=== PATIENT | male | born 1995 | race Two or more races ===

== ENCOUNTER 2024-03-05 21:04 | Emergency (ER) | payer MEDICAID, SELFPAY ==
[2024-03-05 21:05] VITALS: BMI 35.9
[2024-03-05 21:28] VITALS: BP 153/99; PULSE 128; RESP 20; TEMP 36.8; O2SAT 95
--- NOTE | 2024-03-05 21:38 | PD.EDRME ---
Rapid Medical Screening Exam RME Arrival date/time: 03/05/24 21:04 28 year old male present to ED for c/o alcohol withdrawal, last drink 2 days ago I have greeted and performed a focused initial assessment of this patient. A comprehensive ED assessment and evaluation of the patient, analysis of all test results, and completion of the medical decision making process will be conducted by additional ED providers. Chief Complaint: Flu Like Symptoms Time Seen by Provider: 03/05/24 21:33 Vital signs: Vital Signs Temperature 98.2 F 03/05/24 21:28 Pulse Rate 128 H 03/05/24 21:28 Respiratory Rate 20 03/05/24 21:28 Blood Pressure 153/99 H 03/05/24 21:28 Pulse Oximetry (%) 95 03/05/24 21:28 Oxygen Delivery Method Room Air 03/05/24 21:28
--- NOTE | 2024-03-05 21:39 | EKG_ITS ---
[facility] Test Date: 2024-03-05 Pat Name: MONY WAN Department: Room: - Gender: Male B[employer]er: : 1995 Requested By: Ariel Gordon Order Number: [id number] Reading MD: Ariel Gordon Measurements Intervals [place] Rate: 128 P: 39 ND: 165 QRS: -18 QRSD: 97 T: 30 QT: 301 QTc: 440 Interpretive Statements SINUS TACHYCARDIA MINIMAL VOLTAGE CRITERIA FOR LVH, CONSIDER NORMAL VARIANT [MEETS CRITERIA IN ONE OF: R(aVL), S(V1), R(V5), R(V5/V6)+S(V1)] POSSIBLE ANTERIOR MYOCARDIAL INFARCTION , OF INDETERMINATE AGE [30 ms Q WAVE IN V3/V4, OR R < 0.2 mV IN V4] Compared to ECG 08/29/2023 14:55:12 Myocardial infarct finding now present /store/S0/[id number]/[id number].pdf
[2024-03-05] MEDS: ONDANSETRON ODT 4 MG TABRAP PO (21:54)
[2024-03-05] MEDS: LORazepam 0.5 MG TABLET PO (21:54)
[2024-03-05 22:01] LABS: Basophils # (Auto) 0.1 Thou/mm3 (0.0-0.2); Basophils % (Auto) 1 % (0-2.5); Eosinophils % (Auto) 0 % (0-10); Hematocrit 25.7 % (41.0-53.0); Immature Granulocytes % (Auto) 0 % (0-0); Immature Granulocytes Auto 0.02 Thou/mm3 (0.00-0.00); Lymphocytes # (Auto) 1.3 Thou/mm3 (1.0-4.8); Lymphocytes % (Auto) 25 % (10-50); Mean Corpuscular HGB Conc 30.7 g/dl (31.0-37.0); Mean Corpuscular Hemoglobin 23.5 pg (25.0-35.0); Mean Corpuscular Volume 77 fL (80-100); Monocytes # (Auto) 0.7 Thou/mm3 (0.0-0.8); Monocytes % (Auto) 14 % (0-12); Neutrophils # (Auto) 3.1 Thou/mm3 (1.8-7.7); Neutrophils % (Auto) 60 % (37-80); Nucleated Red Blood Cell # 0.02 Thou/mm3 (0.00-0.00); Nucleated Red Blood Cell % 0 /100 WBC (0); Platelet Count 165 Thou/mm3 (140-440); RDW Standard Deviation 49.7 fL (35.1-43.9); Red Blood Count 3.36 Miln/mm3 (4.50-5.90); White Blood Count 5.1 Thou/mm3 (3.8-10.6)
[2024-03-05 22:15] LABS: Amphetamine/Methamp Scrn,U Negative (Negative); Barbiturate Screen,Urine Negative (Negative); Benzodiazepines Screen,Urine Negative (Negative); Benzoylecgonine Screen, Ur Negative (Negative); Fentanyl Screen,Urine Negative (Negative); Opiate Screen,Urine Negative (Negative); THC Screen,Urine Negative (Negative)
[2024-03-05 22:17] LABS: Hemoglobin 7.9 g/dL (13.5-16.0)
[2024-03-05 23:03] LABS: Alanine Aminotransferase 218 U/L (10-49); Albumin, Serum 4.9 gm/dL (3.5-5.0); Albumin/Globulin Ratio 1.3 (1.2-2.2); Alkaline Phosphatase 188 U/L (46-116); Anion Gap 12 (7-16); Aspartate Amino Transferase 668 U/L (0-34); BUN/Creatinine Ratio 7 Ratio (12-20); Bilirubin,Total 1.7 mg/dL (0.3-1.2); Blood Urea Nitrogen 7 mg/dL (9-23); Calcium 9.5 mg/dL (8.3-10.6); Calcium (Corrected) 9.5 mg/dL (8.5-10.1); Carbon Dioxide 24.4 mMol/L (20.0-31.0); Chloride 97 mMol/L (98-107); Estimated Creatinine Clearance 137.5 mL/min (>60); Globulin 3.8 gm/dL (2.3-3.5); Glucose 116 mg/dL (74-106); Lipase 80 U/L (12-53); Osmolality,Calculated 265 (275-295); Sodium 133 mMol/L (136-145); Total Protein 8.7 gm/dL (5.7-8.2); eGFR > 60 See Note
--- NOTE | 2024-03-05 23:25 | PC.NURSE ---
CALLED PT IN ER LOBBY AND OUTSIDE AND NO ANSWER AT THIS TIME.
== END 2024-03-06 00:05 | disposition left against medical advice (07) ==
LOC: SERX 22:18
PROVIDERS: Physician Assistant; Emergency Provider Emergency Medicine; PCP Family Medicine
DX: F10.239 Alcohol dependence with withdrawal, unspecified (principal); Y90.8 Blood alcohol level of 240 mg/100 ml or more; R00.0 Tachycardia, unspecified; Z53.29 Procedure and treatment not carried out because of patient's decision for other reasons
CPT/HCPCS: 36415; 80053; 80307; 80320; 83690; 83735; 84484; 85025; 93005; 99281; Q0162; A9270; G0480

== ENCOUNTER 2024-03-14 13:47 | Emergency (ER) | payer MEDICAID, SELFPAY ==
[2024-03-14 14:10] VITALS: BP 145/97; PULSE 108; RESP 18; TEMP 37.2; O2SAT 99
[2024-03-14 14:22] VITALS: BMI 39.9
--- NOTE | 2024-03-14 14:59 | PD.EDRME ---
Rapid Medical Screening Exam RME Arrival date/time: 03/14/24 13:47 28-year-old male presents to the emergency department complaints of abdominal pain requesting blood transfusion patient AMA from hospital today Chief Complaint: General Adult/Misc Complain Time Seen by Provider: 03/14/24 13:52 Vital signs: Vital Signs Temperature 98.9 F 03/14/24 14:10 Pulse Rate 108 H 03/14/24 14:10 Respiratory Rate 18 03/14/24 14:10 Blood Pressure 145/97 H 03/14/24 14:10 Pulse Oximetry (%) 99 03/14/24 14:10 Oxygen Delivery Method Room Air 03/14/24 14:10
== END 2024-03-14 15:28 | disposition left against medical advice (07) ==
LOC: SERX 15:33
PROVIDERS: Emergency Provider Emergency Medicine
DX: R10.9 Unspecified abdominal pain (principal); Z53.29 Procedure and treatment not carried out because of patient's decision for other reasons
CPT/HCPCS: 80053; 85025; 85610; 85730; 86850; 86900; 86901; 99281

== ENCOUNTER 2024-03-27 18:57 | Emergency (ER) | payer MEDICAID, SELFPAY ==
[2024-03-27 19:57] VITALS: BP 143/88; PULSE 107; RESP 18; TEMP 37.6; O2SAT 98; BMI 37.8
--- NOTE | 2024-03-27 20:16 | XR_ITS ---
Examination: Testicular sonography complete Technique: Multiple high resolution grayscale sonographic images testes, assessment arterial inflow venous outflow Doppler spectral analysis carful analysis Exam date and time: March 27, 20242 hrs. Indications: Onset testicular swelling beginning this morning Findings: Right testis 4.0 x 2.6 x 3.0 cm Epididymis 15 mm Arterial flow testicle. No testicular mass Impression: Left testis 4.1 x 2.8 x 3.4 cm Epididymis 16mm Arterial flow testicle. No testicular mass Mild to moderate left hydrocele with internal septations Impression: No testicular torsion or testicular mass Mild to moderate left hydrocele with internal septations
--- NOTE | 2024-03-27 21:15 | EDNOTE_ITS ---
<Statement entered by Michell Singh MD - 04/03/24 17:50> As co-signing physician, I was present and available for consult prn. I concur with the plan and care as documented by the midlevel provider. ED Male Genitalurinary RME/HPI General Chief complaint: Extremity Problem,Nontraumatic Stated complaint: BILAT LEGS & TESTICLES SWOLLEN X AM Time Seen by Provider: 03/27/24 19:48 Arrival date/time: 03/27/24 18:57 28-year-old male with a history of alcohol abuse, jaundice, chronic lower extremity swelling, and liver disease reports with complaints of scrotal swelling since this morning. Patient is currently under the care of his primary care provider for jaundice and other conditions related to the liver disease. Patient noticed today swelling of the scrotum without pain or injury. Patient also states that he has lower extremity swelling but that has been present the scrotal swelling is new. He denies dysuria urinary urgency frequency hematuria penile discharge redness or lesions of the genital area. Patient states that he is awaiting some blood labs for his liver condition Limitations: no limitations Related Data Home Medications ?Medication ?Instructions ?Recorded ?Confirmed No Known Home Medications 03/12/24 03/12/24 Allergies Allergy/AdvReac Type Severity Reaction Status Date / Time No Known Allergies Allergy Verified 03/27/24 18:59 Review of Systems Constitutional Constitutional: Denies chills and Denies fever(s) Genitourinary Genitourinary: Denies difficulty urinating, Denies dysuria, Denies genital pain, Denies hematospermia, Denies hematuria, Denies penile discharge, Reports scrotal swelling, Denies testicular mass, Denies testicular pain and Denies urinary incontinence Musculoskeletal Musculoskeletal: Denies back pain and Denies myalgias Integumentary/Breasts Skin/Breast: Denies lesions, Denies rash and Denies sores Past Medical History Past Medical History CARDIAC: Negative Congestive Heart Failure RESPIRATORY: Negative Chronic Obstructive Pulmonary Disease (COPD) GENITOURINARY: Negative Renal Disease ENDOCRINE: Negative Diabetes Mellitus Type 1 or Diabetes Mellitus Type 2 OTHER HISTORY: Negative Blood Transfusion Reaction, Anesthesia Reactions or Cancer Social History SMOKING STATUS: Never smoker ED Exam General Limitations: Present no limitations General appearance: Present alert and in no apparent distress Neurological Exam Neurological exam: Present alert, oriented X3 and CN II-XII intact Psychiatric Psychiatric exam: Present normal affect and normal mood Course Course Course Narrative: 28-year-old male with a history of liver disease, jaundice, chronic lower extremity swelling, and alcoholism reports with complaints of swelling of the scrotum. Patient's ultrasound of the scrotum shows no torsion but a small hydrocele otherwise unremarkable. Differential diagnosis includes alcoholic hepatitis versus hydrocele vs epididymitis. Pt's issues appear to chronic, secondary to liver disease. He is otherwise stable and will be discharged home with follow up to PCP. Quality Measures none Orders Category Date Time Status US scrotum Stat Exams 03/27/24 20:16 Completed Vital Signs Vital signs: Vital Signs Temperature 99.6 F 03/27/24 19:57 Pulse Rate 107 H 03/27/24 19:57 Respiratory Rate 18 03/27/24 19:57 Blood Pressure 143/88 H 03/27/24 19:57 Pulse Oximetry (%) 98 03/27/24 19:57 Oxygen Delivery Method Room Air 03/27/24 19:57 Urogenital - Male Patient data External records reviewed:: None Clinical information provided by:: patient Social determinants that could affect healthcare access:: none Patient has the following chronic illnesses:: liver disease, jaundice, alcoholism How is presenting disease/condition affected by chronic disease/condition?: caused by Evaluation data The following diagnostics were reviewed and interpreted by me:: radiology exam(s) Lab and/or radiology exams considered but not ordered:: none Interpretation Summary: Negative for torsion, hydrocele noted Medications / Prescriptions Medications or Prescriptions considered but not ordered:: none Medication administrations:: none Consultations Consultation(s) initiated? (list below): No Diagnosis Urogenital Male Differential Diagnosis: urethritis, epididymitis and other (hydrocele, liver disease) Most likely diagnosis given after review of the tests above:: Hydrocele, liver disease Admission Indicated Admission indicated?: not indicated Admission Request Was there a request for admission?: No Disposition Plan Disposition Plan: Discharge Discharge Attestation Discharge Attestation: The patient and all family members were given an opportunity to ask questions and understood the discharge instructions. Discharge instructions specifically effects, indications for sooner follow up or return to the emergency department, and the expected course of current diagnosis. Patient condition: Stable Discharge Plan Plan Patient Disposition: HOME (Self Care) Prescriptions/Referrals Prescriptions/Med Rec: No Action No Known Home Medications Referrals: No Primary/Family,Physician [Primary Care Provider] - In 1 week Problem List Clinical Impression: Scrotal swelling Patient/Caregiver Discharge Instructions Discharge Activity: activity as tolerated Additional Instructions: follow up with your PCP in 24-48 hour. Return to the ER if symptoms worsen. Print Language: Chinese Stand Alone Forms: Daphnie Award Info., Patient Portal Info Letter
[2024-03-27 22:46] VITALS: RESP 18
== END 2024-03-27 22:47 | disposition home or self-care (01) ==
PROVIDERS: Emergency Provider Emergency Medicine
DX: N43.3 Hydrocele, unspecified (principal)
CPT/HCPCS: 76870; 99284

== ENCOUNTER 2024-03-30 12:58 | Inpatient (IN) | payer MEDICAID, SELFPAY ==
--- NOTE | 2024-03-30 | XR_ITS ---
MRI abdomen, without contrast. MRCP Date and time of exam: March 30, 2024 1619 hours INDICATIONS: Elevated total bilirubin today, dizziness episodes Technique: Multiple axial and coronal images of the abdomen have been obtained with the Siemens 1.5T MRI scanner. Images obtained included T1 weighted transverse images, T2-weighted transverse images, T2-weighted transverse images fat-suppressed, T2 weighted haste fat suppressed transverse images, T1 weighted images, in and out of phase images, T2-weighted coronal images, breath hold, T2 weighted haze coronal images as well as T2 weighted coronal thick slab images, MRCP. Findings: Hepatomegaly 29 cm, no focal liver lesions Gallbladder wall appears thickened and edematous Normal common bile duct 3 mm no common bile duct stones No enlargement of the pancreas no pancreatic edema No hydronephrosis Spleen not enlarged Aorta normal size IMPRESSION: Findings most consistent with acute acalculus cholecystitis, recommend repeat gallbladder sonography follow-up
[2024-03-30 13:07] VITALS: BP 128/81; PULSE 103; RESP 18; TEMP 36.9; O2SAT 98; BMI 38.0
[2024-03-30 14:20] LABS: Basophils # (Auto) 0.1 Thou/mm3 (0.0-0.2); Basophils % (Auto) 0 % (0-2.5); Eosinophils # (Auto) 0.1 Thou/mm3 (0.0-0.5); Eosinophils % (Auto) 1 % (0-10); Hematocrit 26.3 % (41.0-53.0); Immature Granulocytes % (Auto) 1 % (0-0); Immature Granulocytes Auto 0.37 Thou/mm3 (0.00-0.00); Lymphocytes # (Auto) 0.9 Thou/mm3 (1.0-4.8); Lymphocytes % (Auto) 3 % (10-50); Mean Corpuscular HGB Conc 31.2 g/dl (31.0-37.0); Mean Corpuscular Hemoglobin 24.6 pg (25.0-35.0); Mean Corpuscular Volume 79 fL (80-100); Monocytes % (Auto) 3 % (0-12); Neutrophils # (Auto) 27.8 Thou/mm3 (1.8-7.7); Neutrophils % (Auto) 92 % (37-80); Nucleated Red Blood Cell % 0 /100 WBC (0); Platelet Count 702 Thou/mm3 (140-440); RDW Standard Deviation 72.1 fL (35.1-43.9); Red Blood Count 3.33 Miln/mm3 (4.50-5.90); White Blood Count 30.3 Thou/mm3 (3.8-10.6)
[2024-03-30 14:24] LABS: Hemoglobin 8.2 g/dL (13.5-16.0)
[2024-03-30 14:36] LABS: INR 1.6 (0.9-1.3); Partial Thromboplastin Time 27.9 Seconds (22.0-36.0); Prothrombin Time 17.2 Seconds (9.0-12.2)
[2024-03-30 14:41] LABS: Amphetamine/Methamp Scrn,U Negative (Negative); Barbiturate Screen,Urine Negative (Negative); Benzodiazepines Screen,Urine Positive (Negative); Benzoylecgonine Screen, Ur Negative (Negative); Fentanyl Screen,Urine Negative (Negative); Opiate Screen,Urine Negative (Negative); THC Screen,Urine Negative (Negative)
[2024-03-30 15:00] LABS: Alanine Aminotransferase 59 U/L (10-49); Albumin, Serum 3.1 gm/dL (3.5-5.0); Albumin/Globulin Ratio 0.9 (1.2-2.2); Alcohol, Blood Medical < 10.0 mg/dL (0-10.0); Alkaline Phosphatase 503 U/L (46-116); Anion Gap 9 (7-16); Aspartate Amino Transferase 280 U/L (0-34); BUN/Creatinine Ratio 15 Ratio (12-20); Blood Urea Nitrogen 25 mg/dL (9-23); Calcium 8.1 mg/dL (8.3-10.6); Calcium (Corrected) 8.8 mg/dL (8.5-10.1); Carbon Dioxide 20.7 mMol/L (20.0-31.0); Chloride 96 mMol/L (98-107); Creatinine (Component) 1.7 mg/dL (0.6-1.3); Estimated Creatinine Clearance 83.4 mL/min (>60); Globulin 3.4 gm/dL (2.3-3.5); Glucose 136 mg/dL (74-106); Osmolality,Calculated 259 (275-295); Potassium 3.5 mMol/L (3.4-5.1); Sodium 126 mMol/L (136-145); Total Protein 6.5 gm/dL (5.7-8.2); eGFR 55 See Note
[2024-03-30 15:02] LABS: Bilirubin,Total 22.9 mg/dL (0.3-1.2)
[2024-03-30 15:24] LABS: Hepatitis A Antibody IgM Non Reactive (Non React); Hepatitis B Core Antibody IgM Non Reactive (Non React); Hepatitis B Surface Antigen Non Reactive (Non React); Hepatitis C Antibody Non Reactive (Non React)
[2024-03-30 15:28] VITALS: BP 120/74; PULSE 101; RESP 18; TEMP 37.4; O2SAT 98
--- NOTE | 2024-03-30 16:20 | PD.EDADULT ---
ED General RME/HPI General Chief complaint: Recheck/Abnormal Lab/Rx Stated complaint: Sodium is 121 Time Seen by Provider: 03/30/24 13:04 Arrival date/time: 03/30/24 12:58 RME / HPI RME / HPI narrative: 28-year-old male with significant history of alcohol use ~4 years presented in the ED after he was sent from his PCP Mani SKINNER, for low sodium levels. Patient recently went to [facility]. Will do to recommend him to follow-up with his PCP for poor liver function. PCP prescribed folic acid, omeprazole, and ibuprofen for pain. Patient had a sodium of 121 earlier today in her PCP office and subsequently recommended patient to come to the ED. He appeared to deny any symptoms. Patient denies headache, fever, chills, chest pain, palpitation, shortness of breath, dizziness, nausea, vomiting, diarrhea, or constipation. Allergies: none, Medications: FHx: none, surgical hx: none, Social hx: Alcohol use for 4 years (6 to 8- 12 oz malt beers daily), denies any tobacco use or illicit alcohol use. MD complaint: Low sodium levels Onset (ago): hour(s) Related Data Home Medications ?Medication ?Instructions ?Recorded ?Confirmed No Known Home Medications 03/12/24 03/12/24 Allergies Allergy/AdvReac Type Severity Reaction Status Date / Time No Known Allergies Allergy Verified 03/27/24 18:59 Review of Systems Review of Systems Systems Reviewed: All systems reviewed, normal except as documented Past Medical History Past Medical History CARDIAC: Negative Congestive Heart Failure RESPIRATORY: Negative Chronic Obstructive Pulmonary Disease (COPD) GENITOURINARY: Negative Renal Disease ENDOCRINE: Negative Diabetes Mellitus Type 1 or Diabetes Mellitus Type 2 OTHER HISTORY: Negative Blood Transfusion Reaction, Anesthesia Reactions or Cancer Social History SMOKING STATUS: Never smoker ED Exam Narrative Physical exam: Constitutional: well-nourished, male with jaundice in no acute distress, lying in bed. HEENT: NCAT, EOMI, reactive round pupils b/l, patent nares b/l, moist mucous membranes, on room air Lung: CTAB, no wheezing, no rhonchi, no crackles bilaterally Heart: Regular S1S2, no murmurs, gallops, or rubs Abdomen: Soft, distended, non-tender, abdominal straie , ascites, +++bowel sounds, central obesity present. Extremities: No cyanosis, clubbing, 1+ edema of b/l legs up to thighs, 2+ dorsalis pedis pulses present b/l Genitourinary: Swollen testicles and scrotal sac, negative penile discharge Neurologic: No focal sensory or motor deficits noted, AOx3, appropriate affect Skin: Warm, dry, no lesions or rashes noted Course Quality Measures none Orders Category Date Time Status CT Screening NOW Care 03/30/24 17:44 Active MRI Screening NOW Care 03/30/24 15:29 Active Consult to Gastroenterology Stat Cons 03/30/24 17:[address] abdomen pelvis w con Stat Exams 03/30/24 17:44 Ordered MR MRCP Stat Exams 03/30/24 Completed US gall bladder Stat Exams 03/30/24 17:20 Ordered Alcohol, Blood Medical Stat Lab 03/30/24 14:00 Completed CBC Stat Lab 03/30/24 14:00 Completed Comprehensive Metabolic Panel Stat Lab 03/30/24 14:00 Completed Drug Screen,Urine Stat Lab 03/30/24 13:57 Completed Hepatitis Acute Panel Stat Lab 03/30/24 14:00 Completed Partial Thromboplastin Time Stat Lab 03/30/24 14:00 Completed Prothrombin Time with INR Stat Lab 03/30/24 14:00 Completed cefTRIAXone [Rocephin] 2 gm Med 03/30/24 17:54 Active Sodium Chloride 0.9% (P) [Ns 0.9% (P)] 50 ml IV X1 Vital Signs Vital signs: Vital Signs Temperature 98.5 F 03/30/24 13:07 Pulse Rate 103 H 03/30/24 13:07 Respiratory Rate 18 03/30/24 13:07 Blood Pressure 128/81 03/30/24 13:07 Pulse Oximetry (%) 98 03/30/24 13:07 Oxygen Delivery Method Room Air 03/30/24 13:07 [facility] Patient data External records reviewed:: [facility] previous records Clinical information provided by:: patient and parent Social determinants that could affect healthcare access:: none Patient has the following chronic illnesses:: Liver disease, hx of alcohol use How is presenting disease/condition affected by chronic disease/condition?: exacerbated by Evaluation data The following diagnostics were reviewed and interpreted by me:: lab results Lab and/or radiology exams considered but not ordered:: Hyperbilirubinemia, Hyponatremia and possible SBP Interpretation Summary: Hyperbilirubinemia?bilirubin total 22.9 AST 280, ALT 59, alkaline phosphatase 503. Urine benzodiazepine- positive. Hypochloremia 96, hyponatremia sodium 126. MRCP: Hepatomegdaly and acalculus colecystitis US gallbladder pending CT A/P pending Medications Medications considered but not ordered:: None Medication administrations:: Medication Administration History Ceftriaxone Sodium 2 gm/ (Sodium Chloride) 50 mls @ 100 mls/hr IV X1 ONE Stop: 03/30/24 18:23 None Consultations Consultation(s) initiated? (list below): Yes Consultation #1 (Physician, Specialty, Details): Dr. Moss, Gastroenterology Diagnosis Differential Diagnosis ED Complaint MDM: Hepatocellular disease Most likely diagnosis given after review of the tests above:: None Admission Indicated Admission indicated?: indicated Explain why admission is indicated or not indicated:: Patient comes in with chronic alcohol use. He denies taking any alcohol over the past 2 weeks. However, patient was found hyponatremia in the ED. He also had elevated T. bili of 22.6. AST and LFTs are elevated with a greater than 2:1 ratio. On MRCP patient has acalculus cholecystitis, though clinically asymptomatic. Spoke with Dr. Moss who recommended admission for management of likely spontaneous bacterial peritonitis, but patient is currently afebrile, without any tenderness in the abdominal region. Or any signs of infection. Patient denies nausea, vomiting, dizziness, shortness of breath or diarrhea. Patient was noted to have dry cough. Patient require admission. Presented the case to afternoon Hospitalist team but they refuse to admit until CT A/P is done. Admission Request Was there a request for admission?: Yes Admission Attestation Admission request attestation: Discussed case with [] from Hospitalist service regarding admission. Discussed patients ED course, exam findings, labs, and radiology results. The Hospitalist [agrees,declines] to accept the patient for admission. Disposition Plan Disposition Plan: Admit Medical Decision Making MDM Narrative MDM Narrative: An icteric 28-year-old male with significant history of alcohol use ~4 years presented in the ED after he was sent from his PCP Mani SKINNER, for low sodium levels. Patient recently went to [facility] and was recommend follow-up with his PCP for poor liver function. ON 03/30/24, during his PCP visit, patient was found to have sodium of 121. On CMP done today in the ED, patient has a sodium of 126. Patient was found to have unremarkable bilirubin of 22.6, decision was made to order MRCP. Pending results of MRCP. If MRCP shows biliary obstruction, will proceed with plan. Dr. Moss recommends broad spectrum antibiotics for management of likely SBP. Patient's condition appears acute on chronic in the setting of liver disease. Pending CT a/p for admission for SBP and hyponatremia. Differential Diagnosis Differential Diagnosis: Hepatocellular disease Medical Records Medical records reviewed: Yes I reviewed the patient's medical records. Lab Data Lab results reviewed: Yes I reviewed the patient's lab results. 03/30/24 14:00 03/30/24 14:00 Labs: Lab Results 03/30/24 03/30/24 Range/Units 13:57 14:00 WBC 30.3 H (3.8-10.6) Thou/mm3 RBC 3.33 L (4.50-5.90) Miln/mm3 Hgb 8.2 L (13.5-16.0) g/dL Hct 26.3 L (41.0-53.0) % MCV 79 L (80-100) fL MCH 24.6 L (25.0-35.0) pg MCHC 31.2 (31.0-37.0) g/dl RDW Std Deviation 72.1 H (35.1-43.9) fL Plt Count 702 H D (140-440) Thou/mm3 Neut % (Auto) 92 H (37-80) % Lymph % (Auto) 3 L (10-50) % [place] % (Auto) 3 (0-12) % Eos % (Auto) 1 (0-10) % Baso % (Auto) 0 (0-2.5) % Neut # (Auto) 27.8 H (1.8-7.7) Thou/mm3 Lymph # (Auto) 0.9 L (1.0-4.8) Thou/mm3 [place] # (Auto) 1.0 H (0.0-0.8) Thou/mm3 Eos # (Auto) 0.1 (0.0-0.5) Thou/mm3 Baso # (Auto) 0.1 (0.0-0.2) Thou/mm3 Immature Gran # (Auto) 0.37 H (0.00-0.00) Thou/mm3 Absolute Nucleated RBC 0.00 (0.00-0.00) Thou/mm3 Immature Gran % 1 H (0-0) % Nucleated RBC % 0 (0) /100 WBC PT 17.2 H (9.0-12.2) Seconds INR 1.6 H (0.9-1.3) APTT 27.9 (22.0-36.0) Seconds Sodium 126 L (136-145) mMol/L Potassium 3.5 (3.4-5.1) mMol/L Chloride 96 L (98-107) mMol/L Carbon Dioxide 20.7 (20.0-31.0) mMol/L Anion Gap 9 (7-16) BUN 25 H (9-23) mg/dL Creatinine 1.7 H (0.6-1.3) mg/dL Estim Creat Clear Calc 83.4 (>60) mL/min eGFR 55 L (60 - ) See Note BUN/Creatinine Ratio 15 (12-20) Ratio Glucose 136 H (74-106) mg/dL Calculated Osmolality 259 L (275-295) Calcium 8.1 L (8.3-10.6) mg/dL Corrected Calcium 8.8 (8.5-10.1) mg/dL Total Bilirubin 22.9 H* (0.3-1.2) mg/dL AST 280 H (0-34) U/L ALT 59 H (10-49) U/L Alkaline Phosphatase 503 H (46-116) U/L Total Protein 6.5 (5.7-8.2) gm/dL Albumin 3.1 L (3.5-5.0) gm/dL Globulin 3.4 (2.3-3.5) gm/dL Albumin/Globulin Ratio 0.9 L (1.2-2.2) Urine Opiates Screen Negative (Negative) Urine Fentanyl Screen Negative (Negative) Ur Barbiturates Screen Negative (Negative) U Amphetamin/Meth Scrn Negative (Negative) U Benzodiazepines Scrn Positive A (Negative) U Cocaine Metab Screen Negative (Negative) U Marijuana (THC) Screen Negative (Negative) Ethyl Alcohol < 10.0 (0-10.0) mg/dL Hepatitis A IgM Ab Non Reactive (Non React) Hep Bs Antigen Non Reactive (Non React) Hep B Core IgM Ab Non Reactive (Non React) Hepatitis C Antibody Non Reactive (Non React) Radiology Data Radiology results reviewed: Yes I reviewed the patient's radiology results. Discharge Plan Prescriptions/Referrals Prescriptions/Med Rec: No Action No Known Home Medications Referrals: Mani Good PA-C [Primary Care Provider] - In 1 week Problem List Clinical Impression: SBP (spontaneous bacterial peritonitis), Acute hyponatremia, Hepatomegaly Patient/Caregiver Discharge Instructions Print Language: Croatian MD Attestation MD Attestation The patient was seen by the PGY-2. I, the supervising physician, also encountered and examined the patient while remaining present during the entire ER visit. I was available for consultation as needed. Working with the PGY 2, management, treatment plan, and documentation were formulated. I agree with the plan and documentation.
--- NOTE | 2024-03-30 17:20 | XR_ITS ---
Examination: Abdomen sonogram, Limited Date and time of exam: March 30, 2024 1825 hours INDICATIONS: Upper abdominal pain today, edematous thickened gallbladder wall on MRCP study today Technique: Real-time bach scale transabdominal sonographic images of the upper abdomen obtained. Findings: Gallbladder wall is thickened 0.9 cm with edema No gallstones Common bile duct 0.5 cm Pancreatic head 2.3 cm Marked hepatomegaly 29.3 cm fatty infiltration free fluid adjacent to the right lobe of the liver Patent IVC Normal hepatopedal portal venous flow IMPRESSION: Acute acalculous cholecystitis pattern
--- NOTE | 2024-03-30 17:44 | XR_ITS ---
Examination: CT abdomen with intravenous contrast CT pelvis with intravenous contrast 2-D coronal reconstructions 2-D sagittal reconstructions Date and time of exam:March 30, 20242007 hrs. Indications: Abdominal distention today. CTDI: vol (mGy) 13.3 DLP: (mGycm) 970 Technique: Multiple axial sections of the abdomen and pelvis have been obtained. 64 slice high-resolution scanner used. 3 mm axial sections have been obtained, post intravenous injection 30 cc [id number] 2-D sagittal, coronal reconstructions obtained. Low dose protocols were performed. One or more of the following dose reduction techniques were used; automated exposure control, adjustment of the mA and/or KV according to patient size, use of iterative reconstruction technique. Findings: Hepatomegaly 27 cm, liver is irregular in contour with diffuse fatty infiltration Splenomegaly AP dimension 15 cm Mild fluid subcapsular to the liver Marked gallbladder wall thickening and edema No pancreatic or splenic mass 10 mm left renal cyst with calcification No hydronephrosis or ureteral calculi Appendix is not diagnostically visualized Minimal ascites including mild free fluid in the pelvis Contracted urinary bladder Fat-containing left inguinal hernia Impression: Marked hepatomegaly, primary hepatocellular disease versus cirrhosis Mild ascites, splenomegaly 15 cm Gallbladder wall thickening, suspicious for acute cholecystitis, however the patient has ascites, HIDA scan follow-up would best assess for cystic duct obstruction
[2024-03-30 18:23] VITALS: BP 131/64; PULSE 100; RESP 18; TEMP 37.5; O2SAT 98
--- NOTE | 2024-03-30 18:28 | PC.CC ---
Patient is a 28 year-old male who presents to the hospital for Sodium being 121. Marlene JACK made vags-oa-byvo contact with patient. ASW introduced self, role, and reason for visit. Patient appeared alert and oriented to self, location, and situation. Patient was pleasant and engaged in initial assessment. At bedside was patient's mother, Bettye Hargrove whom patient provided consent to remain in the room during assessment. Patient confirmed information on demographics and reports to living with his mother. Patient is currently unemployed and is not attending school. Patient reports his mother is part of his support [employer]. The patient named his mother as his medical decision maker should he be unable to make his own decisions. Prior to being admitted to the hospital the patient was able to complete his own ADLs and Ambulate Independently. The patient does not use any DME. Patient receives primary care at [facility] with Mani Good and uses [facility] for prescription medication. Upon discharge the patient plans to return back home. administrative services manager to follow-up with any discharge needs.
[2024-03-30] MEDS: cefTRIAXone 2 GM in SODIUM CHLORIDE 0.9% (P) 50 ML IV (18:44)
--- NOTE | 2024-03-30 19:37 | EDNOTE_ITS ---
Emergency Room Addendum <Dedra Mendez - Last Filed: 03/30/24 21:40> Addendum Narrative: 1800: Care assumed from Dr. Hargrove and Dr. Bates, the previous shift emergency physician. Past medical, surgical, social and family history reviewed. Vitals and home medications reviewed. I will assume the care of the patient at this time, pending abdomen/pelvis CT and final disposition. Please refer to the emergency department record for history and examination from initial visit.? Physical exam by me shows patient under no acute distress at this time. 1999: Patient is going to CAT scan. 2048: Discussed test HPI, PMHx, lab, radiology results and/or management es pecially CAT scan results with Dr. Moss. Dr. Moss had discussed with resident Dr. Hargrove about this case and the plan was for the patient to be admitted due to his elevated white count, hyponatremia; due to no surgical abdomen at this time, he does not feel the patient needs a surgical consult. Will consult an admission to the hospitalist. I explained that the medicine team is concerned about this admission and he said that makes sense, however the patient has an elevated white count, recommends blood cultures to be followed, and does not recommend the patient be discharged home. 2149: Discussed with Dr. Huang, recommends to scan. Will consult tomorrow. RADIOLOGY Procedure(s): CT abdomen pelvis w con Accession Number(s): [id number] cc: Mani Good PA-C; Nereyda Hargrove; Iker Plaza MD~ Examination: CT abdomen with intravenous contrast CT pelvis with intravenous contrast 2-D coronal reconstructions 2-D sagittal reconstructions Date and time of exam:March 30, 20242007 hrs. Indications: Abdominal distention today. CTDI: vol (mGy) 13.3 DLP: (mGycm) 970 Technique: Multiple axial sections of the abdomen and pelvis have been obtained. 64 slice high-resolution scanner used. 3 mm axial sections have been obtained, post intravenous injection 30 cc [id number] 2-D sagittal, coronal reconstructions obtained. Low dose protocols were performed. One or more of the following dose reduction techniques were used; automated exposure control, adjustment of the mA and/or KV according to patient size, use of iterative reconstruction technique. Findings: Hepatomegaly 27 cm, liver is irregular in contour with diffuse fatty infiltration Splenomegaly AP dimension 15 cm Mild fluid subcapsular to the liver Marked gallbladder wall thickening and edema No pancreatic or splenic mass 10 mm left renal cyst with calcification No hydronephrosis or ureteral calculi Appendix is not diagnostically visualized Minimal ascites including mild free fluid in the pelvis Contracted urinary bladder Fat-containing left inguinal hernia Impression: Marked hepatomegaly, primary hepatocellular disease versus cirrhosis Mild ascites, splenomegaly 15 cm Gallbladder wall thickening, suspicious for acute cholecystitis, however the patient has ascites, HIDA scan follow-up would best assess for cystic duct obstruction Dictated By: Iker Plaza MD Procedure(s): US gall bladder Accession Number(s): [id number] cc: Mani Good PA-C; Nereyda Hagrrove; Iker Plaza MD~ Examination: Abdomen sonogram, Limited Date and time of exam: March 30, 2024 1825 hours INDICATIONS: Upper abdominal pain today, edematous thickened gallbladder wall on MRCP study today Technique: Real-time bach scale transabdominal sonographic images of the upper abdomen obtained. Findings: Gallbladder wall is thickened 0.9 cm with edema No gallstones Common bile duct 0.5 cm Pancreatic head 2.3 cm Marked hepatomegaly 29.3 cm fatty infiltration free fluid adjacent to the right lobe of the liver Patent IVC Normal hepatopedal portal venous flow IMPRESSION: Acute acalculous cholecystitis pattern Dictated By: Iker Plaza MD Procedure(s): MR MRCP Accession Number(s): [id number] cc: Mani Good PA-C; Lee Bates MD; Iker Plaza MD~ MRI abdomen, without contrast. MRCP Date and time of exam: March 30, 2024 1619 hours INDICATIONS: Elevated total bilirubin today, dizziness episodes Technique: Multiple axial and coronal images of the abdomen have been obtained with the Siemens 1.5T MRI scanner. Images obtained included T1 weighted transverse images, T2-weighted transverse images, T2-weighted transverse images fat-suppressed, T2 weighted haste fat suppressed transverse images, T1 weighted images, in and out of phase images, T2-weighted coronal images, breath hold, T2 weighted haze coronal images as well as T2 weighted coronal thick slab images, MRCP. Findings: Hepatomegaly 29 cm, no focal liver lesions Gallbladder wall appears thickened and edematous Normal common bile duct 3 mm no common bile duct stones No enlargement of the pancreas no pancreatic edema No hydronephrosis Spleen not enlarged Aorta normal size IMPRESSION: Findings most consistent with acute acalculus cholecystitis, recommend repeat gallbladder sonography follow-up Dictated By: Iker Plaza MD <Zully Reveles MD - Last Filed: 03/30/24 23:11> Addendum Narrative: 1800: Care assumed from Dr. Hargrove and Dr. Bates, the previous shift emergency physician. Past medical, surgical, social and family history reviewed. Vitals and home medications reviewed. I will assume the care of the patient at this time, pending abdomen/pelvis CT and final disposition. Please refer to the emergency department record for history and examination from initial visit.? Physical exam by me shows patient under no acute distress at this time. 1999: Patient is going to CAT scan. 2048: Discussed test HPI, PMHx, lab, radiology results and/or management especially CAT scan results with Dr. Moss. Dr. Moss had discussed with resident Dr. Hargrove about this case and the plan was for the patient to be admitted due to his elevated white count, hyponatremia; due to no surgical abdomen at this time, he does not feel the patient needs a surgical consult. Will consult an admission to the hospitalist. I explained that the medicine team is concerned about this admission and he said that makes sense, however the patient has an elevated white count, recommends blood cultures to be followed, and does not recommend the patient be discharged home. 2149: Discussed with Dr. Huang, recommends to Jer[facility]. Will consult tomorrow. Resident working with Dr Leonard made aware of the patient?s HPI, PMHx, lab and/or radiology results. Treatment plan was discussed. Will admit for further evaluation and management. Accepts patient for admission. RADIOLOGY Procedure(s): CT abdomen pelvis w con Accession Number(s): [id number] cc: Mani Good PA-C; Nereyda Hargrove; Iker Plaza MD~ Examination: CT abdomen with intravenous contrast CT pelvis with intravenous contrast 2-D coronal reconstructions 2-D sagittal reconstructions Date and time of exam:March 30, 20242007 hrs. Indications: Abdominal distention today. CTDI: vol (mGy) 13.3 DLP: (mGycm) 970 Technique: Multiple axial sections of the abdomen and pelvis have been obtained. 64 slice high-resolution scanner used. 3 mm axial sections have been obtained, post intravenous injection 30 cc [id number] 2-D sagittal, coronal reconstructions obtained. Low dose protocols were performed. One or more of the following dose reduction techniques were used; automated exposure control, adjustment of the mA and/or KV according to patient size, use of iterative reconstruction technique. Findings: Hepatomegaly 27 cm, liver is irregular in contour with diffuse fatty infiltration Splenomegaly AP dimension 15 cm Mild fluid subcapsular to the liver Marked gallbladder wall thickening and edema No pancreatic or splenic mass 10 mm left renal cyst with calcification No hydronephrosis or ureteral calculi Appendix is not diagnostically visualized Minimal ascites including mild free fluid in the pelvis Contracted urinary bladder Fat-containing left inguinal hernia Impression: Marked hepatomegaly, primary hepatocellular disease versus cirrhosis Mild ascites, splenomegaly 15 cm Gallbladder wall thickening, suspicious for acute cholecystitis, however the patient has ascites, HIDA scan follow-up would best assess for cystic duct obstruction Dictated By: Iker Plaza MD Procedure(s): US gall bladder Accession Number(s): [id number] cc: Mani Good PA-C; Nereyda Hargrove; Iker Plaza MD~ Examination: Abdomen sonogram, Limited Date and time of exam: March 30, 2024 1825 hours INDICATIONS: Upper abdominal pain today, edematous thickened gallbladder wall on MRCP study today Technique: Real-time bach scale transabdominal sonographic images of the upper abdomen obtained. Findings: Gallbladder wall is thickened 0.9 cm with edema No gallstones Common bile duct 0.5 cm Pancreatic head 2.3 cm Marked hepatomegaly 29.3 cm fatty infiltration free fluid adjacent to the right lobe of the liver Patent IVC Normal hepatopedal portal venous flow IMPRESSION: Acute acalculous cholecystitis pattern Dictated By: Iker Plaza MD Procedure(s): MR MRCP Accession Number(s): [id number] cc: Mani Good PA-C; Lee Bates MD; Iker Plaza MD~ MRI abdomen, without contrast. MRCP Date and time of exam: March 30, 2024 1619 hours INDICATIONS: Elevated total bilirubin today, dizziness episodes Technique: Multiple axial and coronal images of the abdomen have been obtained with the Siemens 1.5T MRI scanner. Images obtained included T1 weighted transverse images, T2-weighted transverse images, T2-weighted transverse images fat-suppressed, T2 weighted haste fat suppressed transverse images, T1 weighted images, in and out of phase images, T2-weighted coronal images, breath hold, T2 weighted haze coronal images as well as T2 weighted coronal thick slab images, MRCP. Findings: Hepatomegaly 29 cm, no focal liver lesions Gallbladder wall appears thickened and edematous Normal common bile duct 3 mm no common bile duct stones No enlargement of the pancreas no pancreatic edema No hydronephrosis Spleen not enlarged Aorta normal size IMPRESSION: Findings most consistent with acute acalculus cholecystitis, recommend repeat gallbladder sonography follow-up Dictated By: Iker Plaaz MD
[2024-03-30 19:54] VITALS: BP 116/67; PULSE 102; RESP 16; TEMP 37; O2SAT 100
--- NOTE | 2024-03-30 21:29 | ESCONSULT_ITS ---
HPI Data of Consult Primary Care Provider: Mani Good PA-C Consult Narrative Reason for consult: Abnormal liver function tests, leukocytosis, gross electrolyte abnormalitie History of present illness: 28 years old male evaluated in room 6 initially at the request of the internal medicine team Dr. Hargrove as well as the emergency room physician Dr Stephenson Patient has been drinking heavily but has not drank for last 3 weeks according to him and the mother in the room His initial laboratory workup showed total bilirubin of 22.9 AST ALT 218 89 and alk phos of 503 Patient was sent to the emergency room by the physician talent acquisition assistant Mani Babin for a sodium level of 121 In the ER the sodium level was 126 with a low chloride at 96 and a low osmolality at 259 cc:: cc: Review of Systems Review of Systems Systems Reviewed: All systems reviewed, normal except as documented Past Medical History Surgical History OTHER SURGICAL HX: As in the history of present illness Meds Home Medications and Allergies Home Medications ?Medication ?Instructions ?Recorded ?Confirmed ?Type folic acid 1 mg tablet 1 mg PO QID 03/30/24 03/30/24 History omeprazole 20 mg capsule,delayed 20 mg PO 1XD 03/30/24 03/30/24 History release Allergies Allergy/AdvReac Type Severity Reaction Status Date / Time No Known Allergies Allergy Verified 03/27/24 18:59 Exam Vital Signs Temp Pulse Resp BP Pulse Ox O2 Del Method 98.6 F 102 H 16 116/67 100 Room Air 03/30/24 19:54 03/30/24 19:54 03/30/24 19:54 03/30/24 19:54 03/30/24 19:54 03/30/24 19:54 Constitutional Comments: Alert oriented Routine HEENT Exam Comments: Icteric sclera Routine Respiratory Exam Comments: Normal to auscultation Routine Abdominal Exam Comments: Abdomen soft nontender active bowel sounds Results Labs 03/30/24 14:00 03/30/24 14:00 Labs: Short CBC 03/30/24 Range/Units 14:00 WBC 30.3 H (3.8-10.6) Thou/mm3 Hgb 8.2 L (13.5-16.0) g/dL Hct 26.3 L (41.0-53.0) % Plt Count 702 H D (140-440) Thou/mm3 BMP 03/30/24 14:00 Sodium 126 L Potassium 3.5 Chloride 96 L Carbon Dioxide 20.7 BUN 25 H Creatinine 1.7 H Glucose 136 H Calcium 8.1 L Liver Function 03/30/24 Range/Units 14:00 Total Bilirubin 22.9 H* (0.3-1.2) mg/dL AST 280 H (0-34) U/L ALT 59 H (10-49) U/L Alkaline Phosphatase 503 H (46-116) U/L Albumin 3.1 L (3.5-5.0) gm/dL Assessment and Plan Additional Assessment & Plan Additional Plan: # Acute decompensation of the chronic liver disease secondary to alcoholism # Coagulopathy # Hypoosmolar hypochloremic hyponatremia # Leukocytosis could be SBP unlikely biliary tract disease Plan Broad-spectrum antibiotics Not enough fluid in the belly to tap for culture and sensitivity Pancultures Monitor LFTs Correction of the hyponatremia Prognosis is guarded I will follow the patient with you
[2024-03-30] MEDS: THIAMINE 100 MG TABLET PO (22:39)
[2024-03-30] MEDS: PIPER/TAZO 3.375 GM 3.375 GM/50 ML BAG IV (22:47)
[2024-03-30 22:49] VITALS: BP 171/94; PULSE 94; RESP 18; TEMP 36.9; O2SAT 100
--- NOTE | 2024-03-30 22:56 | ESHP_ITS ---
Documentation for date of: 03/30/24 [facility] History of Present Illness History of present illness: The patient is a 28-year-old male with a history of alcohol use who presented to the ED on 03/30/2024 after being sent from his primary care due to low sodium level as seen on routine labs. Patient was in his usual state of health until about 3 weeks ago when he presented to his PCP and told that he might have liver disease and was advised to stop drinking alcohol. About 3 days later, patient was admitted to the hospital as he presented with fevers, anxiety and tremors as well as tachycardia all related to alcohol withdrawal. During the course of hospitalization, patient was found to have hyperbilirubinemia and transaminitis. He also had anemia, but refuse transfusion and left AMA He reports that he has stopped drinking for about 3 weeks but also started to notice yellowish discoloration of his skin and sclera as well as swelling in bilateral lower extremities. He presented to his primary care who started the patient on folic acid and omeprazole and had routine labs done. The patient presents today after being sent to the ED for low sodium level. He denies abdominal pain, fevers or chills, nausea vomiting or diarrhea. ED course: In the ED, patient was seen to be afebrile, normotensive slightly tachycardic. Labs showed WBC 30.3 Hgb 8.2 PLT 702 PT 17.2 INR 1.6 NA 126 CL 96 BUN 25 CR 1.7 glucose 136 calcium 8.8 T. bili 22.9 AST 280 ALT 59 ALP 503 albumin 3.1. U tox is positive for benzos and hep panel is negative. MRCP and gallbladder ultrasound showed acute acalculous cholecystitis pattern. The patient has been admitted for management of acute cholecystitis and possible sepsis, rule out SBP. PMHx-alcohol use PSHx- Nil Home meds-folic acid, omeprazole. Review of Systems Review of Systems Narrative Review of Systems: GENERAL: Denies fevers/chills or diaphoresis. HEENT: Denies headache or visual/hearing changes. Denies nasal discharge. NEURO: Denies unusual weakness or difficulty speaking. CARDIO: Denies chest pain or palpitations. PULM: Denies SOB, coughing, or wheezing. GI: Denies abdominal pain, N/V/C/D/reflux/gas, bright red blood per rectum or melena. Reports having BMs. URO: Denies burning/itching/pain/urinary changes. MSK/EXT/SKIN: Admits swelling in lower extremities PSYCH: Cooperative, pleasant mood & affect. Exam Vital Signs Temp Pulse Resp BP Pulse Ox O2 Del Method 98.5 F 94 18 171/94 H 100 Room Air 03/30/24 22:49 03/30/24 22:49 03/30/24 22:49 03/30/24 22:49 03/30/24 22:49 03/30/24 22:49 Narrative Exam GENERAL: AAOX3, icteric sclera and skin NEURO: ANODIZING LINE OPERATOR grossly intact, moves extremities x4 HEENT: Moist mucosa. Eyes open, symmetrical, & icteric CARDIO: No chest pain on palpation. Heart RRR, no obvious murmurs PULM: No noted coughing/dyspnea. Lungs CTA B/L GI: Abdomen soft, mildly distended, no pain on palpation. BSx4 URO/INTERACTIVE MEDIA PROJECT MANAGER:: No further abnormalities noted. SKIN/MSK/EXT: Bilateral pitting edema 3+ up to knees Results: Labs 03/31/24 05:15 03/30/24 14:00 Labs: Short CBC 03/30/24 Range/Units 14:00 WBC 30.3 H (3.8-10.6) Thou/mm3 Hgb 8.2 L (13.5-16.0) g/dL Hct 26.3 L (41.0-53.0) % Plt Count 702 H D (140-440) Thou/mm3 BMP 03/30/24 14:00 Sodium 126 L Potassium 3.5 Chloride 96 L Carbon Dioxide 20.7 BUN 25 H Creatinine 1.7 H Glucose 136 H Calcium 8.1 L Liver Function 03/30/24 Range/Units 14:00 Total Bilirubin 22.9 H* (0.3-1.2) mg/dL AST 280 H (0-34) U/L ALT 59 H (10-49) U/L Alkaline Phosphatase 503 H (46-116) U/L Albumin 3.1 L (3.5-5.0) gm/dL Quality Measures Quality Measures none Medications Home Medications and Allergies Home Medications ?Medication ?Instructions ?Recorded ?Confirmed ?Type folic acid 1 mg tablet 1 mg PO QID 03/30/24 03/30/24 History omeprazole 20 mg capsule,delayed 20 mg PO 1XD 03/30/24 03/30/24 History release Allergies Allergy/AdvReac Type Severity Reaction Status Date / Time No Known Allergies Allergy Verified 03/27/24 18:59 Visit Medications Acetaminophen (Acetaminophen 325 Mg Tablet) 650 mg PO Q6H PRN PRN Reason: Pain (1-3) and Fever>100.3 Stop: 04/29/24 21:35 Folic Acid (Folic Acid 1 Mg Tablet) 1 mg PO BID LISA Stop: 04/05/24 08:59 Piperacillin/Tazobactam/Dextrose (Zosyn) 3.375 gm in 50 mls @ 100 mls/hr IV Q8HR LISA Stop: 04/06/24 21:42 Lorazepam (Lorazepam 0.5 Mg Tablet) 0.5 mg PO Q4HR PRN PRN Reason: CIWA Score 2-6 Stop: 04/04/24 21:46 Ondansetron HCl (Ondansetron Inj 2 Mg/Ml Inj 2 Ml) 4 mg IV Q6H PRN; Protocol PRN Reason: NAUSEA OR VOMITING Stop: 04/29/24 21:40 Sennosides (Senna Tablet) 1 tab PO QDAY LISA; Protocol Stop: 04/30/24 08:59 Thiamine HCl (Thiamine 100 Mg Tablet) 100 mg PO BID LISA Stop: 04/04/24 21:59 Last Admin: 03/30/24 22:39 Dose: 100 mg Discontinued Medications Ceftriaxone Sodium 2 gm/ (Sodium Chloride) 50 mls @ 100 mls/hr IV X1 ONE Stop: 03/30/24 18:23 Last Infusion: 03/30/24 19:24 Dose: Infused Piperacillin/Tazobactam/Dextrose (Zosyn) 3.375 gm in 50 mls @ 100 mls/hr IV X1 ONE Stop: 03/30/24 22:29 Last Admin: 03/30/24 22:47 Dose: 100 mls/hr Assessment & Plan Assessment Summary: The patient is a 28-year-old male with a history of alcohol use who presented to the ED on 03/30/2024 due to low sodium lab levels seen on routine labs. Labs are significant for leukocytosis on hyperlipidemia. MRCP imaging consistent with acute acalculous cholecystitis #Acute acalculous cholecystitis #Possible sepsis, rule out SBP #Hepatocellular disease versus cirrhosis, likely alcoholic #Alcohol use disorder The patient presented with 3-week history of bilateral lower extremity edema, yellow discoloration of skin and sclera. Routine labs in the PCP had shown hyponatremia with sodium level of 121. Patient is currently asymptomatic and reports that he has stopped drinking alcohol for the past 3 weeks, previously drank heavily every day for about 10 months. ED labs significant for leukocytosis, hyponatremia, hyperbilirubinemia, transaminitis. Imaging consistent with acute acalculous cholecystitis pattern. GI Dr. Moss consulted, recommends to admit patient for perspective antibiotics and SBP prophylaxis. Plan: -Admit to MedSurg -Commence IV Zosyn -Blood cultures -Fluid restriction and low-sodium diet -N.p.o. after midnight -[facility] protocol -Gen surgery consulted, recommendations -GI consulted, appreciate recommendations -IV Lasix 40 mg x 1 then, daily -Spironolactone 25 mg daily #Moderate hypoosmolar hyponatremia Due to history of heavy alcohol use and hypervolemic state, combination labs and imaging, suspect liver disease-hepatocellular versus cirrhosis Admitting sodium 126 Plan: -Fluid restriction -Sodium checks every 4 hours -Continue to monitor CMP #Microcytic hypochromic anemia Hemoglobin-8.2, MCV-79 Plan: -Iron panel -Monitor H&H closely -Transfuse PRBC if Hgb less than 7 Health maintenance: Dispo: MedSurg Diet: Low sodium, NPO after midnight DVT: SCDs, HASBLED- 2 PT: Code:Full Case was discussed with attending physician, Dr Harinder Mann MD PGY-1 Attending Provider Attestation/Addendum Face to face evaluation was performed by me. I have personally seen and examined the patient. I discussed the assessment and plan with the entire medicine team. I reviewed available medical records, imaging studies, laboratory results. I agree with the above subjective data, objective findings, assessment and plan except as corrected by me or noted below RUQ pain Possible acalculous cholecystitis Sepsis, POa due to above, withotu septic shock Alcohol dependance syndrome - broad spectrum Abxs, gen Surgery consultation, keep NPO after midnight. Likely HIDA scan? SBP prophylaxis will be covered as well with Axbs labs GI consult MOnitor clinical course closely [facility]
[2024-03-30 23:34] VITALS: BP 164/56; PULSE 67
[2024-03-30] MEDS: FUROSEMIDE INJ 10 MG/ML 4ML VIAL 40 MG IVP (23:34)
[2024-03-30] MEDS: POTASSIUM CHLORIDE 20 mEq TABCR 40 MEQ PO (23:34)
[2024-03-30 23:42] VITALS: BMI 35.7
[2024-03-31] VITALS (10 sets, daily range): BP systolic 108–134; BP diastolic 68–87; PULSE 83–101; RESP 17–97; TEMP 36.1–36.4; O2SAT 97–100
[2024-03-31] MEDS: PIPER/TAZO 3.375 GM 3.375 GM/50 ML BAG IV ×3 (05:24→21:50)
[2024-03-31 05:45] LABS: Basophils # (Auto) 0.1 Thou/mm3 (0.0-0.2); Basophils % (Auto) 1 % (0-2.5); Eosinophils # (Auto) 0.1 Thou/mm3 (0.0-0.5); Eosinophils % (Auto) 0 % (0-10); Hematocrit 22.7 % (41.0-53.0); Immature Granulocytes % (Auto) 1 % (0-0); Immature Granulocytes Auto 0.22 Thou/mm3 (0.00-0.00); Lymphocytes # (Auto) 0.9 Thou/mm3 (1.0-4.8); Lymphocytes % (Auto) 4 % (10-50); Mean Corpuscular HGB Conc 30.8 g/dl (31.0-37.0); Mean Corpuscular Hemoglobin 24.8 pg (25.0-35.0); Mean Corpuscular Volume 81 fL (80-100); Monocytes # (Auto) 0.9 Thou/mm3 (0.0-0.8); Monocytes % (Auto) 4 % (0-12); Neutrophils # (Auto) 19.6 Thou/mm3 (1.8-7.7); Neutrophils % (Auto) 90 % (37-80); Nucleated Red Blood Cell % 0 /100 WBC (0); Platelet Count 655 Thou/mm3 (140-440); RDW Standard Deviation 75.4 fL (35.1-43.9); Red Blood Count 2.82 Miln/mm3 (4.50-5.90); White Blood Count 21.9 Thou/mm3 (3.8-10.6)
[2024-03-31 06:15] LABS: Ferritin 61 ng/mL (10.5-307.3); Total Iron Binding Capacity 204 mcg/dL (250-425)
[2024-03-31 06:22] LABS: Alanine Aminotransferase 52 U/L (10-49); Albumin, Serum 2.7 gm/dL (3.5-5.0); Albumin/Globulin Ratio 0.9 (1.2-2.2); Alkaline Phosphatase 435 U/L (46-116); Anion Gap 10 (7-16); Aspartate Amino Transferase 227 U/L (0-34); BUN/Creatinine Ratio 15 Ratio (12-20); Blood Urea Nitrogen 25 mg/dL (9-23); Calcium 7.9 mg/dL (8.3-10.6); Calcium (Corrected) 8.9 mg/dL (8.5-10.1); Carbon Dioxide 22.5 mMol/L (20.0-31.0); Chloride 96 mMol/L (98-107); Cholesterol 197 mg/dL (132-200); Creatinine (Component) 1.7 mg/dL (0.6-1.3); Estimated Creatinine Clearance 78.3 mL/min (>60); Glucose 100 mg/dL (74-106); HDL Cholesterol < 5 mg/dL (40-60); LDL Cholesterol,Calculated 136 mg/dL (0-130); Magnesium 2.4 mg/dL (1.6-2.6); Osmolality,Calculated 261 (275-295); Potassium 3.1 mMol/L (3.4-5.1); Sodium 128 mMol/L (136-145); Thyroid Stimulating Hormone 3.47 uIU/mL (0.55-4.78); Total Protein 5.7 gm/dL (5.7-8.2); Triglycerides 280 mg/dL (30-150); eGFR 55 See Note
[2024-03-31 06:25] LABS: Bilirubin,Total 19.6 mg/dL (0.3-1.2)
--- NOTE | 2024-03-31 06:42 | PC.NURSE ---
Was contacted by Lab regarding patient's critical value of total bilirubin. Nurse Guevara then contacted regarding critical value.
[2024-03-31 09:47] LABS: Iron 22 mcg/dL (65-175); Percent Iron Saturation 10 % (20-55); Unsaturated Iron Binding 182 (225-295)
[2024-03-31] MEDS: SENNA TABLET 1 TAB PO (10:28)
[2024-03-31] MEDS: POTASSIUM CHLORIDE 20 mEq TABCR 40 MEQ PO (10:28)
[2024-03-31] MEDS: CYANOCOBALAMIN INJ 1,000 mCg/ML VIAL 1000 MCG IM (10:29)
[2024-03-31] MEDS: THIAMINE INJ 100 MG/ML VIAL 2 ML IVP (10:29)
--- NOTE | 2024-03-31 11:26 | EKG_ITS ---
[facility] Test Date: 2024-03-31 Pat Name: MONY WAN Department: Room: S369A Gender: Male Group Managing Director: ANGEL : 1995 Requested By: Sergio Redding Order Number: [id number] Reading MD: Sergio Redding Measurements Intervals [place] Rate: 93 P: 20 KS: 174 QRS: -14 QRSD: 105 T: 7 QT: 466 QTc: 580 Interpretive Statements SINUS RHYTHM VOLTAGE CRITERIA FOR LVH [MEETS CRITERIA IN ONE OF: R(aVL), S(V1), R(V5), R(V5/V6)+S(V1)] PROLONGED QT INTERVAL Compared to ECG 03/05/2024 21:51:51 Prolonged QT interval now present Sinus tachycardia no longer present Myocardial infarct finding no longer present /store/[id number].pdf
[2024-03-31] MEDS: FUROSEMIDE INJ 10 MG/ML 4ML VIAL 60 MG IVP (11:34)
[2024-03-31] MEDS: FOLIC ACID INJ 1 MG/0.2 ML IVP ×2 (11:36→21:49)
--- NOTE | 2024-03-31 11:52 | ESPR_ITS ---
Documentation for date of: 03/31/24 Subjective Subjective Interval history: Patient was seen and examined bedside. Denies any other complaints. Stated that his lower extremity swelling decreasing over the last 2 to 3 days before the hospital admission. Dr Huang was consulted in view of suspicion of acute acalculous cholecystitis and pending his recommendations. Dr. Moss is already following the patient. Patient has positive FOBT on 03/13/2024. May need endoscopy and colonoscopy to rule out the cause of GI bleed and anemia. Exam Vital Signs Temp Pulse Resp BP Pulse Ox O2 Del Method 97.1 F 94 19 114/85 H 98 Room Air 03/31/24 07:50 03/31/24 11:34 03/31/24 07:50 03/31/24 11:34 03/31/24 07:50 03/31/24 07:50 Narrative Exam General: Awake and in no acute distress.icteric HEENT: Normocephalic, atraumatic, mucous membranes moist. Heart: Regular rate and rhythm, no murmurs. Lungs: Clear to auscultation with no wheezing or crackles. Abdomen: Soft, nondistended, nontender, positive bowel sounds. ?No guarding or rebound tenderness. Marked hepatomegaly noted. Neurologic: Alert and oriented x3, no gross neurological deficit, and patient able to move all 4 extremities. Extremities: Bilateral 4+ pitting pedal edema extending up to the knee. Skin: No rash or ecchymoses. Objective Labs 04/01/24 04:40 04/01/24 04:40 Labs: Laboratory Results - last 24 hr 03/30/24 03/30/24 03/30/24 13:57 14:00 22:35 WBC 30.3 H RBC 3.33 L Hgb 8.2 L Hct 26.3 L MCV 79 L MCH 24.6 L MCHC 31.2 RDW Std Deviation 72.1 H Plt Count 702 H D Neut % (Auto) 92 H Lymph % (Auto) 3 L [place] % (Auto) 3 Eos % (Auto) 1 Baso % (Auto) 0 Neut # (Auto) 27.8 H Lymph # (Auto) 0.9 L [place] # (Auto) 1.0 H Eos # (Auto) 0.1 Baso # (Auto) 0.1 Immature Gran # (Auto) 0.37 H Absolute Nucleated RBC 0.00 Immature Gran % 1 H Nucleated RBC % 0 PT 17.2 H INR 1.6 H APTT 27.9 Sodium 126 L Potassium 3.5 Chloride 96 L Carbon Dioxide 20.7 Anion Gap 9 BUN 25 H Creatinine 1.7 H Estim Creat Clear Calc 83.4 eGFR 55 L BUN/Creatinine Ratio 15 Glucose 136 H Calculated Osmolality 259 L Lactic Acid 1.0 Calcium 8.1 L Corrected Calcium 8.8 Phosphorus Magnesium Iron TIBC Iron Saturation Unsat Iron Binding Ferritin Total Bilirubin 22.9 H* AST 280 H ALT 59 H Alkaline Phosphatase 503 H Total Protein 6.5 Albumin 3.1 L Globulin 3.4 Albumin/Globulin Ratio 0.9 L Triglycerides Cholesterol LDL Cholesterol, Calc HDL Cholesterol Cholesterol/HDL Ratio TSH Urine Opiates Screen Negative Urine Fentanyl Screen Negative Ur Barbiturates Screen Negative U Amphetamin/Meth Scrn Negative U Benzodiazepines Scrn Positive A U Cocaine Metab Screen Negative U Marijuana (THC) Screen Negative Ethyl Alcohol < 10.0 Hepatitis A IgM Ab Non Reactive Hep Bs Antigen Non Reactive Hep B Core IgM Ab Non Reactive Hepatitis C Antibody Non Reactive 03/31/24 05:15 WBC 21.9 H D RBC 2.82 L Hgb 7.0 L Hct 22.7 L MCV 81 MCH 24.8 L MCHC 30.8 L RDW Std Deviation 75.4 H Plt Count 655 H D Neut % (Auto) 90 H Lymph % (Auto) 4 L [place] % (Auto) 4 Eos % (Auto) 0 Baso % (Auto) 1 Neut # (Auto) 19.6 H Lymph # (Auto) 0.9 L [place] # (Auto) 0.9 H Eos # (Auto) 0.1 Baso # (Auto) 0.1 Immature Gran # (Auto) 0.22 H Absolute Nucleated RBC 0.00 Immature Gran % 1 H Nucleated RBC % 0 PT INR APTT Sodium 128 L Potassium 3.1 L Chloride 96 L Carbon Dioxide 22.5 Anion Gap 10 BUN 25 H Creatinine 1.7 H Estim Creat Clear Calc 78.3 eGFR 55 L BUN/Creatinine Ratio 15 Glucose 100 Calculated Osmolality 261 L Lactic Acid Calcium 7.9 L Corrected Calcium 8.9 Phosphorus 4.0 Magnesium 2.4 Iron 22 L TIBC 204 L Iron Saturation 10 L Unsat Iron Binding 182 L Ferritin 61 Total Bilirubin 19.6 H* D AST 227 H ALT 52 H Alkaline Phosphatase 435 H D Total Protein 5.7 Albumin 2.7 L Globulin 3.0 Albumin/Globulin Ratio 0.9 L Triglycerides 280 H Cholesterol 197 LDL Cholesterol, Calc 136 H HDL Cholesterol < 5 L Cholesterol/HDL Ratio 39.0 H TSH 3.47 Urine Opiates Screen Urine Fentanyl Screen Ur Barbiturates Screen U Amphetamin/Meth Scrn U Benzodiazepines Scrn U Cocaine Metab Screen U Marijuana (THC) Screen Ethyl Alcohol Hepatitis A IgM Ab Hep Bs Antigen Hep B Core IgM Ab Hepatitis C Antibody Quality Measures Quality Measures none Assessment & Plan Assessment Current Active Medications: Generic Name Dose Route Start Last Admin Trade Name Freq PRN Reason Stop Dose Admin Acetaminophen 650 mg 03/30/24 21:36 Acetaminophen 325 Mg Tablet PO 04/29/24 21:35 Q6H PRN Pain (1-3) and Fever>100.3 Folic Acid 1 mg 03/31/24 09:00 03/31/24 11:36 Folic Acid Inj 1 Mg/0.2 Ml IVP 04/30/24 08:59 1 mg BID LISA Administration Furosemide 60 mg 03/31/24 10:30 03/31/24 11:34 Furosemide Inj 10 Mg/Ml 4ml Vial IVP 04/30/24 10:29 60 mg QDAY LISA Administration Piperacillin/Tazobactam/Dextrose 3.375 gm in 50 mls @ 12.5 mls/hr 03/31/24 06:00 03/31/24 05:24 Zosyn IV 04/06/24 21:42 12.5 mls/hr Q8HR LISA Administration Lorazepam 0.5 mg 03/30/24 21:47 Lorazepam 0.5 Mg Tablet PO 04/04/24 21:46 Q4HR PRN CIWA Score 2-6 Ondansetron HCl 4 mg 03/30/24 21:41 Ondansetron Inj 2 Mg/Ml Inj 2 Ml IV 04/29/24 21:40 Q6H PRN NAUSEA OR VOMITING Protocol Sennosides 1 tab 03/31/24 09:00 03/31/24 10:28 Senna Tablet PO 04/30/24 08:59 1 tab QDAY LISA Administration Protocol Thiamine HCl 100 mg 03/31/24 09:00 03/31/24 10:29 Thiamine Inj 100 Mg/Ml Vial 2 Ml IVP 04/04/24 08:59 100 mg QDAY LISA Administration Plan A 28-year-old male with recently diagnosed alcoholic liver disease and recent hospital admission for alcohol withdrawal presented to the hospital as referred by his PCP for hyponatremia and admitted in view of suspected acute acalculous cholecystitis. # Alcoholic liver disease # Decompensated liver disease -Patient was recently admitted in 02/2024 for alcohol withdrawal and diagnosed to have alcoholic liver disease -Patient went to his PCP for follow-up and on the labs found to have hyponatremia for which patient was referred to the hospital. -Patient denies abdominal pain, fever, nausea, vomitings, hematemesis, hematochezia, shortness of breath. -Stated that he is having bilateral lower extremity swelling since 10 days before the day of admission and improved over last 2 days. -On examination, there is diffuse yellowish discoloration all over the body and bilateral lower extremity swelling noted extending up to the knees. -Labs showed total bilirubin 22.9, AST 280, ALT 59, ALP 503. -Abdomen/pelvis CT showed marked hepatomegaly and splenomegaly. Plan -Started on IV diuresis and fluid restriction. -Will continue to monitor the patient. # Acute acalculous cholecystitis -Patient denies any symptoms of abdominal pain, nausea, vomitings, fever -On imaging patient was found to have acute acalculous cholecystitis on MRCP and gallbladder ultrasonography -WBC count is 30.3 at the time of admission Plan -Consulted Dr. Huang and will appreciate his recommendations -Started on IV Zosyn -Will continue to trend the CBC. As of 03/31/2024, WBC is downtrending to 21.9 # Hyponatremia Hypervolemic, likely due to alcoholic liver disease -Sodium at the time of admission is 126 -Patient denies any symptoms of confusion, weakness Plan -Started patient on IV diuresis -Sodium improved to 128 today -Will continue to monitor the electrolytes # Iron deficiency anemia -Patient hemoglobin is 8.2 -Iron panel showed iron deficiency anemia -Will continue to monitor CBC -If hemoglobin is less than 7, will transfuse -Iron infusions were withheld in view of ongoing suspected infection. -fecal occult blood test - tested positive on 03/13/2024 -Consulted Dr. Moss and will appreciate his recommendations Hospital Maintenance: Dispo: MedSurg DVT ppx: SCD GI ppx: Protonix Diet: Low-fat diet IV lines: Peripheral Code status: Full code Patient plan of care was discussed with the attending physician, Dr. Lozano and senior resident Dr. Alison Redding, PGY1 Attending Provider Attestation/Addendum I reviewed labs, imaging, EKG, home medications and prior available records. Face to face evaluation was performed by me. I have personally examined the patient and discussed assessment and plan with the IM team. I reviewed the resident note and agree with the plan with exceptions as below. Alcoholic hepatitis: None the setting of long significant history of alcohol drinking. Maddrey's score: On presentation more than 50. Start IV corticosteroids. Counseled the patient regarding the importance of alcohol cessation. Monitor PT/INR. Monitor LFTs. Acute cholecystitis: Started the patient on IV Zosyn. Consulted surgery. Management of pain/nausea as needed. Hyponatremia: Continue fluid restriction. Monitor BMP. Avoid rapid correction. AKIL: Continue IV diuresis. Monitor BMP. Avoid nephrotoxins. Renally dose medications. Microcytic anemia: Hemoglobin is borderline. No signs of active bleeding. GI was consulted. Recommended to continue monitoring H&H. Avoid alcohol use.
[2024-03-31 13:19] LABS: Protein Total, Random Urine 38 mg/dL (1-14)
[2024-03-31 13:21] LABS: Creatinine,Random Urine 62 mg/dL (30-125); Potassium,Urine Random 40 mMol/L (12-62); Sodium,Urine Random 41.7 mMol/L (20.0-110.0)
--- NOTE | 2024-03-31 18:10 | PD.SURCONS ---
HPI Consult details Consult date: 03/31/24 Reason for consultation narrative: Possible acalculous cholecystitis History of present illness: 28-year-old male with history of alcohol use disorder was admitted to the hospital because she was found to be hyponatremic. He has been drinking heavily for the past year and has been jaundiced for the past week. He denies abdominal pain, nausea or vomiting. He has been eating and tolerating diet well. CT scan revealed marked hepatosplenomegaly with ascites. Ultrasound and MRCP revealed gallbladder wall thickening with edema. Review of Systems Constitutional Constitutional: Denies chills and Denies fever(s) Cardiovascular Cardiovascular: Denies chest pain Respiratory Respiratory: Denies cough Gastrointestinal Gastrointestinal: Denies abdominal pain, Denies nausea and Denies vomiting Hematologic/Lymphatic Hematologic/Lymphatic: Denies easy bleeding and Denies easy bruising Past Medical History Surgical History OTHER SURGICAL HX: No surgeries in the past Social History SMOKING STATUS: Never smoker SUBSTANCE USE: does not use ALCOHOL: Current Meds Home Medications and Allergies Home Medications ?Medication ?Instructions ?Recorded ?Confirmed ?Type folic acid 1 mg tablet 1 mg PO QID 03/30/24 03/30/24 History omeprazole 20 mg capsule,delayed 20 mg PO 1XD 03/30/24 03/30/24 History release Allergies Allergy/AdvReac Type Severity Reaction Status Date / Time No Known Allergies Allergy Verified 03/27/24 18:59 Exam Vital Signs Temp Pulse Resp BP Pulse Ox O2 Del Method 97.3 F 89 17 124/72 97 Room Air 03/31/24 16:00 03/31/24 16:00 03/31/24 16:00 03/31/24 16:00 03/31/24 16:00 03/31/24 16:00 Constitutional Constitutional: no acute distress Routine HEENT Exam Eye: Present conjunctival icterus (Bilateral) Routine Abdominal Exam Abdominal: Present soft and normoactive bowel sounds; Absent tenderness or distended Results Results: Laboratory Laboratory results: results reviewed Results: Imaging Imaging narrative: Abdominal ultrasound, CT scan of abdomen pelvis and MRCP images reviewed, radiologist interpretation noted Assessment & Plan Problem List (1) Elevated LFTs: Status: Acute (2) Hepatomegaly: Status: Acute Plan He has significant elevation of liver enzymes due to his alcohol use disorder and he is hypercoagulable. He is asymptomatic and is highly unlikely that he has cholecystitis. Gallbladder wall thickening on imaging studies most likely due to his liver disease. There are no surgical intervention indicated as he is asymptomatic. If cholecystitis still a consideration he will require HIDA scan.
--- NOTE | 2024-03-31 20:22 | PD.IMPROG ---
Documentation for date of: 03/31/24 Subjective Subjective Interval history: LFTs improving bilirubin down to 19.6 AST ALT 06/22/1952 and alk phos of 435 On examination patient has no features of acute cholecystitis Exam Vital Signs Temp Pulse Resp BP Pulse Ox O2 Del Method 97.3 F 89 17 124/72 97 Room Air 03/31/24 16:00 03/31/24 16:00 03/31/24 16:00 03/31/24 16:00 03/31/24 16:00 03/31/24 16:00 Objective Labs 03/31/24 05:15 03/31/24 05:15 Labs: Laboratory Results - last 24 hr 03/30/24 03/31/24 03/31/24 22:35 05:15 12:55 WBC 21.9 H D RBC 2.82 L Hgb 7.0 L Hct 22.7 L MCV 81 MCH 24.8 L MCHC 30.8 L RDW Std Deviation 75.4 H Plt Count 655 H D Neut % (Auto) 90 H Lymph % (Auto) 4 L [place] % (Auto) 4 Eos % (Auto) 0 Baso % (Auto) 1 Neut # (Auto) 19.6 H Lymph # (Auto) 0.9 L [place] # (Auto) 0.9 H Eos # (Auto) 0.1 Baso # (Auto) 0.1 Immature Gran # (Auto) 0.22 H Absolute Nucleated RBC 0.00 Immature Gran % 1 H Nucleated RBC % 0 Sodium 128 L Potassium 3.1 L Chloride 96 L Carbon Dioxide 22.5 Anion Gap 10 BUN 25 H Creatinine 1.7 H Estim Creat Clear Calc 78.3 eGFR 55 L BUN/Creatinine Ratio 15 Glucose 100 Calculated Osmolality 261 L Lactic Acid 1.0 Calcium 7.9 L Corrected Calcium 8.9 Phosphorus 4.0 Magnesium 2.4 Iron 22 L TIBC 204 L Iron Saturation 10 L Unsat Iron Binding 182 L Ferritin 61 Total Bilirubin 19.6 H* D AST 227 H ALT 52 H Alkaline Phosphatase 435 H D Total Protein 5.7 Albumin 2.7 L Globulin 3.0 Albumin/Globulin Ratio 0.9 L Triglycerides 280 H Cholesterol 197 LDL Cholesterol, Calc 136 H HDL Cholesterol < 5 L Cholesterol/HDL Ratio 39.0 H TSH 3.47 Ur Random Creatinine 62 U Random Total Protein 38 H Ur Random Sodium 41.7 Ur Random Potassium 40 Ur Random Chloride 54.0 L Impressions Impression: # Chronic liver disease secondary to alcohol with hepatomegaly splenomegaly and mild ascites Continue to monitor LFTs No indication for gallbladder disease Assessment & Plan A&P Narrative # Acute decompensation of the chronic liver disease secondary to alcoholism # Coagulopathy # Hypoosmolar hypochloremic hyponatremia # Leukocytosis could be SBP unlikely biliary tract disease Plan Broad-spectrum antibiotics Not enough fluid in the belly to tap for culture and sensitivity Pancultures Monitor LFTs Correction of the hyponatremia Prognosis is guarded I will follow the patient with you Time Spent With Patient Time: Total time spent is greater than 50% in coordination of care (as documented) at patient's floor/unit and/or counseling patient:
[2024-04-01] VITALS (8 sets, daily range): BP systolic 109–148; BP diastolic 62–84; PULSE 82–114; RESP 15–98; TEMP 35.9–36.2; O2SAT 95–99; BMI 35.8
[2024-04-01] MEDS: PIPER/TAZO 3.375 GM 3.375 GM/50 ML BAG IV ×3 (05:18→21:33)
[2024-04-01 05:55] LABS: Basophils % (Auto) 0 % (0-2.5); Eosinophils % (Auto) 0 % (0-10); Hematocrit 23.4 % (41.0-53.0); Immature Granulocytes % (Auto) 1 % (0-0); Lymphocytes # (Auto) 0.7 Thou/mm3 (1.0-4.8); Lymphocytes % (Auto) 4 % (10-50); Mean Corpuscular HGB Conc 31.2 g/dl (31.0-37.0); Mean Corpuscular Hemoglobin 25.5 pg (25.0-35.0); Mean Corpuscular Volume 82 fL (80-100); Monocytes # (Auto) 0.3 Thou/mm3 (0.0-0.8); Monocytes % (Auto) 2 % (0-12); Neutrophils # (Auto) 18.5 Thou/mm3 (1.8-7.7); Neutrophils % (Auto) 94 % (37-80); Nucleated Red Blood Cell % 0 /100 WBC (0); Platelet Count 643 Thou/mm3 (140-440); Red Blood Count 2.86 Miln/mm3 (4.50-5.90); White Blood Count 19.8 Thou/mm3 (3.8-10.6)
[2024-04-01 05:57] LABS: Hemoglobin 7.3 g/dL (13.5-16.0)
[2024-04-01 06:29] LABS: Alanine Aminotransferase 54 U/L (10-49); Albumin, Serum 2.9 gm/dL (3.5-5.0); Alkaline Phosphatase 452 U/L (46-116); Anion Gap 10 (7-16); Aspartate Amino Transferase 181 U/L (0-34); BUN/Creatinine Ratio 18 Ratio (12-20); Blood Urea Nitrogen 31 mg/dL (9-23); Calcium 8.1 mg/dL (8.3-10.6); Carbon Dioxide 22.5 mMol/L (20.0-31.0); Chloride 99 mMol/L (98-107); Creatinine (Component) 1.7 mg/dL (0.6-1.3); Estimated Creatinine Clearance 78.3 mL/min (>60); Glucose 127 mg/dL (74-106); Magnesium 2.2 mg/dL (1.6-2.6); Osmolality,Calculated 271 (275-295); Phosphorous 4.4 mg/dL (2.4-5.1); Potassium 3.4 mMol/L (3.4-5.1); Sodium 131 mMol/L (136-145); Total Protein 5.9 gm/dL (5.7-8.2); eGFR 55 See Note
[2024-04-01 06:32] LABS: Bilirubin,Total 20.1 mg/dL (0.3-1.2)
[2024-04-01] MEDS: FOLIC ACID INJ 1 MG/0.2 ML IVP ×2 (09:37→21:33)
[2024-04-01] MEDS: SENNA TABLET 1 TAB PO (09:37)
[2024-04-01] MEDS: THIAMINE INJ 100 MG/ML VIAL 2 ML IVP (09:38)
[2024-04-01] MEDS: FUROSEMIDE INJ 10 MG/ML 4ML VIAL 60 MG IVP (09:38)
--- NOTE | 2024-04-01 10:19 | ECHO_ITS ---
Transthoracic Echo Report Ht (in): 69 Wt (lb): 241 Exam Location: Portable Status: Inpatient Hand Stamper: Marcy Pavon Indications: Procedure Performed: BP: 115 / 65 HR: 86 Rhythm: Sinus Technical Quality: Technically difficult study MEASUREMENTS (Male / Female) Normal Values 2D ECHO LVOT Diameter 1.8 cm Ascending Aorta Diameter 3.2 cm M-MODE Aortic Root Diameter MM 3.3 cm LA Systolic Diameter MM 3.2 cm LA Ao Ratio MM 1.0 AV Cusp Separation MM 2.0 cm DOPPLER AV Peak Velocity 212.3 cm/s AV Peak Gradient 18.0 mmHg AV Mean Gradient 8.7 mmHg AV Velocity Time Integral 37.1 cm AI Peak Velocity 316.0 cm/s AI Peak Gradient 39.9 mmHg AI Pressure Half Time 275.0 ms LVOT Peak Velocity 102.0 cm/s LVOT Peak Gradient 4.2 mmHg LVOT Velocity Time Integral 19.5 cm LVOT Cardiac Index 1817.2 cm?/min?m? AV Area Cont Eq vti 1.3 cm? AV Area Cont Eq pk 1.2 cm? MV Peak Velocity 102.0 cm/s MV Peak Gradient 4.2 mmHg MV Mean Velocity 68.0 cm/s MV Mean Gradient 2.0 mmHg MV Area PHT 4.9 cm? Mitral E Point Velocity 55.3 cm/s Mitral A Point Velocity 66.9 cm/s Mitral E to A Ratio 0.8 LV E' Lateral Velocity 10.9 cm/s Mitral E to LV E' Lateral Ratio 5.1 LV E' Septal Velocity 8.8 cm/s Mitral E to LV E' Septal Ratio 6.3 FINDINGS Left Ventricle Normal left ventricular size, wall thickness, systolic function with no obvious regional wall motion abnormalities. The ejection fraction is visually estimated at 55-60%. Right Ventricle The right ventricle is normal in size and systolic function. Left Atrium The left atrium is normal by two-dimensional, color flow and Doppler imaging with no structural abnormalities, no thrombus formation present. Right Atrium The right atrium is normal by two-dimensional imaging, color flow and Doppler imaging with no struct ural abnormalities, no thrombus formation present. Atrial Septum The interatrial septum appears normal with no evidence of a shunt. Aorta The aorta is normal by two-dimensional, color flow and Doppler interrogation. Mitral Valve The mitral valve is normal by two-dimensional, color flow and Doppler interrogation. There is trace mitral valve regurgitation. Aortic Valve The aortic valve is trileaflet. Mild sclerosis without stenosis. There is mild aortic valve regurgi tation. Tricuspid Valve The tricuspid valve is normal by two-dimensional, color flow and Doppler interrogation. There is tra ce tricuspid valve regurgitation. Pulmonic Valve There is no significant pulmonic valve regurgitation. Vessels The pulmonary artery appears normal. The inferior vena cava pulmonary and hepatic veins appear carlita l. Pericardium The pericardium is normal by two-dimensional imaging. There is no significant pericardial effusion. CONCLUSIONS Normal LV size and function. Estimated EF 55-60% Noraml RV size and function. Trace MR, TR. Mild AI Midl AV sclerosis without stenosis. Rashad Thakur (Electronically Signed) Final Date: 03 April 2024 16:43
[2024-04-01] MEDS: PANTOPRAZOLE INJ 40 MG VIAL IV (11:23)
--- NOTE | 2024-04-01 14:08 | ESPR_ITS ---
Documentation for date of: 04/01/24 Exam Vital Signs Temp Pulse Resp BP Pulse Ox O2 Del Method 96.8 F 114 H 15 128/79 96 Room Air 04/01/24 11:57 04/01/24 11:57 04/01/24 11:57 04/01/24 11:57 04/01/24 11:57 04/01/24 11:57 Objective Labs 04/01/24 04:40 04/01/24 04:40 Labs: Laboratory Results - last 24 hr 04/01/24 04:40 WBC 19.8 H RBC 2.86 L Hgb 7.3 L Hct 23.4 L MCV 82 MCH 25.5 MCHC 31.2 RDW Std Deviation 77.0 H Plt Count 643 H Neut % (Auto) 94 H Lymph % (Auto) 4 L [place] % (Auto) 2 Eos % (Auto) 0 Baso % (Auto) 0 Neut # (Auto) 18.5 H Lymph # (Auto) 0.7 L [place] # (Auto) 0.3 Eos # (Auto) 0.0 Baso # (Auto) 0.0 Immature Gran # (Auto) 0.20 H Absolute Nucleated RBC 0.00 Immature Gran % 1 H Nucleated RBC % 0 Sodium 131 L Potassium 3.4 Chloride 99 Carbon Dioxide 22.5 Anion Gap 10 BUN 31 H Creatinine 1.7 H Estim Creat Clear Calc 78.3 eGFR 55 L BUN/Creatinine Ratio 18 Glucose 127 H Calculated Osmolality 271 L Calcium 8.1 L Corrected Calcium 9.0 Phosphorus 4.4 Magnesium 2.2 Total Bilirubin 20.1 H* D AST 181 H ALT 54 H Alkaline Phosphatase 452 H Total Protein 5.9 Albumin 2.9 L Globulin 3.0 Albumin/Globulin Ratio 1.0 L Assessment & Plan A&P Narrative # Acute decompensation of the chronic liver disease secondary to alcoholism # Coagulopathy # Hypoosmolar hypochloremic hyponatremia # Leukocytosis could be SBP unlikely biliary tract disease Plan Broad-spectrum antibiotics Not enough fluid in the belly to tap for culture and sensitivity Pancultures Monitor LFTs Correction of the hyponatremia Prognosis is guarded I will follow the patient with you Time Spent With Patient Time: Total time spent is greater than 50% in coordination of care (as documented) at patient's floor/unit and/or counseling patient:
--- NOTE | 2024-04-01 16:28 | PD.RESPRO ---
Documentation for date of: 04/01/24 Subjective Subjective Interval history: Patient was seen and examined bedside. Stated that he does not have any complaints. Vitals are stable. Blood pressure was consulted and patient is scheduled for endoscopy tomorrow and colonoscopy on Wednesday if everything goes well. Explained about the diagnosis of alcoholic liver disease. Exam Vital Signs Temp Pulse Resp BP Pulse Ox O2 Del Method 97.1 F 96 17 123/83 99 Room Air 04/01/24 16:00 04/01/24 16:00 04/01/24 16:00 04/01/24 16:00 04/01/24 16:00 04/01/24 16:00 Narrative Exam General: Awake. Sitting comfortably in the bed. HEENT: Normocephalic, atraumatic, mucous membranes moist. Heart: Regular rate and rhythm, no murmurs. Lungs: Clear to auscultation with no wheezing or crackles. Abdomen: Soft, nondistended, nontender, positive bowel sounds. ?No guarding or rebound tenderness. hepatomegaly is noted. Neurologic: Alert and oriented x3, no gross neurological deficit, and patient able to move all 4 extremities. Extremities: Pedal edema subsided when compared to yesterday. Skin: No rash or ecchymoses. Objective Labs 04/02/24 04:53 04/02/24 04:53 Labs: Laboratory Results - last 24 hr 04/01/24 04:40 WBC 19.8 H RBC 2.86 L Hgb 7.3 L Hct 23.4 L MCV 82 MCH 25.5 MCHC 31.2 RDW Std Deviation 77.0 H Plt Count 643 H Neut % (Auto) 94 H Lymph % (Auto) 4 L [place] % (Auto) 2 Eos % (Auto) 0 Baso % (Auto) 0 Neut # (Auto) 18.5 H Lymph # (Auto) 0.7 L [place] # (Auto) 0.3 Eos # (Auto) 0.0 Baso # (Auto) 0.0 Immature Gran # (Auto) 0.20 H Absolute Nucleated RBC 0.00 Immature Gran % 1 H Nucleated RBC % 0 Sodium 131 L Potassium 3.4 Chloride 99 Carbon Dioxide 22.5 Anion Gap 10 BUN 31 H Creatinine 1.7 H Estim Creat Clear Calc 78.3 eGFR 55 L BUN/Creatinine Ratio 18 Glucose 127 H Calculated Osmolality 271 L Calcium 8.1 L Corrected Calcium 9.0 Phosphorus 4.4 Magnesium 2.2 Total Bilirubin 20.1 H* D AST 181 H ALT 54 H Alkaline Phosphatase 452 H Total Protein 5.9 Albumin 2.9 L Globulin 3.0 Albumin/Globulin Ratio 1.0 L Quality Measures Quality Measures none Assessment & Plan Assessment Current Active Medications: Generic Name Dose Route Start Last Admin Trade Name Freq PRN Reason Stop Dose Admin Acetaminophen 650 mg 03/30/24 21:36 Acetaminophen 325 Mg Tablet PO 04/29/24 21:35 Q6H PRN Pain (1-3) and Fever>100.3 Folic Acid 1 mg 03/31/24 09:00 04/01/24 09:37 Folic Acid Inj 1 Mg/0.2 Ml IVP 04/30/24 08:59 1 mg BID LISA Administration Piperacillin/Tazobactam/Dextrose 3.375 gm in 50 mls @ 12.5 mls/hr 03/31/24 06:00 04/01/24 15:04 Zosyn IV 04/06/24 21:42 12.5 mls/hr Q8HR LISA Administration Lorazepam 0.5 mg 03/30/24 21:47 Lorazepam 0.5 Mg Tablet PO 04/04/24 21:46 Q4HR PRN CIWA Score 2-6 Ondansetron HCl 4 mg 03/30/24 21:41 Ondansetron Inj 2 Mg/Ml Inj 2 Ml IV 04/29/24 21:40 Q6H PRN NAUSEA OR VOMITING Protocol Pantoprazole Sodium 40 mg 04/01/24 10:00 04/01/24 11:23 Pantoprazole Inj 40 Mg Vial IV 05/01/24 09:59 40 mg QDAY LISA Administration Sennosides 1 tab 03/31/24 09:00 04/01/24 09:37 Senna Tablet PO 04/30/24 08:59 1 tab QDAY LISA Administration Protocol Thiamine HCl 100 mg 03/31/24 09:00 04/01/24 09:38 Thiamine Inj 100 Mg/Ml Vial 2 Ml IVP 04/04/24 08:59 100 mg QDAY LISA Administration Plan A 28-year-old male with recently diagnosed alcoholic liver disease and recent hospital admission for alcohol withdrawal presented to the hospital as referred by his PCP for hyponatremia and admitted in view of suspected acute acalculous cholecystitis. # Alcoholic liver disease # Decompensated liver disease # Suspected esophageal varices in view of anemia -Patient was recently admitted in 02/2024 for alcohol withdrawal and diagnosed to have alcoholic liver disease -Patient went to his PCP for follow-up and on the labs found to have hyponatremia for which patient was referred to the hospital. -Patient denies abdominal pain, fever, nausea, vomitings, hematemesis, hematochezia, shortness of breath. -Stated that he is having bilateral lower extremity swelling since 10 days before the day of admission and improved over last 2 days. -On examination, there is diffuse yellowish discoloration all over the body and bilateral lower extremity swelling noted extending up to the knees. -Labs showed total bilirubin 22.9, AST 280, ALT 59, ALP 503. -Abdomen/pelvis CT showed marked hepatomegaly and splenomegaly. Plan -Started on IV diuresis and fluid restriction. Withheld diuresis for tomorrow and will reevaluate the patient and restart according to the patient's condition. -Will continue to monitor the patient. -Dr. Moss was consulted and scheduled patient for endoscopy tomorrow morning -Patient is scheduled for n.p.o. since midnight # Acute acalculous cholecystitis, ruled out -Patient denies any symptoms of abdominal pain, nausea, vomitings, fever -On imaging patient was found to have acute acalculous cholecystitis on MRCP and gallbladder ultrasonography -WBC count is 30.3 at the time of admission Plan -Consulted Dr. Huang and recommended no surgery as of now as the patient is have low suspicion of acute acalculous cholecystitis -Started on IV Zosyn -Will continue to trend the CBC. As of 03/31/2024, WBC is downtrending to 21.9 > 12/7, 19.8 # Hyponatremia, resolving Hypervolemic, likely due to alcoholic liver disease -Sodium at the time of admission is 126 > 12/7, 131 -Patient denies any symptoms of confusion, weakness Plan -Patient received a dose of Lasix 60 Mg IV this morning, held as the patient is no longer fluid overloaded and sodium is trending down -Will continue to monitor the electrolytes # Acute kidney injury, prerenal -Likely due to third space loss from liver failure -At the time of admission, BUN is 25, creatinine is 1.7 -Patient's baseline creatinine and BUN is within limits as of 03/14/2024 -Urine electrolytes were ordered and traction excretion of sodium is 0.9 Plan -Patient received diuretic this morning and withheld -Will continue to monitor renal functions -Will avoid nephrotoxic drugs and renally dose medications # Iron deficiency anemia -Patient hemoglobin is 8.2 -Hemoglobin is 12 in August 2023 -Iron panel showed iron deficiency anemia -Will continue to monitor CBC -If hemoglobin is less than 7, will transfuse -Iron infusions were withheld in view of ongoing suspected infection. -fecal occult blood test - tested positive on 03/13/2024 -Consulted Dr. Moss and will appreciate his recommendations plan Plan -Patient was scheduled for endoscopy tomorrow and colonoscopy on Wednesday by Dr. Moss Hospital Maintenance: Dispo: MedSurg DVT ppx: SCD GI ppx: Protonix Diet: Low-fat diet, n.p.o. since midnight IV lines: Peripheral Code status: Full code Patient plan of care was discussed with the attending physician, Dr. Lozano. Sergio Redding, PGY1 Attending Provider Attestation/Addendum I reviewed labs, imaging, EKG, home medications and prior available records. Face to face evaluation was performed by me. I have personally examined the patient and discussed assessment and plan with the IM team. I reviewed the resident note and agree with the plan with exceptions as below. Alcoholic hepatitis: None the setting of long significant history of alcohol drinking. Maddrey's score: On presentation more than 50. Start IV corticosteroids. Counseled the patient regarding the importance of alcohol cessation. Monitor PT/INR. Monitor LFTs. Acute cholecystitis: Started the patient on IV Zosyn. Consulted surgery: Recommended no surgical intervention. Management of pain/nausea as needed. Hyponatremia: Improved. Continue fluid restriction. Monitor BMP. Avoid rapid correction. AKIL: Creatinine is about the same. Continue diuresis but decrease the dose. Monitor BMP. Avoid nephrotoxins. Renally dose medications. Microcytic anemia: Hemoglobin is borderline. No signs of active bleeding. GI was consulted. Recommended EGD. Continue monitoring H&H. Avoid alcohol use.
[2024-04-02] VITALS (17 sets, daily range): BP systolic 101–153; BP diastolic 62–89; PULSE 72–102; RESP 15–20; TEMP 36.1–37.2; O2SAT 94–100
[2024-04-02] MEDS: PIPER/TAZO 3.375 GM 3.375 GM/50 ML BAG IV (05:25)
[2024-04-02 05:37] LABS: Basophils % (Auto) 0 % (0-2.5); Eosinophils # (Auto) 0.3 Thou/mm3 (0.0-0.5); Eosinophils % (Auto) 1 % (0-10); Hematocrit 24.3 % (41.0-53.0); Immature Granulocytes % (Auto) 1 % (0-0); Immature Granulocytes Auto 0.21 Thou/mm3 (0.00-0.00); Lymphocytes % (Auto) 5 % (10-50); Mean Corpuscular HGB Conc 30.5 g/dl (31.0-37.0); Mean Corpuscular Hemoglobin 25.3 pg (25.0-35.0); Mean Corpuscular Volume 83 fL (80-100); Monocytes # (Auto) 1.2 Thou/mm3 (0.0-0.8); Monocytes % (Auto) 5 % (0-12); Neutrophils # (Auto) 19.4 Thou/mm3 (1.8-7.7); Neutrophils % (Auto) 88 % (37-80); Nucleated Red Blood Cell % 0 /100 WBC (0); Platelet Count 678 Thou/mm3 (140-440); RDW Standard Deviation 79.7 fL (35.1-43.9); Red Blood Count 2.93 Miln/mm3 (4.50-5.90); White Blood Count 22.1 Thou/mm3 (3.8-10.6)
[2024-04-02 05:54] LABS: Hemoglobin 7.4 g/dL (13.5-16.0)
[2024-04-02 06:05] LABS: Alanine Aminotransferase 74 U/L (10-49); Albumin, Serum 2.8 gm/dL (3.5-5.0); Alkaline Phosphatase 473 U/L (46-116); Anion Gap 10 (7-16); Aspartate Amino Transferase 352 U/L (0-34); BUN/Creatinine Ratio 19 Ratio (12-20); Blood Urea Nitrogen 36 mg/dL (9-23); Calcium 8.2 mg/dL (8.3-10.6); Calcium (Corrected) 9.2 mg/dL (8.5-10.1); Carbon Dioxide 24.2 mMol/L (20.0-31.0); Chloride 99 mMol/L (98-107); Creatinine (Component) 1.9 mg/dL (0.6-1.3); Estimated Creatinine Clearance 68.9 mL/min (>60); Globulin 2.9 gm/dL (2.3-3.5); Glucose 103 mg/dL (74-106); Magnesium 2.2 mg/dL (1.6-2.6); Osmolality,Calculated 274 (275-295); Phosphorous 3.6 mg/dL (2.4-5.1); Potassium 3.2 mMol/L (3.4-5.1); Sodium 133 mMol/L (136-145); Total Protein 5.7 gm/dL (5.7-8.2); eGFR 48 See Note
[2024-04-02 06:09] LABS: Bilirubin,Total 19.1 mg/dL (0.3-1.2)
--- NOTE | 2024-04-02 08:04 | PD.RESPRO ---
Documentation for date of: 04/02/24 Subjective Subjective Interval history: No acute overnight events. Slept well, tolerating oral intake, ambulating independently. Denies fever, chills, headaches, chest pain, sob, cough, GI or urinary symptoms. Exam Vital Signs Temp Pulse Resp BP Pulse Ox O2 Del Method 97.7 F 94 18 134/77 H 97 Room Air 04/02/24 04:00 04/02/24 04:00 04/02/24 04:00 04/02/24 04:00 04/02/24 04:00 04/02/24 04:00 Narrative Exam General: Awake. Sitting comfortably in the bed. HEENT: Normocephalic, atraumatic, mucous membranes moist. Heart: Regular rate and rhythm, no murmurs. Lungs: Clear to auscultation with no wheezing or crackles. Abdomen: Soft, nondistended, nontender, positive bowel sounds. ?No guarding or rebound tenderness. hepatomegaly is noted. Neurologic: Alert and oriented x3, no gross neurological deficit, and patient able to move all 4 extremities. Extremities: Pedal edema subsided when compared to yesterday. Skin: Significant jaundice, bilateral scleral icterus Objective Labs 04/02/24 04:53 04/02/24 04:53 Labs: Laboratory Results - last 24 hr 04/02/24 04:53 WBC 22.1 H RBC 2.93 L Hgb 7.4 L Hct 24.3 L MCV 83 MCH 25.3 MCHC 30.5 L RDW Std Deviation 79.7 H Plt Count 678 H D Neut % (Auto) 88 H Lymph % (Auto) 5 L [place] % (Auto) 5 Eos % (Auto) 1 Baso % (Auto) 0 Neut # (Auto) 19.4 H Lymph # (Auto) 1.0 [place] # (Auto) 1.2 H Eos # (Auto) 0.3 Baso # (Auto) 0.0 Immature Gran # (Auto) 0.21 H Absolute Nucleated RBC 0.00 Immature Gran % 1 H Nucleated RBC % 0 Sodium 133 L Potassium 3.2 L Chloride 99 Carbon Dioxide 24.2 Anion Gap 10 BUN 36 H Creatinine 1.9 H Estim Creat Clear Calc 68.9 eGFR 48 L BUN/Creatinine Ratio 19 Glucose 103 Calculated Osmolality 274 L Calcium 8.2 L Corrected Calcium 9.2 Phosphorus 3.6 Magnesium 2.2 Total Bilirubin 19.1 H* D AST 352 H ALT 74 H Alkaline Phosphatase 473 H D Total Protein 5.7 Albumin 2.8 L Globulin 2.9 Albumin/Globulin Ratio 1.0 L Quality Measures Quality Measures none Assessment & Plan Assessment Current Active Medications: Generic Name Dose Route Start Last Admin Trade Name Freq PRN Reason Stop Dose Admin Acetaminophen 650 mg 03/30/24 21:36 Acetaminophen 325 Mg Tablet PO 04/29/24 21:35 Q6H PRN Pain (1-3) and Fever>100.3 Folic Acid 1 mg 03/31/24 09:00 04/01/24 21:33 Folic Acid Inj 1 Mg/0.2 Ml IVP 04/30/24 08:59 1 mg BID LISA Administration Piperacillin/Tazobactam/Dextrose 3.375 gm in 50 mls @ 12.5 mls/hr 03/31/24 06:00 04/02/24 05:25 Zosyn IV 04/06/24 21:42 12.5 mls/hr Q8HR LISA Administration Lorazepam 0.5 mg 03/30/24 21:47 Lorazepam 0.5 Mg Tablet PO 04/04/24 21:46 Q4HR PRN CIWA Score 2-6 Methylprednisolone Sodium Succinate 40 mg 04/02/24 09:00 Methylprednisolone Sod Succ 40 Mg Vial IVP 04/06/24 09:01 QDAY LISA Ondansetron HCl 4 mg 03/30/24 21:41 Ondansetron Inj 2 Mg/Ml Inj 2 Ml IV 04/29/24 21:40 Q6H PRN NAUSEA OR VOMITING Protocol Pantoprazole Sodium 40 mg 04/01/24 10:00 04/01/24 11:23 Pantoprazole Inj 40 Mg Vial IV 05/01/24 09:59 40 mg QDAY LISA Administration Sennosides 1 tab 03/31/24 09:00 04/01/24 09:37 Senna Tablet PO 04/30/24 08:59 1 tab QDAY LISA Administration Protocol Thiamine HCl 100 mg 03/31/24 09:00 04/01/24 09:38 Thiamine Inj 100 Mg/Ml Vial 2 Ml IVP 04/04/24 08:59 100 mg QDAY LISA Administration Plan A 28-year-old male with recently diagnosed alcoholic liver disease and recent hospital admission for alcohol withdrawal presented to the hospital as referred by his PCP for hyponatremia and admitted in view of suspected acute acalculous cholecystitis. No acute overnight event, vitals WNL WBC 22.1, Hgb 7.4 stable, PLT increasing to 78 sodium 133, potassium 3.2, CR 1.7>1.9 TB 19.1 down,, ALBUMIN 2.8 down Blood culture 48 hours negative . Potassium # Alcoholic liver disease # Decompensated liver disease # Suspected esophageal varices in view of anemia -Patient was recently admitted in 02/2024 for alcohol withdrawal and diagnosed to have alcoholic liver disease -Patient went to his PCP for follow-up and on the labs found to have hyponatremia for which patient was referred to the hospital. -Patient denies abdominal pain, fever, nausea, vomitings, hematemesis, hematochezia, shortness of breath. -Stated that he is having bilateral lower extremity swelling since 10 days before the day of admission and improved over last 2 days. -On examination, there is diffuse yellowish discoloration all over the body and bilateral lower extremity swelling noted extending up to the knees. -Labs showed total bilirubin 22.9, AST 280, ALT 59, ALP 503. -Abdomen/pelvis CT showed marked hepatomegaly and splenomegaly. Plan -Started on IV diuresis and fluid restriction. Withheld diuresis for tomorrow and will reevaluate the patient and restart according to the patient's condition. -Will continue to monitor the patient. -Dr. Moss was consulted and scheduled patient for endoscopy tomorrow morning -Patient is scheduled for n.p.o. since midnight LFTs elevated, may be repeat ultrasound # Acute acalculous cholecystitis, ruled out # ?Primary hepatobiliary disease -Patient denies any symptoms of abdominal pain, nausea, vomitings, fever -On imaging patient was found to have acute acalculous cholecystitis on MRCP and gallbladder ultrasonography -Admission WBC 30.3, downtrending, currently 22 ? Increased AST 181 > 352, ALT 54 > 74, ALP 452 > 472, T. bili 19.1 downtrending Switch ZOSYN to CIPRO and FLAGYL Plan -Consulted Dr. Huang and recommended no surgery as of now as the patient is have low suspicion of acute acalculous cholecystitis ? Stopped IV ZOSYN ? Started CIPROFLOXACIN ? Started FLAGYL ? Pending EGD with Dr. Moss # Hyponatremia, resolving Hypervolemic, likely due to alcoholic liver disease -Sodium at the time of admission is 12, 133 currently -Patient denies any symptoms of confusion, weakness S/p LASIX 60 mg x 1, 2+ bilateral edema persists, repeated LASIX Plan ? Given LASIX 40 mg BID for 1 day 04/02 -Will continue to monitor the electrolytes # Acute kidney injury, prerenal -Likely due to third space loss from liver failure -At the time of admission, BUN is 25, creatinine is 1.9 -Patient's baseline creatinine and BUN is within limits as of 03/14/2024 -Urine electrolytes were ordered and traction excretion of sodium is 0.9 Plan -Patient received diuretic this morning and withheld -Will continue to monitor renal functions -Will avoid nephrotoxic drugs and renally dose medications # Iron deficiency anemia -Patient hemoglobin is 8.2 -Hemoglobin is 12 in August 2023 -Iron panel showed iron deficiency anemia -Will continue to monitor CBC -If hemoglobin is less than 7, will transfuse -Iron infusions were withheld in view of ongoing suspected infection. -fecal occult blood test - tested positive on 03/13/2024 ? Given VITAMIN B12 1 shot, and started FERROUS SULFATE every other day -Consulted Dr. Moss and will appreciate his recommendations plan Plan -Patient was scheduled for endoscopy tomorrow and colonoscopy on Wednesday by Dr. Moss Hospital Maintenance: Dispo: MedSurg DVT ppx: SCD GI ppx: Protonix Diet: Low-fat diet, n.p.o. since midnight IV lines: Peripheral Code status: Full code Patient plan of care was discussed with the attending physician, Dr. Lozano. Mariajose Pandya DO, PGY1 Attending Provider Attestation/Addendum I reviewed labs, imaging, EKG, home medications and prior available records. Face to face evaluation was performed by me. I have personally examined the patient and discussed assessment and plan with the IM team. I reviewed the resident note and agree with the plan with exceptions as below. Alcoholic hepatitis: None the setting of long significant history of alcohol drinking. Maddrey's score: On presentation more than 50. Start IV corticosteroids. Counseled the patient regarding the importance of alcohol cessation. Monitor PT/INR. Monitor LFTs. Acute cholecystitis: Started the patient on IV ciprofloxacin/Flagyl. Consulted surgery: Recommended no surgical intervention. Management of pain/nausea as needed. Hyponatremia: Improved. Continue fluid restriction. Monitor BMP. Avoid rapid correction. AKIL: Creatinine is getting worse. Started diuresis. Monitor BMP. Avoid nephrotoxins. Renally dose medications. Microcytic anemia: Hemoglobin is borderline. No signs of active bleeding. GI was consulted. Recommended EGD. Continue monitoring H&H. Avoid alcohol use.
[2024-04-02] MEDS: POTASSIUM CHL 10 mEq IVPB 10 MEQ/100 ML BAG 100 MEQ IV ×4 (08:41→15:33)
[2024-04-02] MEDS: THIAMINE INJ 100 MG/ML VIAL 2 ML IVP (08:42)
[2024-04-02] MEDS: PANTOPRAZOLE INJ 40 MG VIAL IV (08:42)
[2024-04-02] MEDS: metroNIDAZOLE/NS 500 MG IVPB 500 MG/100 ML BAG 200 MG IV ×3 (08:42→22:36)
[2024-04-02] MEDS: SENNA TABLET 1 TAB PO (08:42)
[2024-04-02] MEDS: FOLIC ACID INJ 1 MG/0.2 ML IVP ×2 (08:54→23:02)
[2024-04-02] MEDS: CIPROFLOXACIN/D5w 400 MG IVPB 400 MG/200 ML BAG 200 MG IV ×2 (10:49→20:00)
[2024-04-02] MEDS: Furosemide 40 MG TABLET PO ×2 (10:50→17:02)
[2024-04-02] MEDS: NA SU/NAHCO3/KC/PEG (Golytely) 4,000 ML BTL 4000 ML PO (17:27)
[2024-04-03] VITALS (19 sets, daily range): BP systolic 104–142; BP diastolic 57–89; PULSE 67–94; RESP 16–26; TEMP 36.1–36.9; O2SAT 94–100
[2024-04-03] MEDS: metroNIDAZOLE/NS 500 MG IVPB 500 MG/100 ML BAG 200 MG IV ×3 (05:18→23:33)
[2024-04-03] MEDS: Furosemide 40 MG TABLET PO (05:21)
[2024-04-03] MEDS: CIPROFLOXACIN/D5w 400 MG IVPB 400 MG/200 ML BAG 200 MG IV ×2 (09:02→22:28)
[2024-04-03] MEDS: THIAMINE INJ 100 MG/ML VIAL 2 ML IVP (09:03)
[2024-04-03] MEDS: PANTOPRAZOLE INJ 40 MG VIAL IV (09:03)
[2024-04-03 09:44] LABS: Basophils % (Auto) 0 % (0-2.5); Eosinophils % (Auto) 0 % (0-10); Hematocrit 21.5 % (41.0-53.0); Immature Granulocytes % (Auto) 1 % (0-0); Immature Granulocytes Auto 0.13 Thou/mm3 (0.00-0.00); Lymphocytes # (Auto) 0.6 Thou/mm3 (1.0-4.8); Lymphocytes % (Auto) 4 % (10-50); Mean Corpuscular HGB Conc 31.2 g/dl (31.0-37.0); Mean Corpuscular Volume 83 fL (80-100); Monocytes # (Auto) 0.7 Thou/mm3 (0.0-0.8); Monocytes % (Auto) 4 % (0-12); Neutrophils # (Auto) 14.8 Thou/mm3 (1.8-7.7); Neutrophils % (Auto) 91 % (37-80); Nucleated Red Blood Cell % 0 /100 WBC (0); Platelet Count 759 Thou/mm3 (140-440); RDW Standard Deviation 79.4 fL (35.1-43.9); Red Blood Count 2.58 Miln/mm3 (4.50-5.90); White Blood Count 16.3 Thou/mm3 (3.8-10.6)
[2024-04-03] MEDS: FOLIC ACID INJ 1 MG/0.2 ML IVP ×2 (09:46→22:27)
[2024-04-03 09:55] LABS: Hemoglobin 6.7 g/dL (13.5-16.0)
[2024-04-03 10:11] LABS: Alanine Aminotransferase 94 U/L (10-49); Albumin, Serum 2.8 gm/dL (3.5-5.0); Albumin/Globulin Ratio 1.1 (1.2-2.2); Alkaline Phosphatase 483 U/L (46-116); Anion Gap 8 (7-16); Aspartate Amino Transferase 278 U/L (0-34); BUN/Creatinine Ratio 21 Ratio (12-20); Bilirubin,Total 17.3 mg/dL (0.3-1.2); Blood Urea Nitrogen 31 mg/dL (9-23); Carbon Dioxide 25.7 mMol/L (20.0-31.0); Chloride 100 mMol/L (98-107); Creatinine (Component) 1.5 mg/dL (0.6-1.3); Estimated Creatinine Clearance 85.9 mL/min (>60); Globulin 2.6 gm/dL (2.3-3.5); Glucose 119 mg/dL (74-106); Osmolality,Calculated 275 (275-295); Sodium 134 mMol/L (136-145); Total Protein 5.4 gm/dL (5.7-8.2); eGFR > 60 See Note
[2024-04-03] MEDS: POTASSIUM CHLORIDE 20 mEq TABCR 40 MEQ PO (11:48)
[2024-04-03 12:05] LABS: Path Review Blood Smear Sent to Pathologist
[2024-04-03 12:43] LABS: Folate 21.39 ng/mL (>5.38); Vitamin B12 > 2000 pg/mL (211-911)
[2024-04-03] MEDS: POTASSIUM CHLORIDE 20 mEq TABCR PO (12:43)
[2024-04-03] MEDS: ALBUMIN HUMAN 25% IVPB 12.5 GM/50 ML BTL IV (12:59)
--- NOTE | 2024-04-03 14:28 | ESPR_ITS ---
Documentation for date of: 04/03/24 Subjective Subjective Interval history: Patient was seen and examined bedside. Patient is having GoLytely in view of scheduled colonoscopy today and having multiple bowel movements. Other than that patient is doing well without any complaints. Pedal edema is subsiding. Exam Vital Signs Temp Pulse Resp BP Pulse Ox O2 Del Method O2 Flow Rate 97.0 F 83 18 109/57 L 94 L Room Air 3 04/03/24 12:00 04/03/24 12:00 04/03/24 12:00 04/03/24 12:00 04/03/24 12:00 04/03/24 12:00 04/02/24 14:00 Narrative Exam General: Awake. Obese HEENT: Normocephalic, atraumatic, mucous membranes moist. Heart: Regular rate and rhythm, no murmurs. Lungs: Clear to auscultation with no wheezing or crackles. Abdomen: Soft, nondistended, nontender, positive bowel sounds. ?No guarding or rebound tenderness. Neurologic: Alert and oriented x3, no gross neurological deficit, and patient able to move all 4 extremities. Extremities: Bilateral pitting pedal edema 4+ extending up to the knees. Skin: No rash or ecchymoses. Objective Labs 04/04/24 05:08 04/04/24 05:08 Labs: Laboratory Results - last 24 hr 04/03/24 04/03/24 08:54 11:14 WBC 16.3 H D RBC 2.58 L Hgb 6.7 L* Hct 21.5 L* MCV 83 MCH 26.0 MCHC 31.2 RDW Std Deviation 79.4 H Plt Count 759 H D Neut % (Auto) 91 H Lymph % (Auto) 4 L Bent % (Auto) 4 Eos % (Auto) 0 Baso % (Auto) 0 Neut # (Auto) 14.8 H Lymph # (Auto) 0.6 L Bent # (Auto) 0.7 Eos # (Auto) 0.0 Baso # (Auto) 0.0 Immature Gran # (Auto) 0.13 H Absolute Nucleated RBC 0.00 Immature Gran % 1 H Nucleated RBC % 0 Smear Path Review Sent to Pathologist Sodium 134 L Potassium 3.0 L Chloride 100 Carbon Dioxide 25.7 Anion Gap 8 BUN 31 H Creatinine 1.5 H Estim Creat Clear Calc 85.9 eGFR > 60 BUN/Creatinine Ratio 21 H Glucose 119 H Calculated Osmolality 275 Calcium 8.0 L Corrected Calcium 9.0 Total Bilirubin 17.3 H D AST 278 H ALT 94 H Alkaline Phosphatase 483 H Total Protein 5.4 L Albumin 2.8 L Globulin 2.6 Albumin/Globulin Ratio 1.1 L Vitamin B12 > 2000 H Folate 21.39 Blood Type A Negative Antibody Screen NEGATIVE Crossmatch See Detail Blood Bank Wristband ID Yes Quality Measures Quality Measures none Assessment & Plan Assessment Current Active Medications: Generic Name Dose Route Start Last Admin Trade Name Freq PRN Reason Stop Dose Admin Acetaminophen 650 mg 03/30/24 21:36 Acetaminophen 325 Mg Tablet PO 04/29/24 21:35 Q6H PRN Pain (1-3) and Fever>100.3 Folic Acid 1 mg 03/31/24 09:00 04/03/24 09:46 Folic Acid Inj 1 Mg/0.2 Ml IVP 04/30/24 08:59 1 mg BID LISA Administration Ciprofloxacin/Dextrose 400 mg in 200 mls @ 200 mls/hr 04/02/24 09:00 04/03/24 09:02 Cipro Ivpb IV 04/09/24 08:59 200 mls/hr Q12HR LISA Administration Metronidazole 500 mg in 100 mls @ 200 mls/hr 04/02/24 08:16 04/03/24 14:14 Flagyl 500 Mg Iv IV 04/09/24 08:15 200 mls/hr Q8HR LISA Administration Lorazepam 0.5 mg 03/30/24 21:47 Lorazepam 0.5 Mg Tablet PO 04/04/24 21:46 Q4HR PRN CIWA Score 2-6 Methylprednisolone Sodium Succinate 40 mg 04/02/24 09:00 04/03/24 09:03 Methylprednisolone Sod Succ 40 Mg Vial IVP 04/06/24 09:01 40 mg QDAY LISA Administration Ondansetron HCl 4 mg 03/30/24 21:41 Ondansetron Inj 2 Mg/Ml Inj 2 Ml IV 04/29/24 21:40 Q6H PRN NAUSEA OR VOMITING Protocol Pantoprazole Sodium 40 mg 04/01/24 10:00 04/03/24 09:03 Pantoprazole Inj 40 Mg Vial IV 05/01/24 09:59 40 mg QDAY LISA Administration Sennosides 1 tab 03/31/24 09:00 04/03/24 09:04 Senna Tablet PO 04/30/24 08:59 Not Given QDAY [facility] Protocol Thiamine HCl 100 mg 03/31/24 09:00 04/03/24 09:03 Thiamine Inj 100 Mg/Ml Vial 2 Ml IVP 04/04/24 08:59 100 mg QDAY LISA Administration Plan A 28-year-old male with recently diagnosed alcoholic liver disease and recent hospital admission for alcohol withdrawal presented to the hospital as referred by his PCP for hyponatremia and admitted in view of suspected acute acalculous cholecystitis. # Alcoholic liver disease # Suspected esophageal varices in view of anemia -Patient was recently admitted in 02/2024 for alcohol withdrawal and diagnosed to have alcoholic liver disease -Patient went to his PCP for follow-up and on the labs found to have hyponatremia for which patient was referred to the hospital. -Patient denies abdominal pain, fever, nausea, vomitings, hematemesis, hematochezia, shortness of breath. -Stated that he is having bilateral lower extremity swelling since 10 days before the day of admission and improved over last 2 days. -On examination, there is diffuse yellowish discoloration all over the body and bilateral lower extremity swelling noted extending up to the knees. -Labs showed total bilirubin 22.9, AST 280, ALT 59, ALP 503. -Abdomen/pelvis CT showed marked hepatomegaly and splenomegaly. -EGD was done on 04/02/2024-esophagitis, antral erythema Plan -Started on IV diuresis and fluid restriction. Withheld diuresis for now. -Will continue to monitor the patient. -Dr. Moss was consulted and scheduled patient for colonoscopy today -Started on albumin infusions # Acute acalculous cholecystitis, ruled out -Patient denies any symptoms of abdominal pain, nausea, vomitings, fever -On imaging patient was found to have acute acalculous cholecystitis on MRCP and gallbladder ultrasonography -WBC count is 30.3 at the time of admission Plan -Consulted Dr. Huang and recommended no surgery as of now as the patient is have low suspicion of acute acalculous cholecystitis -IV Zosyn was held and started on ciprofloxacin, MetroGel -Will continue to trend the CBC. As of 03/31/2024, WBC is downtrending to 21.9 > 12/7, 19.8 > 12/9, 16.3 # Hyponatremia, resolved Hypervolemic, likely due to alcoholic liver disease -Sodium at the time of admission is 126 > 12/7, 131 > 12/9, 134 -Patient denies any symptoms of confusion, weakness Plan -Patient received a dose of Lasix 60 Mg IV this morning, held as the patient is no longer fluid overloaded and sodium is trending down -Will continue to monitor the electrolytes # Acute kidney injury, prerenal, recovering -Likely due to third space loss from liver failure -At the time of admission, BUN is 25, creatinine is 1.7 > 12/9, BUN 31, creatinine 1.5 -Patient's baseline creatinine and BUN is within limits as of 03/14/2024 -Urine electrolytes were ordered and traction excretion of sodium is 0.9 Plan -Diuretics were withheld -Will continue to monitor renal functions -Will avoid nephrotoxic drugs and renally dose medications # Hypokalemia, GI loss -Potassium is 3 this morning -Supplemented with 40 mEq of oral potassium -Likely due to GI losses from a GoLytely # Iron deficiency anemia -Patient hemoglobin is 8.2 -Hemoglobin is 12 in August 2023 -Iron panel showed iron deficiency anemia -Will continue to monitor CBC -If hemoglobin is less than 7, will transfuse -Iron infusions were withheld in view of ongoing suspected infection. -fecal occult blood test - tested positive on 03/13/2024 -Consulted Dr. Moss and will appreciate his recommendations plan -B12 and folate are within limits. Plan -Hemoglobin is 6.7 as of 04/03/2024 -PRBC transfusion is started. -Patient is scheduled for colonoscopy today by Dr. Moss to evaluate the cause of anemia. Hospital Maintenance: Dispo: MedSurg DVT ppx: SCD GI ppx: Protonix Diet: Low-fat diet, n.p.o. since midnight IV lines: Peripheral Code status: Full code Patient plan of care was discussed with the attending physician, Dr. Lozano and senior resident Dr. Xiomara Redding, PGY1 Mr Dee is a 28-year-old male with recently diagnosed alcoholic use disorder and admitted in view of suspected acute acalculous cholecystitis. Consulted General surgery Dr. Huang, no surgerical intervention recommended, as low suspicion of acute acalculous cholecystitis. GI Dr Moss was consulted, patient underwent EGD on 04/02/2024 which was remarkable for gastritis and esophagitis, this was followed by colonoscopy on 04/03/2024 which showed a normal colon and some hemorrhoids per-anally. Patient on GERD/PUD diet, will give IV albumin 25mg x2 days for edema likely due to third spacing. He also got IV Lasix with minimal reduction in pedal edema. Patient examined and case discussed with the team including attending physician. Note reviewed, I agree with the care plan as documented. - Godfrey Solano MD, PGY 2 Attending Provider Attestation/Addendum I reviewed labs, imaging, EKG, home medications and prior available records. Face to face evaluation was performed by me. I have personally examined the patient and discussed assessment and plan with the IM team. I reviewed the resident note and agree with the plan with exceptions as below. Alcoholic hepatitis: None the setting of long significant history of alcohol drinking. Maddrey's score: On presentation more than 50. Start IV corticosteroids. Counseled the patient regarding the importance of alcohol cessation. Monitor PT/INR. Monitor LFTs. Acute cholecystitis: Started the patient on IV Zosyn. Consulted surgery: Recommended no surgical intervention. Management of pain/nausea as needed. Hyponatremia: Improved. Continue fluid restriction. Monitor BMP. Avoid rapid correction. AKIL: Creatinine slightly improved. Status post IV diuresis. Monitor BMP. Avoid nephrotoxins. Renally dose medications. Microcytic anemia: Hemoglobin dropped to less than 7 status post 1 PRBC transfusion. GI was consulted. Recommended EGD: Showed gastritis s/p biopsy. Will proceed to colonoscopy. Continue monitoring H&H. Avoid alcohol use.
--- NOTE | 2024-04-03 19:45 | PC.NURSE ---
pt off unit for colonoscopy
--- NOTE | 2024-04-03 20:17 | SUR.PHASEI ---
pt received from OR in recovery bay 5. pt awake and alert, breathing unlabored on room air. v/s stable. report received from Haley BOBBY.
--- NOTE | 2024-04-03 20:47 | SUR.PHASEI ---
pt awake and alert, breathing unlabored on room air. v/s stable. report called to Chloe Black. pt will be transferred to room at this time.
--- NOTE | 2024-04-03 20:50 | PC.NURSE ---
pt back from colonoscopy vis [facility], patient alert and awake, walked back to bed. No complaints of pain.
[2024-04-03 21:23] LABS: Hematocrit 28.7 % (41.0-53.0)
[2024-04-04] VITALS: BP 120/72; PULSE 88; RESP 17; TEMP 36.3; O2SAT 97
[2024-04-04 03:59] VITALS: BP 120/82; PULSE 78; RESP 17; TEMP 36.1; O2SAT 94
[2024-04-04] MEDS: metroNIDAZOLE/NS 500 MG IVPB 500 MG/100 ML BAG 200 MG IV ×2 (05:42→13:51)
[2024-04-04 06:13] LABS: Basophils % (Auto) 0 % (0-2.5); Eosinophils % (Auto) 0 % (0-10); Hematocrit 25.4 % (41.0-53.0); Immature Granulocytes % (Auto) 1 % (0-0); Lymphocytes # (Auto) 0.7 Thou/mm3 (1.0-4.8); Lymphocytes % (Auto) 3 % (10-50); Mean Corpuscular HGB Conc 31.1 g/dl (31.0-37.0); Mean Corpuscular Hemoglobin 26.2 pg (25.0-35.0); Mean Corpuscular Volume 84 fL (80-100); Monocytes % (Auto) 4 % (0-12); Neutrophils # (Auto) 21.6 Thou/mm3 (1.8-7.7); Neutrophils % (Auto) 92 % (37-80); Nucleated Red Blood Cell % 0 /100 WBC (0); Platelet Count 557 Thou/mm3 (140-440); RDW Standard Deviation 78.7 fL (35.1-43.9); Red Blood Count 3.02 Miln/mm3 (4.50-5.90)
[2024-04-04 06:19] LABS: Hemoglobin 7.9 g/dL (13.5-16.0); White Blood Count 23.5 Thou/mm3 (3.8-10.6)
[2024-04-04 06:30] LABS: INR 1.6 (0.9-1.3); Partial Thromboplastin Time 26.3 Seconds (22.0-36.0)
[2024-04-04 06:51] LABS: Alanine Aminotransferase 114 U/L (10-49); Albumin, Serum 2.9 gm/dL (3.5-5.0); Albumin/Globulin Ratio 1.1 (1.2-2.2); Alkaline Phosphatase 499 U/L (46-116); Anion Gap 9 (7-16); Aspartate Amino Transferase 229 U/L (0-34); BUN/Creatinine Ratio 22 Ratio (12-20); Bilirubin,Total 15.4 mg/dL (0.3-1.2); Blood Urea Nitrogen 28 mg/dL (9-23); Calcium 8.3 mg/dL (8.3-10.6); Calcium (Corrected) 9.2 mg/dL (8.5-10.1); Chloride 104 mMol/L (98-107); Creatinine (Component) 1.3 mg/dL (0.6-1.3); Estimated Creatinine Clearance 99.1 mL/min (>60); Globulin 2.6 gm/dL (2.3-3.5); Glucose 117 mg/dL (74-106); Osmolality,Calculated 278 (275-295); Potassium 3.7 mMol/L (3.4-5.1); Sodium 136 mMol/L (136-145); Total Protein 5.5 gm/dL (5.7-8.2); eGFR > 60 See Note
[2024-04-04 08:00] VITALS: BP 133/81; PULSE 105; RESP 16; TEMP 36.6; O2SAT 95
[2024-04-04] MEDS: PANTOPRAZOLE INJ 40 MG VIAL IV (09:18)
[2024-04-04] MEDS: FOLIC ACID INJ 1 MG/0.2 ML IVP (09:18)
[2024-04-04] MEDS: CIPROFLOXACIN/D5w 400 MG IVPB 400 MG/200 ML BAG 200 MG IV (09:19)
[2024-04-04] MEDS: ALBUMIN HUMAN 25% IVPB 25 GM/100 ML BTL IV (11:22)
[2024-04-04 12:15] VITALS: BP 103/62; PULSE 91; RESP 18; TEMP 36.8; O2SAT 95
[2024-04-04 14:25] LABS: Basophils % (Auto) 0 % (0-2.5); Eosinophils % (Auto) 0 % (0-10); Hematocrit 25.7 % (41.0-53.0); Immature Granulocytes % (Auto) 1 % (0-0); Immature Granulocytes Auto 0.16 Thou/mm3 (0.00-0.00); Lymphocytes # (Auto) 0.4 Thou/mm3 (1.0-4.8); Lymphocytes % (Auto) 2 % (10-50); Mean Corpuscular HGB Conc 31.5 g/dl (31.0-37.0); Mean Corpuscular Hemoglobin 26.6 pg (25.0-35.0); Mean Corpuscular Volume 85 fL (80-100); Monocytes # (Auto) 0.5 Thou/mm3 (0.0-0.8); Monocytes % (Auto) 2 % (0-12); Neutrophils # (Auto) 21.5 Thou/mm3 (1.8-7.7); Neutrophils % (Auto) 95 % (37-80); Nucleated Red Blood Cell % 0 /100 WBC (0); Platelet Count 607 Thou/mm3 (140-440); RDW Standard Deviation 78.7 fL (35.1-43.9); Red Blood Count 3.04 Miln/mm3 (4.50-5.90); White Blood Count 22.6 Thou/mm3 (3.8-10.6)
[2024-04-04 15:56] LABS: Hemoglobin 8.1 g/dL (13.5-16.0)
--- NOTE | 2024-04-04 16:31 | ESDS_ITS ---
<Statement entered by Lizz Rosas MD - 04/05/24 07:40> Patient was seen and examined by me personally. I agree with the discharge plan as discussed with the internet consultant physician, and my attending, Dr. Lozano. Lizz Rosas MD, PGY-3 Planned Discharge Date 04/04/24 DS: Providers Provider Date of admission: 03/30/24 21:36 Primary care physician: Mani Good PA-C Admitting Provider: Shaheen Mann MD Attending Provider on Admission: Levon Lozano MD Consults: 03/30/24 17:32 Consult to Gastroenterology Stat Comment: Consulting Provider: Cynthia Moss 03/30/24 21:40 Consult to General Surgery Stat Comment: will consult- recomends HIDA Consulting Provider: Jalen Huang 04/03/24 09:22 Referral Registered Dietitian Routine Comment: Attending Provider on DC: Sergio Redding MD Discharging Provider: Sergio Redding MD DS: Diagnosis Problem List Completed Was Problem List Reviewed/Reconciled?: Yes Hospital Course Hospital Course Hospital course: A 28-year-old male with history of alcohol abuse and recent hospital admission on 03/12/2024 for alcohol withdrawal presented to the hospital on 03/30/2024 as he was referred from his primary care in view of low sodium levels noted on routine labs and later admitted in the hospital for hyponatremia and alcohol liver disease. Labs at the time of admission are significant for WBC 30.3, Hb 8, platelets 17.2, INR 1.6, sodium 126, BUN 25, creatinine 1.7, T. bili 22.9, AST 280, ALT 59, ALP 503, albumin 3.1. Urine toxicology is positive for benzos. MRCP and gallbladder ultrasound showed acute acalculous cholecystitis pattern for which Dr. Huang was consulted and recommended no surgery as patient had low suspicion of cholecystitis. Patient appeared fluid overloaded at the time of admission and was treated with diuretics, antibiotics. Dr. Moss was consulted and endoscopy done showed esophagitis, erythema in the gastric antrum. Colonoscopy showed perianal hemorrhoids. During the hospital stay, total bilirubin and liver enzymes were downtrending, renal functions and sodium came back to his baseline. Abdomen/pelvis CT showed marked hepatomegaly, mild as cites, splenomegaly. During the hospital stay patient's hemoglobin dropped to 6.7 for which he was transfused with 1 PRBC. Iron panel done showed iron deficiency anemia, B12 and folate levels are within normal limits. Patient was on fluid restriction during the hospital stay Patient was discharged to home with the following medications and recommendations -Follow-up with PCP within 1 week of discharge. Please follow-up with the [facility] with Dr. Redding. Call [phone] to make an appointment. -continue iron supplementation as prescribed and furosemide 20 mg if noted to ba ve pedal edema -Take omeprazole 20mg p.o. qday and folic acid 1mg p.o. qid -Fluid restriction to 1800ml and salt restriction to 2gm -Recommended complete abstinance from alcohol -Return to ED if symptoms persist or return # Alcoholic liver disease # Hyponatremia, resolved # Acute kidney injury, resolved # Iron deficiency anemia Patient plan of care was discussed with the attending physician, Dr. Lozano and senior resident Dr. Alison Redding, PGY1 Time Spent with Patient Time attestation: Total time spent providing and/or coordinating discharge services: Time spent: Greater than 30 minutes Exam Vital Signs Temp Pulse Resp BP Pulse Ox O2 Del Method O2 Flow Rate 98.2 F 91 18 103/62 95 Room Air 3 04/04/24 12:15 04/04/24 12:15 04/04/24 12:15 04/04/24 12:15 04/04/24 12:15 04/04/24 12:15 04/03/24 20:10 Narrative Exam General: Awake. Icteric HEENT: Normocephalic, atraumatic, mucous membranes moist. Heart: Regular rate and rhythm, no murmurs. Lungs: Clear to auscultation with no wheezing or crackles. Abdomen: Soft, nondistended, nontender, positive bowel sounds. ?No guarding or rebound tenderness. Hepatomegaly was noted Neurologic: Alert and oriented x3, no gross neurological deficit, and patient able to move all 4 extremities. Extremities: 2+ bilateral pitting pedal edema was present. Skin: No rash or ecchymoses. Discharge Plan Plan Patient Disposition: HOME (Self Care) Patient condition on transfer: Stable Care Plan Goals: -Follow-up with PCP within 1 week of discharge. Please follow-up with the [facility] with Dr. Redding. Call [phone] to make an appointment. -continue iron supplementation as prescribed and furosemide 20 mg if noted to have pedal edema -Take omeprazole 20mg p.o. qday and folic acid 1mg p.o. qid -Fluid restriction to 1800ml and salt restriction to 2gm -Recommended complete abstinance from alcohol -Return to ED if symptoms persist or return Prescriptions/Referrals Prescriptions/Med Rec: New furosemide [Lasix] 20 mg tablet 20 mg PO QDAY PRN (Reason: edema) 30 Days Qty: 30 0RF ferrous sulfate 220 mg (44 mg iron)/5 mL elixir 220 mg PO Q OTHER DAY 60 Days Qty: 150 0RF Continued omeprazole 20 mg capsule,delayed release(DR/EC) 20 mg PO 1XD Patient Comments: TAKE 1 CAPSULE BY MOUTH EVERY DAY folic acid 1 mg tablet 1 mg PO QID Patient Comments: TAKE 1 TABLET BY MOUTH EVERY DAY FOR 14 DAYS Referrals: Mani Good PA-C [Primary Care Provider] - Outpatient Orders (i.e. Home Health, Labs, Imaging): CBC (Routine) Timeframe: 20240420 Location: None Selected Ordered By: Sergio Redding Comprehensive Metabolic Panel (Routine) Timeframe: 20240420 Location: None Selected Ordered By: Sergio Redding Patient/Caregiver Discharge Instructions Discharge Activity: activity as tolerated and resume usual activities Education Materials: Hepatic Encephalopathy, Colonoscopy, Upper GI Endoscopy, Understanding Cirrhosis, Alcoholism Resources Print Language: Guatemalan Stand Alone Forms: [employer]aphine Award Info., Patient Portal Info Letter Discharge Order Discharge Orders: Discharge (Routine); Ordered 04/04/24 Ordered By: Godfrey Solano Quality Discharge Quality Measures VTE prophylaxis Attestestation MD Attestation I reviewed labs, imaging, EKG, home medications and prior available records. Face to face evaluation was performed by me. I have personally examined the patient and discussed assessment and plan with the IM team. I reviewed the resident note and agree with the plan with exceptions as below. Alcoholic hepatitis: None the setting of long significant history of alcohol drinking. Maddrey's score: On presentation more than 50. Gave IV corticosteroids. Counseled the patient regarding the importance of alcohol cessation. Monitor PT/INR. Monitor LFTs: Downtrending. Acute cholecystitis: Started the patient on IV Zosyn. Consulted surgery: Recommended no surgical intervention. Management of pain/nausea as needed. Hyponatremia: Improved. Continue fluid restriction. Monitor BMP. Avoid rapid correction. AKIL: Creatinine improved. Status post IV diuresis. Monitor BMP. Avoid nephrotoxins. Renally dose medications. Microcytic anemia: Hemoglobin dropped to less than 7 status post 1 PRBC transfusion. GI was consulted. Recommended EGD: Showed gastritis s/p biopsy. Status post colonoscopy that showed hemorrhoids. Continue monitoring H&H. Avoid alcohol use. Leukocytosis: Likely reactive in the setting of steroid use. Unlikely infection. Downtrending. Hold off corticosteroids and repeat CBC in 1 week after discharge. Time spent is 40 minutes. More than 50% of the time was spent on patient education and coordination of care.
== END 2024-04-04 16:19 | disposition home or self-care (01) | DRG 280 ==
LOC: SERX 20:52 → SERHOLD 22:12 → S3SX 23:53
PROVIDERS: Nurse Practitioner Primary Care; Specialist; Admitting Provider Internal Medicine; Emergency Provider Emergency Medicine; PCP Physician Assistant; Visit Provider Student in an Organized Health Care Education/Training Program
PROC: 0DB68ZX Excision of Stomach, Via Natural or Artificial Opening Endoscopic, Diagnostic (ICD-10-PCS; CPT 43239; principal; 2024-04-02 13:30)
PROC: 0DJD8ZZ Inspection of Lower Intestinal Tract, Via Natural or Artificial Opening Endoscopic (ICD-10-PCS; CPT 45378; principal; 2024-04-03 16:30)
DX: K70.9 Alcoholic liver disease, unspecified (principal); E87.1 Hypo-osmolality and hyponatremia; E78.5 Hyperlipidemia, unspecified; D68.9 Coagulation defect, unspecified; N17.9 Acute kidney failure, unspecified; E87.6 Hypokalemia; F10.10 Alcohol abuse, uncomplicated; D62 Acute posthemorrhagic anemia; E87.70 Fluid overload, unspecified; K21.00 Gastro-esophageal reflux disease with esophagitis, without bleeding; K64.9 Unspecified hemorrhoids; R18.8 Other ascites; R16.2 Hepatomegaly with splenomegaly, not elsewhere classified
CPT/HCPCS: 36415; 74177; 76705; 80053; 80061; 80074; 80307; 80320; 82436; 82570; 82607; 82728; 82746; 83540; 83550; 83605; 83735; 84100; 84133; 84156; 84300; 84443; 85014; 85018; 85025; 85610; 85730; 86850; 86900; 86901; 86923; 87040; 87081; 87811; 93005; 93306; 96365; 96367; 96375; 99285; A4649; J0696; J0744; J1200; J1940; J2250; J2470; J2543; J2919; J3010; J3411; J3420; J3480; J3490; J7050; P9016; P9047; Q9967; S8037; 74181; A9270; G0480; J1836

== ENCOUNTER 2024-04-12 09:26 | Emergency (ER) | payer MEDICAID, SELFPAY ==
[2024-04-12 09:45] VITALS: BP 120/85; PULSE 117; RESP 20; TEMP 37.9; O2SAT 98; BMI 36.7
--- NOTE | 2024-04-12 09:55 | XR_ITS ---
Examination: PA lateral chest 2 views TECHNIQUE: Upright PA lateral chest 2 views Exam date and time: 2023 1015 hours INDICATIONS: Coughing dyspnea beginning yesterday. FINDINGS: Poor inspiratory effort No pneumonia or pulmonary edema Normal heart size IMPRESSION: Poor inspiratory effort chest x-ray
--- NOTE | 2024-04-12 10:36 | EDNOTE_ITS ---
Upper Respiratory Inf. RME/HPI General Chief Complaint: Flu Like Symptoms Stated Complaint: FEVER, COUGH, CONGESTION Time Seen by Provider: 04/12/24 09:30 Arrival date/time: 04/12/24 09:26 28-year-old male presents emergency department complaints of fever cough and congestion there are no other associated symptoms or aggravating factors no other modifying factors, patient denies taking medication before coming to ER today Limitations: no limitations Related Data Home Medications ?Medication ?Instructions ?Recorded ?Confirmed folic acid 1 mg tablet 1 mg PO QID 03/30/24 03/30/24 omeprazole 20 mg capsule,delayed 20 mg PO 1XD 03/30/24 03/30/24 release Previous Rx's ?Medication ?Instructions ?Recorded ferrous sulfate 220 mg (44 mg 220 mg (5 mL) PO Q OTHER DAY 2 04/04/24 iron)/5 mL oral elixir months #150 mL furosemide 20 mg tablet (Lasix) 20 mg PO QDAY PRN edema 1 month 04/04/24 #30 tabs ibuprofen 800 mg tablet 800 mg PO TID PRN pain #30 tabs 04/12/24 Allergies Allergy/AdvReac Type Severity Reaction Status Date / Time No Known Allergies Allergy Verified 03/27/24 18:59 Review of Systems Review of Systems Systems Reviewed: All systems reviewed, normal except as documented Constitutional Constitutional: Reports system reviewed and no additional complaints, except as documented, Denies fever(s) and Denies headache(s) Eyes Eyes: Reports system reviewed and no additional complaints, except as documented and Denies blurry vision ENT Ears, Nose, Mouth, and Throat: Reports system reviewed and no additional complaints, except as documented, Denies headache(s), Denies nasal congestion and Denies nasal discharge Cardiovascular Cardiovascular: Reports system reviewed and no additional complaints, except as documented, Denies chest pain and Denies dyspnea Respiratory Respiratory: Reports system reviewed and no additional complaints, except as documented, Denies chest congestion, Denies cough and Denies dyspnea Gastrointestinal Gastrointestinal: Reports system reviewed and no additional complaints, except as documented and Denies abdominal pain Integumentary/Breasts Skin/Breast: Reports system reviewed and no additional complaints, except as documented and Denies rash Neurologic Neurologic: Reports system reviewed and no additional complaints, except as documented, Reports as per HPI and Denies headache(s) Past Medical History Past Medical History NEUROLOGIC: Negative Neurological Disorders CARDIAC: Negative Cardiac Disorders ED Exam General Limitations: Present no limitations General appearance: Present alert and in no apparent distress Head Head exam: Present atraumatic, normocephalic and normal inspection Eye Eye exam: Present normal appearance, PERRL and EOMI; Absent conjunctival injection ENT ENT exam: Present normal exam, normal oropharynx and mucous membranes moist Neck Neck exam: Present normal inspection, full ROM and trachea midline Chest Chest inspection: Present normal inspection and symmetric chest wall rise Respiratory Respiratory exam: Present normal lung sounds bilaterally Cardiovascular Cardiovascular exam: Present regular rate, normal rhythm and normal heart sounds Abdominal Exam Abdominal exam: Present soft and normal bowel sounds Extremities Exam Extremities exam: Present normal inspection and full ROM Back Exam Back exam: Present normal inspection and full ROM Neurological Exam Neurological exam: Present alert, oriented X3 and CN II-XII intact Psychiatric Psychiatric exam: Present normal affect and normal mood Skin Skin exam: Present warm, dry, intact and normal color Course Quality Measures none Orders Category Date Time Status Bedside COVID-19 Antigen Test NOW Care 04/12/24 09:55 Completed Bedside Influenza A&B Antigen Test NOW Care 04/12/24 09:55 Completed XR chest 2V Stat Exams 04/12/24 09:55 Completed Ibuprofen Tab [Motrin Tab] Med 04/12/24 10:09 Discontinued 800 mg PO X1 ONE Vital Signs Vital signs: Vital Signs Temperature 100.2 F 04/12/24 09:45 Pulse Rate 117 H 04/12/24 09:45 Respiratory Rate 20 04/12/24 09:45 Blood Pressure 120/85 H 04/12/24 09:45 Pulse Oximetry (%) 98 04/12/24 09:45 Oxygen Delivery Method Room Air 04/12/24 09:45 O2 saturation 98% room air with normal limits Upper Respiratory Infection MDM Narrative MDM Narrative:: 28-year-old male presents emergency department complaints of fever cough and congestion there are no other associated symptoms or aggravating factors no other modifying factors, patient denies taking medication before coming to ER today On exam patient does not appear ill or toxic patient does not appear in acute distress Patient is no tachypnea no dyspnea no increased work of breathing Patient discharged home in no distress to follow-up with primary care doctor in the next 24 to 48 hours and for any worsening symptoms to return to the ER immediately Patient data External records reviewed:: [facility] previous records Clinical information provided by:: patient Social determinants that could affect healthcare access:: none Patient has the following chronic illnesses:: History How is presenting disease/condition affected by chronic disease/condition?: uneffected by Evaluation data The following diagnostics were reviewed and interpreted by me:: lab results and radiology exam(s) Lab and/or radiology exams considered but not ordered:: Labs and radiology obtained Interpretation Summary: Reviewed by me Medications / Prescriptions Medications or Prescriptions considered but not ordered:: Given Medication administrations:: Medication Administration History Discontinued Medications Ibuprofen (Ibuprofen Tab 400 Mg Tablet) 800 mg PO X1 ONE Stop: 04/12/24 10:10 Last Admin: 04/12/24 10:40 Dose: 800 mg Documented By: VG Given Consultations Consultation(s) initiated? (list below): No Diagnosis Upper Respiratory Differential Diagnosis: upper respiratory infection, sinusitis, viral infection and pharyngitis Most likely diagnosis given after review of the tests above:: Viral illness Admission Indicated Admission indicated?: not indicated Admission Request Was there a request for admission?: No Disposition Plan Disposition Plan: Discharge Discharge Attestation Discharge Attestation: The patient and all family members were given an opportunity to ask questions and understood the discharge instructions. Discharge instructions specifically effects, indications for sooner follow up or return to the emergency department, and the expected course of current diagnosis. Patient condition: Stable Discharge Plan Plan Patient Disposition: HOME (Self Care) Disposition Comment: Stable Prescriptions/Referrals Prescriptions/Med Rec: New ibuprofen 800 mg tablet 800 mg PO TID PRN (Reason: pain) Qty: 30 0RF No Action omeprazole 20 mg capsule,delayed release(DR/EC) 20 mg PO 1XD Patient Comments: TAKE 1 CAPSULE BY MOUTH EVERY DAY folic acid 1 mg tablet 1 mg PO QID Patient Comments: TAKE 1 TABLET BY MOUTH EVERY DAY FOR 14 DAYS furosemide [Lasix] 20 mg tablet 20 mg PO QDAY PRN (Reason: edema) 30 Days Qty: 30 0RF ferrous sulfate 220 mg (44 mg iron)/5 mL elixir 220 mg PO Q OTHER DAY 60 Days Qty: 150 0RF Referrals: No Primary/Family,Physician [Primary Care Provider] - 04/13/24 Problem List Clinical Impression: Influenza Patient/Caregiver Discharge Instructions Education Materials: ED Influenza (Adult) Additional Instructions: Please follow up with your primary care doctor in the next 24-48hrs for any worsening symptoms return here immediately Print Language: Vietnamese Stand Alone Forms: Daphnie Dutta Info., Patient Portal Info Letter PA/NETWORK OPERATIONS SPECIALIST Supervising Physician PA/NETWORK OPERATIONS SPECIALIST Supervising Physician: Dr miller
[2024-04-12 10:40] VITALS: TEMP 37.9
[2024-04-12] MEDS: IBUPROFEN TAB 400 MG TABLET 800 MG PO (10:40)
== END 2024-04-12 10:44 | disposition home or self-care (01) ==
PROVIDERS: Emergency Provider Emergency Medicine
DX: J11.1 Influenza due to unidentified influenza virus with other respiratory manifestations (principal)
CPT/HCPCS: 71046; 87400; 87811; 99283; A9270

== ENCOUNTER 2024-04-21 14:03 | Outpatient (AMB) | payer MEDICAID, SELFPAY ==
[2024-04-21 14:11] VITALS: BP 141/82; PULSE 107; RESP 18; TEMP 36.8; O2SAT 98; BMI 36.5
--- NOTE | 2024-04-21 14:11 | PD.RESCLINIC ---
Vital Signs 04/21/24 14:11 Height 1.75 m Height Method Stated Weight 112.207 kg Weight Measurement Method Standing Scale BMI 36.5 BP 141/82 H Blood Pressure Source Automatic Cuff Blood Pressure Location Left Upper Arm Position Sitting Respiration 18 Pulse 107 H Pulse Source Monitor Temp 98.3 F Temp Source Oral Pulse Oximetry (%) 98 Oxygen Delivery Method Room Air Allergies/Meds Allergies & Medications Allergies No Known Allergies Allergy (Verified 04/21/24 14:12) Medication Reconciliation folic acid 1 mg tablet 1 mg PO QID 03/30/24 [History Confirmed 04/21/24] omeprazole 20 mg capsule,delayed release 20 mg PO 1XD 03/30/24 [History Confirmed 04/21/24] ferrous sulfate 220 mg (44 mg iron)/5 mL oral elixir 220 mg (5 mL) PO Q OTHER DAY 2 months #150 mL 04/04/24 [Rx Confirmed 04/21/24] furosemide 20 mg tablet (Lasix) 20 mg PO QDAY PRN edema 1 month #30 tabs 04/04/24 [Rx Confirmed 04/21/24] ibuprofen 800 mg tablet 800 mg PO TID PRN pain #30 tabs 04/12/24 [Rx Confirmed 04/21/24] ferrous sulfate 325 mg (65 mg iron) tablet 325 mg PO Q OTHER DAY 3 months #45 tabs 04/21/24 [Rx] furosemide 20 mg tablet 20 mg PO QDAY PRN edema #30 tabs 04/21/24 [Rx] lactulose 10 gram/15 mL oral solution 10 g (15 mL) PO QDAY #473 mL 04/21/24 [Rx] MA Intake Visit Data Collection New Patient or Established: Established Patient (seen at [facility] within 3 years) Seen by Clinical Staff ONLY (RN/MA): No Reason for Visit:: Follow up from recent hospitalisation and to establish primary care Pain Present Currently: No Pain scale:: 0 Pain Scale Used: Irizarry-Manning/Numerical Traffic Control Technician Required: No PCP or OBGYN visit in last 3 months: No Do You Feel Safe at Home: Yes Authorities Contacted: N/A Smoking Status Smoking Status: Never smoker Immunization / Flu Flu Vaccine in the Last 12 Months: No Flu Vaccine Exclusion Criteria: Refused by Patient Past Medical History Past Medical History NEUROLOGIC: Negative Neurological Disorders or Seizures CARDIAC: Negative Cardiac Disorders or Congestive Heart Failure RESPIRATORY: Negative Chronic Obstructive Pulmonary Disease (COPD) or Asthma GENITOURINARY: Negative Renal Disease ENDOCRINE: Negative Diabetes Mellitus Type 1 or Diabetes Mellitus Type 2 HEMATOLOGIC: Negative Sickle Cell Disease OTHER HISTORY: Negative Blood Transfusions, Blood Transfusion Reaction, Anesthesia Reactions or Cancer Social History SMOKING STATUS: Smoking status: Never smoker ALCOHOL: Alcohol Intake: Former ALCOHOL FREQUENCY: Alcohol Intake Frequency: 3 or More Drinks per Day HOUSING: Housing: House LIVES WITH: Lives With: Family Patient Portal Questionaires Social History Living Situation History Housing: House Tobacco History Smoking Status: Never smoker Alcohol History Alcohol Intake: Former Alcohol Intake Frequency: 3 or More Drinks per Day Alcohol Intake Frequency Other:: 5- 24OZ DAILY Domestic Abuse History Do You Feel Safe at Home: Yes Review of Systems Report any current symptoms Only answer those that you have currently: General Complaints anorexia: Yes body ache(s): Yes Past Medical History Past Medical History Have you ever been diagnosed with any of the following: Neurological Problems Seizures: No Cardiology Problems Congestive Heart Failure: No Respiratory Problems Chronic Obstructive Pulmonary Disease (COPD): No Asthma: No Genital/Urinary Problems Renal Disease: No Endocrine Problems Diabetes Mellitus Type 1: No Diabetes Mellitus Type 2: No Blood Problems Sickle Cell Disease: No Other Problems Blood Transfusions: No Blood Transfusion Reaction: No Anesthesia Reactions: No Cancer: No History of Present Illness HPI Narrative A 28yr old male with recent admission in [facility] for Alcoholic liver disease, AKIL (resolved), Hyponatremia(resolved) came for regular follow up. Reported that he is feeling good overall. But c/o constipation occasionally despite using lactulose. Also reported that he occasionally noted pain and blood while wiping after passing stool. Denies pedal edema, shortness of breath. Denies any other complaints. Review of Systems Review of Systems Narrative Review of Systems: Constitutional: No Weight Change, No Fever, No Chills, No Night Sweats, No Fatigue, No Malaise ENT/Mouth: No Hearing Changes, No Ear Pain, No Nasal Congestion, No Sinus Pain, No Hoarseness, No sore throat, No Rhinorrhea, No Swallowing Difficulty Eyes: No Eye Pain, No Swelling, No Redness, No Foreign Body, No Discharge, No Vision Changes Cardiovascular: No Chest Pain, No SOB, No PND, No Dyspnea on Exertion, No Orthopnea, No Edema, No Palpitations Respiratory: No Cough, No Sputum, No Wheezing, No Dyspnea Gastrointestinal: No Nausea, No Vomiting, No Diarrhea, Constipation, No Pain, No Heartburn, No Anorexia, No Dysphagia, Hematochezia, No Melena, No Flatulence, No Jaundice Genitourinary: No Dysuria, No Urinary Frequency, No Hematuria, No Urinary Incontinence, No Urgency, No Flank Pain, No Urinary Flow Changes, No Hesitancy Musculoskeletal: No Arthralgias, No Myalgias, No Joint Swelling, No Joint Stiffness, No Back Pain, No Neck Pain, No Injury History Skin: No Skin Lesions, No Pruritis Neuro: No Weakness, No Numbness, No Paresthesias, No Loss of Consciousness, No Syncope, No Dizziness, No Headache, No Coordination Changes, No Recent Falls Constitutional Constitutional: Reports anorexia and Reports body aches Objective/Exam Narrative Physical exam: General: Awake. ICTERIC HEENT: Normocephalic, atraumatic, mucous membranes moist. Heart: Regular rate and rhythm, no murmurs. Lungs: Clear to auscultation with no wheezing or crackles. Abdomen: Soft, nondistended, nontender, positive bowel sounds. ?No guarding or rebound tenderness. Neurologic: Alert and oriented x3, no gross neurological deficit, and patient able to move all 4 extremities. Extremities: No edema. Skin: No rash or ecchymoses. Assessment & Plan Diagnosis / Problem List (1) Alcoholic liver disease: Status: Acute Assessment & Plan: - patient reported that he completely abstain from alcohol intake. -Denies pedal edema, abdominal distention, abdominal pain, nausea, vomitings -Patient does not appear fluid overloaded at this point Plan: -Educated about strict alcohol abstinence -Educated about high-protein and low salt diet -Recommended to take Lasix if there is any signs of fluid overload like pedal edema or abdominal distention -Recommended to continue dietary supplements. 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 (3) Anemia: Status: Acute Qualifiers: Anemia type: iron deficiency Iron deficiency anemia type: inadequate dietary iron intake Qualified Code(s): D50.8 - Other iron deficiency anemias Assessment & Plan: Hemoglobin was 7.7 during last hospital stay Patient was found to have iron deficiency at that time in 03/2024 Endoscopy and colonoscopy done during the hospitalization showed no active bleed Started on iron supplements on discharge Plan: -Repeat CBC was ordered -Iron supplements were continued. (4) Elevated LFTs: Status: Acute Assessment & Plan: -Patient was noted to have elevated bilirubin and liver enzymes during last hospital stay -Repeat labs done during the hospital stay showed downtrending liver enzymes and bilirubin Plan: -Repeat CMP was ordered to monitor liver enzymes -Patient was educated about abstinence from alcohol (5) Constipation: Status: Acute Qualifiers: Constipation type: unspecified constipation type Qualified Code(s): K59.00 - Constipation, unspecified Assessment & Plan: -Patient was using lactulose once a day 15 mL -Still complaining of constipation and found to have pain during passage of stools with noted blood while wiping -Likely hemorhoids due to constipation Plan: -Recommended to continue lactulose depending upon his stool consistency and frequency. Additional Assessment Attending note: I, Ariel Sanches MD, attest that I was physically present for the barth portions of the service and evaluated the patient with the resident and I reviewed and discussed the case with the resident and agree with the resident's findings and plans of care as documented above. New patient to clinic. Recent hospitalization for alcoholic liver disease and AKIL. Also had hyponatremia. Had mildly elevated transaminases and bilirubin during hospital stay. These were downtrending at the time of discharge. We will recheck levels. History of diabetes mellitus type 2. This may be related more so to alcohol and diet. A1c was 6.3. No agents were started. We will repeat hemoglobin A1c at a subsequent visit; if it remains elevated, would start patient on metformin. Patient on iron supplements due to hemoglobin of 7.7 and iron deficiency. Recheck CBC. Patient noting some constipation from iron. He is using lactulose. Follow-up in 1 month. Ariel Sanches MD Physician Billing New Patient New Patient: E/M Level 3-CPT 39843 Office Procedures [facility] Level of Care Nursing/Assessment Patient Status: Established Patient Nursing Assessment/Reassessment: Medication Reconciliation, Update PMH in EMR and Vital Signs Coordination of Care: Complex Care and Chronic Disease 1-5, Consent,records obtained, informed consent, Education Simp Pt/Fam and Staff clarify orders Established Patient Charge Established Patient Point Assignment: 85 Established Patient Point Charge: EP Level 3 (80-115)
== END 2024-04-21 15:05 | disposition home or self-care (01) ==
LOC: HODAHC 14:03
PROVIDERS: Supervising Provider Internal Medicine
DX: K70.9 Alcoholic liver disease, unspecified (principal); K59.00 Constipation, unspecified; E11.9 Type 2 diabetes mellitus without complications; D64.9 Anemia, unspecified
CPT/HCPCS: 99213; G0463

== ENCOUNTER 2024-05-16 21:40 | Inpatient (IN) | payer MEDICAID, SELFPAY ==
[2024-05-16 21:42] VITALS: BMI 34.0
[2024-05-16 22:04] VITALS: BP 80/48; BP 89/52; PULSE 85; RESP 18; TEMP 36.8; O2SAT 97
--- NOTE | 2024-05-16 22:09 | PD.EDRME ---
Rapid Medical Screening Exam [facility] Arrival date/time: 05/16/24 21:40 28-year-old male past medical history of liver cirrhosis presents emergency department complaining of generalized weakness and bloody stools. Chief Complaint: GI Bleed Vital signs: Vital Signs Temperature 98.2 F 05/16/24 22:04 Pulse Rate 85 05/16/24 22:04 Respiratory Rate 18 05/16/24 22:04 Blood Pressure 89/52 L 05/16/24 22:04 Pulse Oximetry (%) 97 05/16/24 22:04 Oxygen Delivery Method Room Air 05/16/24 22:04 Vital signs reviewed by provider: Yes
--- NOTE | 2024-05-16 22:11 | EKG_ITS ---
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: : 1995 Requested By: Reji Chand ([facility]) Order Number: [id number] Reading MD: Reji Chand ([facility]) Measurements Intervals [place] Rate: 82 P: 11 AR: 191 QRS: -5 QRSD: 123 T: 12 QT: 414 QTc: 485 Interpretive Statements SINUS RHYTHM MODERATE INTRAVENTRICULAR CONDUCTION DELAY [110+ ms QRS DURATION] NONSPECIFIC T-WAVE ABNORMALITY Compared to ECG 03/31/2024 12:14:02 Intraventricular conduction delay now present T-wave abnormality now present Left ventricular hypertrophy no longer present Prolonged QT interval no longer present /store/S0/[id number].pdf
--- NOTE | 2024-05-16 22:11 | XR_ITS ---
Examination: PA chest single view Technique: Upright PA chest single view Exam date and time: May 16, 2024 10:31 PM Indications: Weakness today. Findings: Elevation hemidiaphragms Pneumonia left base with left pleural fluid Also pneumonia in the right upper lobe and right base No pulmonary edema Normal heart size Impression: Bilateral pneumonia, most prominent left base
[2024-05-16 23:14] LABS: Basophils # (Auto) 0.1 Thou/mm3 (0.0-0.2); Basophils % (Auto) 0 % (0-2.5); Eosinophils # (Auto) 0.2 Thou/mm3 (0.0-0.5); Eosinophils % (Auto) 1 % (0-10); Hematocrit 24.1 % (41.0-53.0); Immature Granulocytes % (Auto) 1 % (0-0); Immature Granulocytes Auto 0.35 Thou/mm3 (0.00-0.00); Lymphocytes # (Auto) 1.1 Thou/mm3 (1.0-4.8); Lymphocytes % (Auto) 4 % (10-50); Mean Corpuscular HGB Conc 34.9 g/dl (31.0-37.0); Mean Corpuscular Hemoglobin 30.2 pg (25.0-35.0); Mean Corpuscular Volume 87 fL (80-100); Monocytes # (Auto) 1.2 Thou/mm3 (0.0-0.8); Monocytes % (Auto) 4 % (0-12); Neutrophils # (Auto) 25.1 Thou/mm3 (1.8-7.7); Neutrophils % (Auto) 89 % (37-80); Nucleated Red Blood Cell % 0 /100 WBC (0); Platelet Count 356 Thou/mm3 (140-440); RDW Standard Deviation 67.8 fL (35.1-43.9); Red Blood Count 2.78 Miln/mm3 (4.50-5.90)
[2024-05-16 23:15] LABS: Hemoglobin 8.4 g/dL (13.5-16.0)
[2024-05-16 23:22] LABS: Prothrombin Time 20.9 Seconds (9.0-12.2)
[2024-05-16 23:23] VITALS: BP 97/50; PULSE 84; RESP 15; TEMP 36.7; O2SAT 98
[2024-05-16 23:31] VITALS: BP 75/49; PULSE 80; RESP 17; O2SAT 98
--- NOTE | 2024-05-16 23:33 | PD.EDGIBLD ---
ED GI Bleed RME/HPI General Chief complaint: GI Bleed Stated complaint: BLOODY STOOLS Time Seen by Provider: 05/16/24 23:34 Arrival date/time: 05/16/24 21:40 Limitations: no limitations RME / HPI RME / HPI Narrative: 05/16/24 21:40 28-year-old male past medical history of liver cirrhosis presents emergency department complaining of generalized weakness and bloody stools. --- Dr. Reveles's Main ED Evaluation: 28yo male with a history of cirrhosis presents to the ED for a chief complaint of rectal bleeding. Patient states I've been bleeding since the last time I was here on April 04 . Patient states he came in today due to being generally weak. He notes he's had a cough for the last 3 weeks. He denies any N/V/D, fever, chills, abdominal pain or any other associated symptoms. No known allergies. Related Data Home Medications ?Medication ?Instructions ?Recorded ?Confirmed folic acid 1 mg tablet 1 mg PO QID 03/30/24 04/21/24 omeprazole 20 mg capsule,delayed 20 mg PO 1XD 03/30/24 04/21/24 release Previous Rx's ?Medication ?Instructions ?Recorded ferrous sulfate 220 mg (44 mg 220 mg (5 mL) PO Q OTHER DAY 2 04/04/24 iron)/5 mL oral elixir months #150 mL ibuprofen 800 mg tablet 800 mg PO TID PRN pain #30 tabs 04/12/24 ferrous sulfate 325 mg (65 mg 325 mg PO Q OTHER DAY 3 months #45 04/21/24 iron) tablet tabs furosemide 20 mg tablet 20 mg PO QDAY PRN edema #30 tabs 04/21/24 lactulose 10 gram/15 mL oral 10 g (15 mL) PO QDAY #473 mL 04/21/24 solution Allergies Allergy/AdvReac Type Severity Reaction Status Date / Time No Known Allergies Allergy Verified 04/21/24 14:12 Review of Systems Review of Systems Systems Reviewed: All systems reviewed, normal except as documented ED Exam General Limitations: Present no limitations General appearance: Present alert and in no apparent distress Head Head exam: Present atraumatic Eye Eye exam: Present PERRL, EOMI and scleral icterus ENT ENT exam: Present normal exam, normal oropharynx and mucous membranes moist Neck Neck exam: Present normal inspection, full ROM and trachea midline Chest Chest inspection: Present normal inspection and symmetric chest wall rise Respiratory Respiratory exam: Present other (rhonchi at the left base, right base is clear, good air movement) Cardiovascular Cardiovascular exam: Present regular rate, normal rhythm and normal heart sounds Abdominal Exam Abdominal exam: Present soft, normal bowel sounds and ascites (minimal) Rectal Exam Rectal exam: Present heme (+) stool (with dark stool) Extremities Exam Extremities exam: Present normal inspection and full ROM; Absent pedal edema Back Exam Back exam: Present normal inspection and full ROM Neurological Exam Neurological exam: Present alert, oriented X3, CN II-XII intact and other (GCS 15) Psychiatric Psychiatric exam: Present normal affect and normal mood Skin Skin exam: Present warm, dry, intact and other (jaundiced) Course Course Course Narrative: CXR is ordered for determining the etiology of weakness. 0118: Blood pressure is 100/60 after receiving albumin. 0124: Hospitalist is responding to a rapid response at this time. Awaiting callback. Quality Measures none Orders Category Date Time Status [employer] STAT Care 05/16/24 22:09 Active EKG (ED ONLY) *Do not use* NOW Care 05/16/24 22:11 Completed Insert IV NOW Care 05/16/24 22:11 Active Occult Blood,Stool (Nursing) NEEDED Care 05/16/24 22:09 Active EKG (ED Only) Stat Exams 05/16/24 22:11 Draft XR chest 1V portable Stat Exams 05/16/24 22:11 Completed Ammonia Stat Lab 05/16/24 22:50 Completed BNP [B-Type Natriuretic Peptide] Stat Lab 05/17/24 00:00 Completed Blood Culture (Lab) Stat Lab 05/16/24 23:49 Received CBC Stat Lab 05/16/24 22:50 Completed COVID-19 Antigen (In-House) Stat Lab 05/17/24 Ordered Comprehensive Metabolic Panel Stat Lab 05/16/24 22:50 Completed Influenza A & B Rapid Panel Stat Lab 05/17/24 01:42 Ordered Lactic Acid [Lactate (Lactic Acid)] Stat Lab 05/16/24 23:49 Results Lipase Stat Lab 05/16/24 22:50 Completed Magnesium Stat Lab 05/16/24 22:50 Completed Partial Thromboplastin Time Stat Lab 05/16/24 22:50 Completed Procalcitonin Stat Lab 05/16/24 23:49 Completed Prothrombin Time with INR Stat Lab 05/16/24 22:50 Completed Troponin I Stat Lab 05/16/24 22:50 Completed Type and Screen Stat Lab 05/16/24 22:50 Completed Urinalysis Stat Lab 05/16/24 22:10 Ordered Albumin Human 25% Ivpb [Albuminar-25 Ivpb] Med 05/16/24 23:37 Active 25 gm in 100 ml IV QDAY Azithromycin Inj [Zithromax Inj] 500 mg Med 05/17/24 01:48 Ordered Sodium Chloride 0.9% 250 ml [Ns] 250 ml IV QDAY Potassium Chloride [K-Dur] Med 05/17/24 00:51 Discontinued 40 meq PO X1 ONE cefTRIAXone [Rocephin] 1,000 mg Med 05/17/24 01:47 Active Sodium Chloride 0.9% [Ns] 50 ml IV X1 Vital Signs Vital signs: Vital Signs Temperature 98.2 F 05/16/24 22:04 Pulse Rate 85 05/16/24 22:04 Respiratory Rate 18 05/16/24 22:04 Blood Pressure 89/52 L 05/16/24 22:04 Pulse Oximetry (%) 97 05/16/24 22:04 Oxygen Delivery Method Room Air 05/16/24 22:04 Pulse ox is 97% on room air, which is normal according to my interpretation. GI Bleed Patient data External records reviewed:: [facility] previous records (Per chart review, patient was discharged from here on 04/04/24 after being admitted for acute hyponatremia.) Clinical information provided by:: patient Social determinants that could affect healthcare access:: alcohol use Patient has the following chronic illnesses:: cirrhosis How is presenting disease/condition affected by chronic disease/condition?: caused by Evaluation data The following diagnostics were reviewed and interpreted by me:: lab results, radiology exam(s) and EKG tracing(s) Lab and/or radiology exams considered but not ordered:: none Interpretation Summary: WBC count is elevated at 28.0 (which is chronic), HnH is stable at 8.4/24.1, PTT is normal, PT and INR are elevated (which is chronic), Sodium is low at 130, Potassium is low at 2.7, Creatinine is elevated at 3.3, Lactic Acid is elevated at 2.2, Procalcitonin is elevated at 1.15, Ammonia is elevated at 96, Total Bilirubin is elevated at 30.0, LFTs are elevated, Lipase is slightly elevated at 64, according to my interpretation. EKG done at 2324, NSR, rate of 82, nonspecific ST-T wave changes, flattening T-waves laterally in V5 and V6, no STEMI, according to my interpretation. ------ [facility] Report Signed Patient: MONY WAN. Record#: [id number] Birthdate: 1995 Age/Sex: 28 / M Location: [facility] Attending Dr: Ordering Physician: Claudette TAY)Reji Date of Service: 05/16/24 Procedure(s): XR chest 1V portable Accession Number(s): [id number] cc: Iker Plaza MD; Claudette TAY),Reji BEAULIEU~ Examination: PA chest single view Technique: Upright PA chest single view Exam date and time: May 16, 2024 10:31 PM Indications: Weakness today. Findings: Elevation hemidiaphragms Pneumonia left base with left pleural fluid Also pneumonia in the right upper lobe and right base No pulmonary edema Normal heart size Impression: Bilateral pneumonia, most prominent left base Dictated By: Iker Plaza MD Signed By: <Electronically signed by Iker Plaza MD in OV> 05/16/24 2311 Medications / Prescriptions Medications or Prescriptions considered but not ordered:: none Medication administrations:: Medication Administration History Albumin Human (Albuminar-25 Ivpb) 25 gm in 100 mls @ 100 mls/hr IV QDAY LISA Stop: 05/19/24 23:36 Last Admin: 05/17/24 01:52 Dose: 100 mls/hr Documented By: Infusion: 05/17/24 01:09 Dose: Infused Documented By: Admin: 05/16/24 23:44 Dose: 100 mls/hr Documented By: YOLANDA Ceftriaxone Sodium 1,000 mg/ (Sodium Chloride) 50 mls @ 100 mls/hr IV X1 ONE Stop: 05/17/24 02:16 Azithromycin 500 mg/ Sodium (Chloride) 250 mls @ 250 mls/hr IV QDAY LISA Stop: 05/24/24 01:47 Discontinued Medications Potassium Chloride (Potassium Chloride 20 Meq Tabcr) 40 meq PO X1 ONE Stop: 05/17/24 00:52 Last Admin: 05/17/24 01:52 Dose: 40 meq Documented By: TC see above Consultations Consultation(s) initiated? (list below): Yes Consultation #1 (Physician, Specialty, Details): Discussed case with [Dr. Richards] from Hospitalist service regarding admission. Discussed patients ED course, exam findings, labs, and radiology results. The Hospitalist [agrees] to accept the patient for admission. Time: 01:37 Diagnosis GI bleed differential diagnosis: hemorrhoids, Caitlyn-Tom syndrome, Lower gastrointestinal hemorrhage, hematochezia and other (pneumonia, viral syndrome, worsening cirrhosis, liver failure) Most likely diagnosis given after review of the tests above:: see below Admission Indicated Admission indicated?: indicated Admission Request Was there a request for admission?: Yes Admission Attestation Admission request attestation: Discussed case with [] from Hospitalist service regarding admission. Discussed patients ED course, exam findings, labs, and radiology results. The Hospitalist [agrees,declines] to accept the patient for admission. Disposition Plan Disposition Plan: Admit Critical Care Time Critical Care Time Critical Care Time: Yes Total Critical Care Time (min.): 45 Attestation: The high probability of sudden, clinically significant deterioration in the patient?s condition required the highest level of my preparedness to intervene urgently. The services I provided to this patient were to treat and/or prevent clinically significant deterioration. Services included the following: chart data review, reviewing nursing notes and/or old charts, documentation time, hr business partner consultant collaboration regarding findings and treatment options, medication orders and management, direct patient care, vital sign assessments and ordering, interpreting and reviewing diagnostic studies and lab tests. Aggregate critical care time includes only time during which I was engaged in work directly related to the patient?s care, as described above, whether at bedside or elsewhere in the Emergency Department. It did not include time spent performing other reported procedures or the services of residents, students, nurses or physician assistants. Discharge Plan Plan Patient Disposition: Admit Acute Care w/in Hospital Prescriptions/Referrals Prescriptions/Med Rec: No Action ferrous sulfate 325 mg (65 mg iron) tablet 325 mg PO Q OTHER DAY 90 Days Qty: 45 0RF lactulose 10 gram/15 mL solution 10 g PO QDAY Qty: 473 0RF furosemide 20 mg tablet 20 mg PO QDAY PRN (Reason: edema) Qty: 30 0RF omeprazole 20 mg capsule,delayed release(DR/EC) 20 mg PO 1XD Patient Comments: TAKE 1 CAPSULE BY MOUTH EVERY DAY folic acid 1 mg tablet 1 mg PO QID Patient Comments: TAKE 1 TABLET BY MOUTH EVERY DAY FOR 14 DAYS ferrous sulfate 220 mg (44 mg iron)/5 mL elixir 220 mg PO Q OTHER DAY 60 Days Qty: 150 0RF ibuprofen 800 mg tablet 800 mg PO TID PRN (Reason: pain) Qty: 30 0RF Problem List Clinical Impression: Cough, Alcoholic liver disease, Acute hypokalemia, Left lower lobe pneumonia, Heme positive stool Patient/Caregiver Discharge Instructions Print Language: Emirati Stand Alone Forms: Daphnie Award Info., Patient Portal Info Letter
[2024-05-16 23:34] LABS: Ammonia 96 uMol/L (11-32)
[2024-05-16] MEDS: ALBUMIN HUMAN 25% IVPB 25 GM/100 ML BTL IV (23:44)
[2024-05-16 23:50] LABS: Troponin I < 0.020 ng/mL (0.0-0.045)
[2024-05-17] VITALS (49 sets, daily range): BP systolic 86–148; BP diastolic 39–78; PULSE 75–104; RESP 12–97; TEMP 36.2–36.9; O2SAT 92–100; BMI 34.4
[2024-05-17 00:19] LABS: Lactate (Lactic Acid) 2.2 mMol/L (0.4-2.0)
[2024-05-17 00:42] LABS: Alanine Aminotransferase 37 U/L (10-49); Albumin, Serum 2.3 gm/dL (3.5-5.0); Albumin/Globulin Ratio 0.6 (1.2-2.2); Alkaline Phosphatase 313 U/L (46-116); Anion Gap 14 (7-16); Aspartate Amino Transferase 120 U/L (0-34); BUN/Creatinine Ratio 13 Ratio (12-20); Blood Urea Nitrogen 42 mg/dL (9-23); Calcium 8.5 mg/dL (8.3-10.6); Calcium (Corrected) 9.9 mg/dL (8.5-10.1); Carbon Dioxide 18.1 mMol/L (20.0-31.0); Chloride 98 mMol/L (98-107); Creatinine (Component) 3.3 mg/dL (0.6-1.3); Estimated Creatinine Clearance 39.3 mL/min (>60); Globulin 3.6 gm/dL (2.3-3.5); Glucose 108 mg/dL (74-106); Lipase 64 U/L (12-53); Magnesium 2.4 mg/dL (1.6-2.6); Osmolality,Calculated 272 (275-295); Sodium 130 mMol/L (136-145); Total Protein 5.9 gm/dL (5.7-8.2); eGFR 25 See Note
[2024-05-17 00:44] LABS: Potassium 2.7 mMol/L (3.4-5.1)
[2024-05-17 01:00] LABS: Procalcitonin 1.15 ng/ml (0.0-0.49)
[2024-05-17] MEDS: POTASSIUM CHLORIDE 20 mEq TABCR 40 MEQ PO ×2 (01:52→03:24)
[2024-05-17] MEDS: ALBUMIN HUMAN 25% IVPB 25 GM/100 ML BTL IV ×4 (01:52→20:47)
[2024-05-17 01:54] LABS: B-Type Natriuretic Peptide 124 pg/mL (0-100)
--- NOTE | 2024-05-17 02:22 | PD.RESHP ---
Documentation for date of: 05/17/24 HPI History of Present Illness Chief complaint: Worsening cough, fatigue History of present illness: HPI: Patient is a 28-year-old male with past medical history significant for alcoholic cirrhosis and prediabetes presenting today with a chief complaint of worsening cough and fatigue. Patient states that for the past 2 weeks he has had a progressively worsening cough. States that it is mostly nonproductive but sometimes has yellow mucus and sometimes hemoptysis after prolonged coughing episodes. Denies any SOB, fever, chest pain/pressure, palpitations, sick contacts and recent travel. Patient stated that today he felt generalized fatigue while sitting in his recliner worse than previous days and decided to come into the emergency room. Of note patient was recently hospitalized at [facility] from 03/30/2024 to 04/04/2024. At the time he was treated for hyponatremia, and deficiency anemia and acute kidney injury. During his hospitalization he received both EGD and colonoscopy which only revealed mild gastritis and internal hemorrhoids. ED course: BP 89/52, pulse 85, RR 18, temp 98.2 F, SpO2 97% on room air. Labs significant for Hb 8.4, HCT 24.1, WBC 28, PLT 256, NA 130, K2.7, bicarb 18.1, BUN 42, CR 3.3, PT 20.1, INR 2, LA 2.2, T. bili 30, AST 120, ALP 313, ammonia 96, Pro-Jad 1.15. On imaging chest x-ray revealed bibasilar consolidation worse on the left. Negative for pulmonary edema or pleural effusion. EKG sinus rhythm, rate 82 and prolonged QTc 483. No acute ST changes. Patient received 50 g albumin IV x 1 and KCl 40 mEq p.o. x 1 in the ED. Patient will be admitted for treatment and management of community-acquired pneumonia. Review of Systems Review of Systems Narrative Review of Systems: GENERAL: Denies fever/chills or diaphoresis. HEENT: Denies headaches or visual changes. Denies discharge. Neuro: Denies unusual weakness or difficulty speaking. CARDIO: As above PULM: As above GI: Denies abdominal pain, N/V/C/D. Reports having BMs. URO: Denies burning/itching/pain/urinary changes. MSK/EXT/SKIN: Denies joint/skeletal/muscle pain, issues/changes in upper or lower extremities, itchiness, or superficial pain. PSYCH: Cooperative, pleasant mood & affect. The rest of the review of systems is otherwise negative. Past Medical History Past Medical History Comments PMH COMMENT: Past medical history: - Alcoholic Cirrhosis Medication list: ? Furosemide 20 Mg p.o. as needed ? Ferrous sulfate 325 Mg p.o. every other day ? Lactulose 10 g p.o. daily ? Ibuprofen 800 Mg p.o. 3 times daily ? Omeprazole 20 Mg p.o. daily Past surgical history: Nil Allergies: Nil Social history: Occupational History: Previously worked in the [employer] Education Level: Did [employer] in [place] [employer] Marital Status: . Tobacco use: Denies ETHO use: Quit Mar 28, 2024. Previously drank 1.5 L of vodka per day for 2 years. Patient says he started to drink after he and his Illicit drug use: Denies Social History Note: lives with mother Exam Vital Signs Temp Pulse Resp BP Pulse Ox O2 Del Method 98.0 F 76 19 100/58 L 95 Room Air 05/16/24 23:23 05/17/24 01:00 05/17/24 01:00 05/17/24 01:00 05/17/24 01:00 05/16/24 23:23 Narrative Exam Constitutional Alert, oriented x 3 and comfortable. Young male, scleral icterus, generalized jaundice HEENT Vision grossly intact. Patent nares. Trachea midline Respiratory Chest normal on inspection and decreased air entry mid to lower zones with atelectasis Cardiovascular S1 and S2 audible, RRR. No murmurs carotid bruit. No gross JVD. Abdominal Tense, distended, shifting dullness, caput medusa, multiple excoriation spence. BS + Genitourinary No bladder tenderness, no flank pain. Normal to palpation Musculoskeletal Extremities tone within normal limits. 2+ lower extremity edema up to hips bilaterally Neurological CN II - XII grossly intact. Extremity motor and sensation grossly intact. Mild asterixis Skin Warm, dry and intact. No apparent lesions. Psychiatric Patient has good affect, is cooperative Results: Labs 05/17/24 03:46 05/17/24 03:46 Labs: Short CBC 05/16/24 Range/Units 22:50 WBC 28.0 H (3.8-10.6) Thou/mm3 Hgb 8.4 L (13.5-16.0) g/dL Hct 24.1 L (41.0-53.0) % Plt Count 356 (140-440) Thou/mm3 BMP 05/16/24 22:50 Sodium 130 L Potassium 2.7 L* Chloride 98 Carbon Dioxide 18.1 L BUN 42 H Creatinine 3.3 H Glucose 108 H Calcium 8.5 Cardiac Enzymes 05/16/24 Range/Units 22:50 Troponin I < 0.020 (0.0-0.045) ng/mL Liver Function 05/16/24 Range/Units 22:50 Total Bilirubin 30.0 H* (0.3-1.2) mg/dL AST 120 H (0-34) U/L ALT 37 (10-49) U/L Alkaline Phosphatase 313 H (46-116) U/L Albumin 2.3 L (3.5-5.0) gm/dL Quality Measures Quality Measures none Medications Home Medications and Allergies Home Medications ?Medication ?Instructions ?Recorded ?Confirmed ?Type folic acid 1 mg tablet 1 mg PO QID 03/30/24 04/21/24 History omeprazole 20 mg capsule,delayed 20 mg PO 1XD 03/30/24 04/21/24 History release Allergies Allergy/AdvReac Type Severity Reaction Status Date / Time No Known Allergies Allergy Verified 04/21/24 14:12 Visit Medications Hydrocodone Bitart/Acetaminophen (Hydrocodone/Apap 5/325 Tablet) 1 tab PO Q4HR PRN PRN Reason: PAIN SCALE 4-10(Mod-Sev Stop: 05/22/24 02:07 Budesonide (Budesonide Rt 0.25 Mg/2 Ml Nebu) 0.25 mg INH BIDRT LISA Stop: 06/16/24 06:59 Cholestyramine Resin (Cholestyramine/Sucrose 1 Pkt Ea) 1 pkt PO QDAY LISA Stop: 06/16/24 08:59 Albumin Human (Albuminar-25 Ivpb) 25 gm in 100 mls @ 100 mls/hr IV QDAY LISA Stop: 05/19/24 23:36 Last Admin: 05/17/24 01:52 Dose: 100 mls/hr Azithromycin 500 mg/ Sodium (Chloride) 250 mls @ 250 mls/hr IV QDAY LISA Stop: 05/19/24 01:47 Ceftriaxone Sodium/Dextrose (Rocephin/D5w 1gm Iv Premix) 50 mls @ 100 mls/hr IV DAILY LISA Stop: 05/25/24 08:59 Ipratropium [place] (Ipratropium Rt 0.5 Mg/ 2.5 Ml Nebu) 0.5 mg INH Q6HRRT LISA Stop: 06/16/24 06:59 Lactulose (Lactulose Syrup 20 Gm/30 Ml Udc) 10 gm PO QDAY LISA; Protocol Stop: 06/16/24 08:59 Ondansetron HCl (Ondansetron Inj 2 Mg/Ml Inj 2 Ml) 4 mg IV Q6H PRN; Protocol PRN Reason: NAUSEA OR VOMITING Stop: 06/16/24 02:07 Discontinued Medications Hydroxyzine HCl (Hydroxyzine Hcl 25 Mg Tablet) 25 mg PO X1 ONE Stop: 05/17/24 02:18 Ceftriaxone Sodium 1,000 mg/ (Sodium Chloride) 50 mls @ 100 mls/hr IV X1 ONE Stop: 05/17/24 02:16 Potassium Chloride (Potassium Chloride 20 Meq Tabcr) 40 meq PO X1 ONE Stop: 05/17/24 00:52 Last Admin: 05/17/24 01:52 Dose: 40 meq Potassium Chloride (Potassium Chloride 20 Meq Tabcr) 20 meq PO X1 ONE Stop: 05/17/24 02:17 Potassium Chloride (Potassium Chloride 20 Meq Tabcr) 40 meq PO X1 ONE Stop: 05/17/24 02:17 Sodium Chloride (Sodium Chloride Rt 10% 15 Ml Nebu) 5 ml INH X1 ONE Stop: 05/17/24 02:14 Assessment & Plan Plan Patient is a 28-year-old male with past medical history significant for alcoholic cirrhosis and prediabetes presenting today with a chief complaint of worsening cough and fatigue. Patient will be admitted for treatment and management of community-acquired pneumonia. 1. Worsening cough 2. Likely community-acquired pneumonia 3. Leukocytosis Patient presented with a 2-week history of a productive cough with occasional hemoptysis On exam patient had decreased air entry mid to lower zones and bibasilar atelectasis On imaging chest x-ray revealed bibasilar consolidation worse on the left. Negative for pulmonary edema or pleural effusion. WBC 28 PSI/PORT : 89 points. Outpatient or inpatient treatment Plan: ? Sputum culture and Gram stain ? Influenza A and B ordered ? RSV ordered ? Ipratropium nebs Q6 hourly ? Budesonide nebs 0.25 mg twice daily ? Started patient on ceftriaxone 1 g IV daily on [05/17? 4. Decompensated alcoholic cirrhosis with ascites and coagulopathy 5. Hyperbilirubinemia 6. Likely hepatorenal syndrome 7. Hypotension 8. Hypokalemia On presentation patient appears generally jaundiced, gross abdominal distention and multiple excoriations on arms, legs, chest, abdomen. On exam patient has abdominal distention consistent with ascites and lower extremity edema. Mild asterixis. Alert and oriented x 3 On admission patient was initially hypotensive BP 89/52 [MAP 58] On admission K 2.7 PT 20.9, INR 2, PTT 33, ammonia 96. T. bili 30 Madrey score: 84.7. Poor prognosis, patient may benefit from steroids Child-Carreno class C MELD NA?39 points. 65-66% 90-day mortality. Plan: ? Telemetry monitoring ? Albumin 25 g IV daily ? Octreotide infusion for splanchnic vasoconstriction ? Midodrine 5 Mg p.o. 3 times daily for likely hepatorenal syndrome [ Terlipressin is first-line but not available in [place]] ? Patient on ceftriaxone 1 g IV daily for SBP prophylaxis as he is child class C and has history of GI bleed. ? Lactulose 10 Mg p.o. daily. Titrate as necessary to achieve 2?3 bowel movements per day for hepatic encephalopathy prophylaxis. ? Cholestyramine 1 packet p.o. daily for pruritus ? KCl 60 mEq p.o. x 1 ? Monitor K on a.m. labs ? GI, Dr. Moss consulted and closely following the case. Appreciate recommendations 9. Normocytic anemia 10. Likely lower GI bleed Patient reports intermittent episodes of bright red blood after wiping. On admission patient's Hb 8.4. From chart review baseline appears to be between 7?8. Patient on oral iron as home medication. Guaiac positive Patient had colonoscopy completed on 04/03/2024 findings include: Hemorrhoids on perianal exam. Plan: ? Monitor hemoglobin on a.m. labs ? Day team to decide on restarting home medication oral iron Health maintenance: Disposition: IV antibiotics, Nebulizers. Blood pressre control with Octreotide, Midodrine and Albumin. GI consult Diet: Cardiac Lines: pIVs GI Prophylaxis: Pantoprazole Thrombo Prophylaxis: SCDs Code status: FULL CODE Plan of care discussed with Attending Dr. Susie House MD PGY 1 Attending Provider Attestation/Addendum I have discussed and was present for the essential components of the history, physical examination, diagnosis, and treatment plan with the resident. I agree with the patient's care as documented by the resident and amended herein by me. Dereck Richards, DO. Patient seen and evaluated in the emergency department. In short, patient is a 28-year-old male with significant past medical history of cirrhosis secondary to alcohol abuse, who presented to the ED for generalized weakness, malaise, cough and shortness of breath which had progressively worsened over the past 2 weeks prior to admission. Of note, recent admission in March 2020 for decompensated liver failure, acute hyponatremia, AKIL and VIVEK. In the ED, blood pressure soft 100/58 mmHg, patient afebrile, SpO2 95% on room air. CBC largely unremarkable, BMP significant for a potassium of 2.7, bicarb 18.1, BUN 42 and creatinine of 3.3, baseline appears to be 1.3. Liver panel demonstrating a T. bili of 30. INR is 2.0, lactic acid 2.2, ammonia 96, Pro-Jad 1.15, lipase 64. Chest x-ray demonstrating bilateral pneumonia. In the ED, the patient was given ceftriaxone azithromycin. Significant problem list: #Bilateral pneumonia Will continue ceftriaxone and azithromycin at this time #Decompensated liver failure, T. bili 30 on arrival, ammonia level 96, INR 2.0. Madrey discriminant function greater than 32, MELD NA 39 points #Hepatorenal Syndrome #Ascites/jaundice #Hyperammonemia #AKIL secondary to hepatorenal syndrome #Metabolic acidosis Diagnostic and therapeutic paracentesis ordered, fluid studies also ordered, ascites present on PE, antibiotics already given in ED for PNA however will still test for SBP Lactulose started, may consider adding rifaximin if needed Albumin, octreotide and midodrine started Abdominal ultrasound ordered GI consulted, patient was on course of steroids on last admission for alcoholic hepatitis, recommend day team to discuss with GI prior to starting course this visit #Hypokalemia Will replete as needed #? Alcohol withdrawal CIWA protocol in place Although this document has been carefully reviewed, there may still be some phonetic and other typographical errors. These errors are purely grammatical due to imperfections in the software program and should not be construed in any way to compromise the substance of the patient's medical care during this visit.
--- NOTE | 2024-05-17 02:25 | XR_ITS ---
Examination: Abdomen sonogram, Limited Date and time of exam: May 17, 2024 0535 hrs. Indications: Distended abdomen today with abdominal pain. Technique: Multiple real-time grayscale transabdominal sonographic images of the abdomen have been obtained. Findings: Significant ascites Impression: Significant ascites
[2024-05-17] MEDS: HYDROcodone/APAP 5/325 TABLET 1 TAB PO (02:52)
[2024-05-17] MEDS: hydrOXYzine HCL 25 MG TABLET PO (02:52)
[2024-05-17] MEDS: AZITHROMYCIN INJ 500 MG in SODIUM CHLORIDE 0.9% 250 ML 250 ML 250 MG IV (02:58)
[2024-05-17 03:14] LABS: Reflex Lactate? Y
--- NOTE | 2024-05-17 03:17 | XR_ITS ---
Examination: Ultrasound-guided paracentesis Abdominal sonogram limited Date and time of exam: May 17, 2024 1232 hours INDICATIONS: Cirrhosis, increasing ascites and abdominal distention this week Informed consent provided. A timeout was completed verifying correct patient, procedure, site, positioning, and special adequate movement if applicable. Technique: Multiple sonographic images of the abdomen have been obtained. Appropriate area for paracentesis was marked. Local anesthesia is obtained with 1% lidocaine. Yueh catheter is successfully introduced. Findings: Abdominal sonographic images demonstrate sufficient ascitic fluid for paracentesis. After placing the Yueh catheter, 6500 cc of fluid were successfully removed. During and after completion of the procedure the patient appear in satisfactory and stable condition with no complications observed. Estimated blood loss 0 cc Impression: Abdominal ascites Successful ultrasound-guided paracentesis as described above
[2024-05-17] MEDS: POTASSIUM CHLORIDE 20 mEq TABCR PO (03:24)
[2024-05-17 03:50] LABS: Lactic Acid, 3 HR 1.9 mMol/L (0.4-2.0)
[2024-05-17] MEDS: OCTREOTIDE ACET INJ 1,000 MCG in SODIUM CHLORIDE 0.9% 100 ML 5.1 MCG IV ×2 (04:10→22:26)
[2024-05-17] MEDS: SODIUM CHLORIDE RT 10% 15 ML NEBU 5 ML INH (04:23)
[2024-05-17 04:24] LABS: Alanine Aminotransferase 33 U/L (10-49); Albumin, Serum 2.8 gm/dL (3.5-5.0); Albumin/Globulin Ratio 0.9 (1.2-2.2); Alkaline Phosphatase 267 U/L (46-116); Anion Gap 14 (7-16); Aspartate Amino Transferase 112 U/L (0-34); BUN/Creatinine Ratio 11 Ratio (12-20); Blood Urea Nitrogen 38 mg/dL (9-23); Calcium 8.8 mg/dL (8.3-10.6); Calcium (Corrected) 9.8 mg/dL (8.5-10.1); Carbon Dioxide 15.7 mMol/L (20.0-31.0); Chloride 100 mMol/L (98-107); Creatinine (Component) 3.4 mg/dL (0.6-1.3); Estimated Creatinine Clearance 38.2 mL/min (>60); Globulin 3.2 gm/dL (2.3-3.5); Glucose 111 mg/dL (74-106); Magnesium 2.5 mg/dL (1.6-2.6); Osmolality,Calculated 270 (275-295); Potassium 3.1 mMol/L (3.4-5.1); Sodium 130 mMol/L (136-145); eGFR 24 See Note
--- NOTE | 2024-05-17 04:32 | PC.RT ---
sputum collected and sent to Lab.
[2024-05-17 04:38] LABS: Basophils % (Auto) 0 % (0-2.5); Eosinophils # (Auto) 0.2 Thou/mm3 (0.0-0.5); Eosinophils % (Auto) 1 % (0-10); Immature Granulocytes % (Auto) 1 % (0-0); Immature Granulocytes Auto 0.16 Thou/mm3 (0.00-0.00); Lymphocytes # (Auto) 0.8 Thou/mm3 (1.0-4.8); Lymphocytes % (Auto) 5 % (10-50); Mean Corpuscular HGB Conc 34.3 g/dl (31.0-37.0); Mean Corpuscular Hemoglobin 30.3 pg (25.0-35.0); Mean Corpuscular Volume 88 fL (80-100); Monocytes # (Auto) 0.8 Thou/mm3 (0.0-0.8); Monocytes % (Auto) 5 % (0-12); Neutrophils # (Auto) 15.1 Thou/mm3 (1.8-7.7); Neutrophils % (Auto) 89 % (37-80); Nucleated Red Blood Cell # 0.02 Thou/mm3 (0.00-0.00); Nucleated Red Blood Cell % 0 /100 WBC (0); Platelet Count 322 Thou/mm3 (140-440); RDW Standard Deviation 67.7 fL (35.1-43.9); Red Blood Count 2.38 Miln/mm3 (4.50-5.90); White Blood Count 17.1 Thou/mm3 (3.8-10.6)
[2024-05-17 04:55] LABS: Bilirubin,Total 31.5 mg/dL (0.3-1.2); Hemoglobin 7.2 g/dL (13.5-16.0); LDH (Lactate Dehydrogenase) 273 U/L (120-246)
[2024-05-17] MEDS: MIDODRINE 5 MG TABLET PO (06:00)
--- NOTE | 2024-05-17 06:04 | PRELIM_ITS ---
Ultrasound Abdomen. May 17, 2024 at 0535 hours Clinical history: Assess for ascites. Technique: G rayscale and color flow images of the abdomen are provided. Hepatic and portal veins were also imaged with color flow images. Comparison: No prior study is available for comparison. Findings and impress ion Large ascites in all 4 quadrants, measuring up to 12.5 cm anterior-posterior. Report Electronical ly Signed By: Faizan Brown 05/17/2024 6:03:10 AM [EST]
[2024-05-17] MEDS: BUDESONIDE RT 0.25 MG/2 ML NEBU INH ×2 (06:58→19:15)
[2024-05-17] MEDS: IPRATROPIUM RT 0.5 MG/ 2.5 ML NEBU INH ×3 (06:58→19:15)
[2024-05-17 10:14] LABS: Alanine Aminotransferase 35 U/L (10-49); Albumin/Globulin Ratio 0.9 (1.2-2.2); Alkaline Phosphatase 299 U/L (46-116); Anion Gap 14 (7-16); Aspartate Amino Transferase 114 U/L (0-34); BUN/Creatinine Ratio 12 Ratio (12-20); Blood Urea Nitrogen 42 mg/dL (9-23); Calcium 8.9 mg/dL (8.3-10.6); Calcium (Corrected) 9.7 mg/dL (8.5-10.1); Carbon Dioxide 17.2 mMol/L (20.0-31.0); Chloride 98 mMol/L (98-107); Creatinine (Component) 3.6 mg/dL (0.6-1.3); Globulin 3.5 gm/dL (2.3-3.5); Glucose 145 mg/dL (74-106); Osmolality,Calculated 272 (275-295); Phosphorous 5.4 mg/dL (2.4-5.1); Potassium 3.3 mMol/L (3.4-5.1); Sodium 129 mMol/L (136-145); Total Protein 6.5 gm/dL (5.7-8.2); eGFR 22 See Note
[2024-05-17 10:49] LABS: Bilirubin,Total 34.9 mg/dL (0.3-1.2)
--- NOTE | 2024-05-17 10:52 | PC.NURSE ---
Report given to KANU Tafoya
[2024-05-17] MEDS: PANTOPRAZOLE INJ 40 MG VIAL IV ×2 (10:54→20:48)
[2024-05-17] MEDS: LACTULOSE SYRUP 20 GM/30 ML UDC PO ×3 (10:54→20:57)
--- NOTE | 2024-05-17 11:02 | PC.NURSE ---
Patient GCS 15 with no complaints at this time. Mother at bedside. Patient aware POC.
[2024-05-17] MEDS: CHOLESTYRAMINE/SUCROSE 1 PKT EA PO (11:41)
[2024-05-17 12:29] LABS: Hematocrit 19.4 % (41.0-53.0); Hemoglobin 6.8 g/dL (13.5-16.0)
[2024-05-17] MEDS: MIDODRINE 5 MG TABLET 10 MG PO ×2 (14:50→20:57)
--- NOTE | 2024-05-17 15:52 | PD.RESCONSUL ---
HPI Data of Consult Consult date: 05/17/24 Requesting Physician: Iam Abernathy MD Admitting Provider: Mauricio Richards DO Attending Provider: Iam Abernathy MD Primary Care Provider: Physician No Primary/Family Consult Narrative Reason for consult: Acute renal failure History of present illness: Bernard Dee is a 28-year-old male with a past medical history of cirrhosis secondary to alcohol use who presented to the ED on 05/16 after noticing increased yellowing of his skin and eyes as well as bright red blood per rectum for the last few days. Mother at bedside who helped provide additional history, stating that she has noticed him feeling more sleepy than usual but does not report any confusion. Also denies hematemesis, hemoptysis but does have bleeding from gums. Per mother, last drink was in February 2024. She also states that family has been a significant effort to try and keep patient as healthy as possible, including diet and adherence to medications. Patient has also had a dry cough, but denies shortness of breath, fever, sick contacts, or recent travel. Of note, patient was recently discharged March 2024 for management of hyponatremia and also underwent endoscopy that showed esophagitis and colonoscopy showed perianal hemorrhoids. At that time, t bili on admission was 22.9 and down trended throughout hospital course and was transfused 1 unit PRBC for hemoglobin 6.7. Admitted for management of sepsis secondary to community acquired pneumonia and GI bleed. Nephrology consulted for possible hepatorenal syndrome and hypokalemia. Home medications: lasix 20 mg po PRN, ferrous sulfate 325 mg PO every other day, lactulose 10 g PO daily, omeprazole 20 mg PO daily PMHx: cirrhosis, hemorrhoids PSHx: endoscopy, colonoscopy SHx: last drink 03/2024, denies smoking and illicit drug use ED course: Vitals: BP 89/52, otherwise vital stable Significant labs: WBC 28.0, Hgb 8.4, plt 322, Na 130, K 2.7, BUN 42, creatinine 3.3, GFR 25, T. bili 30.0, AST 120, ALT 37, ALP 313, ammonia 96, albumin 2.3 CXR bilateral pneumonia, left pleural fluid In ED, given 25 g albumin x2, 40 mEq potassium, and started on azithromycin and ceftriaxone 05/17: Patient seen and examined on medical floor with mother and friend at bedside. Patient is status post paracentesis with removal of 6.5 L of fluid and tolerated well. He is A&Ox3 but does fall asleep during conversation. Answered mother's questions regarding patient's clinical condition. On admission, K 2.7 and has steadily increased to 3.3 with K supplementation and bumex. Also on albumin, midodrine, and octreotide for hepatorenal syndrome and will monitor kidney function. cc:: cc: Iam Abernathy MD Review of Systems Review of Systems Systems Reviewed: All systems reviewed, normal except as documented Past Medical History Past Medical History NEUROLOGIC: Negative Neurological Disorders or Seizures CARDIAC: Negative Cardiac Disorders or Congestive Heart Failure RESPIRATORY: Negative Chronic Obstructive Pulmonary Disease (COPD) or Asthma GENITOURINARY: Negative Renal Disease ENDOCRINE: Negative Diabetes Mellitus Type 1 or Diabetes Mellitus Type 2 HEMATOLOGIC: Negative Sickle Cell Disease OTHER HISTORY: Negative Blood Transfusions, Blood Transfusion Reaction, Anesthesia Reactions or Cancer Social History SMOKING STATUS: Never smoker SUBSTANCE USE: does not use Past Medical History Comments PMH COMMENT: Past medical history: - Alcoholic Cirrhosis Medication list: ? Furosemide 20 mg PO as needed ? Ferrous sulfate 325 mg PO every other day ? Lactulose 10 g PO daily ? Ibuprofen 800 mg PO 3 times daily ? Omeprazole 20 mg PO daily Past surgical history: Nil Allergies: Nil Social history: Occupational history: Previously worked in the [employer] field Marital status: Tobacco use: Denies EtOH use: last drink in 03/2024. Previously drank 1.5 L of vodka per day for 2 years. Patient says he started to drink after he and his Illicit drug use: Denies Exam Vital Signs Temp Pulse Resp BP Pulse Ox O2 Del Method 97.6 F 76 18 103/64 97 Room Air 05/17/24 15:10 05/17/24 15:10 05/17/24 15:10 05/17/24 15:10 05/17/24 14:55 05/17/24 12:00 Narrative Exam General: AOx3, no acute distress, speaks in 2-3 word sentences, fatigued HEENT: scleral icterus, NC/AT, mucous membranes moist Cardiovascular: regular rate and rhythm, S1/S2 present, no murmurs appreciated Pulmonary: clear to auscultation bilaterally, no rales/rhonchi/wheezes Abdominal: s/p paracentesis, distended, soft, non-tender Musculoskeletal: 1+ bilateral pitting edema, normal ROM Skin: jaundice, warm and dry, intact, no rashes Results Labs 05/18/24 05:21 05/18/24 05:21 Labs: Short CBC 05/16/24 05/17/24 05/17/24 Range/Units 22:50 03:46 12:08 WBC 28.0 H 17.1 H D (3.8-10.6) Thou/mm3 Hgb 8.4 L 7.2 L 6.8 L* (13.5-16.0) g/dL Hct 24.1 L 21.0 L* 19.4 L* (41.0-53.0) % Plt Count 356 322 D (140-440) Thou/mm3 BMP 05/16/24 05/17/24 05/17/24 22:50 03:46 09:18 Sodium 130 L 130 L 129 L Potassium 2.7 L* 3.1 L 3.3 L Chloride 98 100 98 Carbon Dioxide 18.1 L 15.7 L 17.2 L BUN 42 H 38 H 42 H Creatinine 3.3 H 3.4 H 3.6 H Glucose 108 H 111 H 145 H Calcium 8.5 8.8 8.9 Cardiac Enzymes 05/16/24 Range/Units 22:50 Troponin I < 0.020 (0.0-0.045) ng/mL Liver Function 05/16/24 05/17/24 05/17/24 Range/Units 22:50 03:46 09:18 Total Bilirubin 30.0 H* 31.5 H* D 34.9 H* D (0.3-1.2) mg/dL AST 120 H 112 H 114 H (0-34) U/L ALT 37 33 35 (10-49) U/L Alkaline Phosphatase 313 H 267 H D 299 H D (46-116) U/L Albumin 2.3 L 2.8 L D 3.0 L (3.5-5.0) gm/dL Quality Measures Quality Measures none Medications Home Medications and Allergies Home Medications ?Medication ?Instructions ?Recorded ?Confirmed ?Type folic acid 1 mg tablet 1 mg PO QID 03/30/24 04/21/24 History omeprazole 20 mg capsule,delayed 20 mg PO 1XD 03/30/24 04/21/24 History release Allergies Allergy/AdvReac Type Severity Reaction Status Date / Time No Known Allergies Allergy Verified 04/21/24 14:12 Visit Medications Hydrocodone Bitart/Acetaminophen (Hydrocodone/Apap 5/325 Tablet) 1 tab PO Q4HR PRN PRN Reason: PAIN SCALE 4-10(Mod-Sev Stop: 05/22/24 02:07 Last Admin: 05/17/24 02:52 Dose: 1 tab Azithromycin (Azithromycin 250 Mg Tablet) 500 mg PO QDAY LISA; Protocol Stop: 05/25/24 08:59 Budesonide (Budesonide Rt 0.25 Mg/2 Ml Nebu) 0.25 mg INH BIDRT LISA Stop: 06/16/24 06:59 Last Admin: 05/17/24 06:58 Dose: 0.25 mg Cholestyramine Resin (Cholestyramine/Sucrose 1 Pkt Ea) 1 pkt PO QDAY LISA Stop: 06/16/24 08:59 Last Admin: 05/17/24 11:41 Dose: 1 pkt Ceftriaxone Sodium/Dextrose (Rocephin/D5w 1gm Iv Premix) 50 mls @ 100 mls/hr IV DAILY LISA Stop: 05/25/24 08:59 Octreotide Acetate 1,000 mcg/ (Sodium Chloride) 102 mls @ 5.1 mls/hr IV .Q20H LISA; Protocol Stop: 05/22/24 02:32 Octreotide Acetate 1,000 mcg/ (Sodium Chloride) 102 mls @ 5.1 mls/hr IV .Q20H LISA; Protocol Stop: 05/17/24 22:44 Last Admin: 05/17/24 04:10 Dose: 50 mcg/hr, 5.1 mls/hr Albumin Human (Albuminar-25 Ivpb) 25 gm in 100 mls @ 100 mls/hr IV QID LISA Stop: 05/20/24 13:59 Ipratropium [place] (Ipratropium Rt 0.5 Mg/ 2.5 Ml Nebu) 0.5 mg INH Q6HRRT LISA Stop: 06/16/24 06:59 Last Admin: 05/17/24 13:39 Dose: 0.5 mg Lactulose (Lactulose Syrup 20 Gm/30 Ml Udc) 20 gm PO TID LISA; Protocol Stop: 06/16/24 08:59 Last Admin: 05/17/24 14:51 Dose: 20 gm Midodrine (Midodrine 5 Mg Tablet) 10 mg PO TID LISA Stop: 06/16/24 13:59 Last Admin: 05/17/24 14:50 Dose: 10 mg Ondansetron HCl (Ondansetron Inj 2 Mg/Ml Inj 2 Ml) 4 mg IV Q6H PRN; Protocol PRN Reason: NAUSEA OR VOMITING Stop: 06/16/24 02:07 Pantoprazole Sodium (Pantoprazole Inj 40 Mg Vial) 40 mg IV BID [facility] Stop: 06/16/24 08:59 Last Admin: 05/17/24 10:54 Dose: 40 mg Triamcinolone Acetonide (Triamcinolone Acet Oint 0.5% 15 Gm Tube) 0 gm TOP BID [facility] Stop: 06/16/24 20:59 Discontinued Medications Hydroxyzine HCl (Hydroxyzine Hcl 25 Mg Tablet) 25 mg PO X1 ONE Stop: 05/17/24 02:18 Last Admin: 05/17/24 02:52 Dose: 25 mg Albumin Human (Albuminar-25 Ivpb) 25 gm in 100 mls @ 100 mls/hr IV QDAY LISA Stop: 05/19/24 23:36 Last Infusion: 05/17/24 03:03 Dose: Infused Ceftriaxone Sodium 1,000 mg/ (Sodium Chloride) 50 mls @ 100 mls/hr IV X1 ONE Stop: 05/17/24 02:16 Last Infusion: 05/17/24 03:25 Dose: Infused Azithromycin 500 mg/ Sodium (Chloride) 250 mls @ 250 mls/hr IV QDAY LISA Stop: 05/19/24 01:47 Last Infusion: 05/17/24 06:20 Dose: Infused Albumin Human (Albuminar-25 Ivpb) 25 gm in 100 mls @ 100 mls/hr IV BID LISA Stop: 05/20/24 08:59 Last Infusion: 05/17/24 11:53 Dose: Infused Azithromycin 500 mg/ Sodium (Chloride) 250 mls @ 250 mls/hr IV HS [facility] Stop: 05/24/24 20:59 Lactulose (Lactulose Syrup 20 Gm/30 Ml Udc) 10 gm PO QDAY LISA; Protocol Stop: 06/16/24 08:59 Lactulose (Lactulose Syrup 20 Gm/30 Ml Udc) 20 gm PO BID LISA; Protocol Stop: 06/16/24 08:59 Midodrine (Midodrine 5 Mg Tablet) 5 mg PO TID LISA Stop: 06/16/24 05:59 Last Admin: 05/17/24 14:52 Dose: Not Given Potassium Chloride (Potassium Chloride 20 Meq Tabcr) 40 meq PO X1 ONE Stop: 05/17/24 00:52 Last Admin: 05/17/24 01:52 Dose: 40 meq Potassium Chloride (Potassium Chloride 20 Meq Tabcr) 20 meq PO X1 ONE Stop: 05/17/24 02:17 Last Admin: 05/17/24 03:24 Dose: 20 meq Potassium Chloride (Potassium Chloride 20 Meq Tabcr) 40 meq PO X1 ONE Stop: 05/17/24 02:17 Last Admin: 05/17/24 03:24 Dose: 40 meq Sodium Chloride (Sodium Chloride Rt 10% 15 Ml Nebu) 5 ml INH X1 ONE Stop: 05/17/24 02:14 Last Admin: 05/17/24 04:23 Dose: 5 ml Assessment & Plan Plan Bernard Dee is a 28-year-old male with a past medical history of cirrhosis secondary to alcohol use who is admitted for management of sepsis secondary to community acquired pneumonia and GI bleed. Nephrology consulted for possible hepatorenal syndrome and hypokalemia. #Acute kidney injury #? Hepatorenal syndrome Present with cirrhosis presents with decreased kidney function. Creatinine noted to be 1.3 upon discharge in 03/2024 and readmitted with creatinine of 3.3. Will start on albumin, midodrine, and octreotide for hepatorenal syndrome. ? Recommend albumin 25 g 4 times daily ? Recommend midodrine 10 mg p.o. 3 times daily ? Strict I's and O's #Hypokalemia K 2.7 on admission and has steadily increased to 3.3 with potassium supplementation and Bumex. ? Continue current management #Sepsis secondary to #Community acquired pneumonia #Cirrhosis #Ascites #Hypoalbuminemia #Hyperammonemia #? GI bleed #Hyperbilirubinemia ? Continue management per primary team ----- Plan discussed with attending physician Dr. Rehan Melendez MD PGY-1 Internal Medicine Attending Provider Attestation/Addendum Patient seen and examined with resident physician Dr. Falcon. Note reviewed, agree with findings and recommendations. Patient with alcoholic liver disease,Hemoglobin 6.8 INR 2.0 sodium 129, potassium 3.3, BUN 42, creatinine 3.6 phosphorus 5.4, total bilirubin 34.9, AST 114, ALT 35, alk phos 299, albumin 3.0 paracentesis was done and 6.5 L drained echocardiogram during last admission showed ejection fraction 55 to 60% CT abdomen showed cirrhosis, hepatomegaly, splenomegaly marked gallbladder wall thickening and edema during last admission. Suspect patient going towards hepatorenal syndrome with worsening creatinine in the last 48 hours. Patient sick looking. Unfortunately not a candidate for transplant due to his last drink in March 2024. Agree with octreotide, midodrine, albumin. Repeat CT abdomen to look for gallbladder/cholestasis--significant rise in total bili and alk phos. Thank you Dr. Don for allowing me to participate in the care of Mr. Dee
[2024-05-17 16:23] LABS: Peritoneal Fluid Mononuclear 73.3 %; Peritoneal Fluid Polynuclear 26.7 %; Peritoneal Fluid WBC 90 /cmm
[2024-05-17 16:24] LABS: Peritoneal Fluid Appearance Hazy; Peritoneal Fluid Color Yellow
[2024-05-17 16:25] LABS: RBC,Peritoneal Fluid 5000 /cmm
[2024-05-17 16:46] LABS: Albumin, Peritoneal Fluid < 1.0 gm/dL; Amylase,Peritoneal Fluid < 20 IU/L; Glucose,Peritoneal Fluid 150 mg/dL; LDH,Peritoneal Fluid 59 IU/L; Protein Total,Peritoneal Fluid < 2 g/dL
--- NOTE | 2024-05-17 16:53 | PD.RESPRO ---
Documentation for date of: 05/17/24 Subjective Subjective Interval history: The patient reported he was anxious, and was surprised to know that he had liver cirrhosis as he was believing that he only had severe hepatitis. He admitted generalized weakness, but denied any headache, nausea or vomiting, abdominal pain. Exam Vital Signs Temp Pulse Resp BP Pulse Ox O2 Del Method 97.6 F 76 18 103/64 97 Room Air 05/17/24 15:10 05/17/24 15:10 05/17/24 15:10 05/17/24 15:10 05/17/24 14:55 05/17/24 12:00 Narrative Exam Constitutional Alert, oriented x 3 and comfortable. Young male, scleral icterus, generalized jaundice HEENT Vision grossly intact. Patent nares. Trachea midline Respiratory Chest normal on inspection and decreased air entry mid to lower zones with atelectasis Cardiovascular S1 and S2 audible, RRR. No murmurs carotid bruit. No gross JVD. Abdominal Tense, distended, shifting dullness, caput medusa, multiple excoriation spence. BS + Genitourinary No bladder tenderness, no flank pain. Normal to palpation Musculoskeletal Extremities tone within normal limits. 2+ lower extremity edema up to hips bilaterally Neurological CN II - XII grossly intact. Extremity motor and sensation grossly intact. Mild asterixis Skin Warm, dry and intact. No apparent lesions. Psychiatric Mildly anxious, patient has good affect, is cooperative Objective Labs 05/18/24 05:21 05/18/24 05:21 Labs: Laboratory Results - last 24 hr 05/16/24 05/17/24 05/17/24 22:50 00:00 00:09 WBC 28.0 H RBC 2.78 L Hgb 8.4 L Hct 24.1 L MCV 87 MCH 30.2 MCHC 34.9 RDW Std Deviation 67.8 H Plt Count 356 Neut % (Auto) 89 H Lymph % (Auto) 4 L [place] % (Auto) 4 Eos % (Auto) 1 Baso % (Auto) 0 Neut # (Auto) 25.1 H Lymph # (Auto) 1.1 [place] # (Auto) 1.2 H Eos # (Auto) 0.2 Baso # (Auto) 0.1 Immature Gran # (Auto) 0.35 H Absolute Nucleated RBC 0.00 Immature Gran % 1 H Nucleated RBC % 0 PT 20.9 H INR 2.0 H APTT 33.0 Sodium 130 L Potassium 2.7 L* Chloride 98 Carbon Dioxide 18.1 L Anion Gap 14 BUN 42 H Creatinine 3.3 H Estim Creat Clear Calc 39.3 L eGFR 25 L BUN/Creatinine Ratio 13 Glucose 108 H Calculated Osmolality 272 L Lactic Acid 2.2 H Calcium 8.5 Corrected Calcium 9.9 Phosphorus Magnesium 2.4 Total Bilirubin 30.0 H* AST 120 H ALT 37 Alkaline Phosphatase 313 H Ammonia 96 H* Lactate Dehydrogenase Troponin I < 0.020 B-Natriuretic Peptide 124 H Total Protein 5.9 Albumin 2.3 L Globulin 3.6 H Albumin/Globulin Ratio 0.6 L Lipase 64 H Procalcitonin 1.15 H Peritoneal Color Peritoneal Appearance Peritoneal WBC Peritoneal RBC Periton Polynucl WBCs Periton Mononucl WBCs Peritoneal Tot Protein Peritoneal Albumin Peritoneal LDH Peritoneal Glucose Peritoneal Amylase Blood Type A Negative Antibody Screen NEGATIVE Crossmatch See Detail Blood Bank Wristband ID Yes 05/17/24 05/17/24 05/17/24 03:46 09:18 12:08 WBC 17.1 H D RBC 2.38 L Hgb 7.2 L 6.8 L* Hct 21.0 L* 19.4 L* MCV 88 MCH 30.3 MCHC 34.3 RDW Std Deviation 67.7 H Plt Count 322 D Neut % (Auto) 89 H Lymph % (Auto) 5 L [place] % (Auto) 5 Eos % (Auto) 1 Baso % (Auto) 0 Neut # (Auto) 15.1 H Lymph # (Auto) 0.8 L [place] # (Auto) 0.8 Eos # (Auto) 0.2 Baso # (Auto) 0.0 Immature Gran # (Auto) 0.16 H Absolute Nucleated RBC 0.02 H Immature Gran % 1 H Nucleated RBC % 0 PT INR APTT Sodium 130 L 129 L Potassium 3.1 L 3.3 L Chloride 100 98 Carbon Dioxide 15.7 L 17.2 L Anion Gap 14 14 BUN 38 H 42 H Creatinine 3.4 H 3.6 H Estim Creat Clear Calc 38.2 L 36.0 L eGFR 24 L 22 L BUN/Creatinine Ratio 11 L 12 Glucose 111 H 145 H Calculated Osmolality 270 L 272 L Lactic Acid 1.9 Calcium 8.8 8.9 Corrected Calcium 9.8 9.7 Phosphorus 5.4 H Magnesium 2.5 Total Bilirubin 31.5 H* D 34.9 H* D AST 112 H 114 H ALT 33 35 Alkaline Phosphatase 267 H D 299 H D Ammonia Lactate Dehydrogenase 273 H Troponin I B-Natriuretic Peptide Total Protein 6.0 6.5 Albumin 2.8 L D 3.0 L Globulin 3.2 3.5 Albumin/Globulin Ratio 0.9 L 0.9 L Lipase Procalcitonin Peritoneal Color Peritoneal Appearance Peritoneal WBC Peritoneal RBC Periton Polynucl WBCs Periton Mononucl WBCs Peritoneal Tot Protein Peritoneal Albumin Peritoneal LDH Peritoneal Glucose Peritoneal Amylase Blood Type Antibody Screen Crossmatch Blood Bank Wristband ID 05/17/24 13:15 WBC RBC Hgb Hct MCV MCH MCHC RDW Std Deviation Plt Count Neut % (Auto) Lymph % (Auto) [place] % (Auto) Eos % (Auto) Baso % (Auto) Neut # (Auto) Lymph # (Auto) [place] # (Auto) Eos # (Auto) Baso # (Auto) Immature Gran # (Auto) Absolute Nucleated RBC Immature Gran % Nucleated RBC % PT INR APTT Sodium Potassium Chloride Carbon Dioxide Anion Gap BUN Creatinine Estim Creat Clear Calc eGFR BUN/Creatinine Ratio Glucose Calculated Osmolality Lactic Acid Calcium Corrected Calcium Phosphorus Magnesium Total Bilirubin AST ALT Alkaline Phosphatase Ammonia Lactate Dehydrogenase Troponin I B-Natriuretic Peptide Total Protein Albumin Globulin Albumin/Globulin Ratio Lipase Procalcitonin Peritoneal Color Yellow Peritoneal Appearance Hazy Peritoneal WBC 90 Peritoneal RBC 5000 Periton Polynucl WBCs 26.7 Periton Mononucl WBCs 73.3 Peritoneal Tot Protein < 2 Peritoneal Albumin < 1.0 Peritoneal LDH 59 Peritoneal Glucose 150 Peritoneal Amylase < 20 Blood Type Antibody Screen Crossmatch Blood Bank Wristband ID Quality Measures Quality Measures none Assessment & Plan Assessment Current Active Medications: Generic Name Dose Route Start Last Admin Trade Name Freq PRN Reason Stop Dose Admin Hydrocodone Bitart/Acetaminophen 1 tab 05/17/24 02:08 05/17/24 02:52 Hydrocodone/Apap 5/325 Tablet PO 05/22/24 02:07 1 tab Q4HR PRN Administration PAIN SCALE 4-10(Mod-Sev Azithromycin 500 mg 05/18/24 09:00 Azithromycin 250 Mg Tablet PO 05/25/24 08:59 QDAY LISA Protocol Budesonide 0.25 mg 05/17/24 07:00 05/17/24 06:58 Budesonide Rt 0.25 Mg/2 Ml Nebu INH 06/16/24 06:59 0.25 mg BIDRT LISA Administration Cholestyramine Resin 1 pkt 05/17/24 09:00 05/17/24 11:41 Cholestyramine/Sucrose 1 Pkt Ea PO 06/16/24 08:59 1 pkt QDAY LISA Administration Ceftriaxone Sodium/Dextrose 50 mls @ 100 mls/hr 05/18/24 09:00 Rocephin/D5w 1gm Iv Premix IV 05/25/24 08:59 DAILY LISA Octreotide Acetate 1,000 mcg/ 102 mls @ 5.1 mls/hr 05/17/24 22:44 Sodium Chloride IV 05/22/24 02:32 .Q20H LISA Protocol 50 MCG/HR Octreotide Acetate 1,000 mcg/ 102 mls @ 5.1 mls/hr 05/17/24 02:45 05/17/24 04:10 Sodium Chloride IV 05/17/24 22:44 50 mcg/hr .Q20H LISA 5.1 mls/hr Administration Protocol 50 MCG/HR Albumin Human 25 gm in 100 mls @ 100 mls/hr 05/17/24 14:00 Albuminar-25 Ivpb IV 05/20/24 13:59 QID LISA Ipratropium Benge 0.5 mg 05/17/24 07:00 05/17/24 13:39 Ipratropium Rt 0.5 Mg/ 2.5 Ml Nebu INH 06/16/24 06:59 0.5 mg Q6HRRT LISA Administration Lactulose 20 gm 05/17/24 09:00 05/17/24 14:51 Lactulose Syrup 20 Gm/30 Ml Udc PO 06/16/24 08:59 20 gm TID LISA Administration Protocol Midodrine 10 mg 05/17/24 14:00 05/17/24 14:50 Midodrine 5 Mg Tablet PO 06/16/24 13:59 10 mg TID LISA Administration Ondansetron HCl 4 mg 05/17/24 02:08 Ondansetron Inj 2 Mg/Ml Inj 2 Ml IV 06/16/24 02:07 Q6H PRN NAUSEA OR VOMITING Protocol Pantoprazole Sodium 40 mg 05/17/24 09:00 05/17/24 10:54 Pantoprazole Inj 40 Mg Vial IV 06/16/24 08:59 40 mg BID LISA Administration Triamcinolone Acetonide 0 gm 05/17/24 21:00 Triamcinolone Acet Oint 0.5% 15 Gm Tube TOP 06/16/24 20:59 BID LISA Plan Patient is a 28-year-old male with past medical history significant for alcoholic cirrhosis and prediabetes presenting today with a chief complaint of worsening cough and fatigue. Patient will be admitted for treatment and management of community-acquired pneumonia. The patient is not a hepatic transplant candidate as has last alcoholic drink on Mar 2024, and was admitted for conservative management. Community-acquired pneumonia Patient presented with a 2-week history of a productive cough with occasional hemoptysis On exam patient had decreased air entry mid to lower zones and bibasilar atelectasis On imaging chest x-ray revealed bibasilar consolidation worse on the left. Negative for pulmonary edema or pleural effusion. WBC 28 PSI/PORT : 89 points. Outpatient or inpatient treatment Plan: ? Sputum culture and Gram stain ? Influenza A and B negative ? RSV Negative ? Ipratropium nebs Q6 hourly ? Budesonide nebs 0.25 mg twice daily ? Started patient on ceftriaxone 1 g IV daily on [05/17? 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 On exam patient has abdominal distention consistent with ascites and lower extremity edema. Mild asterixis. Alert and oriented x 3 On admission patient was initially hypotensive BP 89/52 [MAP 58] Cretinine trended up to 3.6 On admission K 2.7 PT 20.9, INR 2, PTT 33, ammonia 96. T. bili 30 Madrey score: 84.7. Poor prognosis, patient may benefit from steroids Child-Carreno class C MELD NA?39 points. 65-66% 90-day mortality. Plan: ? Telemetry monitoring ? Albumin 25 g IV QID ? Octreotide infusion for splanchnic vasoconstriction ? Midodrine 10 Mg p.o. 3 times daily for likely hepatorenal syndrome [ Terlipressin is first-line but not available in [place]] ? Patient on ceftriaxone 1 g IV daily for SBP prophylaxis as he is child class C and has history of GI bleed. ? Lactulose 120 Mg p.o. BID. Titrate as necessary to achieve 2?3 bowel movements per day for hepatic encephalopathy prophylaxis. ? Cholestyramine 1 packet p.o. daily for pruritus ? KCl 60 mEq p.o. x 1 ? Monitor K on a.m. labs ? GI, Dr. Moss consulted and closely following the case. Appreciate recommendations Normocytic anemia DDx: Esophageal vareceal vs lower GI bleed Patient reports intermittent episodes of bright red blood after wiping. On admission patient's Hb 8.4. From chart review baseline appears to be between 7?8. Patient on oral iron as home medication. Guaiac positive Patient had colonoscopy completed on 04/03/2024 findings include: Hemorrhoids on perianal exam. Plan: ? Monitor hemoglobin on a.m. labs - Feraheme 510mg x1 given - Pending GI reccs Health maintenance: Disposition: IV antibiotics, Nebulizers. Blood pressre control with Octreotide, Midodrine and Albumin. GI consult Diet: Cardiac Lines: pIVs GI Prophylaxis: Pantoprazole Thrombo Prophylaxis: SCDs Code status: FULL CODE The patient's management plan was discussed with my attending physician MD Karan Carter MD, PGY2 Attending Provider Attestation/Addendum 38-year-old male patient with alcohol abuse admitted for pneumonia. The patient has high white count. He has hyperbilirubinemia. The patient has cirrhosis with portal hypertension, ascites and coagulopathy. Patient is receiving antibiotic treatment. He is on octreotide drip, PPI. Continue to monitor hemoglobin and hematocrit, for worsening anemia. GI evaluation requested. Continue supportive treatment.
[2024-05-17 19:08] LABS: Hematocrit 22.2 % (41.0-53.0)
[2024-05-17 19:10] LABS: Hemoglobin 7.7 g/dL (13.5-16.0)
[2024-05-17] MEDS: ferumoxytoL (NON-ESRD) 510 MG in SODIUM CHLORIDE 0.9% 100 ML 234 MG IV (20:47)
[2024-05-17] MEDS: DiphenhydrAMINE INJ 50 MG/ML VIAL 12.5 MG IVP (21:02)
[2024-05-17] MEDS: TRIAMCINOLONE ACET OINT 0.5% 15 GM TUBE TOP (21:05)
--- NOTE | 2024-05-17 21:17 | ESCONSULT_ITS ---
HPI Data of Consult Requesting Physician: Iam Abernathy MD Primary Care Provider: Physician No Primary/Family Consult Narrative Reason for consult: Rectal bleeding H&H 6.8/19.4 History of present illness: 28 years old male I been consulted for acute posthemorrhagic anemia and rectal bleeding Presenting hemoglobin hematocrit 8.4 and 24.1 which went down to 6.8 and 19.4 requiring blood transfusion Abdominal ultrasound does show significant ascites and underwent ultrasound- guided paracentesis with removal of 6.5 L of fluid I did see patient in early part of March when he presented with abnormal LFTs leukocytosis possibly SBP and underwent upper endoscopy on 04/12/2024 which showed esophagitis and gastritis 04/03/2024 underwent colonoscopy which showed internal hemorrhoids Patient has alcohol induced chronic liver disease cc:: cc: Iam Abernathy MD Review of Systems Review of Systems Systems Reviewed: All systems reviewed, normal except as documented Past Medical History Surgical History OTHER SURGICAL HX: As in the history of present illness Meds Home Medications and Allergies Home Medications ?Medication ?Instructions ?Recorded ?Confirmed ?Type folic acid 1 mg tablet 1 mg PO QID 03/30/24 04/21/24 History omeprazole 20 mg capsule,delayed 20 mg PO 1XD 03/30/24 04/21/24 History release Allergies Allergy/AdvReac Type Severity Reaction Status Date / Time No Known Allergies Allergy Verified 04/21/24 14:12 Exam Vital Signs Temp Pulse Resp BP Pulse Ox O2 Del Method 97.6 F 90 19 114/66 97 Room Air 05/17/24 20:00 05/17/24 20:57 05/17/24 20:00 05/17/24 20:57 05/17/24 20:00 05/17/24 20:00 Routine Respiratory Exam Comments: Normal to auscultation Routine Abdominal Exam Comments: Positive for ascites Results Labs 05/19/24 04:45 05/19/24 04:45 Labs: Short CBC 05/16/24 05/17/24 05/17/24 Range/Units 22:50 03:46 12:08 WBC 28.0 H 17.1 H D (3.8-10.6) Thou/mm3 Hgb 8.4 L 7.2 L 6.8 L* (13.5-16.0) g/dL Hct 24.1 L 21.0 L* 19.4 L* (41.0-53.0) % Plt Count 356 322 D (140-440) Thou/mm3 05/17/24 Range/Units 18:55 WBC (3.8-10.6) Thou/mm3 Hgb 7.7 L (13.5-16.0) g/dL Hct 22.2 L (41.0-53.0) % Plt Count (140-440) Thou/mm3 BMP 05/16/24 05/17/24 05/17/24 22:50 03:46 09:18 Sodium 130 L 130 L 129 L Potassium 2.7 L* 3.1 L 3.3 L Chloride 98 100 98 Carbon Dioxide 18.1 L 15.7 L 17.2 L BUN 42 H 38 H 42 H Creatinine 3.3 H 3.4 H 3.6 H Glucose 108 H 111 H 145 H Calcium 8.5 8.8 8.9 Cardiac Enzymes 05/16/24 Range/Units 22:50 Troponin I < 0.020 (0.0-0.045) ng/mL Liver Function 05/16/24 05/17/24 05/17/24 Range/Units 22:50 03:46 09:18 Total Bilirubin 30.0 H* 31.5 H* D 34.9 H* D (0.3-1.2) mg/dL AST 120 H 112 H 114 H (0-34) U/L ALT 37 33 35 (10-49) U/L Alkaline Phosphatase 313 H 267 H D 299 H D (46-116) U/L Albumin 2.3 L 2.8 L D 3.0 L (3.5-5.0) gm/dL Assessment and Plan Additional Assessment & Plan Additional Plan: # Rectal bleeding most likely due to internal hemorrhoids in the setting of advanced portal hypertension and probably anorectal junction bleed Plan Flexible sigmoidoscopy tomorrow with banding of the internal hemorrhoids Informed consent obtained Will give tapwater enemas or Fleet enemas prior to the procedure No need for GoLytely prep Other medical problems include # Advanced portal hypertension due to underlying cirrhotic liver disease due to alcohol causing intractable ascites requiring large-volume paracentesis 2 g sodium diet Aggressive use of diuretics 1 L p.o. fluid restriction 24 hours Will follow the patient Thank you once again for the opportunity to participate in care of this patient
[2024-05-18] VITALS (22 sets, daily range): BP systolic 96–141; BP diastolic 56–103; PULSE 66–811; RESP 12–100; TEMP 36.1–36.7; O2SAT 92–100; BMI 34.6
[2024-05-18] MEDS: IPRATROPIUM RT 0.5 MG/ 2.5 ML NEBU INH ×4 (00:57→19:29)
[2024-05-18] MEDS: ALBUMIN HUMAN 25% IVPB 25 GM/100 ML BTL IV ×4 (05:31→21:58)
[2024-05-18] MEDS: LACTULOSE SYRUP 20 GM/30 ML UDC PO ×2 (05:31→22:06)
[2024-05-18] MEDS: MIDODRINE 5 MG TABLET 10 MG PO ×3 (05:32→22:05)
[2024-05-18 05:52] LABS: Collection Type, Urine Clean Catch; Squamous Epithelial Cell,Urine 0 /hpf (0-5)
[2024-05-18 06:07] LABS: Bacteria,Urine Rare; Bilirubin,Urine 2+ (Negative); Blood,Urine Negative (Negative); Clarity,Urine Clear (Clear/Hazy); Color,Urine Drk-Yellow (Lt Yel-Yel); Glucose, Urine Negative (Negative); Hyaline Casts,Urine < 1 /hpf (0-1); Ketones,Urine Negative (Negative); Leukocyte Esterase,Urine Negative (Negative); Nitrite,Urine Negative (Negative); PH,Urine 6.5 (5.0-7.0); Protein,Urine Negative (Neg - Trace); RBC,Urine 2 /hpf (0-3); Specific Gravity,Urine 1.009 (1.001-1.035); Urobilinogen,Urine Negative mg/dL (0.0-1.0); WBC,Urine 7 /hpf (0-5)
[2024-05-18 06:09] LABS: Basophils % (Auto) 0 % (0-2.5); Eosinophils # (Auto) 0.3 Thou/mm3 (0.0-0.5); Eosinophils % (Auto) 2 % (0-10); Hematocrit 22.1 % (41.0-53.0); Immature Granulocytes % (Auto) 1 % (0-0); Immature Granulocytes Auto 0.09 Thou/mm3 (0.00-0.00); Lymphocytes # (Auto) 1.2 Thou/mm3 (1.0-4.8); Lymphocytes % (Auto) 9 % (10-50); Mean Corpuscular HGB Conc 35.3 g/dl (31.0-37.0); Mean Corpuscular Hemoglobin 30.5 pg (25.0-35.0); Mean Corpuscular Volume 86 fL (80-100); Monocytes # (Auto) 0.9 Thou/mm3 (0.0-0.8); Monocytes % (Auto) 6 % (0-12); Neutrophils # (Auto) 11.9 Thou/mm3 (1.8-7.7); Neutrophils % (Auto) 83 % (37-80); Nucleated Red Blood Cell % 0 /100 WBC (0); Platelet Count 200 Thou/mm3 (140-440); RDW Standard Deviation 63.9 fL (35.1-43.9); Red Blood Count 2.56 Miln/mm3 (4.50-5.90); White Blood Count 14.4 Thou/mm3 (3.8-10.6)
[2024-05-18 06:11] LABS: Hemoglobin 7.8 g/dL (13.5-16.0)
[2024-05-18 06:16] LABS: Sodium,Urine Random 43.1 mMol/L (20.0-110.0)
[2024-05-18 06:25] LABS: Amphetamine/Methamp Scrn,U Negative (Negative); Barbiturate Screen,Urine Negative (Negative); Benzodiazepines Screen,Urine Negative (Negative); Benzoylecgonine Screen, Ur Negative (Negative); Fentanyl Screen,Urine Negative (Negative); Opiate Screen,Urine Negative (Negative); THC Screen,Urine Negative (Negative)
[2024-05-18 06:28] LABS: INR 2.1 (0.9-1.3); Prothrombin Time 21.6 Seconds (9.0-12.2)
[2024-05-18 06:51] LABS: Alanine Aminotransferase 24 U/L (10-49); Albumin/Globulin Ratio 1.1 (1.2-2.2); Alkaline Phosphatase 214 U/L (46-116); Anion Gap 14 (7-16); Aspartate Amino Transferase 88 U/L (0-34); BUN/Creatinine Ratio 12 Ratio (12-20); Blood Urea Nitrogen 44 mg/dL (9-23); Calcium (Corrected) 9.8 mg/dL (8.5-10.1); Carbon Dioxide 18.5 mMol/L (20.0-31.0); Chloride 103 mMol/L (98-107); Creatinine (Component) 3.6 mg/dL (0.6-1.3); Estimated Creatinine Clearance 36.3 mL/min (>60); Globulin 2.7 gm/dL (2.3-3.5); Glucose 125 mg/dL (74-106); Magnesium 2.3 mg/dL (1.6-2.6); Osmolality,Calculated 282 (275-295); Phosphorous 3.9 mg/dL (2.4-5.1); Sodium 135 mMol/L (136-145); Total Protein 5.7 gm/dL (5.7-8.2); eGFR 22 See Note
--- NOTE | 2024-05-18 07:00 | XR_ITS ---
Examination: CT abdomen and pelvis without contrast. Coronal 3-D reconstructions. Sagittal 2-D reconstructions. Date and time of exam:May 18, 2024 1025 hours INDICATIONS: Elevated liver function tests, abdominal pain this week, history ascites COMPARISON: March 30, 2024, CTDI: vol (mGy): 11.4 DLP: (mGycm): 858 Technique: Axial images of the abdomen have been obtained, 3 mm slice thickness Intravenous contrast material has not been administered. Low dose protocols were performed. One or more of the following dose reduction techniques were used; automated exposure control, adjustment of the mA and/or KV according to patient size, use of iterative reconstruction technique. Findings: Left base pneumonia, small left pleural effusion Cirrhosis, liver nodular in contour Hepatosplenomegaly Contracted gallbladder Mild ascites Portosystemic collateral vessels medial to the spleen No pancreatic or adrenal mass No renal or ureteral calculi, no hydronephrosis Aorta normal size No bowel obstruction Anasarca No urinary bladder mass No prostatomegaly Large left fat-containing inguinal hernia Mild osteopenia IMPRESSION: Left base pneumonia Cirrhosis Hepatosplenomegaly Mild ascites Portal hypertension Contracted gallbladder
[2024-05-18 07:12] LABS: Hepatitis A Antibody IgM Non Reactive (Non React); Hepatitis B Core Antibody IgM Non Reactive (Non React); Hepatitis B Surface Antigen Non Reactive (Non React); Hepatitis C Antibody Non Reactive (Non React)
[2024-05-18] MEDS: BUDESONIDE RT 0.25 MG/2 ML NEBU INH ×2 (07:44→19:29)
[2024-05-18] MEDS: CHOLESTYRAMINE/SUCROSE 1 PKT EA PO (08:06)
[2024-05-18] MEDS: cefTRIAXone/D5w 1gm IV premix 50 ML IV (08:06)
[2024-05-18] MEDS: AZITHROMYCIN 250 MG TABLET 500 MG PO (08:07)
[2024-05-18] MEDS: PANTOPRAZOLE INJ 40 MG VIAL IV ×2 (08:07→21:59)
[2024-05-18] MEDS: TRIAMCINOLONE ACET OINT 0.5% 15 GM TUBE TOP (08:07)
[2024-05-18] MEDS: POTASSIUM CHLORIDE 10% 20 MEQ/15 ML UDC PO (08:53)
--- NOTE | 2024-05-18 09:18 | ESPR_ITS ---
Documentation for date of: 05/18/24 Subjective Subjective Interval history: Bernard Dee is a 28-year-old male with a past medical history of cirrhosis secondary to alcohol use who presented to the ED on 05/16 after noticing increased yellowing of his skin and eyes as well as bright red blood per rectum for the last few days. Mother at bedside who helped provide additional history, stating that she has noticed him feeling more sleepy than usual but does not report any confusion. Also denies hematemesis, hemoptysis but does have bleeding from gums. Per mother, last drink was in February 2024. She also states that family has been a significant effort to try and keep patient as healthy as possible, including diet and adherence to medications. Patient has also had a dry cough, but denies shortness of breath, fever, sick contacts, or recent travel. Of note, patient was recently discharged March 2024 for management of hyponatremia and also underwent endoscopy that showed esophagitis and colonoscopy showed perianal hemorrhoids. At that time, t bili on admission was 22.9 and down trended throughout hospital course and was transfused 1 unit PRBC for hemoglobin 6.7. Admitted for management of sepsis secondary to community acquired pneumonia and GI bleed. Nephrology consulted for possible hepatorenal syndrome and hypokalemia. Home medications: lasix 20 mg po PRN, ferrous sulfate 325 mg PO every other day, lactulose 10 g PO daily, omeprazole 20 mg PO daily PMHx: cirrhosis, hemorrhoids PSHx: endoscopy, colonoscopy SHx: last drink 03/2024, denies smoking and illicit drug use ED course: Vitals: BP 89/52, otherwise vital stable Significant labs: WBC 28.0, Hgb 8.4, plt 322, Na 130, K 2.7, BUN 42, creatinine 3.3, GFR 25, T. bili 30.0, AST 120, ALT 37, ALP 313, ammonia 96, albumin 2.3 CXR bilateral pneumonia, left pleural fluid In ED, given 25 g albumin x2, 40 mEq potassium, and started on azithromycin and ceftriaxone 05/17: Patient seen and examined on medical floor with mother and friend at bedside. Patient is status post paracentesis with removal of 6.5 L of fluid and tolerated well. He is A&Ox3 but does fall asleep during conversation. Answered mother's questions regarding patient's clinical condition. On admission, K 2.7 and has steadily increased to 3.3 with K supplementation and bumex. Also on albumin, midodrine, and octreotide for hepatorenal syndrome and will monitor kidney function. 05/18: Patient seen and examined at bedside with mother present. Appears more energetic today compared to yesterday, A&Ox3. Labs and orders reviewed. Hemoglobin improved after transfusion 1 unit pRBC, Dr. Moss consulted and aware of case. Currently on albumin, midodrine, and octreotide to evaluate for hepatorenal syndrome. Pending CT A/P to further evaluate elevated bilirubin. Per peritoneal fluid analysis, no sign of SBP and SAAG > 1, thus portal hypertension likely etiology of patient's ascites. Exam Vital Signs Temp Pulse Resp BP Pulse Ox O2 Del Method 97.9 F 95 17 96/56 L 93 L Room Air 05/18/24 08:00 05/18/24 08:00 05/18/24 08:00 05/18/24 08:00 05/18/24 08:00 05/18/24 08:00 Narrative Exam General: AOx3, no acute distress, speaks in full sentences HEENT: scleral icterus, NC/AT, mucous membranes moist Cardiovascular: regular rate and rhythm, S1/S2 present, no murmurs appreciated Pulmonary: clear to auscultation bilaterally, no rales/rhonchi/wheezes Abdominal: s/p paracentesis, distended, soft, non-tender Musculoskeletal: 1+ bilateral pitting edema, normal ROM Skin: jaundice, warm and dry, intact, no rashes Objective Labs 05/20/24 04:53 05/20/24 04:53 Labs: Laboratory Results - last 24 hr 05/16/24 05/17/24 05/17/24 22:50 09:18 12:08 WBC RBC Hgb 6.8 L* Hct 19.4 L* MCV MCH MCHC RDW Std Deviation Plt Count Neut % (Auto) Lymph % (Auto) [place] % (Auto) Eos % (Auto) Baso % (Auto) Neut # (Auto) Lymph # (Auto) [place] # (Auto) Eos # (Auto) Baso # (Auto) Immature Gran # (Auto) Absolute Nucleated RBC Immature Gran % Nucleated RBC % PT INR APTT Sodium 129 L Potassium 3.3 L Chloride 98 Carbon Dioxide 17.2 L Anion Gap 14 BUN 42 H Creatinine 3.6 H Estim Creat Clear Calc 36.0 L eGFR 22 L BUN/Creatinine Ratio 12 Glucose 145 H Calculated Osmolality 272 L Calcium 8.9 Corrected Calcium 9.7 Phosphorus 5.4 H Magnesium Total Bilirubin 34.9 H* D AST 114 H ALT 35 Alkaline Phosphatase 299 H D Total Protein 6.5 Albumin 3.0 L Globulin 3.5 Albumin/Globulin Ratio 0.9 L Ur Collection Type Urine Color Urine Clarity Urine pH Ur Specific [place] Urine Protein Urine Glucose (UA) Urine Ketones Urine Blood Urine Nitrite Urine Bilirubin Urine Urobilinogen (Auto) Ur Leukocyte Esterase Urine RBC Urine WBC Ur Squamous Epith Cells Urine Bacteria Hyaline Casts Ur Random Sodium Peritoneal Color Peritoneal Appearance Peritoneal WBC Peritoneal RBC Periton Polynucl WBCs Periton Mononucl WBCs Peritoneal Tot Protein Peritoneal Albumin Peritoneal LDH Peritoneal Glucose Peritoneal Amylase Urine Opiates Screen Urine Fentanyl Screen Ur Barbiturates Screen U Amphetamin/Meth Scrn U Benzodiazepines Scrn U Cocaine Metab Screen U Marijuana (THC) Screen Hepatitis A IgM Ab Hep Bs Antigen Hep B Core IgM Ab Hepatitis C Antibody Blood Type A Negative Antibody Screen NEGATIVE Crossmatch See Detail Blood Bank Wristband ID Yes 05/17/24 05/17/24 05/18/24 13:15 18:55 05:21 WBC 14.4 H RBC 2.56 L Hgb 7.7 L 7.8 L Hct 22.2 L 22.1 L MCV 86 MCH 30.5 MCHC 35.3 RDW Std Deviation 63.9 H Plt Count 200 D Neut % (Auto) 83 H Lymph % (Auto) 9 L [place] % (Auto) 6 Eos % (Auto) 2 Baso % (Auto) 0 Neut # (Auto) 11.9 H Lymph # (Auto) 1.2 [place] # (Auto) 0.9 H Eos # (Auto) 0.3 Baso # (Auto) 0.0 Immature Gran # (Auto) 0.09 H Absolute Nucleated RBC 0.00 Immature Gran % 1 H Nucleated RBC % 0 PT 21.6 H INR 2.1 H APTT 38.0 H Sodium 135 L Potassium 3.0 L Chloride 103 Carbon Dioxide 18.5 L Anion Gap 14 BUN 44 H Creatinine 3.6 H Estim Creat Clear Calc 36.3 L eGFR 22 L BUN/Creatinine Ratio 12 Glucose 125 H Calculated Osmolality 282 Calcium 9.0 Corrected Calcium 9.8 Phosphorus 3.9 Magnesium 2.3 Total Bilirubin 35.0 H* AST 88 H ALT 24 Alkaline Phosphatase 214 H D Total Protein 5.7 Albumin 3.0 L Globulin 2.7 Albumin/Globulin Ratio 1.1 L Ur Collection Type Urine Color Urine Clarity Urine pH Ur Specific [place] Urine Protein Urine Glucose (UA) Urine Ketones Urine Blood Urine Nitrite Urine Bilirubin Urine Urobilinogen (Auto) Ur Leukocyte Esterase Urine RBC Urine WBC Ur Squamous Epith Cells Urine Bacteria Hyaline Casts Ur Random Sodium Peritoneal Color Yellow Peritoneal Appearance Hazy Peritoneal WBC 90 Peritoneal RBC 5000 [place] Polynucl WBCs 26.7 [place] Mononucl WBCs 73.3 Peritoneal Tot Protein < 2 Peritoneal Albumin < 1.0 Peritoneal LDH 59 Peritoneal Glucose 150 Peritoneal Amylase < 20 Urine Opiates Screen Urine Fentanyl Screen Ur Barbiturates Screen U Amphetamin/Meth Scrn U Benzodiazepines Scrn U Cocaine Metab Screen U Marijuana (THC) Screen Hepatitis A IgM Ab Non Reactive Hep Bs Antigen Non Reactive Hep B Core IgM Ab Non Reactive Hepatitis C Antibody Non Reactive Blood Type Antibody Screen Crossmatch Blood Bank Wristband ID 05/18/24 05:30 WBC RBC Hgb Hct MCV MCH MCHC RDW Std Deviation Plt Count Neut % (Auto) Lymph % (Auto) [place] % (Auto) Eos % (Auto) Baso % (Auto) Neut # (Auto) Lymph # (Auto) [place] # (Auto) Eos # (Auto) Baso # (Auto) Immature Gran # (Auto) Absolute Nucleated RBC Immature Gran % Nucleated RBC % PT INR APTT Sodium Potassium Chloride Carbon Dioxide Anion Gap BUN Creatinine Estim Creat Clear Calc eGFR BUN/Creatinine Ratio Glucose Calculated Osmolality Calcium Corrected Calcium Phosphorus Magnesium Total Bilirubin AST ALT Alkaline Phosphatase Total Protein Albumin Globulin Albumin/Globulin Ratio Ur Collection Type Clean Catch Urine Color Drk-Yellow A Urine Clarity Clear Urine pH 6.5 Ur Specific [place] 1.009 Urine Protein Negative Urine Glucose (UA) Negative Urine Ketones Negative Urine Blood Negative Urine Nitrite Negative Urine Bilirubin 2+ A Urine Urobilinogen (Auto) Negative Ur Leukocyte Esterase Negative Urine RBC 2 Urine WBC 7 H Ur Squamous Epith Cells 0 Urine Bacteria Rare Hyaline Casts < 1 Ur Random Sodium 43.1 Peritoneal Color Peritoneal Appearance Peritoneal WBC Peritoneal RBC Periton Polynucl WBCs Per[place] Mononucl WBCs Peritoneal Tot Protein Peritoneal Albumin Peritoneal LDH Peritoneal Glucose Peritoneal Amylase Urine Opiates Screen Negative Urine Fentanyl Screen Negative Ur Barbiturates Screen Negative U Amphetamin/Meth Scrn Negative U Benzodiazepines Scrn Negative U Cocaine Metab Screen Negative U Marijuana (THC) Screen Negative Hepatitis A IgM Ab Hep Bs Antigen Hep B Core IgM Ab Hepatitis C Antibody Blood Type Antibody Screen Crossmatch Blood Bank Wristband ID Quality Measures Quality Measures none Assessment & Plan Assessment Current Active Medications: Generic Name Dose Route Start Last Admin Trade Name Freq PRN Reason Stop Dose Admin Hydrocodone Bitart/Acetaminophen 1 tab 05/17/24 02:08 05/17/24 02:52 Hydrocodone/Apap 5/325 Tablet PO 05/22/24 02:07 1 tab Q4HR PRN Administration PAIN SCALE 4-10(Mod-Sev Azithromycin 500 mg 05/18/24 09:00 05/18/24 08:07 Azithromycin 250 Mg Tablet PO 05/25/24 08:59 500 mg QDAY LISA Administration Protocol Budesonide 0.25 mg 05/17/24 07:00 05/18/24 07:44 Budesonide Rt 0.25 Mg/2 Ml Nebu INH 06/16/24 06:59 0.25 mg BIDRT LISA Administration Cholestyramine Resin 1 pkt 05/17/24 09:00 05/18/24 08:06 Cholestyramine/Sucrose 1 Pkt Ea PO 06/16/24 08:59 1 pkt QDAY LISA Administration Ceftriaxone Sodium/Dextrose 50 mls @ 100 mls/hr 05/18/24 09:00 05/18/24 08:06 Rocephin/D5w 1gm Iv Premix IV 05/25/24 08:59 100 mls/hr DAILY LISA Administration Octreotide Acetate 1,000 mcg/ 102 mls @ 5.1 mls/hr 05/17/24 22:44 05/17/24 22:26 Sodium Chloride IV 05/22/24 02:32 50 mcg/hr .Q20H LISA 5.1 mls/hr Administration Protocol 50 MCG/HR Albumin Human 25 gm in 100 mls @ 100 mls/hr 05/17/24 14:00 05/18/24 06:31 Albuminar-25 Ivpb IV 05/20/24 13:59 Infused QID LISA Infusion Ipratropium [place] 0.5 mg 05/17/24 07:00 05/18/24 07:44 Ipratropium Rt 0.5 Mg/ 2.5 Ml Nebu INH 06/16/24 06:59 0.5 mg Q6HRRT LISA Administration Lactulose 20 gm 05/17/24 09:00 05/18/24 05:31 Lactulose Syrup 20 Gm/30 Ml Udc PO 06/16/24 08:59 20 gm TID LISA Administration Protocol Midodrine 10 mg 05/17/24 14:00 05/18/24 05:32 Midodrine 5 Mg Tablet PO 06/16/24 13:59 10 mg TID LISA Administration Ondansetron HCl 4 mg 05/17/24 02:08 Ondansetron Inj 2 Mg/Ml Inj 2 Ml IV 06/16/24 02:07 Q6H PRN NAUSEA OR VOMITING Protocol Pantoprazole Sodium 40 mg 05/17/24 09:00 05/18/24 08:07 Pantoprazole Inj 40 Mg Vial IV 06/16/24 08:59 40 mg BID LISA Administration Triamcinolone Acetonide 0 gm 05/17/24 21:00 05/18/24 08:07 Triamcinolone Acet Oint 0.5% 15 Gm Tube TOP 06/16/24 20:59 1 applicatio BID LISA Administration Plan Bernard Dee is a 28-year-old male with a past medical history of cirrhosis secondary to alcohol use who is admitted for management of sepsis secondary to community acquired pneumonia and GI bleed. Nephrology consulted for possible hepatorenal syndrome and hypokalemia. #Acute kidney injury #? Hepatorenal syndrome Present with cirrhosis presents with decreased kidney function. Creatinine noted to be 1.3 upon discharge in 03/2024 and readmitted with creatinine of 3.3. Will start on albumin, midodrine, and octreotide for hepatorenal syndrome. After first 24 hours, renal function has declined while in treatment and at this time leaning towards hepatorenal syndrome-AKIL (HRS-AKIL). However, will continue to monitor kidney function for another 24 hours for formal diagnostic work-up. ? Albumin 25 g 4 times daily ? Midodrine 10 mg p.o. 3 times daily ? Octreotide gtt ? Strict I's and O's #Hypokalemia K 2.7 on admission and has steadily increased to 3.3 with potassium supplementation. ? Continue current management #Sepsis secondary to #Community acquired pneumonia #Cirrhosis #Ascites #Hypoalbuminemia #Hyperammonemia #? GI bleed #Hyperbilirubinemia ? Continue management per primary team ----- Plan discussed with attending physician Dr. Rehan Melendez MD PGY-1 Internal Medicine Attending Provider Attestation/Addendum Patient seen and examined with resident physician Dr. Falcon. Note reviewed, agree with findings and recommendations. Patient with alcoholic liver disease,Hemoglobin 6.8 INR 2.0 sodium 129, potassium 3.3, BUN 42, creatinine 3.6 phosphorus 5.4, total bilirubin 34.9, AST 114, ALT 35, alk phos 299, albumin 3.0 paracentesis was done and 6.5 L drained echocardiogram during last admission showed ejection fraction 55 to 60% CT abdomen showed cirrhosis, hepatomegaly, splenomegaly marked gallbladder wall thickening and edema during last admission. Suspect patient going towards hepatorenal syndrome with worsening creatinine in the last 48 hours. Patient sick looking. Unfortunately not a candidate for transplant due to his last drink in March 2024. Agree with octreotide, midodrine, albumin. Repeat CT abdomen to look for gallbladder/cholestasis--significant rise in total bili and alk phos. 05/18/2024 patient currently seen in medical floor. Mom at bedside. Aunt on the phone. All of them seems to be very worried about his worsening liver function. Requesting transfer to tertiary care center for second opinion. Patient is young 28-year-old with worsening liver function and currently seems to be in failure. All the sequelae of liver failure noted. Patient currently seems to be in hepatorenal syndrome type I with worsening renal function despite giving albumin, midodrine, octreotide. Will monitor closely. No need for emergency dialysis at this point. CT abdomen showed liver cirrhosis with hepatosplenomegaly. Plan of care discussed with primary team.
--- NOTE | 2024-05-18 12:17 | ESPR_ITS ---
Documentation for date of: 05/18/24 Subjective Subjective Interval history: The patient reported doing well this morning. He denied any dizziness, headache, confusion, SOB, chest pain, abdominal pain, reported having 2 bowel movements yesterday and 1 bowel movement today morning. Exam Vital Signs Temp Pulse Resp BP Pulse Ox O2 Del Method 97.9 F 95 17 96/56 L 93 L Room Air 05/18/24 08:00 05/18/24 08:00 05/18/24 08:00 05/18/24 08:00 05/18/24 08:00 05/18/24 08:00 Narrative Exam Constitutional Alert, oriented x 3 and comfortable. Young male, scleral icterus, generalized jaundice HEENT Vision grossly intact. Patent nares. Trachea midline Respiratory Chest normal on inspection and decreased air entry mid to lower zones with atelectasis Cardiovascular S1 and S2 audible, RRR. No murmurs carotid bruit. No gross JVD. Abdominal Tense, distended, shifting dullness, caput medusa, multiple excoriation spence. BS + Genitourinary No bladder tenderness, no flank pain. Normal to palpation Musculoskeletal Extremities tone within normal limits. 2+ lower extremity edema up to hips bilaterally Neurological CN II - XII grossly intact. Extremity motor and sensation grossly intact. Mild asterixis Skin Warm, dry and intact. No apparent lesions. Psychiatric Mildly anxious, patient has good affect, is cooperative Objective Labs 05/18/24 05:21 05/18/24 05:21 Labs: Laboratory Results - last 24 hr 05/16/24 05/17/24 05/17/24 22:50 12:08 13:15 WBC RBC Hgb 6.8 L* Hct 19.4 L* MCV MCH MCHC RDW Std Deviation Plt Count Neut % (Auto) Lymph % (Auto) [place] % (Auto) Eos % (Auto) Baso % (Auto) Neut # (Auto) Lymph # (Auto) [place] # (Auto) Eos # (Auto) Baso # (Auto) Immature Gran # (Auto) Absolute Nucleated RBC Immature Gran % Nucleated RBC % PT INR APTT Sodium Potassium Chloride Carbon Dioxide Anion Gap BUN Creatinine Estim Creat Clear Calc eGFR BUN/Creatinine Ratio Glucose Calculated Osmolality Calcium Corrected Calcium Phosphorus Magnesium Total Bilirubin AST ALT Alkaline Phosphatase Total Protein Albumin Globulin Albumin/Globulin Ratio Ur Collection Type Urine Color Urine Clarity Urine pH Ur Specific [place] Urine Protein Urine Glucose (UA) Urine Ketones Urine Blood Urine Nitrite Urine Bilirubin Urine Urobilinogen (Auto) Ur Leukocyte Esterase Urine RBC Urine WBC Ur Squamous Epith Cells Urine Bacteria Hyaline Casts Ur Random Sodium Peritoneal Color Yellow Peritoneal Appearance Hazy Peritoneal WBC 90 Peritoneal RBC 5000 [place]iton Polynucl WBCs 26.7 [place] Mononucl WBCs 73.3 Peritoneal Tot Protein < 2 Peritoneal Albumin < 1.0 Peritoneal LDH 59 Peritoneal Glucose 150 Peritoneal Amylase < 20 Urine Opiates Screen Urine Fentanyl Screen Ur Barbiturates Screen U Amphetamin/Meth Scrn U Benzodiazepines Scrn U Cocaine Metab Screen U Marijuana (THC) Screen Hepatitis A IgM Ab Hep Bs Antigen Hep B Core IgM Ab Hepatitis C Antibody Blood Type A Negative Antibody Screen NEGATIVE Crossmatch See Detail Blood Bank Wristband ID Yes 05/17/24 05/18/24 05/18/24 18:55 05:21 05:30 WBC 14.4 H RBC 2.56 L Hgb 7.7 L 7.8 L Hct 22.2 L 22.1 L MCV 86 MCH 30.5 MCHC 35.3 RDW Std Deviation 63.9 H Plt Count 200 D Neut % (Auto) 83 H Lymph % (Auto) 9 L [place] % (Auto) 6 Eos % (Auto) 2 Baso % (Auto) 0 Neut # (Auto) 11.9 H Lymph # (Auto) 1.2 [place] # (Auto) 0.9 H Eos # (Auto) 0.3 Baso # (Auto) 0.0 Immature Gran # (Auto) 0.09 H Absolute Nucleated RBC 0.00 Immature Gran % 1 H Nucleated RBC % 0 PT 21.6 H INR 2.1 H APTT 38.0 H Sodium 135 L Potassium 3.0 L Chloride 103 Carbon Dioxide 18.5 L Anion Gap 14 BUN 44 H Creatinine 3.6 H Estim Creat Clear Calc 36.3 L eGFR 22 L BUN/Creatinine Ratio 12 Glucose 125 H Calculated Osmolality 282 Calcium 9.0 Corrected Calcium 9.8 Phosphorus 3.9 Magnesium 2.3 Total Bilirubin 35.0 H* AST 88 H ALT 24 Alkaline Phosphatase 214 H D Total Protein 5.7 Albumin 3.0 L Globulin 2.7 Albumin/Globulin Ratio 1.1 L Ur Collection Type Clean Catch Urine Color Drk-Yellow A Urine Clarity Clear Urine pH 6.5 Ur Specific [place] 1.009 Urine Protein Negative Urine Glucose (UA) Negative Urine Ketones Negative Urine Blood Negative Urine Nitrite Negative Urine Bilirubin 2+ A Urine Urobilinogen (Auto) Negative Ur Leukocyte Esterase Negative Urine RBC 2 Urine WBC 7 H Ur Squamous Epith Cells 0 Urine Bacteria Rare Hyaline Casts < 1 Ur Random Sodium 43.1 Peritoneal Color Peritoneal Appearance Peritoneal WBC Peritoneal RBC Periton Polynucl WBCs Periton Mononucl WBCs Peritoneal Tot Protein Peritoneal Albumin Peritoneal LDH Peritoneal Glucose Peritoneal Amylase Urine Opiates Screen Negative Urine Fentanyl Screen Negative Ur Barbiturates Screen Negative U Amphetamin/Meth Scrn Negative U Benzodiazepines Scrn Negative U Cocaine Metab Screen Negative U Marijuana (THC) Screen Negative Hepatitis A IgM Ab Non Reactive Hep Bs Antigen Non Reactive Hep B Core IgM Ab Non Reactive Hepatitis C Antibody Non Reactive Blood Type Antibody Screen Crossmatch Blood Bank Wristband ID Quality Measures Quality Measures none Assessment & Plan Assessment Current Active Medications: Generic Name Dose Route Start Last Admin Trade Name Freq PRN Reason Stop Dose Admin Hydrocodone Bitart/Acetaminophen 1 tab 05/17/24 02:08 05/17/24 02:52 Hydrocodone/Apap 5/325 Tablet PO 05/22/24 02:07 1 tab Q4HR PRN Administration PAIN SCALE 4-10(Mod-Sev Azithromycin 500 mg 05/18/24 09:00 05/18/24 08:07 Azithromycin 250 Mg Tablet PO 05/25/24 08:59 500 mg QDAY LISA Administration Protocol Budesonide 0.25 mg 05/17/24 07:00 05/18/24 07:44 Budesonide Rt 0.25 Mg/2 Ml Nebu INH 06/16/24 06:59 0.25 mg BIDRT LISA Administration Cholestyramine Resin 1 pkt 05/17/24 09:00 05/18/24 08:06 Cholestyramine/Sucrose 1 Pkt Ea PO 06/16/24 08:59 1 pkt QDAY LISA Administration Ceftriaxone Sodium/Dextrose 50 mls @ 100 mls/hr 05/18/24 09:00 05/18/24 08:06 Rocephin/D5w 1gm Iv Premix IV 05/25/24 08:59 100 mls/hr DAILY LISA Administration Octreotide Acetate 1,000 mcg/ 102 mls @ 5.1 mls/hr 05/17/24 22:44 05/17/24 22:26 Sodium Chloride IV 05/22/24 02:32 50 mcg/hr .Q20H LISA 5.1 mls/hr Administration Protocol 50 MCG/HR Albumin Human 25 gm in 100 mls @ 100 mls/hr 05/17/24 14:00 05/18/24 11:39 Albuminar-25 Ivpb IV 05/20/24 13:59 100 mls/hr QID LISA Administration Ipratropium [place] 0.5 mg 05/17/24 07:00 05/18/24 12:12 Ipratropium Rt 0.5 Mg/ 2.5 Ml Nebu INH 06/16/24 06:59 0.5 mg Q6HRRT LISA Administration Lactulose 20 gm 05/17/24 09:00 05/18/24 05:31 Lactulose Syrup 20 Gm/30 Ml Udc PO 06/16/24 08:59 20 gm TID LISA Administration Protocol Midodrine 10 mg 05/17/24 14:00 05/18/24 05:32 Midodrine 5 Mg Tablet PO 06/16/24 13:59 10 mg TID LISA Administration Ondansetron HCl 4 mg 05/17/24 02:08 Ondansetron Inj 2 Mg/Ml Inj 2 Ml IV 06/16/24 02:07 Q6H PRN NAUSEA OR VOMITING Protocol Pantoprazole Sodium 40 mg 05/17/24 09:00 05/18/24 08:07 Pantoprazole Inj 40 Mg Vial IV 06/16/24 08:59 40 mg BID LISA Administration Prednisone 40 mg 05/18/24 12:15 Prednisone 20 Mg Tablet PO 05/25/24 12:01 QDAY LISA Triamcinolone Acetonide 0 gm 05/17/24 21:00 05/18/24 08:07 Triamcinolone Acet Oint 0.5% 15 Gm Tube TOP 06/16/24 20:59 1 applicatio BID LISA Administration Plan Patient is a 28-year-old male with past medical history significant for alcoholic cirrhosis and prediabetes presenting today with a chief complaint of worsening cough and fatigue. Patient will be admitted for treatment and management of community-acquired pneumonia. The patient is not a hepatic transplant candidate as has last alcoholic drink on Mar 2024, and was admitted for conservative management. Community-acquired pneumonia Patient presented with a 2-week history of a productive cough with occasional hemoptysis On exam patient had decreased air entry mid to lower zones and bibasilar atelectasis On imaging chest x-ray revealed bibasilar consolidation worse on the left. Negative for pulmonary edema or pleural effusion. WBC 28 PSI/PORT : 89 points. Outpatient or inpatient treatment Plan: ? Sputum culture and Gram stain ? Influenza A and B negative ? RSV Negative ? Ipratropium nebs Q6 hourly ? Budesonide nebs 0.25 mg twice daily ? Started patient on ceftriaxone 1 g IV daily and azithromycin 500 Mg daily on [05/17? 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 On exam patient has abdominal distention consistent with ascites and lower extremity edema. Mild asterixis. Alert and oriented x 3 On admission patient was initially hypotensive BP 89/52 [MAP 58] Cretinine trended up to 3.6 On admission K 2.7 PT 20.9, INR 2, PTT 33, ammonia 96. T. bili increased to 35 on 05/18/24 Madrey score: 84.7. Poor prognosis, patient may benefit from steroids Child-Carreno class C MELD NA?39 points. 65-66% 90-day mortality. Plan: ? Telemetry monitoring ? Albumin 25 g IV QID ? Octreotide infusion for splanchnic vasoconstriction ? Midodrine 10 Mg p.o. 3 times daily for likely hepatorenal syndrome [ Terlipressin is first-line but not available in [place]] ? Patient on ceftriaxone 1 g IV daily for SBP prophylaxis as he is child class C and has history of GI bleed. ? Lactulose 120 Mg p.o. BID. Titrate as necessary to achieve 2?3 bowel movements per day for hepatic encephalopathy prophylaxis. ? Cholestyramine 1 packet p.o. daily for pruritus ? KCl 20 mEq p.o. x 1 ? Monitor K on a.m. labs ? GI, Dr. Moss consulted and closely following the case. Appreciate recommendations Normocytic anemia likely secondary to lower GI bleed DDx: Esophageal variceal bleed Patient reports intermittent episodes of bright red blood after wiping. On admission patient's Hb 8.4. From chart review baseline appears to be between 7?8. Patient on oral iron as home medication. Guaiac positive Patient had colonoscopy completed on 04/03/2024 findings include: Hemorrhoids on perianal exam. Plan: ? Monitor hemoglobin on a.m. labs - Dr. Moss to proceed with colonoscopy this afternoon, and recommended no GoLytely preparation - Feraheme 510mg x1 given - Pending GI reccs Health maintenance: Disposition: IV antibiotics, Nebulizers. Blood pressre control with Octreotide, Midodrine and Albumin. GI consult Diet: Cardiac Lines: pIVs GI Prophylaxis: Pantoprazole Thrombo Prophylaxis: SCDs Code status: FULL CODE The patient's management plan was discussed with my attending physician MD Karan Carter MD, PGY2 Attending Provider Attestation/Addendum 28-year-old male with alcoholic cirrhosis, portal hypertension, ascites and hyperbilirubinemia. The patient had paracentesis yesterday. He has worsening kidney functions. Nephrology recommended discontinuing Bumex at this time. I discussed his condition with the patient's mom at bedside with bedside RN. Patient might need to be referred to higher level of care with the pathology service for liver transplant allocation.
[2024-05-18] MEDS: predniSONE 20 MG TABLET 40 MG PO (12:35)
--- NOTE | 2024-05-18 18:31 | PC.NURSE ---
Patient has been NPO since 11:00. Administered two fleet enemas to patient gave report to endoscopy.
[2024-05-18] MEDS: OCTREOTIDE ACET INJ 1,000 MCG in SODIUM CHLORIDE 0.9% 100 ML 5.1 MCG IV (21:58)
[2024-05-19] VITALS (14 sets, daily range): BP systolic 106–120; BP diastolic 61–72; PULSE 62–116; RESP 17–95; TEMP 36.2–36.8; O2SAT 94–100
[2024-05-19] MEDS: TRIAMCINOLONE ACET OINT 0.5% 15 GM TUBE TOP ×3 (00:12→20:27)
[2024-05-19] MEDS: IPRATROPIUM RT 0.5 MG/ 2.5 ML NEBU INH ×3 (00:45→19:17)
[2024-05-19] MEDS: LACTULOSE SYRUP 20 GM/30 ML UDC PO ×3 (05:33→23:00)
[2024-05-19] MEDS: ALBUMIN HUMAN 25% IVPB 25 GM/100 ML BTL IV ×4 (05:33→21:09)
[2024-05-19] MEDS: MIDODRINE 5 MG TABLET 10 MG PO ×3 (05:34→23:00)
[2024-05-19 05:59] LABS: Basophils % (Auto) 0 % (0-2.5); Eosinophils % (Auto) 0 % (0-10); Hematocrit 22.1 % (41.0-53.0); Immature Granulocytes % (Auto) 1 % (0-0); Immature Granulocytes Auto 0.08 Thou/mm3 (0.00-0.00); Lymphocytes # (Auto) 0.5 Thou/mm3 (1.0-4.8); Lymphocytes % (Auto) 5 % (10-50); Mean Corpuscular HGB Conc 34.4 g/dl (31.0-37.0); Mean Corpuscular Hemoglobin 30.3 pg (25.0-35.0); Mean Corpuscular Volume 88 fL (80-100); Monocytes # (Auto) 0.4 Thou/mm3 (0.0-0.8); Monocytes % (Auto) 4 % (0-12); Neutrophils # (Auto) 10.2 Thou/mm3 (1.8-7.7); Neutrophils % (Auto) 91 % (37-80); Nucleated Red Blood Cell % 0 /100 WBC (0); Platelet Count 205 Thou/mm3 (140-440); RDW Standard Deviation 65.9 fL (35.1-43.9); Red Blood Count 2.51 Miln/mm3 (4.50-5.90); White Blood Count 11.2 Thou/mm3 (3.8-10.6)
[2024-05-19 06:09] LABS: Hemoglobin 7.6 g/dL (13.5-16.0)
[2024-05-19] MEDS: BUDESONIDE RT 0.25 MG/2 ML NEBU INH ×2 (06:34→19:17)
[2024-05-19 06:45] LABS: Alanine Aminotransferase 24 U/L (10-49); Albumin, Serum 3.6 gm/dL (3.5-5.0); Albumin/Globulin Ratio 1.4 (1.2-2.2); Alkaline Phosphatase 190 U/L (46-116); Anion Gap 12 (7-16); Aspartate Amino Transferase 78 U/L (0-34); BUN/Creatinine Ratio 13 Ratio (12-20); Blood Urea Nitrogen 37 mg/dL (9-23); Calcium 9.9 mg/dL (8.3-10.6); Calcium (Corrected) 10.2 mg/dL (8.5-10.1); Carbon Dioxide 19.6 mMol/L (20.0-31.0); Chloride 106 mMol/L (98-107); Creatinine (Component) 2.9 mg/dL (0.6-1.3); Estimated Creatinine Clearance 44.4 mL/min (>60); Globulin 2.5 gm/dL (2.3-3.5); Glucose 143 mg/dL (74-106); Magnesium 2.4 mg/dL (1.6-2.6); Osmolality,Calculated 286 (275-295); Phosphorous 4.2 mg/dL (2.4-5.1); Sodium 138 mMol/L (136-145); Total Protein 6.1 gm/dL (5.7-8.2); eGFR 29 See Note
[2024-05-19] MEDS: cefTRIAXone/D5w 1gm IV premix 50 ML IV (08:58)
[2024-05-19] MEDS: predniSONE 20 MG TABLET 40 MG PO (08:59)
[2024-05-19] MEDS: POTASSIUM CHLORIDE 20 mEq TABCR 40 MEQ PO (08:59)
[2024-05-19] MEDS: PANTOPRAZOLE INJ 40 MG VIAL IV ×2 (09:00→21:11)
[2024-05-19] MEDS: AZITHROMYCIN 250 MG TABLET 500 MG PO (09:00)
[2024-05-19] MEDS: CHOLESTYRAMINE/SUCROSE 1 PKT EA PO (09:00)
--- NOTE | 2024-05-19 12:26 | PC.SS ---
Patient is alert/oriented. Patient admitted for pneumonia. Patient has liver cirrhosis. Patient appears yellow in color. Verbal. Lethargic. Patient states he's from home and resides with brother. Patient states he was independent with ADL's prior to hospitalization. He started to become very weak and had a hard time walking. patient states he last drank alcohol in February. He states he stopped on his own and did not attend any rehab facilities in patient or out patient. Patient is currently not working and not receiving any disablity income. He currently has straight [employer]. Patient's mother is at bedside and very emotional with the state of her son. SS provided emotional support. Patient had followed up with the [facility] previously, a few weeks ago. Family to provide transportation. Pharmacy: [facility]. Discussion of a possible transfer for higher level of care. Patient has consult for GI. Mother, Bettye, is the alt medical decision maker, which was verbalized by patient.
--- NOTE | 2024-05-19 12:27 | PC.SS ---
SS received a referral for positive screening for utility assistance. SS inquired with patient and mother at bedside. Both indicated that this was taken care of by patient's brother. No further community resource needs.
--- NOTE | 2024-05-19 12:31 | PC.NURSE ---
Dr. Pizano and residents explained plan of care and answered all questions for patient and mother. Will continue to monitor patient.
--- NOTE | 2024-05-19 12:35 | ESPR_ITS ---
Documentation for date of: 05/19/24 Subjective Subjective Interval history: Bernard Dee is a 28-year-old male with a past medical history of cirrhosis secondary to alcohol use who presented to the ED on 05/16 after noticing increased yellowing of his skin and eyes as well as bright red blood per rectum for the last few days. Mother at bedside who helped provide additional history, stating that she has noticed him feeling more sleepy than usual but does not report any confusion. Also denies hematemesis, hemoptysis but does have bleeding from gums. Per mother, last drink was in February 2024. She also states that family has been a significant effort to try and keep patient as healthy as possible, including diet and adherence to medications. Patient has also had a dry cough, but denies shortness of breath, fever, sick contacts, or recent travel. Of note, patient was recently discharged March 2024 for management of hyponatremia and also underwent endoscopy that showed esophagitis and colonoscopy showed perianal hemorrhoids. At that time, t bili on admission was 22.9 and down trended throughout hospital course and was transfused 1 unit PRBC for hemoglobin 6.7. Admitted for management of sepsis secondary to community acquired pneumonia and GI bleed. Nephrology consulted for possible hepatorenal syndrome and hypokalemia. Home medications: lasix 20 mg po PRN, ferrous sulfate 325 mg PO every other day, lactulose 10 g PO daily, omeprazole 20 mg PO daily PMHx: cirrhosis, hemorrhoids PSHx: endoscopy, colonoscopy SHx: last drink 03/2024, denies smoking and illicit drug use ED course: Vitals: BP 89/52, otherwise vital stable Significant labs: WBC 28.0, Hgb 8.4, plt 322, Na 130, K 2.7, BUN 42, creatinine 3.3, GFR 25, T. bili 30.0, AST 120, ALT 37, ALP 313, ammonia 96, albumin 2.3 CXR bilateral pneumonia, left pleural fluid In ED, given 25 g albumin x2, 40 mEq potassium, and started on azithromycin and ceftriaxone 05/17: Patient seen and examined on medical floor with mother and friend at bedside. Patient is status post paracentesis with removal of 6.5 L of fluid and tolerated well. He is A&Ox3 but does fall asleep during conversation. Answered mother's questions regarding patient's clinical condition. On admission, K 2.7 and has steadily increased to 3.3 with K supplementation and bumex. Also on albumin, midodrine, and octreotide for hepatorenal syndrome and will monitor kidney function. 05/18: Patient seen and examined at bedside with mother present. Appears more energetic today compared to yesterday, A&Ox3. Labs and orders reviewed. Hemoglobin improved after transfusion 1 unit pRBC, Dr. Moss consulted and aware of case. Currently on albumin, midodrine, and octreotide to evaluate for hepatorenal syndrome. Pending CT A/P to further evaluate elevated bilirubin. Per peritoneal fluid analysis, no sign of SBP and SAAG > 1, thus portal hypertension likely etiology of patient's ascites. 05/19: Patient seen and examined at bedside with mother and brother present. Has good energy today, A&O x 3. Labs and orders reviewed. WBC downtrending to 11.2, Hgb stable at 7.6, and platelets within normal limits. K 3.0, repleted by primary team. BUN decreased from 44 to 37 and creatinine decreased from 3.6 to 2.9 while on albumin, midodrine, and octreotide. T. bili remains elevated at 34, and repeat CT A/P showed cirrhosis, hepatosplenomegaly, mild ascites, portal hypertension, left base pneumonia and contracted gallbladder. Exam Vital Signs Temp Pulse Resp BP Pulse Ox O2 Del Method O2 Flow Rate 97.4 F 83 18 120/66 96 Room Air 3 05/19/24 08:00 05/19/24 08:00 05/19/24 08:00 05/19/24 08:00 05/19/24 08:00 05/19/24 08:00 05/18/24 20:30 Narrative Exam General: AOx3, no acute distress, speaks in full sentences HEENT: scleral icterus, NC/AT, mucous membranes moist Cardiovascular: regular rate and rhythm, S1/S2 present, no murmurs appreciated Pulmonary: clear to auscultation bilaterally, no rales/rhonchi/wheezes Abdominal: s/p paracentesis, distended, soft, non-tender Musculoskeletal: 1+ bilateral pitting edema, normal ROM Skin: jaundice, warm and dry, intact, no rashes Objective Labs 05/20/24 04:53 05/20/24 04:53 Labs: Laboratory Results - last 24 hr 05/19/24 04:45 WBC 11.2 H RBC 2.51 L Hgb 7.6 L Hct 22.1 L MCV 88 MCH 30.3 MCHC 34.4 RDW Std Deviation 65.9 H Plt Count 205 Neut % (Auto) 91 H Lymph % (Auto) 5 L [place] % (Auto) 4 Eos % (Auto) 0 Baso % (Auto) 0 Neut # (Auto) 10.2 H Lymph # (Auto) 0.5 L [place] # (Auto) 0.4 Eos # (Auto) 0.0 Baso # (Auto) 0.0 Immature Gran # (Auto) 0.08 H Absolute Nucleated RBC 0.00 Immature Gran % 1 H Nucleated RBC % 0 Sodium 138 Potassium 3.0 L Chloride 106 Carbon Dioxide 19.6 L Anion Gap 12 BUN 37 H Creatinine 2.9 H D Estim Creat Clear Calc 44.4 L eGFR 29 L BUN/Creatinine Ratio 13 Glucose 143 H Calculated Osmolality 286 Calcium 9.9 Corrected Calcium 10.2 H Phosphorus 4.2 Magnesium 2.4 Total Bilirubin 34.0 H* D AST 78 H ALT 24 Alkaline Phosphatase 190 H D Total Protein 6.1 Albumin 3.6 D Globulin 2.5 Albumin/Globulin Ratio 1.4 Quality Measures Quality Measures none Assessment & Plan Assessment Current Active Medications: Generic Name Dose Route Start Last Admin Trade Name Freq PRN Reason Stop Dose Admin Hydrocodone Bitart/Acetaminophen 1 tab 05/17/24 02:08 05/17/24 02:52 Hydrocodone/Apap 5/325 Tablet PO 05/22/24 02:07 1 tab Q4HR PRN Administration PAIN SCALE 4-10(Mod-Sev Azithromycin 500 mg 05/18/24 09:00 05/19/24 09:00 Azithromycin 250 Mg Tablet PO 05/25/24 08:59 500 mg QDAY LISA Administration Protocol Budesonide 0.25 mg 05/17/24 07:00 05/19/24 06:34 Budesonide Rt 0.25 Mg/2 Ml Nebu INH 06/16/24 06:59 0.25 mg BIDRT LISA Administration Cholestyramine Resin 1 pkt 05/17/24 09:00 05/19/24 09:00 Cholestyramine/Sucrose 1 Pkt Ea PO 06/16/24 08:59 1 pkt QDAY LISA Administration Ceftriaxone Sodium/Dextrose 50 mls @ 100 mls/hr 05/18/24 09:00 05/19/24 08:58 Rocephin/D5w 1gm Iv Premix IV 05/25/24 08:59 100 mls/hr DAILY LISA Administration Octreotide Acetate 1,000 mcg/ 102 mls @ 5.1 mls/hr 05/17/24 22:44 05/18/24 21:58 Sodium Chloride IV 05/22/24 02:32 50 mcg/hr .Q20H LISA 5.1 mls/hr Administration Protocol 50 MCG/HR Albumin Human 25 gm in 100 mls @ 100 mls/hr 05/17/24 14:00 05/19/24 11:45 Albuminar-25 Ivpb IV 05/20/24 13:59 100 mls/hr QID LISA Administration Ipratropium [place] 0.5 mg 05/17/24 07:00 05/19/24 06:34 Ipratropium Rt 0.5 Mg/ 2.5 Ml Nebu INH 06/16/24 06:59 0.5 mg Q6HRRT LISA Administration Lactulose 20 gm 05/17/24 09:00 05/19/24 05:33 Lactulose Syrup 20 Gm/30 Ml Udc PO 06/16/24 08:59 20 gm TID LISA Administration Protocol Midodrine 10 mg 05/17/24 14:00 05/19/24 05:34 Midodrine 5 Mg Tablet PO 06/16/24 13:59 10 mg TID LISA Administration Ondansetron HCl 4 mg 05/17/24 02:08 Ondansetron Inj 2 Mg/Ml Inj 2 Ml IV 06/16/24 02:07 Q6H PRN NAUSEA OR VOMITING Protocol Pantoprazole Sodium 40 mg 05/17/24 09:00 05/19/24 09:00 Pantoprazole Inj 40 Mg Vial IV 06/16/24 08:59 40 mg BID LISA Administration Prednisone 40 mg 05/18/24 12:15 05/19/24 08:59 Prednisone 20 Mg Tablet PO 05/25/24 12:01 40 mg QDAY LISA Administration Triamcinolone Acetonide 0 gm 05/17/24 21:00 05/19/24 08:59 Triamcinolone Acet Oint 0.5% 15 Gm Tube TOP 06/16/24 20:59 1 applicatio BID LISA Administration Plan Bernard Dee is a 28-year-old male with a past medical history of cirrhosis secondary to alcohol use who is admitted for management of sepsis secondary to community acquired pneumonia and GI bleed. Nephrology consulted for possible hepatorenal syndrome and hypokalemia. #Acute kidney injury #? Hepatorenal syndrome Present with cirrhosis presents with decreased kidney function. Creatinine noted to be 1.3 upon discharge in 03/2024 and readmitted with creatinine of 3.3. Will start on albumin, midodrine, and octreotide for hepatorenal syndrome. After first 24 hours, renal function has declined while in treatment and at this time leaning towards hepatorenal syndrome-AKIL (HRS-AKIL). However, the following 24 hours, renal function improved with decrease in Cr from 3.6 to 2.9. ? Albumin 25 g 4 times daily ? Midodrine 10 mg p.o. 3 times daily ? Octreotide gtt ? Strict I's and O's #Hypokalemia K 2.7 on admission and has steadily increased with potassium supplementation. ? Continue current management #Sepsis secondary to #Community acquired pneumonia #Cirrhosis #Ascites #Hypoalbuminemia #Hyperammonemia #? GI bleed #Hyperbilirubinemia ? Continue management per primary team ----- Plan discussed with attending physician Dr. Rehan Melendez MD PGY-1 Internal Medicine Attending Provider Attestation/Addendum Patient seen and examined with resident physician Dr. Falcon. Note reviewed, agree with findings and recommendations. Patient with alcoholic liver disease,Hemoglobin 6.8 INR 2.0 sodium 129, potassium 3.3, BUN 42, creatinine 3.6 phosphorus 5.4, total bilirubin 34.9, AST 114, ALT 35, alk phos 299, albumin 3.0 paracentesis was done and 6.5 L drained echocardiogram during last admission showed ejection fraction 55 to 60% CT abdomen showed cirrhosis, hepatomegaly, splenomegaly marked gallbladder wall thickening and edema during last admission. Suspect patient going towards hepatorenal syndrome with worsening creatinine in the last 48 hours. Patient sick looking. Unfortunately not a candidate for transplant due to his last drink in March 2024. Agree with octreotide, midodrine, albumin. Repeat CT abdomen to look for gallbladder/cholestasis--significant rise in total bili and alk phos. 05/18/2024 patient currently seen in medical floor. Mom at bedside. Aunt on the phone. All of them seems to be very worried about his worsening liver function. Requesting transfer to tertiary care center for second opinion. Patient is young 28-year-old with worsening liver function and currently seems to be in failure. All the sequelae of liver failure noted. Patient currently seems to be in hepatorenal syndrome type I with worsening renal function despite giving albumin, midodrine, octreotide. Will monitor closely. No need for emergency dialysis at this point. CT abdomen showed liver cirrhosis with hepatosplenomegaly. Plan of care discussed with primary team. 05/19/2024 patient currently seen in medical floor. He seems more alert and awake. Blood pressure acceptable. Creatinine improving. Continue with midodrine, octreotide, albumin. Family at bedside.
--- NOTE | 2024-05-19 16:55 | PD.RESPRO ---
Documentation for date of: 05/19/24 Subjective Subjective Interval history: The patient reported doing fairly well. His vitals were stable, saturating 96% on room air. He denied any lightheadedness, nausea or vomiting, abdominal pain, any changes in bowel or bladder habit, fever or chills. Exam Vital Signs Temp Pulse Resp BP Pulse Ox O2 Del Method O2 Flow Rate 97.4 F 90 20 116/67 96 Room Air 3 05/19/24 16:00 05/19/24 16:00 05/19/24 16:05/19/24 16:00 05/19/24 16:05/19/24 16:00 05/18/24 20:30 Narrative Exam Constitutional Alert, oriented x 3 and comfortable. Young male, scleral icterus, generalized jaundice HEENT Vision grossly intact. Patent nares. Trachea midline Respiratory Chest normal on inspection and decreased air entry mid to lower zones with atelectasis Cardiovascular S1 and S2 audible, RRR. No murmurs carotid bruit. No gross JVD. Abdominal Tense, distended, shifting dullness, caput medusa, multiple excoriation spence. BS + Genitourinary No bladder tenderness, no flank pain. Normal to palpation Musculoskeletal Extremities tone within normal limits. 2+ lower extremity edema up to hips bilaterally Neurological CN II - XII grossly intact. Extremity motor and sensation grossly intact. Mild asterixis Skin Warm, dry and intact. No apparent lesions. Psychiatric Mildly anxious, patient has good affect, is cooperative Objective Labs 05/19/24 04:45 05/19/24 04:45 Labs: Laboratory Results - last 24 hr 05/19/24 04:45 WBC 11.2 H RBC 2.51 L Hgb 7.6 L Hct 22.1 L MCV 88 MCH 30.3 MCHC 34.4 RDW Std Deviation 65.9 H Plt Count 205 Neut % (Auto) 91 H Lymph % (Auto) 5 L [place] % (Auto) 4 Eos % (Auto) 0 Baso % (Auto) 0 Neut # (Auto) 10.2 H Lymph # (Auto) 0.5 L [place] # (Auto) 0.4 Eos # (Auto) 0.0 Baso # (Auto) 0.0 Immature Gran # (Auto) 0.08 H Absolute Nucleated RBC 0.00 Immature Gran % 1 H Nucleated RBC % 0 Sodium 138 Potassium 3.0 L Chloride 106 Carbon Dioxide 19.6 L Anion Gap 12 BUN 37 H Creatinine 2.9 H D Estim Creat Clear Calc 44.4 L eGFR 29 L BUN/Creatinine Ratio 13 Glucose 143 H Calculated Osmolality 286 Calcium 9.9 Corrected Calcium 10.2 H Phosphorus 4.2 Magnesium 2.4 Total Bilirubin 34.0 H* D AST 78 H ALT 24 Alkaline Phosphatase 190 H D Total Protein 6.1 Albumin 3.6 D Globulin 2.5 Albumin/Globulin Ratio 1.4 Quality Measures Quality Measures none Assessment & Plan Assessment Current Active Medications: Generic Name Dose Route Start Last Admin Trade Name Freq PRN Reason Stop Dose Admin Hydrocodone Bitart/Acetaminophen 1 tab 05/17/24 02:08 05/17/24 02:52 Hydrocodone/Apap 5/325 Tablet PO 05/22/24 02:07 1 tab Q4HR PRN Administration PAIN SCALE 4-10(Mod-Sev Azithromycin 500 mg 05/18/24 09:00 05/19/24 09:00 Azithromycin 250 Mg Tablet PO 05/25/24 08:59 500 mg QDAY LISA Administration Protocol Budesonide 0.25 mg 05/17/24 07:00 05/19/24 06:34 Budesonide Rt 0.25 Mg/2 Ml Nebu INH 06/16/24 06:59 0.25 mg BIDRT LISA Administration Cholestyramine Resin 1 pkt 05/17/24 09:00 05/19/24 09:00 Cholestyramine/Sucrose 1 Pkt Ea PO 06/16/24 08:59 1 pkt QDAY LISA Administration Ceftriaxone Sodium/Dextrose 50 mls @ 100 mls/hr 05/18/24 09:00 05/19/24 08:58 Rocephin/D5w 1gm Iv Premix IV 05/25/24 08:59 100 mls/hr DAILY LISA Administration Octreotide Acetate 1,000 mcg/ 102 mls @ 5.1 mls/hr 05/17/24 22:44 05/18/24 21:58 Sodium Chloride IV 05/22/24 02:32 50 mcg/hr .Q20H LISA 5.1 mls/hr Administration Protocol 50 MCG/HR Albumin Human 25 gm in 100 mls @ 100 mls/hr 05/17/24 14:00 05/19/24 11:45 Albuminar-25 Ivpb IV 05/20/24 13:59 100 mls/hr QID LISA Administration Ipratropium [place] 0.5 mg 05/17/24 07:00 05/19/24 12:44 Ipratropium Rt 0.5 Mg/ 2.5 Ml Nebu INH 06/16/24 06:59 Not Given Q6HRRT [facility] Lactulose 20 gm 05/17/24 09:00 05/19/24 13:41 Lactulose Syrup 20 Gm/30 Ml Udc PO 06/16/24 08:59 20 gm TID LISA Administration Protocol Midodrine 10 mg 05/17/24 14:00 05/19/24 13:41 Midodrine 5 Mg Tablet PO 06/16/24 13:59 10 mg TID LISA Administration Ondansetron HCl 4 mg 05/17/24 02:08 Ondansetron Inj 2 Mg/Ml Inj 2 Ml IV 06/16/24 02:07 Q6H PRN NAUSEA OR VOMITING Protocol Pantoprazole Sodium 40 mg 05/17/24 09:00 05/19/24 09:00 Pantoprazole Inj 40 Mg Vial IV 06/16/24 08:59 40 mg BID LISA Administration Prednisone 40 mg 05/18/24 12:15 05/19/24 08:59 Prednisone 20 Mg Tablet PO 05/25/24 12:01 40 mg QDAY LISA Administration Triamcinolone Acetonide 0 gm 05/17/24 21:00 05/19/24 08:59 Triamcinolone Acet Oint 0.5% 15 Gm Tube TOP 06/16/24 20:59 1 applicatio BID LISA Administration Plan Patient is a 28-year-old male with past medical history significant for alcoholic cirrhosis and prediabetes presenting today with a chief complaint of worsening cough and fatigue. Patient will be admitted for treatment and management of community-acquired pneumonia. The patient is not a hepatic transplant candidate as has last alcoholic drink on Mar 2024, and was admitted for conservative management. 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 On exam patient has abdominal distention consistent with ascites and lower extremity edema. Mild asterixis. Alert and oriented x 3 On admission patient was initially hypotensive BP 89/52 [MAP 58] Cretinine trended up to 3.6 On admission K 2.7 PT 20.9, INR 2, PTT 33, ammonia 96. T. bili increased to 34 on 05/18/24 Madrey score: 84.7. Poor prognosis, patient may benefit from steroids Child-Carreno class C MELD NA?39 points. 65-66% 90-day mortality. Plan: ? Telemetry monitoring ? Albumin 25 g IV QID ? Octreotide infusion for splanchnic vasoconstriction ? Midodrine 10 Mg p.o. 3 times daily for likely hepatorenal syndrome [ Terlipressin is first-line but not available in [place]] ? Patient on ceftriaxone 1 g IV daily for SBP prophylaxis as he is child class C and has history of GI bleed. ? Lactulose 120 Mg p.o. BID. Titrate as necessary to achieve 2?3 bowel movements per day for hepatic encephalopathy prophylaxis. ? Cholestyramine 1 packet p.o. daily for pruritus ? KCl 20 mEq p.o. x 1 ? Monitor K on a.m. labs - Nephro on board, reccs appreciated ? Transfer to [facility] for liver transplant initiated Community-acquired pneumonia Patient presented with a 2-week history of a productive cough with occasional hemoptysis On exam patient had decreased air entry mid to lower zones and bibasilar atelectasis On imaging chest x-ray revealed bibasilar consolidation worse on the left. Negative for pulmonary edema or pleural effusion. WBC 28 PSI/PORT : 89 points. Outpatient or inpatient treatment Plan: ? Sputum culture and Gram stain ? Influenza A and B negative ? RSV Negative ? Ipratropium nebs Q6 hourly ? Budesonide nebs 0.25 mg twice daily ? Started patient on ceftriaxone 1 g IV daily and azithromycin 500 Mg daily on [05/17? - Started on azithromycin on 05/18/2024 Normocytic anemia 2/2 Hemorrhoids Patient reports intermittent episodes of bright red blood after wiping. On admission patient's Hb 8.4. From chart review baseline appears to be between 7?8. Patient on oral iron as home medication. Guaiac positive Colonoscopy on 05/18/24 revealed Hemorrhoids on perianal on exam, 3 band ligator's put in 3 different locations. Plan: ? Monitor hemoglobin on a.m. labs - Dr. Moss on board, reccs appreciated - Pending GI reccs Health maintenance: Disposition: IV antibiotics, Nebulizers. Blood pressre control with Octreotide, Midodrine and Albumin. GI consult Diet: Cardiac Lines: pIVs GI Prophylaxis: Pantoprazole Thrombo Prophylaxis: SCDs Code status: FULL CODE The patient's management plan was discussed with my attending physician MD Karan Reynolds MD, PGY2 Attending Provider Attestation/Addendum Face to face evaluation was performed by me. I have personally seen and examined the patient. I discussed the assessment and plan with the entire medicine team. I reviewed available medical records, imaging studies, laboratory results. I agree with the above subjective data, objective findings, assessment and plan except as corrected by me or noted below Hepatorenal syndrome 2/2 Decompensated alcoholic cirrhosis with ascites and coagulopathy acute alcoholic hepatitis Severe Hyperbilirubinemia with jaundica Pruritus due to above - very ill patient unfortunately, discus ed with him and his family mother at bedside and father on phone. Continue current therapies, GI following- reach out to see if needs hospital to hospital transfer to liver failure- needs hepatology referral at least OP for liver transplant to get on list and fu with them, stop drinking alcohol, prn meds for itching, cholestyramine . IV ceftriaxone for SBP ppx
--- NOTE | 2024-05-19 19:17 | PC.CM ---
7619 I received a referral to transfer patient for hepatology for transplant evaluation. As per Dr. Moss's recommendation, he recommended reaching out to [facility] [[email or web address] I was very busy with other transfers and I did not have time to start transfer request. Please follow up with transfer.
--- NOTE | 2024-05-19 19:25 | PD.IMPROG ---
Documentation for date of: 05/19/24 Subjective Subjective Interval history: Hemoglobin hematocrit 7.6 and 22.1 Patient's status post band ligation of the large internal hemorrhoids Exam Vital Signs Temp Pulse Resp BP Pulse Ox O2 Del Method O2 Flow Rate 97.4 F 98 20 116/67 99 Room Air 3 05/19/24 16:00 05/19/24 19:20 05/19/24 19:20 05/19/24 16:00 05/19/24 19:20 05/19/24 16:00 05/18/24 20:30 Objective Labs 05/19/24 04:45 05/19/24 04:45 Labs: Laboratory Results - last 24 hr 05/19/24 04:45 WBC 11.2 H RBC 2.51 L Hgb 7.6 L Hct 22.1 L MCV 88 MCH 30.3 MCHC 34.4 RDW Std Deviation 65.9 H Plt Count 205 Neut % (Auto) 91 H Lymph % (Auto) 5 L [place] % (Auto) 4 Eos % (Auto) 0 Baso % (Auto) 0 Neut # (Auto) 10.2 H Lymph # (Auto) 0.5 L [place] # (Auto) 0.4 Eos # (Auto) 0.0 Baso # (Auto) 0.0 Immature Gran # (Auto) 0.08 H Absolute Nucleated RBC 0.00 Immature Gran % 1 H Nucleated RBC % 0 Sodium 138 Potassium 3.0 L Chloride 106 Carbon Dioxide 19.6 L Anion Gap 12 BUN 37 H Creatinine 2.9 H D Estim Creat Clear Calc 44.4 L eGFR 29 L BUN/Creatinine Ratio 13 Glucose 143 H Calculated Osmolality 286 Calcium 9.9 Corrected Calcium 10.2 H Phosphorus 4.2 Magnesium 2.4 Total Bilirubin 34.0 H* D AST 78 H ALT 24 Alkaline Phosphatase 190 H D Total Protein 6.1 Albumin 3.6 D Globulin 2.5 Albumin/Globulin Ratio 1.4 Impressions Impression: # Status post band ligation of the large internal hemorrhoids Advance diet If the hemoglobin hematocrit stable he can be discharged home to be followed by his PCP Assessment & Plan A&P Narrative # Rectal bleeding most likely due to internal hemorrhoids in the setting of advanced portal hypertension and probably anorectal junction bleed Plan Flexible sigmoidoscopy tomorrow with banding of the internal hemorrhoids Informed consent obtained Will give tapwater enemas or Fleet enemas prior to the procedure No need for GoLytely prep Other medical problems include # Advanced portal hypertension due to underlying cirrhotic liver disease due to alcohol causing intractable ascites requiring large-volume paracentesis 2 g sodium diet Aggressive use of diuretics 1 L p.o. fluid restriction 24 hours Will follow the patient Thank you once again for the opportunity to participate in care of this patient Time Spent With Patient Time: Total time spent is greater than 50% in coordination of care (as documented) at patient's floor/unit and/or counseling patient:
[2024-05-19] MEDS: OCTREOTIDE ACET INJ 1,000 MCG in SODIUM CHLORIDE 0.9% 100 ML 5.1 MCG IV (20:08)
[2024-05-20] VITALS (21 sets, daily range): BP systolic 107–128; BP diastolic 55–78; PULSE 70–99; RESP 16–99; TEMP 36.3–37.1; O2SAT 95–99
[2024-05-20] MEDS: DiphenhydrAMINE 25 MG CAPSULE PO ×2 (00:16→06:06)
[2024-05-20] MEDS: IPRATROPIUM RT 0.5 MG/ 2.5 ML NEBU INH ×4 (00:48→18:14)
[2024-05-20] MEDS: LACTULOSE SYRUP 20 GM/30 ML UDC PO ×3 (05:51→21:40)
[2024-05-20] MEDS: ALBUMIN HUMAN 25% IVPB 25 GM/100 ML BTL IV ×3 (05:51→20:20)
[2024-05-20 05:54] LABS: Basophils % (Auto) 0 % (0-2.5); Eosinophils % (Auto) 0 % (0-10); Immature Granulocytes % (Auto) 1 % (0-0); Immature Granulocytes Auto 0.22 Thou/mm3 (0.00-0.00); Lymphocytes # (Auto) 0.6 Thou/mm3 (1.0-4.8); Lymphocytes % (Auto) 3 % (10-50); Mean Corpuscular HGB Conc 34.8 g/dl (31.0-37.0); Mean Corpuscular Hemoglobin 30.8 pg (25.0-35.0); Mean Corpuscular Volume 88 fL (80-100); Monocytes # (Auto) 1.1 Thou/mm3 (0.0-0.8); Monocytes % (Auto) 6 % (0-12); Neutrophils # (Auto) 15.5 Thou/mm3 (1.8-7.7); Neutrophils % (Auto) 89 % (37-80); Nucleated Red Blood Cell % 0 /100 WBC (0); Platelet Count 208 Thou/mm3 (140-440); RDW Standard Deviation 66.4 fL (35.1-43.9); Red Blood Count 2.24 Miln/mm3 (4.50-5.90); White Blood Count 17.5 Thou/mm3 (3.8-10.6)
[2024-05-20 06:00] LABS: Hematocrit 19.8 % (41.0-53.0); Hemoglobin 6.9 g/dL (13.5-16.0)
[2024-05-20 06:22] LABS: Alanine Aminotransferase 22 U/L (10-49); Albumin, Serum 3.6 gm/dL (3.5-5.0); Albumin/Globulin Ratio 1.6 (1.2-2.2); Alkaline Phosphatase 152 U/L (46-116); Anion Gap 14 (7-16); Aspartate Amino Transferase 50 U/L (0-34); BUN/Creatinine Ratio 17 Ratio (12-20); Blood Urea Nitrogen 36 mg/dL (9-23); Calcium 9.5 mg/dL (8.3-10.6); Calcium (Corrected) 9.8 mg/dL (8.5-10.1); Carbon Dioxide 17.7 mMol/L (20.0-31.0); Chloride 110 mMol/L (98-107); Creatinine (Component) 2.1 mg/dL (0.6-1.3); Estimated Creatinine Clearance 61.3 mL/min (>60); Globulin 2.3 gm/dL (2.3-3.5); Glucose 148 mg/dL (74-106); Osmolality,Calculated 294 (275-295); Phosphorous 1.8 mg/dL (2.4-5.1); Sodium 142 mMol/L (136-145); Total Protein 5.9 gm/dL (5.7-8.2); eGFR 43 See Note
[2024-05-20 06:34] LABS: Potassium 2.6 mMol/L (3.4-5.1)
[2024-05-20 06:47] LABS: Bilirubin,Total 32.3 mg/dL (0.3-1.2)
[2024-05-20] MEDS: POTASSIUM CHLORIDE 10% 20 MEQ/15 ML UDC 40 MEQ PO (06:51)
[2024-05-20] MEDS: BUDESONIDE RT 0.25 MG/2 ML NEBU INH ×2 (07:08→18:14)
[2024-05-20] MEDS: POTASSIUM CHL 10 mEq IVPB 10 MEQ/100 ML BAG 100 MEQ IV ×2 (07:28→08:12)
[2024-05-20] MEDS: cefTRIAXone/D5w 1gm IV premix 50 ML IV (08:11)
[2024-05-20] MEDS: CHOLESTYRAMINE/SUCROSE 1 PKT EA PO (08:11)
[2024-05-20] MEDS: predniSONE 20 MG TABLET 40 MG PO (08:11)
[2024-05-20] MEDS: AZITHROMYCIN 250 MG TABLET 500 MG PO (08:11)
[2024-05-20] MEDS: PANTOPRAZOLE INJ 40 MG VIAL IV ×2 (08:11→20:19)
[2024-05-20] MEDS: TRIAMCINOLONE ACET OINT 0.5% 15 GM TUBE TOP (08:12)
[2024-05-20 08:31] LABS: INR 2.4 (0.9-1.3); Partial Thromboplastin Time 38.1 Seconds (22.0-36.0); Prothrombin Time 24.3 Seconds (9.0-12.2)
--- NOTE | 2024-05-20 08:54 | PC.CM ---
Addendum entered by Vasu Ott RN 05/20/24 18:08: 1809 called [facility], spoke to Mic for transfer update. He stated his wants to do peer to peer with Dr. Ag. I got direct number for Dr. Ag and gave it to Mic. Addendum entered by Vasu Ott RN 05/20/24 11:18: 1120 Received checklist and SS helped complete the sobriety checklist and I faxed it back to [facility]. Addendum entered by Vasu Ott RN 05/20/24 09:46: 0925 received call from Mic at [facility]. He stated since pt last drink was less than 6 months ago. He wants us to complete the minimum sobriety checklist and send it back. Addendum entered by Vasu Ott RN 05/20/24 09:06: 0906 clinicals sent to [facility]. Addendum entered by Vasu Ott RN 05/20/24 09:00: 0848 called [facility], spoke to Stefnai and initiated the transfer. She stated to fax clinicals and push images through [employer] link. Email provided. Addendum entered by Vasu Ott RN 05/20/24 08:55: [address] Ag regarding transfer. Dr. Ag stated pt quit drinking on Mar 28, 2024. Previously drank 1.5 L of vodka per day for 2 years. He stated to reach out to [facility] per Dr. Moss recs. Original Note: 0740 Per Spring's handoff patient needs transfer for hepatology for transplant evaluation. As per Dr. Moss's recommendation, he recommended reaching out to [facility].
--- NOTE | 2024-05-20 09:56 | ESPR_ITS ---
Documentation for date of: 05/20/24 Subjective Subjective Interval history: Bernard Dee is a 28-year-old male with a past medical history of cirrhosis secondary to alcohol use who presented to the ED on 05/16 after noticing increased yellowing of his skin and eyes as well as bright red blood per rectum for the last few days. Mother at bedside who helped provide additional history, stating that she has noticed him feeling more sleepy than usual but does not report any confusion. Also denies hematemesis, hemoptysis but does have bleeding from gums. Per mother, last drink was in February 2024. She also states that family has been a significant effort to try and keep patient as healthy as possible, including diet and adherence to medications. Patient has also had a dry cough, but denies shortness of breath, fever, sick contacts, or recent travel. Of note, patient was recently discharged March 2024 for management of hyponatremia and also underwent endoscopy that showed esophagitis and colonoscopy showed perianal hemorrhoids. At that time, t bili on admission was 22.9 and down trended throughout hospital course and was transfused 1 unit PRBC for hemoglobin 6.7. Admitted for management of sepsis secondary to community acquired pneumonia and GI bleed. Nephrology consulted for possible hepatorenal syndrome and hypokalemia. 05/17: Patient seen and examined on medical floor with mother and friend at bedside. Patient is status post paracentesis with removal of 6.5 L of fluid and tolerated well. He is A&Ox3 but does fall asleep during conversation. Answered mother's questions regarding patient's clinical condition. On admission, K 2.7 and has steadily increased to 3.3 with K supplementation and bumex. Also on albumin, midodrine, and octreotide for hepatorenal syndrome and will monitor kidney function. 05/18: Patient seen and examined at bedside with mother present. Appears more energetic today compared to yesterday, A&Ox3. Labs and orders reviewed. Hemoglobin improved after transfusion 1 unit pRBC, Dr. Moss consulted and aware of case. Currently on albumin, midodrine, and octreotide to evaluate for hepatorenal syndrome. Pending CT A/P to further evaluate elevated bilirubin. Per peritoneal fluid analysis, no sign of SBP and SAAG > 1, thus portal hypertension likely etiology of patient's ascites. 05/19: Patient seen and examined at bedside with mother and brother present. Has good energy today, A&O x 3. Labs and orders reviewed. WBC downtrending to 11.2, Hgb stable at 7.6, and platelets within normal limits. K 3.0, repleted by primary team. BUN decreased from 44 to 37 and creatinine decreased from 3.6 to 2.9 while on albumin, midodrine, and octreotide. T. bili remains elevated at 34, and repeat CT A/P showed cirrhosis, hepatosplenomegaly, mild ascites, portal hypertension, left base pneumonia and contracted gallbladder. 05/20/2024 patient currently seen in medical floor. Today he seems to be more sleepy and itchy. Mom at bedside. Nurse is the integrated circuit fabricator. Blood pressure 108/48. Continue with midodrine. Creatinine and LFTs slowly improving. Gave Bicitra for metabolic acidosis. Ammonia level was 30. Plan of care discussed with primary team. Review of Systems Review of Systems Narrative Review of Systems: Limited due to his mentation. Denies any chest pain, shortness of breath. Exam Vital Signs Temp Pulse Resp BP Pulse Ox O2 Del Method O2 Flow Rate 36.4 C 88 18 115/60 99 Room Air 3 05/20/24 08:00 05/20/24 08:00 05/20/24 08:00 05/20/24 08:00 05/20/24 08:00 05/20/24 08:00 05/18/24 20:30 Narrative Exam General: AOx3, no acute distress, mom at bedside HEENT: scleral icterus, NC/AT, mucous membranes moist Cardiovascular: regular rate and rhythm, S1/S2 present, no murmurs appreciated Pulmonary: clear to auscultation bilaterally, no rales/rhonchi/wheezes Abdominal: s/p paracentesis, distended, soft, non-tender Musculoskeletal: 1+ bilateral pitting edema, normal ROM Skin: jaundice, warm and dry, intact, no rashes Patient seems to be more sleepy today Objective Labs 05/21/24 05:30 05/21/24 05:30 Labs: Laboratory Results - last 24 hr 05/20/24 05/20/24 05/20/24 04:53 04:56 08:55 WBC 17.5 H D RBC 2.24 L Hgb 6.9 L* Hct 19.8 L* MCV 88 MCH 30.8 MCHC 34.8 RDW Std Deviation 66.4 H Plt Count 208 Neut % (Auto) 89 H Lymph % (Auto) 3 L [place] % (Auto) 6 Eos % (Auto) 0 Baso % (Auto) 0 Neut # (Auto) 15.5 H Lymph # (Auto) 0.6 L [place] # (Auto) 1.1 H Eos # (Auto) 0.0 Baso # (Auto) 0.0 Immature Gran # (Auto) 0.22 H Absolute Nucleated RBC 0.00 Immature Gran % 1 H Nucleated RBC % 0 PT 24.3 H INR 2.4 H APTT 38.1 H Sodium 142 Potassium 2.6 L* Chloride 110 H Carbon Dioxide 17.7 L Anion Gap 14 BUN 36 H Creatinine 2.1 H D Estim Creat Clear Calc 61.3 eGFR 43 L BUN/Creatinine Ratio 17 Glucose 148 H Calculated Osmolality 294 Calcium 9.5 Corrected Calcium 9.8 Phosphorus 1.8 L Total Bilirubin 32.3 H* D AST 50 H ALT 22 Alkaline Phosphatase 152 H D Total Protein 5.9 Albumin 3.6 Globulin 2.3 Albumin/Globulin Ratio 1.6 Crossmatch See Detail Blood Bank Wristband ID Yes Assessment & Plan Additional Assessment & Plan Additional Plan: Bernard Dee is a 28-year-old male with a past medical history of cirrhosis secondary to alcohol use who is admitted for management of sepsis secondary to community acquired pneumonia and GI bleed. Nephrology consulted for possible hepatorenal syndrome and hypokalemia. #Acute kidney injury #? Hepatorenal syndrome Present with cirrhosis presents with decreased kidney function. Creatinine noted to be 1.3 upon discharge in 03/2024 and readmitted with creatinine of 3.3. With the midodrine, albumin, octreotide his creatinine started to trend down consistent with prerenal azotemia. Due to persistent hypotension recommended to continue with albumin and midodrine. Continue with octreotide, steroids, lactulose for hepatic encephalopathy and liver cirrhosis. Noted plans for transfer still in progress. #Hypokalemia K 2.7 on admission and has steadily increased with potassium supplementation. ? Continue current management # Metabolic acidosis added Bicitra. #Sepsis secondary to #Community acquired pneumonia #Cirrhosis #Ascites #Hypoalbuminemia #Hyperammonemia #? GI bleed #Hyperbilirubinemia ? Continue management per primary team
--- NOTE | 2024-05-20 10:49 | PC.CC ---
1040 Marlene JACK introduced self, role, and reason for visit to patient's mother Bettye Hargrove [phone] who was at bedside. Patient is not alert and oriented at the time of visit. Patient's mother was able to answer questions on questionnaire for [facility] for transfer.
[2024-05-20] MEDS: CITRIC ACID/SODIUM CITR 15 ML UDC (BICITRA) 30 ML PO ×2 (10:55→20:30)
[2024-05-20] MEDS: ceFAZolin/D5W 2 GM IV 2 GM/100 ML BAG IV (11:00)
[2024-05-20] MEDS: OCTREOTIDE ACET INJ 1,000 MCG in SODIUM CHLORIDE 0.9% 100 ML 5.1 MCG IV (12:27)
[2024-05-20 13:21] LABS: Ammonia 30 uMol/L (11-32)
[2024-05-20 13:24] LABS: Albumin, Serum 3.6 gm/dL (3.5-5.0); Anion Gap 13 (7-16); BUN/Creatinine Ratio 17 Ratio (12-20); Blood Urea Nitrogen 32 mg/dL (9-23); Calcium 9.7 mg/dL (8.3-10.6); Carbon Dioxide 18.2 mMol/L (20.0-31.0); Chloride 110 mMol/L (98-107); Creatinine (Component) 1.9 mg/dL (0.6-1.3); Estimated Creatinine Clearance 67.7 mL/min (>60); Glucose 165 mg/dL (74-106); Osmolality,Calculated 292 (275-295); Phosphorous 1.8 mg/dL (2.4-5.1); Potassium 3.3 mMol/L (3.4-5.1); Sodium 141 mMol/L (136-145); eGFR 48 See Note
[2024-05-20] MEDS: POTASSIUM PHOS 15 MMOL in SODIUM CHLORIDE 0.9% 250 ML 245 ML 62.5 MMOL IV (14:00)
[2024-05-20] MEDS: NAPH,KPH MBDB 1 PACKET (1.5 GM) PO (14:40)
--- NOTE | 2024-05-20 14:57 | PD.RESPRO ---
Documentation for date of: 05/20/24 Subjective Subjective Interval history: Patient was seen at bedside this morning. No overnight events. On morning labs patient's hemoglobin was 6.9 therefore 1 unit of PRBC as well as 1 unit of platelets and fresh frozen plasma was ordered for transfusion. Patient's potassium was also 2.6 and he received a total of 60 mEq of potassium overnight and on repeat renal panel patient's potassium was 3.3 and Phos was 1.8 therefore Neutra-Phos x 1 and K-Phos was given. This morning patient stated that he had no complaints and that he only had some pain on his IV lines, to which registered nurse was notified. No other complaints at this time. Still pending a possibility of transferring patient for liver transplant evaluation. Exam Vital Signs Temp Pulse Resp BP Pulse Ox O2 Del Method O2 Flow Rate 97.7 F 77 18 107/74 98 Room Air 3 05/20/24 13:16 05/20/24 13:16 05/20/24 13:16 05/20/24 13:16 05/20/24 13:16 05/20/24 12:00 05/18/24 20:30 Narrative Exam General: A/O x3, ill appearing Eyes: PERRL, EOMI. Icteric, vision grossly intact. Ears: No ear pain, no ear discharge, Hearing grossly intact. Nose: No nasal discharge. Mouth/Throat: Moist mucous membranes, no redness, no lesions. Neck: Neck supple, non-tender, no cervical lymphadenopathy. Lungs: Clear STEPHANIE to auscultation and percussion, No accessory muscle use. Cardio: Normal S1/S2, regular rhythm, no murmurs, no JVD Abdomen: Distended, but soft, non-tender, no palpable masses, peristalsis present, no guarding or rebound. Extremities: Symmetrical, no significant deformities, trace peripheral edema , non-tender, peripheral pulses presents. Skin: No rashes, no lesions, warm to touch. multiple tattoos throughout. Jaundice throughout Neuro: No focal neurological deficits. Motor and sensory intact Objective Labs 05/22/24 05:22 05/22/24 05:22 Labs: Laboratory Results - last 24 hr 05/20/24 05/20/24 05/20/24 04:53 04:56 08:55 WBC 17.5 H D RBC 2.24 L Hgb 6.9 L* Hct 19.8 L* MCV 88 MCH 30.8 MCHC 34.8 RDW Std Deviation 66.4 H Plt Count 208 Neut % (Auto) 89 H Lymph % (Auto) 3 L [place] % (Auto) 6 Eos % (Auto) 0 Baso % (Auto) 0 Neut # (Auto) 15.5 H Lymph # (Auto) 0.6 L [place] # (Auto) 1.1 H Eos # (Auto) 0.0 Baso # (Auto) 0.0 Immature Gran # (Auto) 0.22 H Absolute Nucleated RBC 0.00 Immature Gran % 1 H Nucleated RBC % 0 PT 24.3 H INR 2.4 H APTT 38.1 H Sodium 142 Potassium 2.6 L* Chloride 110 H Carbon Dioxide 17.7 L Anion Gap 14 BUN 36 H Creatinine 2.1 H D Estim Creat Clear Calc 61.3 eGFR 43 L BUN/Creatinine Ratio 17 Glucose 148 H Calculated Osmolality 294 Calcium 9.5 Corrected Calcium 9.8 Phosphorus 1.8 L Total Bilirubin 32.3 H* D AST 50 H ALT 22 Alkaline Phosphatase 152 H D Ammonia Total Protein 5.9 Albumin 3.6 Globulin 2.3 Albumin/Globulin Ratio 1.6 Blood Type A Negative Antibody Screen NEGATIVE Crossmatch See Detail Blood Bank Wristband ID Yes 05/20/24 12:22 WBC RBC Hgb Hct MCV MCH MCHC RDW Std Deviation Plt Count Neut % (Auto) Lymph % (Auto) [place] % (Auto) Eos % (Auto) Baso % (Auto) Neut # (Auto) Lymph # (Auto) [place] # (Auto) Eos # (Auto) Baso # (Auto) Immature Gran # (Auto) Absolute Nucleated RBC Immature Gran % Nucleated RBC % PT INR APTT Sodium 141 Potassium 3.3 L D Chloride 110 H Carbon Dioxide 18.2 L Anion Gap 13 BUN 32 H Creatinine 1.9 H Estim Creat Clear Calc 67.7 eGFR 48 L BUN/Creatinine Ratio 17 Glucose 165 H Calculated Osmolality 292 Calcium 9.7 Corrected Calcium 10.0 Phosphorus 1.8 L Total Bilirubin AST ALT Alkaline Phosphatase Ammonia 30 Total Protein Albumin 3.6 Globulin Albumin/Globulin Ratio Blood Type Antibody Screen Crossmatch Blood Bank Wristband ID Quality Measures Quality Measures none Assessment & Plan Assessment Current Active Medications: Generic Name Dose Route Start Last Admin Trade Name Freq PRN Reason Stop Dose Admin Hydrocodone Bitart/Acetaminophen 1 tab 05/17/24 02:08 05/17/24 02:52 Hydrocodone/Apap 5/325 Tablet PO 05/22/24 02:07 1 tab Q4HR PRN Administration PAIN SCALE 4-10(Mod-Sev Budesonide 0.25 mg 05/17/24 07:00 05/20/24 07:08 Budesonide Rt 0.25 Mg/2 Ml Nebu INH 06/16/24 06:59 0.25 mg BIDRT LISA Administration Cholestyramine Resin 1 pkt 05/17/24 09:00 05/20/24 08:11 Cholestyramine/Sucrose 1 Pkt Ea PO 06/16/24 08:59 1 pkt QDAY LISA Administration Citric Acid/Sodium Citrate 30 ml 05/20/24 10:00 05/20/24 10:55 Citric Acid/Sodium Citr 15 Ml Udc (Bicitra) PO 06/19/24 09:59 30 ml BID LISA Administration Diphenhydramine HCl 25 mg 05/19/24 23:53 05/20/24 06:06 Diphenhydramine 25 Mg Capsule PO 06/18/24 23:52 25 mg Q6HR PRN Administration ITCHING Octreotide Acetate 1,000 mcg/ 102 mls @ 5.1 mls/hr 05/17/24 22:44 05/20/24 12:27 Sodium Chloride IV 05/22/24 02:32 50 mcg/hr .Q20H LISA 5.1 mls/hr Administration Protocol 50 MCG/HR Cefazolin Sodium 2 gm in 100 mls @ 100 mls/hr 05/20/24 10:12 05/20/24 13:02 Ancef 2gm Ivpb IV 05/27/24 10:11 Infused Q8HR LISA Infusion Potassium Phosphate 15 mmol/ 250 mls @ 62.5 mls/hr 05/20/24 13:45 Sodium Chloride IV 05/20/24 17:44 X1 ONE Albumin Human 25 gm in 100 mls @ 100 mls/hr 05/20/24 21:00 Albuminar-25 Ivpb IV 05/23/24 20:59 BID LISA Ipratropium [place] 0.5 mg 05/17/24 07:00 05/20/24 12:58 Ipratropium Rt 0.5 Mg/ 2.5 Ml Nebu INH 06/16/24 06:59 0.5 mg Q6HRRT LISA Administration Lactulose 20 gm 05/17/24 09:00 05/20/24 12:39 Lactulose Syrup 20 Gm/30 Ml Udc PO 06/16/24 08:59 20 gm TID LISA Administration Protocol Midodrine 10 mg 05/17/24 14:00 05/20/24 05:55 Midodrine 5 Mg Tablet PO 06/16/24 13:59 Not Given TID LISA Ondansetron HCl 4 mg 05/17/24 02:08 Ondansetron Inj 2 Mg/Ml Inj 2 Ml IV 06/16/24 02:07 Q6H PRN NAUSEA OR VOMITING Protocol Pantoprazole Sodium 40 mg 05/17/24 09:00 05/20/24 08:11 Pantoprazole Inj 40 Mg Vial IV 06/16/24 08:59 40 mg BID LISA Administration Prednisone 40 mg 05/18/24 12:15 05/20/24 08:11 Prednisone 20 Mg Tablet PO 05/25/24 12:01 40 mg QDAY LISA Administration Triamcinolone Acetonide 0 gm 05/17/24 21:00 05/20/24 08:12 Triamcinolone Acet Oint 0.5% 15 Gm Tube TOP 06/16/24 20:59 1 applicatio BID LISA Administration Plan 28-year-old male with past medical history of alcohol abuse disorder, alcoholic cirrhosis, and prediabetes was admitted to the hospital on 05/17/2024 due to decompensated alcoholic cirrhosis with ascites and coagulopathy as well as community-acquired pneumonia. #Decompensated alcoholic cirrhosis #Ascites #Coagulopathy #Hyperbilirubinemia #Alcohol abuse disorder ? On presentation patient came in with jaundice as well as abdominal distention. ?Patient has been recently admitted due to alcohol withdrawals, but stated that the last drink was a week prior to [place] stay. ? On admissions patient T bilirubin was 30 ? T bilirubin continues to uptrend up to 35 and is currently 32.3 today ? Patient initially came in with PT of 20.9 and INR of 2 ?Patient had a paracentesis done on 05/17/2024 which drained 6.5 L ? INR 2.4 and PTT 24.3 today ?Ammonia levels 93 on admission and 30 today ? MELD NA score 36 points indicating 65 to 66% of mortality in 90 days ?Madrey score of 84.7 indicating poor prognosis tenderness and the patient would benefit from steroids ? Child-Carreno score class Plan: ? Will continue lactulose 20 mg 3 times daily ?Will continue cholestyramine 1 packet daily ? Will continue Benadryl 25 mg p.o. every 6 as needed for pruritus ? Will continue octreotide drip ? Will continue Protonix ? Will continue prednisone 40 mg daily [05/18/2024?] ? GI consulted, appreciate recommendations ? Will continue to monitor #AKIL #Hypoalbuminemia ? Patient came in with creatinine on 3.3 and albumin of 2.3 ? DDx prerenal versus hepatorenal syndrome ?Patient's baseline creatinine is 1.3 ? Creatinine today 1.9 and BUN 32, significant improvement ? Albumin 3.6 today Plan: ? Will continue with albumin 25 g twice daily ? Will continue with midodrine 10 mg 3 times daily ? Avoid nephrotoxic agents ? Renally dose medications ?Consults nephrology, appreciate commendations ? Will continue to monitor #Acute blood loss anemia #Hemorrhoid s/p ligation ? Patient came in with hemoglobin of 8.4 ? Hemoglobin dropped to 6.8 on 05/17/2024 ? Patient had ligation of a large hemorrhoid visualized on sigmoidoscopy on 05/18/2024 ? Hemoglobin today 6.9 Plan: ? Will transfuse 1 PRBC, 1 platelets, and 1 fresh frozen plasma ? Will transfuse hemoglobin less than 7 ? Bleeding precautions ? Will continue to monitor #MSSA bacteremia #Community-acquired pneumonia # Leukocytosis ?Patient came in with a cough and chest x-ray showed bilateral pneumonia ? Blood culture was positive for MSSA ?WBC uptrending to 17.5 today likely reactive in the setting of steroids Plan: ? Start patient on cefazolin 2 g every 8 hours [05/20/2024?] ?Repeat blood cultures ordered ? Will continue to monitor #Electrolyte imbalance #Hypokalemia #Hypokalemia #Hypophosphatemia #High anion gap metabolic acidosis ? Patient's potassium today 3.3, chloride 110, bicarb 18.2, Phos 1.8 ? Could be due to RTA versus due to GI loss Plan: ? Neutra-Phos x 1, K-Phos 15 mmol x 1, 60 mg of potassium ? Will replete as necessary ? Will continue to monitor Disposition: Patient seen in med surg, pending possible transfer for liver transplant evaluation. Diet: low sodium GI prophylaxis: protonix DVT prophylaxis: SCDs Code: Full code Case disclosed with Attending Dr. Vasquez and My senior Dr. Ag PGY2. Abad Michel Patricia PGY1 Senior Resident Attestation: The patient is a 28-year-old male with significant past medical history of alcohol abuse disorder, alcoholic cirrhosis, and prediabetes presented with chief complaint of abdominal pain was found to have decompensated alcoholic cirrhosis with ascites and coagulopathy along with community-acquired pneumonia. This morning, he reported doing well. His vitals were fairly stable. Labs were significant for white count of 17.5, hemoglobin 6.9, platelet 208, and was given 1 unit PRBC, 1 unit FFP and 1 unit platelets. We will continue the patient on octreotide drip, midodrine but decrease the dose of albumin to 25g BID. Electrolytes were repleted. We will continue to monitor his electrolytes, CBC and CMP. Pending transfer to [facility] for liver transplant evaluation. I discussed with and supervised the internet sales consultant physician involved in the care of this patient. I personally saw and examined the patient and discussed the assessment and plan with the entire medicine team, including my attending. I agree with the assessment and plan as documented above. Karan Ag MD PGY2 Internal Medicine Attending Provider Attestation/Addendum I attest that I was physically present for the evaluation, physical examination, lab and imaging review of the patient with the residents. I discussed the case with the residents and agree with the findings and plans of care as documented above. Dang Vasquez MD
--- NOTE | 2024-05-20 16:15 | ESPR_ITS ---
Documentation for date of: 05/20/24 Subjective Subjective Interval history: Patient evaluated Spoke with the transfer center locally here They drop the hemoglobin hematocrit to 6.9 and 19.8 in the process of getting his blood transfusion Platelet count is 208,000 Patient in the process of getting evaluated by [facility] for a possible liver transplant evaluation Exam Vital Signs Temp Pulse Resp BP Pulse Ox O2 Del Method O2 Flow Rate 98.3 F 77 18 114/74 98 Room Air 3 05/20/24 13:47 05/20/24 13:47 05/20/24 13:47 05/20/24 13:47 05/20/24 13:47 05/20/24 12:00 05/18/24 20:30 Objective Labs 05/20/24 04:53 05/20/24 12:22 Labs: Laboratory Results - last 24 hr 05/20/24 05/20/24 05/20/24 04:53 04:56 08:55 WBC 17.5 H D RBC 2.24 L Hgb 6.9 L* Hct 19.8 L* MCV 88 MCH 30.8 MCHC 34.8 RDW Std Deviation 66.4 H Plt Count 208 Neut % (Auto) 89 H Lymph % (Auto) 3 L [place] % (Auto) 6 Eos % (Auto) 0 Baso % (Auto) 0 Neut # (Auto) 15.5 H Lymph # (Auto) 0.6 L [place] # (Auto) 1.1 H Eos # (Auto) 0.0 Baso # (Auto) 0.0 Immature Gran # (Auto) 0.22 H Absolute Nucleated RBC 0.00 Immature Gran % 1 H Nucleated RBC % 0 PT 24.3 H INR 2.4 H APTT 38.1 H Sodium 142 Potassium 2.6 L* Chloride 110 H Carbon Dioxide 17.7 L Anion Gap 14 BUN 36 H Creatinine 2.1 H D Estim Creat Clear Calc 61.3 eGFR 43 L BUN/Creatinine Ratio 17 Glucose 148 H Calculated Osmolality 294 Calcium 9.5 Corrected Calcium 9.8 Phosphorus 1.8 L Total Bilirubin 32.3 H* D AST 50 H ALT 22 Alkaline Phosphatase 152 H D Ammonia Total Protein 5.9 Albumin 3.6 Globulin 2.3 Albumin/Globulin Ratio 1.6 Blood Type A Negative Antibody Screen NEGATIVE Crossmatch See Detail Blood Bank Wristband ID Yes Blood Bank Comment PLATP Ready 05/20/24 12:22 WBC RBC Hgb Hct MCV MCH MCHC RDW Std Deviation Plt Count Neut % (Auto) Lymph % (Auto) [place] % (Auto) Eos % (Auto) Baso % (Auto) Neut # (Auto) Lymph # (Auto) [place] # (Auto) Eos # (Auto) Baso # (Auto) Immature Gran # (Auto) Absolute Nucleated RBC Immature Gran % Nucleated RBC % PT INR APTT Sodium 141 Potassium 3.3 L D Chloride 110 H Carbon Dioxide 18.2 L Anion Gap 13 BUN 32 H Creatinine 1.9 H Estim Creat Clear Calc 67.7 eGFR 48 L BUN/Creatinine Ratio 17 Glucose 165 H Calculated Osmolality 292 Calcium 9.7 Corrected Calcium 10.0 Phosphorus 1.8 L Total Bilirubin AST ALT Alkaline Phosphatase Ammonia 30 Total Protein Albumin 3.6 Globulin Albumin/Globulin Ratio Blood Type Antibody Screen Crossmatch Blood Bank Wristband ID Blood Bank Comment Impressions Impression: # End-stage liver disease needs liver transfer evaluation # Drop in hemoglobin hematocrit significant if the patient is still here tomorrow we will consider doing an upper endoscopy to see if therapeutic intervention can be done Assessment & Plan A&P Narrative # Rectal bleeding most likely due to internal hemorrhoids in the setting of advanced portal hypertension and probably anorectal junction bleed Plan Flexible sigmoidoscopy tomorrow with banding of the internal hemorrhoids Informed consent obtained Will give tapwater enemas or Fleet enemas prior to the procedure No need for GoLytely prep Other medical problems include # Advanced portal hypertension due to underlying cirrhotic liver disease due to alcohol causing intractable ascites requiring large-volume paracentesis 2 g sodium diet Aggressive use of diuretics 1 L p.o. fluid restriction 24 hours Will follow the patient Thank you once again for the opportunity to participate in care of this patient Time Spent With Patient Time: Total time spent is greater than 50% in coordination of care (as documented) at patient's floor/unit and/or counseling patient:
[2024-05-20 18:02] LABS: Hematocrit 24.9 % (41.0-53.0)
[2024-05-20 18:07] LABS: Hemoglobin 8.5 g/dL (13.5-16.0)
[2024-05-20] MEDS: PIPER/TAZO 3.375 GM 3.375 GM/50 ML BAG IV (20:20)
[2024-05-20] MEDS: MIDODRINE 5 MG TABLET 10 MG PO (21:40)
[2024-05-21] VITALS (19 sets, daily range): BP systolic 108–124; BP diastolic 60–82; PULSE 68–100; RESP 15–99; TEMP 36.6–37.4; O2SAT 94–100
[2024-05-21] MEDS: IPRATROPIUM RT 0.5 MG/ 2.5 ML NEBU INH ×3 (00:09→18:30)
[2024-05-21] MEDS: LACTULOSE SYRUP 20 GM/30 ML UDC PO ×3 (05:49→21:28)
[2024-05-21] MEDS: MIDODRINE 5 MG TABLET 10 MG PO ×2 (05:49→21:28)
[2024-05-21] MEDS: PIPER/TAZO 3.375 GM 3.375 GM/50 ML BAG IV ×3 (05:50→22:38)
[2024-05-21 06:35] LABS: Basophils % (Auto) 0 % (0-2.5); Eosinophils % (Auto) 0 % (0-10); Hematocrit 23.4 % (41.0-53.0); Immature Granulocytes % (Auto) 2 % (0-0); Immature Granulocytes Auto 0.36 Thou/mm3 (0.00-0.00); Lymphocytes # (Auto) 0.8 Thou/mm3 (1.0-4.8); Lymphocytes % (Auto) 4 % (10-50); Mean Corpuscular HGB Conc 34.2 g/dl (31.0-37.0); Mean Corpuscular Hemoglobin 30.3 pg (25.0-35.0); Mean Corpuscular Volume 89 fL (80-100); Monocytes # (Auto) 1.2 Thou/mm3 (0.0-0.8); Monocytes % (Auto) 6 % (0-12); Neutrophils # (Auto) 16.6 Thou/mm3 (1.8-7.7); Neutrophils % (Auto) 87 % (37-80); Nucleated Red Blood Cell % 0 /100 WBC (0); Platelet Count 200 Thou/mm3 (140-440); RDW Standard Deviation 65.8 fL (35.1-43.9); Red Blood Count 2.64 Miln/mm3 (4.50-5.90)
[2024-05-21] MEDS: BUDESONIDE RT 0.25 MG/2 ML NEBU INH ×2 (07:19→18:30)
[2024-05-21 07:20] LABS: Alanine Aminotransferase 21 U/L (10-49); Albumin, Serum 3.9 gm/dL (3.5-5.0); Albumin/Globulin Ratio 1.6 (1.2-2.2); Alkaline Phosphatase 136 U/L (46-116); Anion Gap 11 (7-16); Aspartate Amino Transferase 54 U/L (0-34); BUN/Creatinine Ratio 18 Ratio (12-20); Blood Urea Nitrogen 30 mg/dL (9-23); Calcium 9.9 mg/dL (8.3-10.6); Carbon Dioxide 18.5 mMol/L (20.0-31.0); Chloride 113 mMol/L (98-107); Creatinine (Component) 1.7 mg/dL (0.6-1.3); Estimated Creatinine Clearance 75.7 mL/min (>60); Globulin 2.4 gm/dL (2.3-3.5); Glucose 121 mg/dL (74-106); Osmolality,Calculated 290 (275-295); Potassium 2.9 mMol/L (3.4-5.1); Sodium 142 mMol/L (136-145); Total Protein 6.3 gm/dL (5.7-8.2); eGFR 55 See Note
[2024-05-21 07:37] LABS: Bilirubin,Total 29.7 mg/dL (0.3-1.2)
[2024-05-21 07:52] LABS: Phosphorous 1.7 mg/dL (2.4-5.1)
[2024-05-21] MEDS: predniSONE 20 MG TABLET 40 MG PO (08:07)
[2024-05-21] MEDS: OCTREOTIDE ACET INJ 1,000 MCG in SODIUM CHLORIDE 0.9% 100 ML 5.1 MCG IV (08:07)
[2024-05-21] MEDS: POTASSIUM PHOS 15 MMOL in SODIUM CHLORIDE 0.9% 250 ML 245 ML 62.5 MMOL IV (08:07)
[2024-05-21] MEDS: CHOLESTYRAMINE/SUCROSE 1 PKT EA PO (08:07)
[2024-05-21] MEDS: CITRIC ACID/SODIUM CITR 15 ML UDC (BICITRA) 30 ML PO ×2 (08:08→21:28)
[2024-05-21] MEDS: PANTOPRAZOLE INJ 40 MG VIAL IV ×2 (08:08→21:32)
[2024-05-21] MEDS: ALBUMIN HUMAN 25% IVPB 25 GM/100 ML BTL IV ×2 (08:08→21:34)
[2024-05-21] MEDS: POTASSIUM CHLORIDE 20 mEq TABCR PO ×2 (08:08→15:50)
--- NOTE | 2024-05-21 10:02 | PD.RESPRO ---
Documentation for date of: 05/21/24 Subjective Subjective Interval history: Patient was seen at bedside this morning. No overnight events. Patient's hemoglobin did downtrend to 29.7 today, potassium was 2.9, and Phos was 1.8. Patient's hemoglobin after 1 PRBC was transfused went up to 8.5, but this morning is 8. Patient states that he is having bloody stools even though they are much less than before. Will let GI specialist know about this and proceed with next course of action. Unfortunately possible facility that could accept patient to have liver transplant evaluation stated that at this time patient was not a candidate due to recent alcohol use and this being first episode of cirrhosis. Patient has a lot more distention of this morning. No other complaints at this time. Exam Vital Signs Temp Pulse Resp BP Pulse Ox O2 Del Method O2 Flow Rate 98.0 F 87 15 124/79 96 Room Air 3 05/21/24 08:00 05/21/24 08:00 05/21/24 08:00 05/21/24 08:00 05/21/24 08:00 05/21/24 04:00 05/18/24 20:30 Narrative Exam General: A/O x3, ill appearing Eyes: PERRL, EOMI. Icteric, vision grossly intact. Ears: No ear pain, no ear discharge, Hearing grossly intact. Nose: No nasal discharge. Mouth/Throat: Moist mucous membranes, no redness, no lesions. Neck: Neck supple, non-tender, no cervical lymphadenopathy. Lungs: Clear STEPHANIE to auscultation and percussion, No accessory muscle use. Cardio: Normal S1/S2, regular rhythm, no murmurs, no JVD Abdomen: Distended, but soft, non-tender, no palpable masses, peristalsis present, no guarding or rebound. Extremities: Symmetrical, no significant deformities, trace peripheral edema , non-tender, peripheral pulses presents. Skin: No rashes, no lesions, warm to touch. multiple tattoos throughout. Jaundice throughout Neuro: No focal neurological deficits. Motor and sensory intact Objective Labs 05/22/24 05:22 05/22/24 05:22 Labs: Laboratory Results - last 24 hr 05/20/24 05/20/24 05/20/24 08:55 12:22 17:51 WBC RBC Hgb 8.5 L D Hct 24.9 L MCV MCH MCHC RDW Std Deviation Plt Count Neut % (Auto) Lymph % (Auto) [place] % (Auto) Eos % (Auto) Baso % (Auto) Neut # (Auto) Lymph # (Auto) [place] # (Auto) Eos # (Auto) Baso # (Auto) Immature Gran # (Auto) Absolute Nucleated RBC Immature Gran % Nucleated RBC % Sodium 141 Potassium 3.3 L D Chloride 110 H Carbon Dioxide 18.2 L Anion Gap 13 BUN 32 H Creatinine 1.9 H Estim Creat Clear Calc 67.7 eGFR 48 L BUN/Creatinine Ratio 17 Glucose 165 H Calculated Osmolality 292 Calcium 9.7 Corrected Calcium 10.0 Phosphorus 1.8 L Total Bilirubin AST ALT Alkaline Phosphatase Ammonia 30 Total Protein Albumin 3.6 Globulin Albumin/Globulin Ratio Blood Type A Negative Antibody Screen NEGATIVE Crossmatch See Detail Blood Bank Wristband ID Yes Blood Bank Comment PLATP Ready 05/21/24 05:30 WBC 19.0 H RBC 2.64 L Hgb 8.0 L Hct 23.4 L MCV 89 MCH 30.3 MCHC 34.2 RDW Std Deviation 65.8 H Plt Count 200 Neut % (Auto) 87 H Lymph % (Auto) 4 L [place] % (Auto) 6 Eos % (Auto) 0 Baso % (Auto) 0 Neut # (Auto) 16.6 H Lymph # (Auto) 0.8 L [place] # (Auto) 1.2 H Eos # (Auto) 0.0 Baso # (Auto) 0.0 Immature Gran # (Auto) 0.36 H Absolute Nucleated RBC 0.00 Immature Gran % 2 H Nucleated RBC % 0 Sodium 142 Potassium 2.9 L Chloride 113 H Carbon Dioxide 18.5 L Anion Gap 11 BUN 30 H Creatinine 1.7 H Estim Creat Clear Calc 75.7 eGFR 55 L BUN/Creatinine Ratio 18 Glucose 121 H Calculated Osmolality 290 Calcium 9.9 Corrected Calcium 10.0 Phosphorus 1.7 L Total Bilirubin 29.7 H* D AST 54 H ALT 21 Alkaline Phosphatase 136 H Ammonia Total Protein 6.3 Albumin 3.9 Globulin 2.4 Albumin/Globulin Ratio 1.6 Blood Type Antibody Screen Crossmatch Blood Bank Wristband ID Blood Bank Comment Quality Measures Quality Measures none Assessment & Plan Assessment Current Active Medications: Generic Name Dose Route Start Last Admin Trade Name Freq PRN Reason Stop Dose Admin Hydrocodone Bitart/Acetaminophen 1 tab 05/17/24 02:08 05/17/24 02:52 Hydrocodone/Apap 5/325 Tablet PO 05/22/24 02:07 1 tab Q4HR PRN Administration PAIN SCALE 4-10(Mod-Sev Budesonide 0.25 mg 05/17/24 07:00 05/21/24 07:19 Budesonide Rt 0.25 Mg/2 Ml Nebu INH 06/16/24 06:59 0.25 mg BIDRT LISA Administration Cholestyramine Resin 1 pkt 05/17/24 09:00 05/21/24 08:07 Cholestyramine/Sucrose 1 Pkt Ea PO 06/16/24 08:59 1 pkt QDAY LISA Administration Citric Acid/Sodium Citrate 30 ml 05/20/24 10:00 05/21/24 08:08 Citric Acid/Sodium Citr 15 Ml Udc (Bicitra) PO 06/19/24 09:59 30 ml BID LISA Administration Diphenhydramine HCl 25 mg 05/19/24 23:53 05/20/24 06:06 Diphenhydramine 25 Mg Capsule PO 06/18/24 23:52 25 mg Q6HR PRN Administration ITCHING Octreotide Acetate 1,000 mcg/ 102 mls @ 5.1 mls/hr 05/17/24 22:44 05/21/24 08:07 Sodium Chloride IV 05/22/24 02:32 50 mcg/hr .Q20H LISA 5.1 mls/hr Administration Protocol 50 MCG/HR Albumin Human 25 gm in 100 mls @ 100 mls/hr 05/20/24 21:00 05/21/24 08:08 Albuminar-25 Ivpb IV 05/23/24 20:59 100 mls/hr BID LISA Administration Piperacillin/Tazobactam/Dextrose 3.375 gm in 50 mls @ 12.5 mls/hr 05/21/24 06:00 05/21/24 05:50 Zosyn IV 05/28/24 05:59 12.5 mls/hr Q8HR LISA Administration Potassium Phosphate 15 mmol/ 250 mls @ 62.5 mls/hr 05/21/24 08:15 05/21/24 08:07 Sodium Chloride IV 05/21/24 12:14 62.5 mls/hr X1 ONE Administration Ipratropium [place] 0.5 mg 05/17/24 07:00 05/21/24 07:19 Ipratropium Rt 0.5 Mg/ 2.5 Ml Nebu INH 06/16/24 06:59 0.5 mg Q6HRRT LISA Administration Lactulose 20 gm 05/17/24 09:00 05/21/24 05:49 Lactulose Syrup 20 Gm/30 Ml Udc PO 06/16/24 08:59 20 gm TID LISA Administration Protocol Midodrine 10 mg 05/17/24 14:00 05/21/24 05:49 Midodrine 5 Mg Tablet PO 06/16/24 13:59 10 mg TID LISA Administration Ondansetron HCl 4 mg 05/17/24 02:08 Ondansetron Inj 2 Mg/Ml Inj 2 Ml IV 06/16/24 02:07 Q6H PRN NAUSEA OR VOMITING Protocol Pantoprazole Sodium 40 mg 05/17/24 09:00 05/21/24 08:08 Pantoprazole Inj 40 Mg Vial IV 06/16/24 08:59 40 mg BID LISA Administration Prednisone 40 mg 05/18/24 12:15 05/21/24 08:07 Prednisone 20 Mg Tablet PO 05/25/24 12:01 40 mg QDAY LISA Administration Triamcinolone Acetonide 0 gm 05/17/24 21:00 05/21/24 08:09 Triamcinolone Acet Oint 0.5% 15 Gm Tube TOP 06/16/24 20:59 Not Given BID LISA Plan 28-year-old male with past medical history of alcohol abuse disorder, alcoholic cirrhosis, and prediabetes was admitted to the hospital on 05/17/2024 due to decompensated alcoholic cirrhosis with ascites and coagulopathy as well as community-acquired pneumonia. #Decompensated alcoholic cirrhosis #Ascites #Coagulopathy #Hyperbilirubinemia #Alcohol abuse disorder ? On presentation patient came in with jaundice as well as abdominal distention. ?Patient has been recently admitted due to alcohol withdrawals, but stated that the last drink was a week prior to Thanksgiving stay. ? On admissions patient T bilirubin was 30 ? T bilirubin continues to uptrend up to 35 and is currently 32.3 today ? Patient initially came in with PT of 20.9 and INR of 2 ?Patient had a paracentesis done on 05/17/2024 which drained 6.5 L ? INR 2.4 and PTT 24.3 today ?Ammonia levels 93 on admission and 30 today ? MELD NA score 36 points indicating 65 to 66% of mortality in 90 days ?Madrey score of 84.7 indicating poor prognosis tenderness and the patient would benefit from steroids ? Child-Carreno score class C Plan: -Ordered US paracentesis ? Will continue lactulose 20 mg 3 times daily ?Will continue cholestyramine 1 packet daily ? Will continue Benadryl 25 mg p.o. every 6 as needed for pruritus ? Will continue octreotide drip ? Will continue Protonix ? Will continue prednisone 40 mg daily [05/18/2024?] ? GI consulted, appreciate recommendations ? Will continue to monitor #AKIL #Hypoalbuminemia ? Patient came in with creatinine on 3.3 and albumin of 2.3 ? DDx prerenal versus hepatorenal syndrome ?Patient's baseline creatinine is 1.3 ? Creatinine today 1.7 and BUN 30, significant improvement ? Albumin 3.9 today Plan: ? Will continue with albumin 25 g twice daily ? Will continue with midodrine 10 mg 3 times daily ? Avoid nephrotoxic agents ? Renally dose medications ?Consults nephrology, appreciate commendations ? Will continue to monitor #Acute blood loss anemia #Hemorrhoid s/p ligation ? Patient came in with hemoglobin of 8.4 ? Hemoglobin dropped to 6.8 on 05/17/2024 ? Patient had ligation of a large hemorrhoid visualized on sigmoidoscopy on 05/18/2024 ? Hemoglobin today 8 ? Transfused 1 PRBC and 1 fresh frozen plasma 05/20/2024 Plan: ? Will transfuse hemoglobin less than 7 ? Bleeding precautions ? Will continue to monitor #MSSA bacteremia #Community-acquired pneumonia # Leukocytosis ?Patient came in with a cough and chest x-ray showed bilateral pneumonia ? Blood culture was positive for MSSA ?WBC uptrending to 19 today likely reactive in the setting of steroids Plan: ? Continue patient on cefazolin 2 g every 8 hours [05/20/2024?] ?Repeat blood cultures ordered ? Will continue to monitor #Electrolyte imbalance #Hypokalemia #Hypokalemia #Hypophosphatemia #High anion gap metabolic acidosis ? Patient's potassium today 2.9, chloride 113, bicarb 18.5, Phos 1.7 ? Could be due to RTA versus due to GI loss Plan: ? K-Phos 15 mmol x 1, 20 meq of potassium ? Will replete as necessary ? Will continue to monitor Disposition: Patient seen in med surg Diet: low sodium GI prophylaxis: protonix DVT prophylaxis: SCDs Code: Full code Case disclosed with Attending Dr. Marta Gomez PGY1 Attending Provider Attestation/Addendum I reviewed labs, imaging, EKG, home medications and prior available records. Face to face evaluation was performed by me. I have personally examined the patient and discussed assessment and plan with the IM team. I reviewed the resident note and agree with the plan with exceptions as below. Alcoholic liver cirrhosis with ascites Acute anemia Possible GI bleed Elevated INR Consult [place] for paracentesis Not a candidate for liver transplant at this time as he needs to continue alcohol abstinence for at least 4 more months Transfuse the patient PRBC and FFP Follow-up PT/INR Discussed with GI: He had recent sigmoidoscopy and hemorrhoid banding however given his portal hypertension, banding might not be working. Recommended surgical consultation. Contacted general surgery. Patient had recent EGD that showed no upper source of bleeding
--- NOTE | 2024-05-21 10:32 | PD.NEPHPROG ---
Documentation for date of: 05/21/24 Subjective Subjective Interval history: Bernard Dee is a 28-year-old male with a past medical history of cirrhosis secondary to alcohol use who presented to the ED on 05/16 after noticing increased yellowing of his skin and eyes as well as bright red blood per rectum for the last few days. Mother at bedside who helped provide additional history, stating that she has noticed him feeling more sleepy than usual but does not report any confusion. Also denies hematemesis, hemoptysis but does have bleeding from gums. Per mother, last drink was in February 2024. She also states that family has been a significant effort to try and keep patient as healthy as possible, including diet and adherence to medications. Patient has also had a dry cough, but denies shortness of breath, fever, sick contacts, or recent travel. Of note, patient was recently discharged March 2024 for management of hyponatremia and also underwent endoscopy that showed esophagitis and colonoscopy showed perianal hemorrhoids. At that time, t bili on admission was 22.9 and down trended throughout hospital course and was transfused 1 unit PRBC for hemoglobin 6.7. Admitted for management of sepsis secondary to community acquired pneumonia and GI bleed. Nephrology consulted for possible hepatorenal syndrome and hypokalemia. 05/17: Patient seen and examined on medical floor with mother and friend at bedside. Patient is status post paracentesis with removal of 6.5 L of fluid and tolerated well. He is A&Ox3 but does fall asleep during conversation. Answered mother's questions regarding patient's clinical condition. On admission, K 2.7 and has steadily increased to 3.3 with K supplementation and bumex. Also on albumin, midodrine, and octreotide for hepatorenal syndrome and will monitor kidney function. 05/18: Patient seen and examined at bedside with mother present. Appears more energetic today compared to yesterday, A&Ox3. Labs and orders reviewed. Hemoglobin improved after transfusion 1 unit pRBC, Dr. Moss consulted and aware of case. Currently on albumin, midodrine, and octreotide to evaluate for hepatorenal syndrome. Pending CT A/P to further evaluate elevated bilirubin. Per peritoneal fluid analysis, no sign of SBP and SAAG > 1, thus portal hypertension likely etiology of patient's ascites. 05/19: Patient seen and examined at bedside with mother and brother present. Has good energy today, A&O x 3. Labs and orders reviewed. WBC downtrending to 11.2, Hgb stable at 7.6, and platelets within normal limits. K 3.0, repleted by primary team. BUN decreased from 44 to 37 and creatinine decreased from 3.6 to 2.9 while on albumin, midodrine, and octreotide. T. bili remains elevated at 34, and repeat CT A/P showed cirrhosis, hepatosplenomegaly, mild ascites, portal hypertension, left base pneumonia and contracted gallbladder. 05/21/2024 patient currently seen in medical floor. Family at bedside. Patient more alert and awake. Itching is better. Nurse is the superintendent transmission. Blood pressure 108/48. Continue with midodrine. Creatinine and LFTs slowly improving. Gave Bicitra for metabolic acidosis. Ammonia level was 30. Plan of care discussed with primary team. Review of Systems Review of Systems Narrative Review of Systems: CONSTITUTIONAL: Patient denies any fever, chills. HEENT: Denies any visual disturbances or hearing problems. CARDIOVASCULAR: Patient denies any chest pain, shortness of breath, swelling in the lower extremities. PULMONARY: Patient denies any shortness of breath, cough. GASTROINTESTINAL: Patient denies any abdominal pain, constipation, nausea, vomiting, diarrhea. GENITOURINARY: Patient denies any urinary symptoms of burning or frequency or hematuria, denies any form in the urine. SKIN: Denies any rash. Complaining of itching MUSCULOSKELETAL: Denies any muscular skeletal problems of joint pains. NEUROLOGICAL: Denies any neurological problems of strokes, seizures or confusion. Denies any memory problems. Patient more alert and awake. PSYCHIATRIC: Denies any depression or anxiety. LYMPHATICS : No lymphadenopathy Exam Vital Signs Temp Pulse Resp BP Pulse Ox O2 Del Method O2 Flow Rate 36.7 C 87 15 124/79 96 Room Air 3 05/21/24 08:00 05/21/24 08:00 05/21/24 08:00 05/21/24 08:00 05/21/24 08:00 05/21/24 04:00 05/18/24 20:30 Narrative Exam General: AOx3, no acute distress, mom at bedside HEENT: scleral icterus, NC/AT, mucous membranes moist Cardiovascular: regular rate and rhythm, S1/S2 present, no murmurs appreciated Pulmonary: clear to auscultation bilaterally, no rales/rhonchi/wheezes Abdominal: s/p paracentesis, distended, soft, non-tender Musculoskeletal: 1+ bilateral pitting edema, normal ROM Skin: jaundice, warm and dry, intact, no rashes Patient more alert and awake Objective Labs 05/21/24 05:30 05/21/24 05:30 Labs: Laboratory Results - last 24 hr 05/20/24 05/20/24 05/20/24 08:55 12:22 17:51 WBC RBC Hgb 8.5 L D Hct 24.9 L MCV MCH MCHC RDW Std Deviation Plt Count Neut % (Auto) Lymph % (Auto) [place] % (Auto) Eos % (Auto) Baso % (Auto) Neut # (Auto) Lymph # (Auto) [place] # (Auto) Eos # (Auto) Baso # (Auto) Immature Gran # (Auto) Absolute Nucleated RBC Immature Gran % Nucleated RBC % Sodium 141 Potassium 3.3 L D Chloride 110 H Carbon Dioxide 18.2 L Anion Gap 13 BUN 32 H Creatinine 1.9 H Estim Creat Clear Calc 67.7 eGFR 48 L BUN/Creatinine Ratio 17 Glucose 165 H Calculated Osmolality 292 Calcium 9.7 Corrected Calcium 10.0 Phosphorus 1.8 L Total Bilirubin AST ALT Alkaline Phosphatase Ammonia 30 Total Protein Albumin 3.6 Globulin Albumin/Globulin Ratio Blood Type A Negative Antibody Screen NEGATIVE Crossmatch See Detail Blood Bank Wristband ID Yes Blood Bank Comment PLATP Ready 05/21/24 05:30 WBC 19.0 H RBC 2.64 L Hgb 8.0 L Hct 23.4 L MCV 89 MCH 30.3 MCHC 34.2 RDW Std Deviation 65.8 H Plt Count 200 Neut % (Auto) 87 H Lymph % (Auto) 4 L [place] % (Auto) 6 Eos % (Auto) 0 Baso % (Auto) 0 Neut # (Auto) 16.6 H Lymph # (Auto) 0.8 L [place] # (Auto) 1.2 H Eos # (Auto) 0.0 Baso # (Auto) 0.0 Immature Gran # (Auto) 0.36 H Absolute Nucleated RBC 0.00 Immature Gran % 2 H Nucleated RBC % 0 Sodium 142 Potassium 2.9 L Chloride 113 H Carbon Dioxide 18.5 L Anion Gap 11 BUN 30 H Creatinine 1.7 H Estim Creat Clear Calc 75.7 eGFR 55 L BUN/Creatinine Ratio 18 Glucose 121 H Calculated Osmolality 290 Calcium 9.9 Corrected Calcium 10.0 Phosphorus 1.7 L Total Bilirubin 29.7 H* D AST 54 H ALT 21 Alkaline Phosphatase 136 H Ammonia Total Protein 6.3 Albumin 3.9 Globulin 2.4 Albumin/Globulin Ratio 1.6 Blood Type Antibody Screen Crossmatch Blood Bank Wristband ID Blood Bank Comment Assessment & Plan Additional Assessment & Plan Additional Plan: Bernard Dee is a 28-year-old male with a past medical history of cirrhosis secondary to alcohol use who is admitted for management of sepsis secondary to community acquired pneumonia and GI bleed. Nephrology consulted for possible hepatorenal syndrome and hypokalemia. #Acute kidney injury #? Hepatorenal syndrome Present with cirrhosis presents with decreased kidney function. Creatinine noted to be 1.3 upon discharge in 03/2024 and readmitted with creatinine of 3.3. With the midodrine, albumin, octreotide his creatinine started to trend down consistent with prerenal azotemia. Due to persistent hypotension recommended to continue with albumin and midodrine. Continue with octreotide, steroids, lactulose for hepatic encephalopathy and liver cirrhosis. Noted plans for transfer still in progress. #Hypokalemia K 2.7 on admission and has steadily increased with potassium supplementation. ? Continue current management # Metabolic acidosis added Bicitra. #Sepsis secondary to #Community acquired pneumonia #Cirrhosis #Ascites #Hypoalbuminemia #Hyperammonemia #? GI bleed #Hyperbilirubinemia ? Continue management per primary team
[2024-05-21 10:39] LABS: Prothrombin Time 20.5 Seconds (9.0-12.2)
--- NOTE | 2024-05-21 11:43 | PC.SS ---
At 11:13 AM, BARRY contacted [facility] Mail List Processor, Loretta who reported that transfer was cancelled due to patient not being eligible for a liver transplant. BARRY met with Dr. epps and Senior GME Resident Dr. Marrufo who reported that team will continue with medical care and have patient follow-up outpatient.
--- NOTE | 2024-05-21 17:20 | PD.IMPROG ---
Documentation for date of: 05/21/24 Subjective Subjective Interval history: Patient evaluated still has some rectal bleeding status post band ligation of internal hemorrhoids bleeding most likely due to advanced portal hypertension at the anorectal junction not much can be done but it would be worthwhile To consult a colorectal surgeon [facility] has rejected the transfer for a possible liver transplant Bilirubin is trending downward at 29.4 Exam Vital Signs Temp Pulse Resp BP Pulse Ox O2 Del Method O2 Flow Rate 98.1 F 77 19 121/70 95 Room Air 3 05/21/24 15:56 05/21/24 16:00 05/21/24 15:56 05/21/24 15:56 05/21/24 15:56 05/21/24 15:56 05/18/24 20:30 Objective Labs 05/21/24 05:30 05/21/24 05:30 Labs: Laboratory Results - last 24 hr 05/20/24 05/20/24 05/21/24 08:55 17:51 05:30 WBC 19.0 H RBC 2.64 L Hgb 8.5 L D 8.0 L Hct 24.9 L 23.4 L MCV 89 MCH 30.3 MCHC 34.2 RDW Std Deviation 65.8 H Plt Count 200 Neut % (Auto) 87 H Lymph % (Auto) 4 L [place] % (Auto) 6 Eos % (Auto) 0 Baso % (Auto) 0 Neut # (Auto) 16.6 H Lymph # (Auto) 0.8 L [place] # (Auto) 1.2 H Eos # (Auto) 0.0 Baso # (Auto) 0.0 Immature Gran # (Auto) 0.36 H Absolute Nucleated RBC 0.00 Immature Gran % 2 H Nucleated RBC % 0 PT 20.5 H D INR 2.0 H Sodium 142 Potassium 2.9 L Chloride 113 H Carbon Dioxide 18.5 L Anion Gap 11 BUN 30 H Creatinine 1.7 H Estim Creat Clear Calc 75.7 eGFR 55 L BUN/Creatinine Ratio 18 Glucose 121 H Calculated Osmolality 290 Calcium 9.9 Corrected Calcium 10.0 Phosphorus 1.7 L Total Bilirubin 29.7 H* D AST 54 H ALT 21 Alkaline Phosphatase 136 H Total Protein 6.3 Albumin 3.9 Globulin 2.4 Albumin/Globulin Ratio 1.6 Blood Type A Negative Antibody Screen NEGATIVE Crossmatch See Detail Blood Bank Wristband ID Yes Blood Bank Comment PLATP Ready Impressions Impression: # End-stage liver disease # Low-grade bleeding from the anorectal junction status post band ligation of the internal hemorrhoids Continue to monitor CBC Assessment & Plan A&P Narrative # Rectal bleeding most likely due to internal hemorrhoids in the setting of advanced portal hypertension and probably anorectal junction bleed Plan Flexible sigmoidoscopy tomorrow with banding of the internal hemorrhoids Informed consent obtained Will give tapwater enemas or Fleet enemas prior to the procedure No need for GoLytely prep Other medical problems include # Advanced portal hypertension due to underlying cirrhotic liver disease due to alcohol causing intractable ascites requiring large-volume paracentesis 2 g sodium diet Aggressive use of diuretics 1 L p.o. fluid restriction 24 hours Will follow the patient Thank you once again for the opportunity to participate in care of this patient Time Spent With Patient Time: Total time spent is greater than 50% in coordination of care (as documented) at patient's floor/unit and/or counseling patient:
[2024-05-22] VITALS (25 sets, daily range): BP systolic 99–134; BP diastolic 60–90; PULSE 41–94; RESP 16–100; TEMP 36.3–37.1; O2SAT 96–100
[2024-05-22] MEDS: IPRATROPIUM RT 0.5 MG/ 2.5 ML NEBU INH ×4 (01:05→19:33)
[2024-05-22] MEDS: LACTULOSE SYRUP 20 GM/30 ML UDC PO ×3 (05:14→21:50)
[2024-05-22] MEDS: PIPER/TAZO 3.375 GM 3.375 GM/50 ML BAG IV ×3 (05:14→21:55)
[2024-05-22] MEDS: MIDODRINE 5 MG TABLET 10 MG PO ×3 (05:14→21:50)
[2024-05-22 06:10] LABS: Basophils % (Auto) 0 % (0-2.5); Eosinophils % (Auto) 0 % (0-10); Hematocrit 29.2 % (41.0-53.0); Hemoglobin 9.9 g/dL (13.5-16.0); Immature Granulocytes % (Auto) 1 % (0-0); Immature Granulocytes Auto 0.24 Thou/mm3 (0.00-0.00); Lymphocytes # (Auto) 0.9 Thou/mm3 (1.0-4.8); Lymphocytes % (Auto) 4 % (10-50); Mean Corpuscular HGB Conc 33.9 g/dl (31.0-37.0); Mean Corpuscular Hemoglobin 29.5 pg (25.0-35.0); Mean Corpuscular Volume 87 fL (80-100); Monocytes # (Auto) 1.4 Thou/mm3 (0.0-0.8); Monocytes % (Auto) 7 % (0-12); Neutrophils # (Auto) 18.3 Thou/mm3 (1.8-7.7); Neutrophils % (Auto) 88 % (37-80); Nucleated Red Blood Cell % 0 /100 WBC (0); Platelet Count 167 Thou/mm3 (140-440); RDW Standard Deviation 66.5 fL (35.1-43.9); Red Blood Count 3.36 Miln/mm3 (4.50-5.90); White Blood Count 20.8 Thou/mm3 (3.8-10.6)
[2024-05-22] MEDS: BUDESONIDE RT 0.25 MG/2 ML NEBU INH ×2 (06:31→19:34)
[2024-05-22 06:47] LABS: Alanine Aminotransferase 21 U/L (10-49); Albumin, Serum 3.9 gm/dL (3.5-5.0); Albumin/Globulin Ratio 1.5 (1.2-2.2); Alkaline Phosphatase 128 U/L (46-116); Anion Gap 15 (7-16); Aspartate Amino Transferase 45 U/L (0-34); BUN/Creatinine Ratio 17 Ratio (12-20); Blood Urea Nitrogen 25 mg/dL (9-23); Calcium 9.6 mg/dL (8.3-10.6); Calcium (Corrected) 9.7 mg/dL (8.5-10.1); Carbon Dioxide 16.5 mMol/L (20.0-31.0); Chloride 113 mMol/L (98-107); Creatinine (Component) 1.5 mg/dL (0.6-1.3); Estimated Creatinine Clearance 85.8 mL/min (>60); Globulin 2.6 gm/dL (2.3-3.5); Glucose 158 mg/dL (74-106); Osmolality,Calculated 294 (275-295); Potassium 3.1 mMol/L (3.4-5.1); Sodium 144 mMol/L (136-145); Total Protein 6.5 gm/dL (5.7-8.2); eGFR > 60 See Note
[2024-05-22 07:08] LABS: Bilirubin,Total 26.5 mg/dL (0.3-1.2)
--- NOTE | 2024-05-22 08:00 | XR_ITS ---
Examination: Abdomen sonogram, Limited Date and time of exam: May 22, 2024 at this 1319 hours INDICATIONS: Abdominal distention this week Technique: Real-time bach scale transabdominal sonographic images of the upper abdomen obtained. Findings: Minimal ascitic fluid IMPRESSION: Minimal ascitic fluid
--- NOTE | 2024-05-22 08:59 | ESPR_ITS ---
Documentation for date of: 05/22/24 Subjective Subjective Interval history: Patient was seen at bedside this morning. No overnight events. Patient see bilirubin decreased to 26.5 and his hemoglobin today is 9.9. Patient's potassium again is low at 3.1. Will have general surgeon see the patient and give recommendations given that patient is still having rectal bleeds. Repeat blood cultures have been negative in the first 24 hours. Still pending paracentesis. No other complaints this time. Exam Vital Signs Temp Pulse Resp BP Pulse Ox O2 Del Method O2 Flow Rate 98.2 F 63 19 115/77 97 Room Air 3 05/22/24 08:00 05/22/24 08:00 05/22/24 08:00 05/22/24 08:00 05/22/24 08:00 05/22/24 08:00 05/18/24 20:30 Narrative Exam General: A/O x3, ill appearing Eyes: PERRL, EOMI. Icteric, vision grossly intact. Ears: No ear pain, no ear discharge, Hearing grossly intact. Nose: No nasal discharge. Mouth/Throat: Moist mucous membranes, no redness, no lesions. Neck: Neck supple, non-tender, no cervical lymphadenopathy. Lungs: Clear STEPHANIE to auscultation and percussion, No accessory muscle use. Cardio: Normal S1/S2, regular rhythm, no murmurs, no JVD Abdomen: Distended, but soft, non-tender, no palpable masses, peristalsis present, no guarding or rebound. Extremities: Symmetrical, no significant deformities, trace peripheral edema , non-tender, peripheral pulses presents. Skin: No rashes, no lesions, warm to touch. multiple tattoos throughout. Jaundice throughout Neuro: No focal neurological deficits. Motor and sensory intact Objective Labs 05/23/24 05:34 05/23/24 05:34 Labs: Laboratory Results - last 24 hr 05/20/24 05/21/24 05/22/24 08:55 05:30 05:22 WBC 20.8 H RBC 3.36 L Hgb 9.9 L D Hct 29.2 L MCV 87 MCH 29.5 MCHC 33.9 RDW Std Deviation 66.5 H Plt Count 167 D Neut % (Auto) 88 H Lymph % (Auto) 4 L [place] % (Auto) 7 Eos % (Auto) 0 Baso % (Auto) 0 Neut # (Auto) 18.3 H Lymph # (Auto) 0.9 L [place] # (Auto) 1.4 H Eos # (Auto) 0.0 Baso # (Auto) 0.0 Immature Gran # (Auto) 0.24 H Absolute Nucleated RBC 0.00 Immature Gran % 1 H Nucleated RBC % 0 PT 20.5 H D INR 2.0 H Sodium 144 Potassium 3.1 L Chloride 113 H Carbon Dioxide 16.5 L Anion Gap 15 BUN 25 H Creatinine 1.5 H Estim Creat Clear Calc 85.8 eGFR > 60 BUN/Creatinine Ratio 17 Glucose 158 H Calculated Osmolality 294 Calcium 9.6 Corrected Calcium 9.7 Total Bilirubin 26.5 H* D AST 45 H ALT 21 Alkaline Phosphatase 128 H Total Protein 6.5 Albumin 3.9 Globulin 2.6 Albumin/Globulin Ratio 1.5 Blood Type A Negative Antibody Screen NEGATIVE Crossmatch See Detail Blood Bank Wristband ID Yes Blood Bank Comment PLATP Ready Quality Measures Quality Measures none Assessment & Plan Assessment Current Active Medications: Generic Name Dose Route Start Last Admin Trade Name Freq PRN Reason Stop Dose Admin Budesonide 0.25 mg 05/17/24 07:00 05/22/24 06:31 Budesonide Rt 0.25 Mg/2 Ml Nebu INH 06/16/24 06:59 0.25 mg BIDRT LISA Administration Cholestyramine Resin 1 pkt 05/17/24 09:00 05/21/24 08:07 Cholestyramine/Sucrose 1 Pkt Ea PO 06/16/24 08:59 1 pkt QDAY LISA Administration Citric Acid/Sodium Citrate 30 ml 05/20/24 10:00 05/21/24 21:28 Citric Acid/Sodium Citr 15 Ml Udc (Bicitra) PO 06/19/24 09:59 30 ml BID LISA Administration Diphenhydramine HCl 25 mg 05/19/24 23:53 05/20/24 06:06 Diphenhydramine 25 Mg Capsule PO 06/18/24 23:52 25 mg Q6HR PRN Administration ITCHING Albumin Human 25 gm in 100 mls @ 100 mls/hr 05/20/24 21:00 05/21/24 21:34 Albuminar-25 Ivpb IV 05/23/24 20:59 100 mls/hr BID LISA Administration Piperacillin/Tazobactam/Dextrose 3.375 gm in 50 mls @ 12.5 mls/hr 05/21/24 06:00 05/22/24 05:14 Zosyn IV 05/28/24 05:59 12.5 mls/hr Q8HR LISA Administration Potassium Phosphate 15 mmol in 250 mls @ 62.5 mls/hr 05/22/24 08:57 Pot Phos 15 Mmol In Ns 250 Ml IV 05/22/24 12:56 X1 ONE Ipratropium [place] 0.5 mg 05/17/24 07:00 05/22/24 06:31 Ipratropium Rt 0.5 Mg/ 2.5 Ml Nebu INH 06/16/24 06:59 0.5 mg Q6HRRT LISA Administration Lactulose 20 gm 05/17/24 09:00 05/22/24 05:14 Lactulose Syrup 20 Gm/30 Ml Udc PO 06/16/24 08:59 20 gm TID LISA Administration Protocol Midodrine 10 mg 05/17/24 14:00 05/22/24 05:14 Midodrine 5 Mg Tablet PO 06/16/24 13:59 10 mg TID LISA Administration Ondansetron HCl 4 mg 05/17/24 02:08 Ondansetron Inj 2 Mg/Ml Inj 2 Ml IV 06/16/24 02:07 Q6H PRN NAUSEA OR VOMITING Protocol Pantoprazole Sodium 40 mg 05/17/24 09:00 05/21/24 21:32 Pantoprazole Inj 40 Mg Vial IV 06/16/24 08:59 40 mg BID LISA Administration Potassium Chloride 40 meq 05/22/24 08:57 Potassium Chloride 20 Meq Tabcr PO 05/22/24 08:58 X1 ONE Prednisone 40 mg 05/18/24 12:15 05/21/24 08:07 Prednisone 20 Mg Tablet PO 05/25/24 12:01 40 mg QDAY LISA Administration Triamcinolone Acetonide 0 gm 05/17/24 21:00 05/21/24 21:31 Triamcinolone Acet Oint 0.5% 15 Gm Tube TOP 06/16/24 20:59 Not Given BID LISA Plan 28-year-old male with past medical history of alcohol abuse disorder, alcoholic cirrhosis, and prediabetes was admitted to the hospital on 05/17/2024 due to decompensated alcoholic cirrhosis with ascites and coagulopathy as well as community-acquired pneumonia. #Decompensated alcoholic cirrhosis #Ascites #Coagulopathy #Hyperbilirubinemia #Alcohol abuse disorder ? On presentation patient came in with jaundice as well as abdominal distention. ?Patient has been recently admitted due to alcohol withdrawals, but stated that the [facility] ? On admissions patient T bilirubin was 30 ? T bilirubin continues to uptrend up to 35 and is currently 26.5 today ? Patient initially came in with PT of 20.9 and INR of 2 ?Patient had a paracentesis done on 05/17/2024 which drained 6.5 L ? INR 1.8 today ?Ammonia levels 93 on admission and 30 today ? MELD NA score 30 points indicating 27-32% of mortality in 90 days ?Madrey score of 84.7 indicating poor prognosis tenderness and the patient would benefit from steroids ? Child-Carreno score class C Plan: -Ordered US paracentesis ? Will continue lactulose 20 mg 3 times daily ?Will continue cholestyramine 1 packet daily ? Will continue Benadryl 25 mg p.o. every 6 as needed for pruritus ? Will continue octreotide drip ? Will continue Protonix ? Will continue prednisone 40 mg daily [05/18/2024?] ? GI consulted, appreciate recommendations ? Will continue to monitor #AKIL #Hypoalbuminemia ? Patient came in with creatinine on 3.3 and albumin of 2.3 ? DDx prerenal versus hepatorenal syndrome ?Patient's baseline creatinine is 1.3 ? Creatinine today 1.5 and BUN 25, significant improvement ? Albumin 3.9 today Plan: ? Will continue with albumin 25 g twice daily ? Will continue with midodrine 10 mg 3 times daily ? Avoid nephrotoxic agents ? Renally dose medications ?Consults nephrology, appreciate commendations ? Will continue to monitor #Acute blood loss anemia #Hemorrhoid s/p ligation ? Patient came in with hemoglobin of 8.4 ? Hemoglobin dropped to 6.8 on 05/17/2024 ? Patient had ligation of a large hemorrhoid visualized on sigmoidoscopy on 05/18/2024 ? Hemoglobin today 9.9 ? Transfused 1 PRBC and 1 fresh frozen plasma 05/20/2024 ?Given that patient is still bleeding per rectum General Surgeon was consulted Plan: ? Will transfuse hemoglobin less than 7 ? Bleeding precautions ?General Surgery consulted, pressure recommendations ? Will continue to monitor #MSSA bacteremia #Community-acquired pneumonia # Leukocytosis ?Patient came in with a cough and chest x-ray showed bilateral pneumonia ? Blood culture was positive for MSSA ?WBC uptrending to 20.8 today likely reactive in the setting of steroids -Repeat blood Cx negative in 24 hrs Plan: ? Continue patient on Zosyn [05/21/2024?] ?Repeat blood cultures ordered ? Will continue to monitor #Electrolyte imbalance #Hypokalemia #Hypokalemia #Hypophosphatemia #High anion gap metabolic acidosis ? Patient's potassium today 3.1, chloride 113, bicarb 16.5 ? Could be due to RTA versus due to GI loss Plan: ? K-Phos 15 mmol x 1, 40 meq of potassium x1 ? Will replete as necessary ? Will continue to monitor Disposition: Patient seen in med surg Diet: low sodium GI prophylaxis: protonix DVT prophylaxis: SCDs Code: Full code Case disclosed with Attending Dr. Marta Gomez PGY1 Attending Provider Attestation/Addendum I reviewed labs, imaging, EKG, home medications and prior available records. Face to face evaluation was performed by me. I have personally examined the patient and discussed assessment and plan with the IM team. I reviewed the resident note and agree with the plan with exceptions as below. Alcoholic liver cirrhosis with ascites Alcoholic hepatitis Acute anemia MSSA bacteremia Possible GI bleed Elevated INR Consult RI for paracentesis Continue IV Zosyn Follow-up repeat blood culture Not a candidate for liver transplant at this time as he needs to continue alcohol abstinence for at least 4 more months Transfused the patient PRBC and FFP Follow-up PT/INR Maddrey score is high: Continue corticosteroids for 10 days Rectal bleeding improved. Continue to monitor H&H
[2024-05-22 09:32] LABS: Phosphorous 2.2 mg/dL (2.4-5.1)
[2024-05-22 09:36] LABS: INR 1.8 (0.9-1.3); Prothrombin Time 19.1 Seconds (9.0-12.2)
--- NOTE | 2024-05-22 10:00 | ESPR_ITS ---
Documentation for date of: 05/22/24 Subjective Subjective Interval history: Bernard Dee is a 28-year-old male with a past medical history of cirrhosis secondary to alcohol use who presented to the ED on 05/16 after noticing increased yellowing of his skin and eyes as well as bright red blood per rectum for the last few days. Mother at bedside who helped provide additional history, stating that she has noticed him feeling more sleepy than usual but does not report any confusion. Also denies hematemesis, hemoptysis but does have bleeding from gums. Per mother, last drink was in February 2024. She also states that family has been a significant effort to try and keep patient as healthy as possible, including diet and adherence to medications. Patient has also had a dry cough, but denies shortness of breath, fever, sick contacts, or recent travel. Of note, patient was recently discharged March 2024 for management of hyponatremia and also underwent endoscopy that showed esophagitis and colonoscopy showed perianal hemorrhoids. At that time, t bili on admission was 22.9 and down trended throughout hospital course and was transfused 1 unit PRBC for hemoglobin 6.7. Admitted for management of sepsis secondary to community acquired pneumonia and GI bleed. Nephrology consulted for possible hepatorenal syndrome and hypokalemia. 05/17: Patient seen and examined on medical floor with mother and friend at bedside. Patient is status post paracentesis with removal of 6.5 L of fluid and tolerated well. He is A&Ox3 but does fall asleep during conversation. Answered mother's questions regarding patient's clinical condition. On admission, K 2.7 and has steadily increased to 3.3 with K supplementation and bumex. Also on albumin, midodrine, and octreotide for hepatorenal syndrome and will monitor kidney function. 05/18: Patient seen and examined at bedside with mother present. Appears more energetic today compared to yesterday, A&Ox3. Labs and orders reviewed. Hemoglobin improved after transfusion 1 unit pRBC, Dr. Moss consulted and aware of case. Currently on albumin, midodrine, and octreotide to evaluate for hepatorenal syndrome. Pending CT A/P to further evaluate elevated bilirubin. Per peritoneal fluid analysis, no sign of SBP and SAAG > 1, thus portal hypertension likely etiology of patient's ascites. 05/19: Patient seen and examined at bedside with mother and brother present. Has good energy today, A&O x 3. Labs and orders reviewed. WBC downtrending to 11.2, Hgb stable at 7.6, and platelets within normal limits. K 3.0, repleted by primary team. BUN decreased from 44 to 37 and creatinine decreased from 3.6 to 2.9 while on albumin, midodrine, and octreotide. T. bili remains elevated at 34, and repeat CT A/P showed cirrhosis, hepatosplenomegaly, mild ascites, portal hypertension, left base pneumonia and contracted gallbladder. 05/22/2024 patient currently seen in medical floor. Family at bedside. Patient more alert and awake. Itching is better. Blood pressure 123/71, heart rate 71. WBC 20.8, hemoglobin 9.9, platelets 167. INR 1.8. Sodium 144, potassium 3.1, HCO3 16.5, BUN 25, creatinine 1.5, phosphorus 2.2, total bilirubin 26.25, AST 45, ALT 21, alk phos 128,Ultrasound of the abdomen showed minimal ascitic fluid.. Continue with midodrine. Creatinine and LFTs slowly improving. Gave Bicitra for metabolic acidosis. Ammonia level was 30. Plan of care discussed with primary team. Patient can be discharged tomorrow on Aldactone, lactulose, bicarbonate tablets. Will follow him in my office in 1 to 2 weeks Review of Systems Review of Systems Narrative Review of Systems: CONSTITUTIONAL: Patient denies any fever, chills. HEENT: Denies any visual disturbances or hearing problems. CARDIOVASCULAR: Patient denies any chest pain, shortness of breath, swelling in the lower extremities. PULMONARY: Patient denies any shortness of breath, cough. GASTROINTESTINAL: Patient denies any abdominal pain, constipation, nausea, vomiting, diarrhea. GENITOURINARY: Patient denies any urinary symptoms of burning or frequency or hematuria, denies any form in the urine. SKIN: Denies any rash. Itching is better MUSCULOSKELETAL: Denies any muscular skeletal problems of joint pains. NEUROLOGICAL: Denies any neurological problems of strokes, seizures or confusion. Denies any memory problems. Patient more alert and awake. PSYCHIATRIC: Denies any depression or anxiety. LYMPHATICS : No lymphadenopathy Exam Vital Signs Temp Pulse Resp BP Pulse Ox O2 Del Method O2 Flow Rate 36.8 C 63 19 115/77 97 Room Air 3 05/22/24 08:00 05/22/24 08:00 05/22/24 08:00 05/22/24 08:00 05/22/24 08:00 05/22/24 08:00 05/18/24 20:30 Narrative Exam General: AOx3, no acute distress, mom at bedside HEENT: scleral icterus, NC/AT, mucous membranes moist Cardiovascular: regular rate and rhythm, S1/S2 present, no murmurs appreciated Pulmonary: clear to auscultation bilaterally, no rales/rhonchi/wheezes Abdominal: s/p paracentesis, distended, soft, non-tender Musculoskeletal: 1+ bilateral pitting edema, normal ROM Skin: jaundice, warm and dry, intact, no rashes Patient more alert and awake Objective Labs 05/22/24 05:22 05/22/24 05:22 Labs: Laboratory Results - last 24 hr 05/20/24 05/21/24 05/22/24 08:55 05:30 05:22 WBC 20.8 H RBC 3.36 L Hgb 9.9 L D Hct 29.2 L MCV 87 MCH 29.5 MCHC 33.9 RDW Std Deviation 66.5 H Plt Count 167 D Neut % (Auto) 88 H Lymph % (Auto) 4 L [place] % (Auto) 7 Eos % (Auto) 0 Baso % (Auto) 0 Neut # (Auto) 18.3 H Lymph # (Auto) 0.9 L [place] # (Auto) 1.4 H Eos # (Auto) 0.0 Baso # (Auto) 0.0 Immature Gran # (Auto) 0.24 H Absolute Nucleated RBC 0.00 Immature Gran % 1 H Nucleated RBC % 0 PT 20.5 H D 19.1 H INR 2.0 H 1.8 H Sodium 144 Potassium 3.1 L Chloride 113 H Carbon Dioxide 16.5 L Anion Gap 15 BUN 25 H Creatinine 1.5 H Estim Creat Clear Calc 85.8 eGFR > 60 BUN/Creatinine Ratio 17 Glucose 158 H Calculated Osmolality 294 Calcium 9.6 Corrected Calcium 9.7 Phosphorus 2.2 L Total Bilirubin 26.5 H* D AST 45 H ALT 21 Alkaline Phosphatase 128 H Total Protein 6.5 Albumin 3.9 Globulin 2.6 Albumin/Globulin Ratio 1.5 Blood Type A Negative Antibody Screen NEGATIVE Crossmatch See Detail Blood Bank Wristband ID Yes Blood Bank Comment PLATP Ready Assessment & Plan Additional Assessment & Plan Additional Plan: Bernard Dee is a 28-year-old male with a past medical history of cirrhosis secondary to alcohol use who is admitted for management of sepsis secondary to community acquired pneumonia and GI bleed. Nephrology consulted for possible hepatorenal syndrome and hypokalemia. #Acute kidney injury #? Hepatorenal syndrome Present with cirrhosis presents with decreased kidney function. Creatinine noted to be 1.3 upon discharge in 03/2024 and readmitted with creatinine of 3.3. With the midodrine, albumin, octreotide his creatinine started to trend down consistent with prerenal azotemia. Due to persistent hypotension recommended to continue with albumin and midodrine. Continue with lactulose for hepatic encephalopathy and liver cirrhosis. Noted plans for transfer still in progress. However patient started to improve-can be discharged to be followed up with the transplant center as an outpatient on Aldactone, lactulose. Suspect patient has underlying hepatorenal syndrome type II (March 2024 creatinine 1.7) #Hypokalemia K 2.7 on admission and has steadily increased with potassium supplementation. ? Continue current management # Metabolic acidosis added Bicitra. #Sepsis secondary to #Community acquired pneumonia #Cirrhosis #Ascites #Hypoalbuminemia #Hyperammonemia #? GI bleed #Hyperbilirubinemia ? Continue management per primary team Quality - progress note Quality Measures Quality Measures: VTE prophylaxis Reason for Continued Stay Reason for Continued Stay: further monitoring
[2024-05-22] MEDS: CHOLESTYRAMINE/SUCROSE 1 PKT EA PO (10:25)
[2024-05-22] MEDS: ALBUMIN HUMAN 25% IVPB 25 GM/100 ML BTL IV ×2 (10:25→21:51)
[2024-05-22] MEDS: CITRIC ACID/SODIUM CITR 15 ML UDC (BICITRA) 30 ML PO ×2 (10:25→21:50)
[2024-05-22] MEDS: POTASSIUM CHLORIDE 20 mEq TABCR 40 MEQ PO (10:25)
[2024-05-22] MEDS: POTASSIUM PHOS 15 MMOL in SODIUM CHLORIDE 0.9% 250 ML 245 ML 62.5 MMOL IV (10:25)
[2024-05-22] MEDS: predniSONE 20 MG TABLET 40 MG PO (10:25)
[2024-05-22] MEDS: PANTOPRAZOLE INJ 40 MG VIAL IV ×2 (10:25→21:50)
--- NOTE | 2024-05-22 10:25 | PC.NURSE ---
medications given late, pt requested to walk 1st, pt finished ambulating with mom in hallway
[2024-05-22] MEDS: TRIAMCINOLONE ACET OINT 0.5% 15 GM TUBE TOP ×2 (10:26→21:51)
[2024-05-22] MEDS: LORazepam 2 MG/ML VIAL 1 MG IVP (15:21)
--- NOTE | 2024-05-22 17:51 | PD.SURCONS ---
HPI Consult details History of present illness: 28M with cirrhosis related to alcohol use and associated hemorrhoids s/p banding 05/18, who has had some bleeding after banding for which colorectal surgery is consulted. Patient and family report that the bleeding has improved since the banding, and patient states that today he did have a bowel movement with no bleeding at all. He states his bowel movements are generally soft and do not require any straining, and he denies any pain to the area. His hemoglobin today is 9.9, it has been 8 in the last couple days but as low as 6.8 this admission Review of Systems Review of Systems ROS Unobtainable: All systems reviewed & no additional complaints except as documented Meds Home Medications and Allergies Home Medications ?Medication ?Instructions ?Recorded ?Confirmed ?Type B-complex with vitamin C 1 tab PO QDAY 05/22/24 05/22/24 History Allergies Allergy/AdvReac Type Severity Reaction Status Date / Time No Known Allergies Allergy Verified 04/21/24 14:12 Exam Vital Signs Temp Pulse Resp BP Pulse Ox O2 Del Method O2 Flow Rate 98.0 F 62 17 111/66 97 Room Air 3 05/22/24 16:00 05/22/24 16:00 05/22/24 16:00 05/22/24 16:00 05/22/24 16:00 05/22/24 16:00 05/18/24 20:30 Constitutional Constitutional: no acute distress Routine Respiratory Exam Respiratory: Present no resp distress Results Results: Laboratory Laboratory results: results reviewed Assessment & Plan Plan 28M with cirrhosis related to alcohol use and associated internal hemorrhoids. I explained to patient and his family that I would not recommend any further treatment besides the banding, as it has thankfully led to a decrease in bleeding and also because the risk of anesthesia in the setting of cirrhosis, as well as severe pain of surgery both outweigh the potential benefits. I encouraged him to practice healthy bowel habits as constipation or diarrhea could worsen the bleeding. All questions were answered and patient expressed understanding
--- NOTE | 2024-05-22 21:48 | PD.IMPROG ---
Documentation for date of: 05/22/24 Subjective Subjective Interval history: Hemoglobin hematocrit 9.9 and 29.2 I agree with the surgical consultation no intervention necessary Exam Vital Signs Temp Pulse Resp BP Pulse Ox O2 Del Method O2 Flow Rate 98.2 F 75 20 133/84 H 100 Room Air 3 05/22/24 20:00 05/22/24 20:00 05/22/24 20:00 05/22/24 20:00 05/22/24 20:00 05/22/24 20:00 05/18/24 20:30 Objective Labs 05/22/24 05:22 05/22/24 05:22 Labs: Laboratory Results - last 24 hr 05/20/24 05/22/24 08:55 05:22 WBC 20.8 H RBC 3.36 L Hgb 9.9 L D Hct 29.2 L MCV 87 MCH 29.5 MCHC 33.9 RDW Std Deviation 66.5 H Plt Count 167 D Neut % (Auto) 88 H Lymph % (Auto) 4 L [place] % (Auto) 7 Eos % (Auto) 0 Baso % (Auto) 0 Neut # (Auto) 18.3 H Lymph # (Auto) 0.9 L [place] # (Auto) 1.4 H Eos # (Auto) 0.0 Baso # (Auto) 0.0 Immature Gran # (Auto) 0.24 H Absolute Nucleated RBC 0.00 Immature Gran % 1 H Nucleated RBC % 0 PT 19.1 H INR 1.8 H Sodium 144 Potassium 3.1 L Chloride 113 H Carbon Dioxide 16.5 L Anion Gap 15 BUN 25 H Creatinine 1.5 H Estim Creat Clear Calc 85.8 eGFR > 60 BUN/Creatinine Ratio 17 Glucose 158 H Calculated Osmolality 294 Calcium 9.6 Corrected Calcium 9.7 Phosphorus 2.2 L Total Bilirubin 26.5 H* D AST 45 H ALT 21 Alkaline Phosphatase 128 H Total Protein 6.5 Albumin 3.9 Globulin 2.6 Albumin/Globulin Ratio 1.5 Blood Type A Negative Antibody Screen NEGATIVE Crossmatch See Detail Blood Bank Wristband ID Yes Blood Bank Comment PLATP Ready Impressions Impression: # Rectal bleeding due to anorectal junction hyperemia due to advanced portal hypertension Continue current management Assessment & Plan A&P Narrative # Rectal bleeding most likely due to internal hemorrhoids in the setting of advanced portal hypertension and probably anorectal junction bleed Plan Flexible sigmoidoscopy tomorrow with banding of the internal hemorrhoids Informed consent obtained Will give tapwater enemas or Fleet enemas prior to the procedure No need for GoLytely prep Other medical problems include # Advanced portal hypertension due to underlying cirrhotic liver disease due to alcohol causing intractable ascites requiring large-volume paracentesis 2 g sodium diet Aggressive use of diuretics 1 L p.o. fluid restriction 24 hours Will follow the patient Thank you once again for the opportunity to participate in care of this patient Time Spent With Patient Time: Total time spent is greater than 50% in coordination of care (as documented) at patient's floor/unit and/or counseling patient:
[2024-05-23] VITALS (7 sets, daily range): BP systolic 127–129; BP diastolic 76–79; PULSE 55–80; RESP 16–98; TEMP 36.3–36.6; O2SAT 94–100
[2024-05-23] MEDS: IPRATROPIUM RT 0.5 MG/ 2.5 ML NEBU INH ×2 (00:17→06:32)
[2024-05-23] MEDS: LACTULOSE SYRUP 20 GM/30 ML UDC PO (06:00)
[2024-05-23] MEDS: PIPER/TAZO 3.375 GM 3.375 GM/50 ML BAG IV (06:00)
[2024-05-23] MEDS: MIDODRINE 5 MG TABLET 10 MG PO (06:00)
[2024-05-23 06:40] LABS: Basophils % (Auto) 0 % (0-2.5); Eosinophils % (Auto) 0 % (0-10); Hematocrit 28.7 % (41.0-53.0); Hemoglobin 9.8 g/dL (13.5-16.0); Immature Granulocytes % (Auto) 1 % (0-0); Immature Granulocytes Auto 0.17 Thou/mm3 (0.00-0.00); Lymphocytes # (Auto) 0.8 Thou/mm3 (1.0-4.8); Lymphocytes % (Auto) 4 % (10-50); Mean Corpuscular HGB Conc 34.1 g/dl (31.0-37.0); Mean Corpuscular Hemoglobin 29.9 pg (25.0-35.0); Mean Corpuscular Volume 88 fL (80-100); Monocytes % (Auto) 6 % (0-12); Neutrophils # (Auto) 15.4 Thou/mm3 (1.8-7.7); Neutrophils % (Auto) 89 % (37-80); Nucleated Red Blood Cell % 0 /100 WBC (0); Platelet Count 160 Thou/mm3 (140-440); Red Blood Count 3.28 Miln/mm3 (4.50-5.90); White Blood Count 17.4 Thou/mm3 (3.8-10.6)
[2024-05-23 07:20] LABS: Alanine Aminotransferase 21 U/L (10-49); Albumin, Serum 4.1 gm/dL (3.5-5.0); Albumin/Globulin Ratio 1.7 (1.2-2.2); Alkaline Phosphatase 122 U/L (46-116); Anion Gap 12 (7-16); Aspartate Amino Transferase 45 U/L (0-34); BUN/Creatinine Ratio 20 Ratio (12-20); Blood Urea Nitrogen 28 mg/dL (9-23); Calcium 9.7 mg/dL (8.3-10.6); Calcium (Corrected) 9.7 mg/dL (8.5-10.1); Carbon Dioxide 19.1 mMol/L (20.0-31.0); Chloride 114 mMol/L (98-107); Creatinine (Component) 1.4 mg/dL (0.6-1.3); Estimated Creatinine Clearance 91.9 mL/min (>60); Globulin 2.4 gm/dL (2.3-3.5); Glucose 142 mg/dL (74-106); Osmolality,Calculated 296 (275-295); Potassium 3.3 mMol/L (3.4-5.1); Sodium 145 mMol/L (136-145); Total Protein 6.5 gm/dL (5.7-8.2); eGFR > 60 See Note
[2024-05-23 07:48] LABS: Bilirubin,Total 24.4 mg/dL (0.3-1.2)
[2024-05-23] MEDS: ALBUMIN HUMAN 25% IVPB 25 GM/100 ML BTL IV (08:08)
[2024-05-23] MEDS: PANTOPRAZOLE INJ 40 MG VIAL IV (08:08)
[2024-05-23] MEDS: CITRIC ACID/SODIUM CITR 15 ML UDC (BICITRA) 30 ML PO (08:09)
[2024-05-23] MEDS: predniSONE 20 MG TABLET 40 MG PO (08:09)
[2024-05-23] MEDS: CHOLESTYRAMINE/SUCROSE 1 PKT EA PO (08:09)
[2024-05-23] MEDS: TRIAMCINOLONE ACET OINT 0.5% 15 GM TUBE TOP (08:10)
--- NOTE | 2024-05-23 08:49 | PC.NURSE ---
[facility]24 from 0100 to 0700.
--- NOTE | 2024-05-23 09:53 | ESPR_ITS ---
Documentation for date of: 05/23/24 Subjective Subjective Interval history: Bernard Dee is a 28-year-old male with a past medical history of cirrhosis secondary to alcohol use who presented to the ED on 05/16 after noticing increased yellowing of his skin and eyes as well as bright red blood per rectum for the last few days. Mother at bedside who helped provide additional history, stating that she has noticed him feeling more sleepy than usual but does not report any confusion. Also denies hematemesis, hemoptysis but does have bleeding from gums. Per mother, last drink was in February 2024. She also states that family has been a significant effort to try and keep patient as healthy as possible, including diet and adherence to medications. Patient has also had a dry cough, but denies shortness of breath, fever, sick contacts, or recent travel. Of note, patient was recently discharged March 2024 for management of hyponatremia and also underwent endoscopy that showed esophagitis and colonoscopy showed perianal hemorrhoids. At that time, t bili on admission was 22.9 and down trended throughout hospital course and was transfused 1 unit PRBC for hemoglobin 6.7. Admitted for management of sepsis secondary to community acquired pneumonia and GI bleed. Nephrology consulted for possible hepatorenal syndrome and hypokalemia. 05/17: Patient seen and examined on medical floor with mother and friend at bedside. Patient is status post paracentesis with removal of 6.5 L of fluid and tolerated well. He is A&Ox3 but does fall asleep during conversation. Answered mother's questions regarding patient's clinical condition. On admission, K 2.7 and has steadily increased to 3.3 with K supplementation and bumex. Also on albumin, midodrine, and octreotide for hepatorenal syndrome and will monitor kidney function. 05/18: Patient seen and examined at bedside with mother present. Appears more energetic today compared to yesterday, A&Ox3. Labs and orders reviewed. Hemoglobin improved after transfusion 1 unit pRBC, Dr. Moss consulted and aware of case. Currently on albumin, midodrine, and octreotide to evaluate for hepatorenal syndrome. Pending CT A/P to further evaluate elevated bilirubin. Per peritoneal fluid analysis, no sign of SBP and SAAG > 1, thus portal hypertension likely etiology of patient's ascites. 05/19: Patient seen and examined at bedside with mother and brother present. Has good energy today, A&O x 3. Labs and orders reviewed. WBC downtrending to 11.2, Hgb stable at 7.6, and platelets within normal limits. K 3.0, repleted by primary team. BUN decreased from 44 to 37 and creatinine decreased from 3.6 to 2.9 while on albumin, midodrine, and octreotide. T. bili remains elevated at 34, and repeat CT A/P showed cirrhosis, hepatosplenomegaly, mild ascites, portal hypertension, left base pneumonia and contracted gallbladder. 05/22: Seen on medical floor with family at bedside. Patient more alert and awake. Itching is better. Blood pressure 123/71, heart rate 71. WBC 20.8, hemoglobin 9.9, platelets 167. INR 1.8. Sodium 144, potassium 3.1, HCO3 16.5, BUN 25, creatinine 1.5, phosphorus 2.2, total bilirubin 26.25, AST 45, ALT 21, alk phos 128. Abdominal US showed minimal ascitic fluid. Continue with midodrine. Creatinine and LFTs slowly improving. Gave Bicitra for metabolic acidosis. Ammonia level was 30. Plan of care discussed with primary team. Patient can be discharged tomorrow on Aldactone, lactulose, bicarbonate tablets. Will follow him in my office in 1 to 2 weeks. 05/23: Seen and examined on medical floor with family at bedside. Endorses more fatigue but was able to walk around the unit for the first time since being admitted and encouraged continuing to do so. Hemoglobin stable at 9.8, with Dr. Moss following with no intervention indicated. Renal function continues to improve on albumin and midodrine, with Cr from 1.5 to 1.4. T bili also continues to downtrend. Exam Vital Signs Temp Pulse Resp BP Pulse Ox O2 Del Method O2 Flow Rate 97.4 F 68 16 128/79 94 L Room Air 3 05/23/24 08:00 05/23/24 08:00 05/23/24 08:00 05/23/24 08:00 05/23/24 08:00 05/23/24 08:00 05/18/24 20:30 Narrative Exam General: AOx3, no acute distress, mother at bedside HEENT: scleral icterus, NC/AT, mucous membranes moist Cardiovascular: bradycardic, regular rhythm, S1/S2 present, no murmurs appreciated Pulmonary: clear to auscultation bilaterally, no rales/rhonchi/wheezes Abdominal: s/p paracentesis, distended, soft, non-tender Musculoskeletal: 1+ bilateral pitting edema, normal ROM Skin: jaundice, warm and dry, intact, no rashes Objective Labs 05/23/24 05:34 05/23/24 05:34 Labs: Laboratory Results - last 24 hr 05/20/24 05/23/24 08:55 05:34 WBC 17.4 H RBC 3.28 L Hgb 9.8 L Hct 28.7 L MCV 88 MCH 29.9 MCHC 34.1 RDW Std Deviation 69.0 H Plt Count 160 Neut % (Auto) 89 H Lymph % (Auto) 4 L [place] % (Auto) 6 Eos % (Auto) 0 Baso % (Auto) 0 Neut # (Auto) 15.4 H Lymph # (Auto) 0.8 L [place] # (Auto) 1.0 H Eos # (Auto) 0.0 Baso # (Auto) 0.0 Immature Gran # (Auto) 0.17 H Absolute Nucleated RBC 0.00 Immature Gran % 1 H Nucleated RBC % 0 Sodium 145 Potassium 3.3 L Chloride 114 H Carbon Dioxide 19.1 L Anion Gap 12 BUN 28 H Creatinine 1.4 H Estim Creat Clear Calc 91.9 eGFR > 60 BUN/Creatinine Ratio 20 Glucose 142 H Calculated Osmolality 296 H Calcium 9.7 Corrected Calcium 9.7 Total Bilirubin 24.4 H* D AST 45 H ALT 21 Alkaline Phosphatase 122 H Total Protein 6.5 Albumin 4.1 Globulin 2.4 Albumin/Globulin Ratio 1.7 Blood Type A Negative Antibody Screen NEGATIVE Crossmatch See Detail Blood Bank Wristband ID Yes Blood Bank Comment PLATP Ready Quality Measures Quality Measures none Assessment & Plan Assessment Current Active Medications: Generic Name Dose Route Start Last Admin Trade Name Freq PRN Reason Stop Dose Admin Budesonide 0.25 mg 05/17/24 07:00 05/22/24 19:34 Budesonide Rt 0.25 Mg/2 Ml Nebu INH 06/16/24 06:59 0.25 mg BIDRT LISA Administration Cholestyramine Resin 1 pkt 05/17/24 09:00 05/23/24 08:09 Cholestyramine/Sucrose 1 Pkt Ea PO 06/16/24 08:59 1 pkt QDAY LISA Administration Citric Acid/Sodium Citrate 30 ml 05/20/24 10:00 05/23/24 08:09 Citric Acid/Sodium Citr 15 Ml Udc (Bicitra) PO 06/19/24 09:59 30 ml BID LISA Administration Diphenhydramine HCl 25 mg 05/19/24 23:53 05/20/24 06:06 Diphenhydramine 25 Mg Capsule PO 06/18/24 23:52 25 mg Q6HR PRN Administration ITCHING Albumin Human 25 gm in 100 mls @ 100 mls/hr 05/20/24 21:00 05/23/24 08:08 Albuminar-25 Ivpb IV 05/23/24 20:59 100 mls/hr BID LISA Administration Piperacillin/Tazobactam/Dextrose 3.375 gm in 50 mls @ 12.5 mls/hr 05/21/24 06:00 05/22/24 21:55 Zosyn IV 05/28/24 05:59 12.5 mls/hr Q8HR LISA Administration Potassium Phosphate 15 mmol/ 250 mls @ 62.5 mls/hr 05/23/24 08:00 Sodium Chloride IV 05/23/24 11:59 X1 ONE Ipratropium [place] 0.5 mg 05/17/24 07:00 05/23/24 06:32 Ipratropium Rt 0.5 Mg/ 2.5 Ml Nebu INH 06/16/24 06:59 0.5 mg Q6HRRT LISA Administration Lactulose 20 gm 05/17/24 09:00 05/22/24 21:50 Lactulose Syrup 20 Gm/30 Ml Udc PO 06/16/24 08:59 20 gm TID LISA Administration Protocol Midodrine 10 mg 05/17/24 14:00 05/22/24 21:50 Midodrine 5 Mg Tablet PO 06/16/24 13:59 10 mg TID LISA Administration Ondansetron HCl 4 mg 05/17/24 02:08 Ondansetron Inj 2 Mg/Ml Inj 2 Ml IV 06/16/24 02:07 Q6H PRN NAUSEA OR VOMITING Protocol Pantoprazole Sodium 40 mg 05/17/24 09:00 05/23/24 08:08 Pantoprazole Inj 40 Mg Vial IV 06/16/24 08:59 40 mg BID LISA Administration Prednisone 40 mg 05/18/24 12:15 05/23/24 08:09 Prednisone 20 Mg Tablet PO 05/25/24 12:01 40 mg QDAY LISA Administration Triamcinolone Acetonide 0 gm 05/17/24 21:00 05/23/24 08:10 Triamcinolone Acet Oint 0.5% 15 Gm Tube TOP 06/16/24 20:59 1 applicatio BID LISA Administration Zolpidem Tartrate 5 mg 05/22/24 14:17 Zolpidem 5 Mg Tablet PO 06/21/24 14:16 HS PRN INSOMNIA Plan Bernard Dee is a 28-year-old male with a past medical history of cirrhosis secondary to alcohol use who is admitted for management of sepsis secondary to community acquired pneumonia and GI bleed. Nephrology consulted for possible hepatorenal syndrome and hypokalemia. #Acute kidney injury #? Hepatorenal syndrome Present with cirrhosis presents with decreased kidney function. Creatinine noted to be 1.3 upon discharge on 03/2024 and readmitted with creatinine of 3.3. With midodrine, albumin, octreotide renal function started to downtrend, consistent with prerenal azotemia. Due to persistent hypotension, recommended to continue with albumin and midodrine. Continue with lactulose for hepatic encephalopathy and liver cirrhosis. Given patient's improvement, can be discharged and will require follow-up with transplant center as outpatient. ? Discharge on aldactone, lactulose, and bicarbonate tablets ? Follow-up with Dr. Van within 1-2 weeks of discharge #Hypokalemia K 2.7 on admission and has steadily increased with potassium supplementation. ? Continue current management #Metabolic acidosis ? Continue citric acid/sodium citrate #Sepsis secondary to #Community acquired pneumonia #Cirrhosis #Ascites #Hypoalbuminemia #Hyperammonemia #? GI bleed #Hyperbilirubinemia ? Continue management per primary team ----- Plan discussed with attending physician Dr. Rehan Melendez MD PGY-1 Internal Medicine Attending Provider Attestation/Addendum Patient seen and examined with resident physician Dr. Falcon. Note reviewed, agree with findings and recommendations. feeling better. dc today
[2024-05-23] MEDS: POTASSIUM PHOS 15 MMOL in SODIUM CHLORIDE 0.9% 250 ML 245 ML 62.5 MMOL IV (10:20)
[2024-05-23] MEDS: POTASSIUM CHLORIDE 20 mEq TABCR PO (10:21)
[2024-05-23 10:33] LABS: Phosphorous 2.5 mg/dL (2.4-5.1)
--- NOTE | 2024-05-23 11:29 | PC.NURSE ---
Received a call from the telemonitor that pt's heart rate down to the 40's. Went in to check on pt. Pt sleeping. HR 48. Woke pt up and talked with pt. HR went up to 62. No complaints of Shortness of breath, or any other symptoms. Pt went back to sleep and HR went back down to 40's. Informed Doctor Anand. Pt not symptomatic at this time. will continue to monitor.
--- NOTE | 2024-05-23 11:46 | ESDS_ITS ---
Planned Discharge Date 05/23/24 DS: Providers Provider Date of admission: 05/17/24 02:07 Primary care physician: Physician No Primary/Family Admitting Provider: Mauricio Richards DO Attending Provider on Admission: Levon Lozaon MD Consults: 05/17/24 02:34 Consult to Gastroenterology Routine Comment: Consulting Provider: Cynthia Moss 05/17/24 05:35 Referral Wound Care Routine Comment: 05/17/24 10:48 Consult to Nephrology Routine Comment: Consulting Provider: Stefano Van 05/17/24 12:25 Health Equity Referral - Utilities Routine Comment: Positive screening for utility assistance needs. 05/17/24 15:18 Referral Nutritional Services Routine Comment: Instructions: Wounds 05/19/24 15:05 Referral - Medical Policy Specialist Urgent Service Needed for Transfer: transplant hepatology Addl Comments:: [facility] is the one who can possibly accept this transfer as per Dr. Moss 05/21/24 14:56 Consult to General Surgery Routine Comment: Consulting Provider: Loli Uribe Attending Provider on DC: Levon Lozano MD Discharging Provider: Levon Lozano MD DS: Diagnosis Problem List Completed Was Problem List Reviewed/Reconciled?: Yes Hospital Course Hospital Course Hospital course: 28-year-old male with past medical history of alcohol abuse disorder, alcoholic cirrhosis, and prediabetes was admitted to the hospital on 05/17/2024 due to d ecompensated alcoholic cirrhosis with ascites and coagulopathy, GI bleed, and community-acquired pneumonia. Patient came into the ED with complaints of weakness and bloody stools. Initially was afebrile and hypertensive. Initial labs were relevant for leukocytosis (17.1), anemia (hemoglobin 7.2) hyponatremia (130), hypokalemia (3.1), metabolic acidosis (bicarb 15.7), AKIL (creatinine 3.4), hyperbilirubinemia (three 1.5), elevated LDH 273., Hypoalbuminemia (2.8), and elevated procalcitonin (1.15). Initial imaging included chest x-ray which showed bilateral pneumonia, EKG showed sinus rhythm, and patient underwent paracentesis with patient had 6.5 L of fluid drained. Nephrology and GI were consulted given patient's AKIL and decompensated liver cirrhosis. Nephrology stated the patient could be having hepatorenal syndrome and recommended to start patient on midodrine as well as albumin. GI specialist recommended to start patient on octreotide drip and lactulose and also performed a flexible sigmoidoscopy with successful banding of internal hemorrhoid. Throughout patient's hospital stay his hemoglobin remained stable around 7.6, but patient was still having some bleeding per rectum and his hemoglobin dropped again to below 7. Patient got a total of 2 PRBCs transfused during his hospital stay and after the second was transfused later on during his hospital stay his hemoglobin remained stable and he had significantly decreased and bleeding per rectum. His hospital stay also his kidney function significantly improved and at the time of discharge was progressing back to baseline. Patient is to bilirubin up trended to peak at 35 before it decreased during his hospital stay. Given patient's age and MELD-Na score initiation of transfer was done for possible liver transplant evaluation, but facility to which patient could have been transferred stated that the patient did not meet criteria for liver transplant at this time given that he had alcohol use as of recently and that he has not been for 6 months alcohol free. Patient's blood cultures did grow MSSA and he was placed on antibiotic for this. Patient also was seen by general surgeon given that he continues to have some rectal bleeding, but general surgeon stated that there was no need for surgery at this time as his rectal bleed was significantly improving at the time of their assessment. At the time of discharge patient was stable enough to be discharged home. Discharge plan: Please follow-up with primary care physician in 1 week after discharge Please follow-up with quarantine officer in 1 to 2 weeks after discharge Please follow-up with your primary care physician about referring you to a pool table mechanic in order to continue monitoring your cirrhosis and discussing possibility of liver transplant evaluation. Recommend to abstain entirely from alcohol as in order to be a candidate for liver transplant you are required to be a minimum of 6 months alcohol free You have been started on spironolactone 50 milligrams daily and lactulose 20 g daily You have been started on prednisone: TAPER: 40 mg (2tabs) daily for 22 Days; 30 mg (1.5 tabs) daily for 7 Days; 20 mg (1tab) daily for 7 Days; 10 mg (0.5 tabs) daily for 7 Days you have been started on iron every other day and vitamin B complex Please come back to the ER if symptoms persist or worsen such as if you have increased bleeding per rectum or altered mental status. Problem list: #Decompensated alcoholic cirrhosis #Ascites #Coagulopathy #Hyperbilirubinemia #Alcohol abuse disorder #AKIL #Hypoalbuminemia #Acute blood loss anemia #Hemorrhoid s/p ligation #MSSA bacteremia #Community-acquired pneumonia #Leukocytosis #Electrolyte imbalance #Hypokalemia #Hypokalemia #Hypophosphatemia #High anion gap metabolic acidosis Case disclosed with Attending Dr. Lozano and My senior Dr. Ag PGY2. Abad Gomez PGY1 Senior Resident Attestation: I discussed with and supervised the internet marketing strategist physician involved in the care of this patient. I personally saw and examined the patient and discussed the assessment and plan with the entire medicine team, including my attending. I agree with the discharge plan as documented above. Karan Ag MD PGY2 Internal Medicine Status at Discharge Overall status at discharge: patient is progressing back to baseline Time Spent with Patient Time attestation: Total time spent providing and/or coordinating discharge services: >35 min Exam Vital Signs Temp Pulse Resp BP Pulse Ox O2 Del Method O2 Flow Rate 97.4 F 68 16 128/79 94 L Room Air 3 05/23/24 08:00 05/23/24 08:00 05/23/24 08:00 05/23/24 08:00 05/23/24 08:00 05/23/24 08:00 05/18/24 20:30 Narrative Exam General: A/O x3, ill appearing Eyes: PERRL, EOMI. Icteric, vision grossly intact. Ears: No ear pain, no ear discharge, Hearing grossly intact. Nose: No nasal discharge. Mouth/Throat: Moist mucous membranes, no redness, no lesions. Neck: Neck supple, non-tender, no cervical lymphadenopathy. Lungs: Clear STEPHANIE to auscultation and percussion, No accessory muscle use. Cardio: Normal S1/S2, regular rhythm, no murmurs, no JVD Abdomen: Distended, but soft, non-tender, no palpable masses, peristalsis present, no guarding or rebound. Extremities: Symmetrical, no significant deformities, 1+ peripheral edema , non-tender, peripheral pulses presents. Skin: No rashes, no lesions, warm to touch. multiple tattoos throughout. Jaundice throughout Neuro: No focal neurological deficits. Motor and sensory intact Discharge Plan Plan Patient Disposition: HOME (Self Care) Care Plan Goals: Please follow-up with primary care physician in 1 week after discharge Please follow-up with quarantine officer in 1 to 2 weeks after discharge Please follow-up with your primary care physician about referring you to a pool table mechanic in order to continue monitoring your cirrhosis and discussing possibility of liver transplant evaluation. Recommend to abstain entirely from alcohol as in order to be a candidate for liver transplant you are required to be a minimum of 6 months alcohol free You have been started on spironolactone 50 milligrams daily and lactulose 20 g daily Please take amoxicillin/Clavulunate 875/125mg twice daily for 10 days You have been started on prednisone: TAPER: 40 mg (2tabs) daily for 22 Days; 30 mg (1.5 tabs) daily for 7 Days; 20 mg (1tab) daily for 7 Days; 10 mg (0.5 tabs) daily for 7 Days you have been started on iron every other day and vitamin B complex Please come back to the ER if symptoms persist or worsen such as if you have increased bleeding per rectum or altered mental status. Prescriptions/Referrals Prescriptions/Med Rec: New spironolactone 50 mg tablet 50 mg PO QDAY 30 Days Qty: 30 2RF prednisone 20 mg Tablet 20 mg PO QDAY Qty: 75 0RF Taper: Prednisone Taper 40 mg DAILY for 22 Days and 0 Hour 30 mg DAILY for 7 Days and 0 Hour 20 mg DAILY for 7 Days and 0 Hour 10 mg DAILY for 7 Days and 0 Hour Rx Instructions: TAPER: 40 mg (2tabs) daily for 22 Days; 30 mg (1.5 tabs) daily for 7 Days; 20 mg (1tab) daily for 7 Days; 10 mg (0.5 tabs) daily for 7 Days amoxicillin-pot clavulanate 875-125 mg tablet 1 tab PO BID Qty: 20 0RF Continued furosemide 20 mg tablet 20 mg PO QDAY PRN (Reason: edema) Qty: 30 0RF ferrous sulfate 220 mg (44 mg iron)/5 mL elixir 220 mg PO Q OTHER DAY 60 Days Qty: 150 0RF B-complex with vitamin C Tablet 1 tab PO QDAY Changed lactulose 10 gram/15 mL solution 20 g PO QDAY 30 Days Qty: 473 2RF Referrals: No Primary/Family,Physician [Primary Care Provider] - Patient/Caregiver Discharge Instructions Other Discharge Activity Instructions:: Please follow-up with primary care physician in 1 week after discharge Please follow-up with quarantine officer in 1 to 2 weeks after discharge Please follow-up with your primary care physician about referring you to a pool table mechanic in order to continue monitoring your cirrhosis and discussing possibility of liver transplant evaluation. Recommend to abstain entirely from alcohol as in order to be a candidate for liver transplant you are required to be a minimum of 6 months alcohol free You have been started on spironolactone 50 milligrams daily and lactulose 20 g daily You have been started on prednisone: TAPER: 40 mg (2tabs) daily for 22 Days; 30 mg (1.5 tabs) daily for 7 Days; 20 mg (1tab) daily for 7 Days; 10 mg (0.5 tabs) daily for 7 Days you have been started on iron every other day and vitamin B complex Please come back to the ER if symptoms persist or worsen such as if you have increased bleeding per rectum or altered mental status. Education Materials: Paracentesis Dc, Alcoholism Resources, Alcohol Addiction, ED Cirrhosis, ED Alcohol Abuse Print Language: Bangladeshi Stand Alone Forms: Daphnie Award Info., Patient Portal Info Letter Discharge Order Discharge Orders: Discharge (Routine); Ordered 05/23/24 Ordered By: Karan Ag Quality Discharge Quality Measures VTE prophylaxis Attestestation Attestation I reviewed labs, imaging, EKG, home medications and prior available records. Face to face evaluation was performed by me. I have personally examined the maya ent and discussed assessment and plan with the IM team. I reviewed the resident note and agree with the plan with exceptions as below. Alcoholic liver cirrhosis with ascites Alcoholic hepatitis Acute anemia MSSA bacteremia Possible GI bleed Elevated INR Sinus bradycardia Consult RI for paracentesis: Insufficient fluids. Will discharge on spironolactone p.o. Will discharge on p.o. Augmentin Follow-up repeat blood culture: Negative Not a candidate for liver transplant at this time as he needs to continue alcohol abstinence for at least 4 more months. Outpatient follow-up with hepatology Monitor H&H as outpatient Follow-up PT/INR as outpatient Maddrey score is high: Continue corticosteroids taper as per instructions Rectal bleeding improved. Continue to monitor H&H Bradycardia resolved. Finished octreotide. Time spent is 40 minutes. More than 50% of the time was spent on patient education and coordination of care.
--- NOTE | 2024-05-23 12:19 | ESPR_ITS ---
Documentation for date of: 05/23/24 Subjective Subjective Interval history: Patient evaluated okay to discharge patient home to be followed by the PCP Exam Vital Signs Temp Pulse Resp BP Pulse Ox O2 Del Method O2 Flow Rate 97.4 F 68 16 128/79 94 L Room Air 3 05/23/24 08:00 05/23/24 08:00 05/23/24 08:00 05/23/24 08:00 05/23/24 08:00 05/23/24 08:00 05/18/24 20:30 Objective Labs 05/23/24 05:34 05/23/24 05:34 Labs: Laboratory Results - last 24 hr 05/20/24 05/23/24 08:55 05:34 WBC 17.4 H RBC 3.28 L Hgb 9.8 L Hct 28.7 L MCV 88 MCH 29.9 MCHC 34.1 RDW Std Deviation 69.0 H Plt Count 160 Neut % (Auto) 89 H Lymph % (Auto) 4 L [place] % (Auto) 6 Eos % (Auto) 0 Baso % (Auto) 0 Neut # (Auto) 15.4 H Lymph # (Auto) 0.8 L [place] # (Auto) 1.0 H Eos # (Auto) 0.0 Baso # (Auto) 0.0 Immature Gran # (Auto) 0.17 H Absolute Nucleated RBC 0.00 Immature Gran % 1 H Nucleated RBC % 0 Sodium 145 Potassium 3.3 L Chloride 114 H Carbon Dioxide 19.1 L Anion Gap 12 BUN 28 H Creatinine 1.4 H Estim Creat Clear Calc 91.9 eGFR > 60 BUN/Creatinine Ratio 20 Glucose 142 H Calculated Osmolality 296 H Calcium 9.7 Corrected Calcium 9.7 Phosphorus 2.5 Total Bilirubin 24.4 H* D AST 45 H ALT 21 Alkaline Phosphatase 122 H Total Protein 6.5 Albumin 4.1 Globulin 2.4 Albumin/Globulin Ratio 1.7 Blood Type A Negative Antibody Screen NEGATIVE Crossmatch See Detail Blood Bank Wristband ID Yes Blood Bank Comment PLATP Ready Impressions Impression: # GI bleed from the anorectal junction requiring band ligation doing well # End-stage liver disease secondary to alcohol advised complete abstain at Assessment & Plan A&P Narrative # Rectal bleeding most likely due to internal hemorrhoids in the setting of advanced portal hypertension and probably anorectal junction bleed Plan Flexible sigmoidoscopy tomorrow with banding of the internal hemorrhoids Informed consent obtained Will give tapwater enemas or Fleet enemas prior to the procedure No need for GoLytely prep Other medical problems include # Advanced portal hypertension due to underlying cirrhotic liver disease due to alcohol causing intractable ascites requiring large-volume paracentesis 2 g sodium diet Aggressive use of diuretics 1 L p.o. fluid restriction 24 hours Will follow the patient Thank you once again for the opportunity to participate in care of this patient Time Spent With Patient Time: Total time spent is greater than 50% in coordination of care (as documented) at patient's floor/unit and/or counseling patient:
--- NOTE | 2024-05-23 14:28 | EKG_ITS ---
[facility] Test Date: 2024-05-23 Pat Name: MONY WAN Department: Room: S362A Gender: Male Research Advisor: RTSTUDENTCMH : 1995 Requested By: Kaarn Ag Order Number: [id number] Reading MD: Karan Ag Measurements Intervals [place] Rate: 67 P: AK: QRS: -16 QRSD: 89 T: 11 QT: 445 QTc: 470 Interpretive Statements ATRIAL FIBRILLATION VOLTAGE CRITERIA FOR LVH [MEETS CRITERIA IN ONE OF: R(aVL), S(V1), R(V5), R(V5/V6)+S(V1)] MARKED ST DEPRESSION, CONSIDER SUBENDOCARDIAL INJURY [0.2+ mV ST DEPRESSION] Compared to ECG 05/16/2024 23:24:30 Left ventricular hypertrophy now present ST (T wave) deviation now present Sinus rhythm no longer present Intraventricular conduction delay no longer present T-wave abnormality no longer present /store/S0/[id number].pdf
--- NOTE | 2024-05-23 14:45 | PC.NURSE ---
Pt discharge orders at 11:56. Went in to discharge pt at 14:40. Pt and family wanted to speak to doctor one last time about discharge and pt's heartrate. Called MD and asked to come speak with pt. MD spoke with Pt. Told patient they were clear to leave. Discharge papers signed. Pt was leaving the room when EKG came up to do procedure. Called MD to ask if they ordered an EKG on patient even thought pt discharged. MD said complete the EKG before pt leaves. EKG performed. Pt asked to stay until EKG cleaered.
== END 2024-05-23 16:03 | disposition home or self-care (01) | DRG 952 ==
LOC: SERX 05-17 02:34 → SERHOLD 05-17 03:44 → S3NX 05-17 11:13
PROVIDERS: Internal Medicine; Specialist; Student in an Organized Health Care Education/Training Program; Admitting Provider Student in an Organized Health Care Education/Training Program; Emergency Provider Emergency Medicine; Visit Provider Student in an Organized Health Care Education/Training Program
PROC: 0DJD8ZZ Inspection of Lower Intestinal Tract, Via Natural or Artificial Opening Endoscopic (ICD-10-PCS; CPT 45378; principal; 2024-05-18 19:30)
DX: K70.31 Alcoholic cirrhosis of liver with ascites (principal); R73.03 Prediabetes; K70.40 Alcoholic hepatic failure without coma; J18.9 Pneumonia, unspecified organism; D68.4 Acquired coagulation factor deficiency; I95.9 Hypotension, unspecified; E87.6 Hypokalemia; K76.7 Hepatorenal syndrome; E87.20 Acidosis, unspecified; N17.9 Acute kidney failure, unspecified; K06.8 Other specified disorders of gingiva and edentulous alveolar ridge; K64.8 Other hemorrhoids; K76.6 Portal hypertension; E83.39 Other disorders of phosphorus metabolism; D62 Acute posthemorrhagic anemia; Z79.899 Other long term (current) drug therapy; L29.9 Pruritus, unspecified; R78.81 Bacteremia; K76.82 Hepatic encephalopathy; E88.09 Other disorders of plasma-protein metabolism, not elsewhere classified; E87.1 Hypo-osmolality and hyponatremia; F10.139 Alcohol abuse with withdrawal, unspecified; K70.11 Alcoholic hepatitis with ascites; B95.61 Methicillin susceptible Staphylococcus aureus infection as the cause of diseases classified elsewhere
CPT/HCPCS: 36415; 71045; 74176; 76700; 76705; 80053; 80069; 80074; 80307; 81001; 82042; 82140; 82150; 82945; 83605; 83615; 83690; 83735; 83880; 84100; 84145; 84157; 84300; 84484; 85014; 85018; 85025; 85610; 85730; 86850; 86900; 86901; 86923; 86927; 86965; 87040; 87077; 87081; 87186; 87205; 87400; 87502; 87811; 89051; 89220; 93005; 93225; 94640; 96365; 96366; 96367; 96374; 99291; A4649; C1729; J0456; J0689; J0696; J1200; J2060; J2250; J2354; J2470; J2543; J3010; J3480; J7050; J7512; P9016; P9035; P9047; P9060; Q0138; A9270

== ENCOUNTER 2024-05-24 00:47 | Emergency (ER) | payer MEDICAID, SELFPAY ==
[2024-05-24 00:58] VITALS: BP 131/86; PULSE 60; RESP 18; TEMP 36.7; O2SAT 99
--- NOTE | 2024-05-24 01:05 | EDRME_ITS ---
Rapid Medical Screening Exam [facility] Arrival date/time: 05/24/24 00:47 28M with history of alcoholic cirrhosis presents to ED with 2 hours of testicular swelling pain w/o pain or trauma. Patient denies dysuria and penile discharge. Chief Complaint: Urogenital-Male Vital signs: Vital Signs Temperature 98.1 F 05/24/24 00:58 Pulse Rate 60 05/24/24 00:58 Respiratory Rate 18 05/24/24 00:58 Blood Pressure 131/86 H 05/24/24 00:58 Pulse Oximetry (%) 99 05/24/24 00:58 Oxygen Delivery Method Room Air 05/24/24 00:58
--- NOTE | 2024-05-24 02:09 | PD.EDMALE ---
ED Male Genitalurinary RME/HPI General Chief complaint: Urogenital-Male Stated complaint: PRIVATE AREA SWOLLEN Time Seen by Provider: 05/24/24 02:06 Arrival date/time: 05/24/24 00:47 RME / HPI RME / HPI Narrative: 05/24/24 00:47 28M with history of alcoholic cirrhosis presents to ED with 2 hours of testicular swelling pain w/o pain or trauma. Patient denies dysuria and penile discharge. ------ Dr. Ku?s Main ED Evaluation: 28yo male with a history of alcohol abuse, cirrhosis presents to the ED for a chief complaint of penile swelling. Patient states he was discharged from this facility yesterday afternoon after being admitted for ascites 2/2 cirrhosis. He states when he got home ~1630, he noticed he had some penile swelling and was concerned, so he came in for evaluation. He denies any penile pain, discharge, dysuria or any other associated symptoms. No known allergies. Related Data Home Medications ?Medication ?Instructions ?Recorded ?Confirmed B-complex with vitamin C 1 tab PO QDAY 05/22/24 05/22/24 Previous Rx's ?Medication ?Instructions ?Recorded ferrous sulfate 220 mg (44 mg 220 mg (5 mL) PO Q OTHER DAY 2 04/04/24 iron)/5 mL oral elixir months #150 mL furosemide 20 mg tablet 20 mg PO QDAY PRN edema #30 tabs 04/21/24 amoxicillin 875 mg-potassium 1 tab PO BID #20 tabs 05/23/24 clavulanate 125 mg tablet lactulose 10 gram/15 mL oral 20 g (30 mL) PO QDAY 30 days #473 05/23/24 solution mL prednisone 20 mg tablet 20 mg PO QDAY #75 tabs 05/23/24 spironolactone 50 mg tablet 50 mg PO QDAY 30 days #30 tabs 05/23/24 Allergies Allergy/AdvReac Type Severity Reaction Status Date / Time No Known Allergies Allergy Verified 04/21/24 14:12 Review of Systems Review of Systems Systems Reviewed: All systems reviewed, normal except as documented Narrative Review of Systems: Gen: No fever, no chills, no weight loss EYES: No discharge, no visual changes, no pain HEENT: No ear pain, no congestion, no sore throat PULM: No shortness of breath, no cough, no congestion CV: No chest pain, no dyspnea on exertion, no palpitations GI: No nausea, no vomiting, no diarrhea, no pain, no constipation : No frequency, no urgency, no dysuria, + penile swelling Musc/skel: No joint pain, no back pain Skin: No rash. Warm and dry. Psyc: No hallucinations, no depression Heme/Lymph: No easy bleeding or bruising tendencies Neuro: No weakness, no headache ED Exam Narrative Physical exam: GENERAL APPEARANCE: alert and oriented x 4, well-developed, well-nourished, no acute distress VITALS: All vitals were reviewed and the pulse ox is 99% on room air, which is normal according to my interpretation. HEENT: Normocephalic, atraumatic; pupils equal, round, reactive to light; EOMI; mucous membranes pink, moist; oropharynx clear NECK: Supple LUNGS: CTABL; no wheezes, no rales, no rhonchi HEART: Regular rate, regular rhythm; normal S1, S2; no murmurs ABDOMEN: non distended; normal BS; soft, no tenderness, no guarding, no rebound; no masses, no organomegaly, no hernia BACK: no CVA tenderness : Online User Experience Strategist present. Circumferential penile edema, no surrounding swelling. No scrotal erythema or swelling. No discharge or exudate. EXTREMITIES: atraumatic; no edema NEUROLOGIC: awake; alert and oriented x4; cranial nerves II-XII grossly intact; no focal sensory or motor deficits PSYCHIATRIC: appropriate mood and affect SKIN: warm, dry, normal color; no rashes Course Quality Measures none Orders Category Date Time Status US testicular Stat Exams 05/24/24 01:04 Stop Req Furosemide [Lasix] Med 05/24/24 02:24 Discontinued 40 mg PO X1 ONE Vital Signs Vital signs: Vital Signs Temperature 98.1 F 05/24/24 00:58 Pulse Rate 60 05/24/24 00:58 Respiratory Rate 18 05/24/24 00:58 Blood Pressure 131/86 H 05/24/24 00:58 Pulse Oximetry (%) 99 05/24/24 00:58 Oxygen Delivery Method Room Air 05/24/24 00:58 Urogenital - Male MDM Narrative MDM Narrative:: Scribe Attestation: 05/24/24 Zuri Puente am scribing for and in the presence of Dr. Ku. Patient data External records reviewed:: [facility] previous records (Per chart review, patient was discharged from this facility yesterday afternoon after being admitted for decompensated alcoholic cirrhosis with ascites and coagulopathy, GI bleed, and community-acquired pneumonia) Clinical information provided by:: patient Social determinants that could affect healthcare access:: alcohol use Patient has the following chronic illnesses:: cirrhosis How is presenting disease/condition affected by chronic disease/condition?: uneffected by Evaluation data The following diagnostics were reviewed and interpreted by me:: other (specify) (none) Lab and/or radiology exams considered but not ordered:: none Interpretation Summary: none Medications / Prescriptions Medications or Prescriptions considered but not ordered:: none Medication administrations:: Medication Administration History Discontinued Medications Furosemide (Furosemide 40 Mg Tablet) 40 mg PO X1 ONE Stop: 05/24/24 02:25 Last Admin: 05/24/24 02:31 Dose: 40 mg Documented By: KG see above, if any Consultations Consultation(s) initiated? (list below): No Diagnosis Urogenital Male Differential Diagnosis: other (phimosis, paraphimosis, germania's gangrene, testicular torsion) Most likely diagnosis given after review of the tests above:: see below Admission Indicated Admission indicated?: not indicated Admission Request Was there a request for admission?: No Disposition Plan Disposition Plan: Discharge Discharge Attestation Discharge Attestation: The patient and all family members were given an opportunity to ask questions and understood the discharge instructions. Discharge instructions specifically effects, indications for sooner follow up or return to the emergency department, and the expected course of current diagnosis. Patient condition: Stable Discharge Plan Plan Patient Disposition: HOME (Self Care) Disposition Comment: Stable for discharge Patient condition on transfer: Stable Prescriptions/Referrals Prescriptions/Med Rec: No Action furosemide 20 mg tablet 20 mg PO QDAY PRN (Reason: edema) Qty: 30 0RF ferrous sulfate 220 mg (44 mg iron)/5 mL elixir 220 mg PO Q OTHER DAY 60 Days Qty: 150 0RF B-complex with vitamin C Tablet 1 tab PO QDAY spironolactone 50 mg tablet 50 mg PO QDAY 30 Days Qty: 30 2RF lactulose 10 gram/15 mL solution 20 g PO QDAY 30 Days Qty: 473 2RF prednisone 20 mg Tablet 20 mg PO QDAY Qty: 75 0RF Taper: Prednisone Taper 40 mg DAILY for 22 Days and 0 Hour 30 mg DAILY for 7 Days and 0 Hour 20 mg DAILY for 7 Days and 0 Hour 10 mg DAILY for 7 Days and 0 Hour Rx Instructions: TAPER: 40 mg (2tabs) daily for 22 Days; 30 mg (1.5 tabs) daily for 7 Days; 20 mg (1tab) daily for 7 Days; 10 mg (0.5 tabs) daily for 7 Days amoxicillin-pot clavulanate 875-125 mg tablet 1 tab PO BID Qty: 20 0RF Referrals: Cynthia Moss MD [Physician] - In 1 week Problem List Clinical Impression: Edema of penis Patient/Caregiver Discharge Instructions Discharge Activity: activity as tolerated Education Materials: ED Cirrhosis Additional Instructions: Please keep your appointment with Dr. Moss tomorrow. You should follow-up with your primary care doctor also within the next several days. Please return to the emergency department if you have any worsening or any further medical problems Print Language: Irish Stand Alone Forms: Daphnie Award Info., Patient Portal Info Letter
[2024-05-24 02:31] VITALS: BP 131/86; PULSE 62
[2024-05-24] MEDS: Furosemide 40 MG TABLET PO (02:31)
== END 2024-05-24 02:35 | disposition home or self-care (01) ==
LOC: SERX 03:07
PROVIDERS: Emergency Provider Emergency Medicine
DX: N48.89 Other specified disorders of penis (principal)
CPT/HCPCS: 99282; A9270

== ENCOUNTER 2024-05-30 23:21 | Emergency (ER) | payer MEDICAID, SELFPAY ==
[2024-05-30 23:30] VITALS: BP 129/79; PULSE 65; RESP 19; TEMP 36.6; O2SAT 100
[2024-05-30 23:32] VITALS: BMI 33.0
--- NOTE | 2024-05-31 00:10 | PD.EDRME ---
Rapid Medical Screening Exam [facility] Arrival date/time: 05/30/24 23:21 28-year-old male past medical history of liver disease presents emergency department complaining of rectal bleeding, lower extremity swelling, and swelling to penis. Chief Complaint: Urogenital-Male Time Seen by Provider: 05/31/24 00:06 Vital signs: Vital Signs Temperature 97.8 F 05/30/24 23:30 Pulse Rate 65 05/30/24 23:30 Respiratory Rate 19 05/30/24 23:30 Blood Pressure 129/79 05/30/24 23:30 Pulse Oximetry (%) 100 05/30/24 23:30 Oxygen Delivery Method Room Air 05/30/24 23:30 Vital signs reviewed by provider: Yes
[2024-05-31 00:44] LABS: Basophils % (Auto) 0 % (0-2.5); Eosinophils % (Auto) 0 % (0-10); Hematocrit 30.3 % (41.0-53.0); Hemoglobin 10.2 g/dL (13.5-16.0); Immature Granulocytes % (Auto) 1 % (0-0); Immature Granulocytes Auto 0.09 Thou/mm3 (0.00-0.00); Lymphocytes # (Auto) 0.9 Thou/mm3 (1.0-4.8); Lymphocytes % (Auto) 6 % (10-50); Mean Corpuscular HGB Conc 33.7 g/dl (31.0-37.0); Mean Corpuscular Hemoglobin 30.8 pg (25.0-35.0); Mean Corpuscular Volume 92 fL (80-100); Monocytes # (Auto) 1.3 Thou/mm3 (0.0-0.8); Monocytes % (Auto) 8 % (0-12); Neutrophils # (Auto) 14.8 Thou/mm3 (1.8-7.7); Neutrophils % (Auto) 86 % (37-80); Nucleated Red Blood Cell % 0 /100 WBC (0); Platelet Count 172 Thou/mm3 (140-440); RDW Standard Deviation 87.6 fL (35.1-43.9); Red Blood Count 3.31 Miln/mm3 (4.50-5.90); White Blood Count 17.1 Thou/mm3 (3.8-10.6)
[2024-05-31 00:46] VITALS: BP 134/82; PULSE 92; RESP 17; O2SAT 100
[2024-05-31 00:47] LABS: Collection Type, Urine Clean Catch
--- NOTE | 2024-05-31 00:50 | PC.NURSE ---
PT REPORTS HE WAS DC'D A WEEK AGO FROM HERE FOR THE SAME THING, PT IS CURRENTLY IN WAITLIST FOR A LIVER TRANSPLANT. PT IS JAUNDICE UPON EVALUATION. PT HAS A COUGH AND SWELLING PN ABD AND GENITALS.
[2024-05-31 00:54] LABS: Bacteria,Urine Rare; Bilirubin,Urine 1+ (Negative); Blood,Urine Negative (Negative); Budding Yeast,Urine Present; Calcium Oxalate Crystals,Urine 3+; Clarity,Urine Turbid (Clear/Hazy); Color,Urine Drk-Yellow (Lt Yel-Yel); Glucose, Urine Negative (Negative); Ketones,Urine Negative (Negative); Leukocyte Esterase,Urine Positive (Negative); Nitrite,Urine Negative (Negative); Protein,Urine Trace (Neg - Trace); RBC,Urine 19 /hpf (0-3); Specific Gravity,Urine 1.022 (1.001-1.035); Squamous Epithelial Cell,Urine < 1 /hpf (0-5); WBC,Urine 6 /hpf (0-5)
[2024-05-31 00:57] LABS: Amphetamine/Methamp Scrn,U Negative (Negative); Barbiturate Screen,Urine Negative (Negative); Benzodiazepines Screen,Urine Negative (Negative); Benzoylecgonine Screen, Ur Negative (Negative); Fentanyl Screen,Urine Negative (Negative); Opiate Screen,Urine Negative (Negative); THC Screen,Urine Negative (Negative)
[2024-05-31 00:59] LABS: INR 1.5 (0.9-1.3); Partial Thromboplastin Time 24.9 Seconds (22.0-36.0); Prothrombin Time 15.6 Seconds (9.0-12.2)
[2024-05-31 01:01] LABS: B-Type Natriuretic Peptide 171 pg/mL (0-100)
[2024-05-31 01:04] LABS: Alanine Aminotransferase 115 U/L (10-49); Albumin, Serum 3.9 gm/dL (3.5-5.0); Albumin/Globulin Ratio 1.3 (1.2-2.2); Alkaline Phosphatase 206 U/L (46-116); Anion Gap 9 (7-16); Aspartate Amino Transferase 92 U/L (0-34); BUN/Creatinine Ratio 28 Ratio (12-20); Bilirubin,Total 13.8 mg/dL (0.3-1.2); Blood Urea Nitrogen 25 mg/dL (9-23); Calcium 9.5 mg/dL (8.3-10.6); Calcium (Corrected) 9.6 mg/dL (8.5-10.1); Carbon Dioxide 18.2 mMol/L (20.0-31.0); Chloride 113 mMol/L (98-107); Creatinine (Component) 0.9 mg/dL (0.6-1.3); Estimated Creatinine Clearance 146.5 mL/min (>60); Globulin 3.1 gm/dL (2.3-3.5); Glucose 126 mg/dL (74-106); Magnesium 1.7 mg/dL (1.6-2.6); Osmolality,Calculated 285 (275-295); Potassium 4.3 mMol/L (3.4-5.1); Sodium 140 mMol/L (136-145); Troponin I < 0.020 ng/mL (0.0-0.045); eGFR > 60 See Note
--- NOTE | 2024-05-31 01:43 | PD.EDMALE ---
ED Male Genitalurinary RME/HPI General Chief complaint: Urogenital-Male Stated complaint: Swelling to feet, blood in stool and abdomen Time Seen by Provider: 05/31/24 00:06 Arrival date/time: 05/30/24 23:21 Limitations: no limitations RME / HPI RME / HPI Narrative: 05/30/24 23:21 28-year-old male past medical history of liver disease presents emergency department complaining of rectal bleeding, lower extremity swelling, and swelling to penis. --------- Dr. Reveles's Main ED Evaluation: 28yo male with a history of alcohol abuse (last drink in February), cirrhosis presents to the ED for multiple complaints. Patient endorses having rectal bleeding, penile swelling, retaining fluid in my abdomen , and BLE swelling. Patient states he's been taking his Lasix. He denies any fever, chills, N/V or any other associated symptoms. No known allergies. Patient notes he has a follow-up appointment with Dr. Moss on Wednesday. Related Data Home Medications ?Medication ?Instructions ?Recorded ?Confirmed B-complex with vitamin C 1 tab PO QDAY 05/22/24 05/22/24 Previous Rx's ?Medication ?Instructions ?Recorded ferrous sulfate 220 mg (44 mg 220 mg (5 mL) PO Q OTHER DAY 2 04/04/24 iron)/5 mL oral elixir months #150 mL furosemide 20 mg tablet 20 mg PO QDAY PRN edema #30 tabs 04/21/24 amoxicillin 875 mg-potassium 1 tab PO BID #20 tabs 05/23/24 clavulanate 125 mg tablet prednisone 20 mg tablet 20 mg PO QDAY #75 tabs 05/23/24 spironolactone 50 mg tablet 50 mg PO QDAY 30 days #30 tabs 05/23/24 lactulose 20 gram/30 mL oral 20 g (30 mL) PO TID PRN To 05/25/24 solution maintain bowel movement 2-3 times a day #600 mL cholestyramine-aspartame 4 gram 4 g PO QDAY itching #231 grams 05/31/24 oral powder (Cholestyramine Light) Allergies Allergy/AdvReac Type Severity Reaction Status Date / Time No Known Allergies Allergy Verified 04/21/24 14:12 Review of Systems Review of Systems Systems Reviewed: All systems reviewed, normal except as documented ED Exam General Limitations: Present no limitations General appearance: Present alert, in no apparent distress and other (can lay flat without shortness of breath or acute distress; is talking in full sentences) Head Head exam: Present atraumatic Eye Eye exam: Present PERRL, EOMI and scleral icterus (slight) ENT ENT exam: Present normal exam, normal oropharynx, mucous membranes moist and other (no obvious gum bleeding) Neck Neck exam: Present normal inspection, full ROM and trachea midline Chest Chest inspection: Present normal inspection and symmetric chest wall rise Respiratory Respiratory exam: Present normal lung sounds bilaterally Cardiovascular Cardiovascular exam: Present regular rate, normal rhythm and normal heart sounds Abdominal Exam Abdominal exam: Present soft and other (large; no fluid wave) Extremities Exam Extremities exam: Present normal inspection, full ROM and other (no cellulitis); Absent pedal edema Back Exam Back exam: Present normal inspection and full ROM Neurological Exam Neurological exam: Present alert, oriented X3 and CN II-XII intact Psychiatric Psychiatric exam: Present normal affect and normal mood Skin Skin exam: Present warm, dry, intact, normal color and other (no petechiae) Course Course Course Narrative: Patient declined rectal exam. Quality Measures none Orders Category Date Time Status B-Type Natriuretic Peptide Stat Lab 05/31/24 00:14 Completed CBC Stat Lab 05/31/24 00:14 Completed Comprehensive Metabolic Panel Stat Lab 05/31/24 00:14 Completed Drug Screen,Urine Stat Lab 05/31/24 00:40 Completed Magnesium Stat Lab 05/31/24 00:14 Completed Partial Thromboplastin Time Stat Lab 05/31/24 00:14 Completed Prothrombin Time with INR Stat Lab 05/31/24 00:14 Completed Troponin I Stat Lab 05/31/24 00:14 Completed Urinalysis Stat Lab 05/31/24 00:40 Completed Spironolactone [Aldactone] Med 05/31/24 02:07 Discontinued 100 mg PO X1 ONE Vital Signs Vital signs: Vital Signs Temperature 97.8 F 05/30/24 23:30 Pulse Rate 65 05/30/24 23:30 Respiratory Rate 19 05/30/24 23:30 Blood Pressure 129/79 05/30/24 23:30 Pulse Oximetry (%) 100 05/30/24 23:30 Oxygen Delivery Method Room Air 05/30/24 23:30 Pulse ox is 100% on room air, which is normal according to my interpretation. Urogenital - Male Patient data External records reviewed:: [facility] previous records (Per chart review, patient was seen here on 05/24/24 for edema of the penis.) Clinical information provided by:: patient Social determinants that could affect healthcare access:: alcohol use (history of) Patient has the following chronic illnesses:: cirrhosis How is presenting disease/condition affected by chronic disease/condition?: exacerbated by Evaluation data The following diagnostics were reviewed and interpreted by me:: lab results Lab and/or radiology exams considered but not ordered:: none Interpretation Summary: Bedside COVID and Influenza are negative, WBC count is elevated at 17.1 (which is chronic), PT and INR is elevated (which is chronic), Total Bilirubin is 13.8 (which is improved compared to last ED visit), troponin is normal, according to my interpretation. Medications / Prescriptions Medications or Prescriptions considered but not ordered:: none Medication administrations:: Medication Administration History Discontinued Medications Spironolactone (Spironolactone 25 Mg Tablet) 100 mg PO X1 ONE Stop: 05/31/24 02:08 Last Admin: 05/31/24 02:47 Dose: 100 mg Documented By: ABHINAV see above Consultations Consultation(s) initiated? (list below): No Diagnosis Urogenital Male Differential Diagnosis: other (phimosis, testicular torsion, worsening cirrhosis, CHF, ascites) Most likely diagnosis given after review of the tests above:: see below Admission Indicated Admission indicated?: not indicated Admission Request Was there a request for admission?: No Disposition Plan Disposition Plan: Discharge Discharge Attestation Discharge Attestation: The patient and all family members were given an opportunity to ask questions and understood the discharge instructions. Discharge instructions specifically effects, indications for sooner follow up or return to the emergency department, and the expected course of current diagnosis. Patient condition: Stable Discharge Plan Plan Patient Disposition: HOME (Self Care) Patient condition on transfer: Stable Prescriptions/Referrals Prescriptions/Med Rec: New Cholestyramine Light 4 gram powder 4 g PO QDAY Qty: 231 0RF Rx Instructions: administer w/meal; avoid other meds within 1hr before or 4-6hr after dose No Action furosemide 20 mg tablet 20 mg PO QDAY PRN (Reason: edema) Qty: 30 0RF ferrous sulfate 220 mg (44 mg iron)/5 mL elixir 220 mg PO Q OTHER DAY 60 Days Qty: 150 0RF B-complex with vitamin C Tablet 1 tab PO QDAY spironolactone 50 mg tablet 50 mg PO QDAY 30 Days Qty: 30 2RF prednisone 20 mg Tablet 20 mg PO QDAY Qty: 75 0RF Taper: Prednisone Taper 40 mg DAILY for 22 Days and 0 Hour 30 mg DAILY for 7 Days and 0 Hour 20 mg DAILY for 7 Days and 0 Hour 10 mg DAILY for 7 Days and 0 Hour Rx Instructions: TAPER: 40 mg (2tabs) daily for 22 Days; 30 mg (1.5 tabs) daily for 7 Days; 20 mg (1tab) daily for 7 Days; 10 mg (0.5 tabs) daily for 7 Days amoxicillin-pot clavulanate 875-125 mg tablet 1 tab PO BID Qty: 20 0RF lactulose 20 gram/30 mL solution 20 g PO TID PRN (Reason: To maintain bowel movement 2-3 times a day) Qty: 600 2RF Referrals: No Primary/Family,Physician [Primary Care Provider] - In 1 week Problem List Clinical Impression: History of cirrhosis Patient/Caregiver Discharge Instructions Additional Instructions: Please follow up with Dr. Moss as scheduled for your appointment on Wednesday. Call Dr. Moss's office during 9 am-5 pm during the weekday if there are any concerns. Please return to the ED if you have any worsening notable bleeding. Keep up the good work abstaining from alcohol. Print Language: Kyrgyz Stand Alone Forms: Daphnie Award Info., Patient Portal Info Letter
[2024-05-31 02:47] VITALS: BP 143/75; PULSE 58
[2024-05-31] MEDS: SPIRONOLACTONE 25 MG TABLET 100 MG PO (02:47)
== END 2024-05-31 03:06 | disposition home or self-care (01) ==
PROVIDERS: Emergency Provider Emergency Medicine
DX: K74.60 Unspecified cirrhosis of liver (principal); K62.5 Hemorrhage of anus and rectum
CPT/HCPCS: 36415; 80053; 80307; 81001; 83735; 83880; 84484; 85025; 85610; 85730; 99283; A9270

== ENCOUNTER 2024-06-02 13:45 | Outpatient (AMB) | payer MEDICAID, SELFPAY ==
--- NOTE | 2024-06-02 14:04 | PD.RESCLINIC ---
Vital Signs 06/02/24 14:07 Height 1.75 m Height Method Stated Weight 103.532 kg Weight Measurement Method Standing Scale BMI 33.7 BP 125/77 Blood Pressure Source Automatic Cuff Blood Pressure Location Left Upper Arm Position Sitting Respiration 18 Pulse 71 Pulse Source Monitor Temp 97.9 F Temp Source Temporal Artery Scan Pulse Oximetry (%) 98 Oxygen Delivery Method Room Air Allergies/Meds Allergies & Medications Allergies No Known Allergies Allergy (Verified 06/02/24 14:11) Medication Reconciliation B-complex with vitamin C 1 tab PO QDAY 05/22/24 [History Confirmed 05/22/24] amoxicillin 875 mg-potassium clavulanate 125 mg tablet 1 tab PO BID #20 tabs 05/23/24 [Rx] prednisone 20 mg tablet 20 mg PO QDAY #75 tabs 05/23/24 [Rx] cholestyramine-aspartame 4 gram oral powder (Cholestyramine Light) 4 g PO QDAY itching #231 grams 06/02/24 [Rx Confirmed 06/05/24] furosemide 20 mg tablet 20 mg PO QDAY #30 tabs 06/02/24 [Rx Confirmed 06/05/24] lactulose 20 gram/30 mL oral solution 20 g (30 mL) PO TID PRN To maintain bowel movement 2-3 times a day #600 mL 06/02/24 [Rx Confirmed 06/05/24] spironolactone 50 mg tablet 50 mg PO QDAY 30 days #30 tabs 06/02/24 [Rx Confirmed 06/05/24] MA Intake Visit Data Collection New Patient or Established: Established Patient (seen at [facility] within 3 years) Seen by Clinical Staff ONLY (RN/MA): No Pain Present Currently: No Pain scale:: 0 Pain Scale Used: Irizarry-Manning/Numerical PCP or OBGYN visit in last 3 months: Yes Hx Now: No Do You Feel Safe at Home: Yes Authorities Contacted: N/A Smoking Status Smoking Status: Former smoker Immunization / Flu Flu Vaccine in the Last 12 Months: No Flu Vaccine Exclusion Criteria: No Exclusion Criteria Past Medical History Past Medical History NEUROLOGIC: Negative Neurological Disorders or Seizures CARDIAC: Negative Cardiac Disorders or Congestive Heart Failure RESPIRATORY: Negative Chronic Obstructive Pulmonary Disease (COPD) or Asthma GENITOURINARY: Negative Renal Disease ENDOCRINE: Negative Diabetes Mellitus Type 1 or Diabetes Mellitus Type 2 HEMATOLOGIC: Negative Sickle Cell Disease OTHER HISTORY: Positive Blood Transfusions; Negative Blood Transfusion Reaction, Anesthesia Reactions or Cancer Social History SMOKING STATUS: Smoking status: Former smoker ALCOHOL: Alcohol Intake: Former ALCOHOL FREQUENCY: Alcohol Intake Frequency: 3 or More Drinks per Day HOUSING: Housing: House LIVES WITH: Lives With: Family Patient Ana Metcalf Social History Living Situation History Housing: House Tobacco History Smoking Status: Former smoker Alcohol History Alcohol Intake: Former Alcohol Intake Frequency: 3 or More Drinks per Day Alcohol Intake Frequency Other:: 5- 24OZ DAILY Domestic Abuse History Do You Feel Safe at Home: Yes Review of Systems Report any current symptoms Only answer those that you have currently: General Complaints anorexia: Yes body ache(s): Yes daytime sleepiness: Yes difficulty sleeping: Yes fatigue: Yes Past Medical History Past Medical History Have you ever been diagnosed with any of the following: Neurological Problems Seizures: No Cardiology Problems Congestive Heart Failure: No Respiratory Problems Chronic Obstructive Pulmonary Disease (COPD): No Asthma: No Genital/Urinary Problems Renal Disease: No Endocrine Problems Diabetes Mellitus Type 1: No Diabetes Mellitus Type 2: No Blood Problems Sickle Cell Disease: No Other Problems Blood Transfusions: Yes Blood Transfusion Reaction: No Anesthesia Reactions: No Cancer: No History of Present Illness HPI Narrative A 28-year-old male with recent hospital admission for decompensated alcoholic cirrhosis and hepatorenal syndrome on 05/17/2024 and underwent 6.5 L paracentesis, treated for MSSA peritonitis presented to the clinic for regular follow-up visit. Patient is still complaining of bleeding spots while having bowel movement and also complaining of altered sleep cycle. Still reported that he is having abdominal distention but decreased from previous hospital admission. Stated that he is using lactulose and having 2-3 bowel movements per day and also stopped alcohol consumption since February. Review of Systems Review of Systems Narrative Review of Systems: Constitutional: No Weight Change, No Fever, No Chills, No Night Sweats, Fatigue, Malaise ENT/Mouth: No Hearing Changes, No Ear Pain, No Nasal Congestion, No Sinus Pain, No Hoarseness, No sore throat, No Rhinorrhea, No Swallowing Difficulty Eyes: No Eye Pain, No Swelling, No Redness, No Foreign Body, No Discharge, No Vision Changes Cardiovascular: No Chest Pain, No SOB, No PND, No Dyspnea on Exertion, No Orthopnea, Pedal Edema, No Palpitations Respiratory: No Cough, No Sputum, No Wheezing, No Dyspnea Gastrointestinal: No Nausea, No Vomiting, No Diarrhea, No Constipation, No Pain, No Heartburn, No Anorexia, No Dysphagia, Hematochezia, No Melena, No Flatulence, No Jaundice Genitourinary: No Dysuria, No Urinary Frequency, No Hematuria, No Urinary Incontinence, No Urgency, No Flank Pain, No Urinary Flow Changes, No Hesitancy Musculoskeletal: No Arthralgias, No Myalgias, No Joint Swelling, No Joint Stiffness, No Back Pain, No Neck Pain, No Injury History Skin: Pruritis Neuro: No Weakness, No Numbness, No Paresthesias, No Loss of Consciousness, No Syncope, No Dizziness, No Headache, No Coordination Changes, No Recent Falls Constitutional Constitutional: Reports anorexia, Reports body aches, Reports daytime sleepiness, Reports difficulty sleeping and Reports fatigue Endocrine Endocrine: Reports fatigue Objective/Exam Narrative Physical exam: General: Awake. Icteric HEENT: Normocephalic, atraumatic, mucous membranes moist. Heart: Regular rate and rhythm, no murmurs. Lungs: Clear to auscultation with no wheezing or crackles. Abdomen: Soft, distended, nontender, positive bowel sounds. ?No guarding or rebound tenderness. Neurologic: Alert and oriented x3, no gross neurological deficit, and patient able to move all 4 extremities. Tremors are noted but no asterixis Extremities: Bilateral 4+ pitting pedal edema noted Skin: Bilateral papular healed rash noted on bilateral upper extremities Assessment & Plan Diagnosis / Problem List (1) Decompensated cirrhosis: Status: Acute Assessment & Plan: Patient is a still complaining of altered sleep cycle which is a sign of grade 1 hepatic encephalopathy Reported that he is taking lactulose and having 2-3 bowel movements every day On 05/31/2024, went to the ED as he noticed increased swelling of his legs and got Lasix injection in the ED and discharged back to home from the ED MELD score is 21 Plan: - Refer to the nursing program coordinator in view of decompensated cirrhosis and as the patient is having MELD score of 21, patient may need liver transplant -Educated on complete alcohol cessation, low-salt intake, fluid restriction and dietary limitations -Repeat labs done in 3 weeks and next appointment is scheduled in 3 weeks for further follow-up with labs -Recommended to continue Lasix, spironolactone, cholestyramine and lactulose. Orders: Referrals Gastroenterology K72.90 - Hepatic failure, unspecified without coma, K74.60 - Unspecified cirrhosis of liver, Z87.19 - Personal history of other diseases of the digestive system Additional Assessment Internal Medicine Attending Note: Case discussed with and agree with note and management plan of Resident Physician as per Resident's Note above. Issues of concern for present visit are as follows: Follow-up visit. History of cirrhosis with decompensation. Recent visit to the emergency department, had increased swelling in legs, received IV Lasix and was discharged to home. Patient has continued to abstain from alcohol use. He is on spironolactone and Lasix daily along with lactulose 20 g 3 times daily. We will make a referral to gastroenterology/hepatology today, MELD score calculated as 21, may be candidate at some point for transplant. Continue with low salt intake and fluid restriction. Will repeat labs in 2 to 3 weeks and reassess. Vital signs stable today. Ariel Sanches MD Physician Billing Established Patient Established Patient: E/M Level 3-CPT 41330 Office Procedures [facility] Level of Care Nursing/Assessment Patient Status: Established Patient Nursing Assessment/Reassessment: Medication Reconciliation, Update PMH in EMR and Vital Signs Coordination of Care: Complex Care and Chronic Disease 1-5, Consent,records obtained, informed consent, Education Simp Pt/Fam, Lab and Imaging orders and Staff clarify orders Established Patient Charge Established Patient Point Assignment: 100 Established Patient Point Charge: EP Level 3 (80-115)
[2024-06-02 14:07] VITALS: BP 125/77; PULSE 71; RESP 18; TEMP 36.6; O2SAT 98; BMI 33.7
== END 2024-06-02 14:39 | disposition home or self-care (01) ==
LOC: HODAHC 13:45
PROVIDERS: Supervising Provider Internal Medicine
DX: K70.30 Alcoholic cirrhosis of liver without ascites (principal); K76.7 Hepatorenal syndrome
CPT/HCPCS: 99213; G0463

== ENCOUNTER 2024-06-23 10:38 | Outpatient (AMB) | payer MEDICAID, SELFPAY ==
[2024-06-23 11:09] VITALS: BP 119/76; PULSE 81; RESP 16; TEMP 36.6; O2SAT 100; BMI 31.8
--- NOTE | 2024-06-23 11:09 | PD.RESCLINIC ---
Vital Signs 06/23/24 11:09 Height 1.75 m Height Method Stated Weight 97.636 kg Weight Measurement Method Standing Scale BMI 31.8 BP 119/76 Blood Pressure Source Automatic Cuff Blood Pressure Location Left Upper Arm Position Sitting Respiration 16 Pulse 81 Pulse Source Monitor Temp 97.9 F Temp Source Temporal Artery Scan Pulse Oximetry (%) 100 Oxygen Delivery Method Room Air Allergies/Meds Allergies & Medications Allergies No Known Allergies Allergy (Verified 06/23/24 11:10) Medication Reconciliation B-complex with vitamin C 1 tab PO QDAY 05/22/24 [History Confirmed 06/23/24] amoxicillin 875 mg-potassium clavulanate 125 mg tablet 1 tab PO BID #20 tabs 05/23/24 [Rx Confirmed 06/23/24] prednisone 20 mg tablet 20 mg PO QDAY #75 tabs 05/23/24 [Rx Confirmed 06/23/24] cholestyramine-aspartame 4 gram oral powder (Cholestyramine Light) 4 g PO QDAY itching #231 grams 06/14/24 [Rx Confirmed 06/23/24] furosemide 20 mg tablet 20 mg PO QDAY fluid retention #30 tabs 06/23/24 [Rx] lactulose 20 gram/30 mL oral solution 20 g (30 mL) PO TID PRN To maintain bowel movement 2-3 times a day #1,500 mL 06/23/24 [Rx] spironolactone 50 mg tablet 50 mg PO QDAY fluid retention 30 days #30 tabs 06/23/24 [Rx] MA Intake Visit Data Collection New Patient or Established: Established Patient (seen at [facility] within 3 years) Seen by Clinical Staff ONLY (RN/MA): No Pain Present Currently: No Pain scale:: 0 Pain Scale Used: Irizarry-Manning/Numerical [employer] Operator Automatic Required: No PCP or OBGYN visit in last 3 months: Yes Hx Now: No Do You Feel Safe at Home: Yes Authorities Contacted: N/A Smoking Status Smoking Status: Former smoker Immunization / Flu Flu Vaccine in the Last 12 Months: No Flu Vaccine Exclusion Criteria: No Exclusion Criteria Past Medical History Past Medical History NEUROLOGIC: Negative Neurological Disorders or Seizures CARDIAC: Negative Cardiac Disorders or Congestive Heart Failure RESPIRATORY: Negative Chronic Obstructive Pulmonary Disease (COPD) or Asthma GENITOURINARY: Negative Renal Disease ENDOCRINE: Negative Diabetes Mellitus Type 1 or Diabetes Mellitus Type 2 HEMATOLOGIC: Negative Sickle Cell Disease OTHER HISTORY: Positive Blood Transfusions; Negative Blood Transfusion Reaction, Anesthesia Reactions or Cancer Social History SMOKING STATUS: Smoking status: Former smoker ALCOHOL: Alcohol Intake: Former ALCOHOL FREQUENCY: Alcohol Intake Frequency: 3 or More Drinks per Day HOUSING: Housing: House LIVES WITH: Lives With: Family Patient Ana Metcalf Social History Living Situation History Housing: House Tobacco History Smoking Status: Former smoker Alcohol History Alcohol Intake: Former Alcohol Intake Frequency: 3 or More Drinks per Day Alcohol Intake Frequency Other:: 5- 24OZ DAILY Domestic Abuse History Do You Feel Safe at Home: Yes Review of Systems Report any current symptoms Only answer those that you have currently: Past Medical History Past Medical History Have you ever been diagnosed with any of the following: Neurological Problems Seizures: No Cardiology Problems Congestive Heart Failure: No Respiratory Problems Chronic Obstructive Pulmonary Disease (COPD): No Asthma: No Genital/Urinary Problems Renal Disease: No Endocrine Problems Diabetes Mellitus Type 1: No Diabetes Mellitus Type 2: No Blood Problems Sickle Cell Disease: No Other Problems Blood Transfusions: Yes Blood Transfusion Reaction: No Anesthesia Reactions: No Cancer: No History of Present Illness HPI Narrative A 28-year-old male with recent hospital admission for decompensated alcoholic cirrhosis and hepatorenal syndrome on 05/17/2024 and underwent 6.5 L paracentesis, treated for MSSA peritonitis presented to the clinic for regular follow-up visit. Patient is still complaining of bleeding spots while having bowel movement and also complaining of altered sleep cycle. Still reported that he is having abdominal distention but decreased from previous hospital admission. Stated that he is using lactulose and having 2-3 bowel movements per day and also stopped alcohol consumption since February. 06/23/2024 The patient is a 28-year-old male history of decompensated alcoholic cirrhosis and GI bleed s/p banding of hemorrhoids, hepatorenal syndrome, came in for follow-up visit, had prior history of bright red bleeding per rectum, was found to have hemorrhoids which ligated by mounter automatic. Patient had prior history of significant ascites and possible SBP underwent paracentesis, currently denies any abdominal distention, no abdominal discomfort or fever. The patient is currently on a prednisone taper for alcoholic hepatitis, will continue with prednisone 20 mg for now, follow taper instructions as prescribed, continue spironolactone 50 mg/day, furosemide 20 mg/day, continue lactulose 20 g, titrate to 2-3 soft bowel movements a day. Waiting on gastroenterology referral insurance authorization. Review of Systems Review of Systems Systems Reviewed: All systems reviewed, normal except as documented Objective/Exam Narrative Physical exam: General: Awake. Icteric HEENT: Normocephalic, atraumatic, mucous membranes moist. Heart: Regular rate and rhythm, no murmurs. Lungs: Clear to auscultation with no wheezing or crackles. Abdomen: Soft, mildly in distended, nontender, positive bowel sounds. ?No guarding or rebound tenderness. Neurologic: Alert and oriented x3, no gross neurological deficit, and patient able to move all 4 extremities. Tremors are noted but no asterixis Extremities: Bilateral 2+ pitting pedal edema noted Skin: Bilateral papular healed rash noted on bilateral upper extremities Assessment & Plan Diagnosis / Problem List (1) Decompensated cirrhosis: Status: Acute Assessment & Plan: Patient had prior history of significant ascites and possible SBP underwent paracentesis, currently denies any abdominal distention, no abdominal discomfort or fever. The patient is currently on a prednisone taper for alcoholic hepatitis, will continue with prednisone 20 mg for now, follow taper instructions as prescribed, continue spironolactone 50 mg/day, furosemide 20 mg/day, continue lactulose 20 g, titrate to 2-3 soft bowel movements a day. Patient reported he had not been taking cholestyramine, as he was unsure how to take it, instructions were provided, he denied any symptoms of itching, patient preferred to hold off on cholestyramine, which is reasonable, prednisone would likely have more tangible effect on decreasing bilirubin secondary to alcoholic hepatitis for now. Waiting on gastroenterology referral insurance authorization. MELD score calculated as 21, may be candidate at some point for transplant. Continue with low salt intake and fluid restriction. Plan: - The patient is currently on a prednisone taper for alcoholic hepatitis, will continue with prednisone 20 mg for now, follow taper instructions as prescribed, continue spironolactone 50 mg/day, furosemide 20 mg/day, continue lactulose 20 g, titrate to 2-3 soft bowel movements a day. Patient reported he had not been taking cholestyramine, as he was unsure how to take it, instructions were provided, he denied any symptoms of itching, patient preferred to hold off on cholestyramine, which is reasonable, prednisone would likely have more tangible effect on decreasing bilirubin secondary to alcoholic hepatitis for now. Medications refilled. - Waiting on gastroenterology referral insurance authorization. Office Procedures [facility] Level of Care Nursing/Assessment Patient Status: Established Patient Nursing Assessment/Reassessment: Medication Reconciliation, Update PMH in EMR and Vital Signs Coordination of Care: Complex Care and Chronic Disease 1-5, Consent,records obtained, informed consent, Education Simp Pt/Fam, Results/Orders obtained and Staff clarify orders Established Patient Charge Established Patient Point Assignment: 90 Established Patient Point Charge: Level 3 (80-115)
== END 2024-06-23 11:36 | disposition home or self-care (01) ==
LOC: HODAHC 10:38
PROVIDERS: Supervising Provider Internal Medicine; Visit Provider Student in an Organized Health Care Education/Training Program
DX: K70.30 Alcoholic cirrhosis of liver without ascites (principal); K70.10 Alcoholic hepatitis without ascites
CPT/HCPCS: 99213; G0463

== ENCOUNTER 2024-09-15 13:25 | Outpatient (AMB) | payer MEDICAID, SELFPAY ==
[2024-09-15 13:49] VITALS: BP 137/66; PULSE 80; RESP 17; TEMP 36.6; O2SAT 99; BMI 30.4
--- NOTE | 2024-09-15 13:49 | PD.RESCLINIC ---
Vital Signs 09/15/24 13:49 Height 1.78 m Height Method Stated Weight 96.332 kg Weight Measurement Method Standing Scale BMI 30.4 BP 137/66 H Blood Pressure Source Automatic Cuff Blood Pressure Location Right Upper Arm Position Sitting Respiration 17 Pulse 80 Pulse Source Monitor Temp 97.9 F Temp Source Temporal Artery Scan Pulse Oximetry (%) 99 Oxygen Delivery Method Room Air Allergies/Meds Allergies & Medications Allergies No Known Allergies Allergy (Verified 09/15/24 13:51) Medication Reconciliation B-complex with vitamin C 1 tab PO QDAY 05/22/24 [History Confirmed 09/15/24] amoxicillin 875 mg-potassium clavulanate 125 mg tablet 1 tab PO BID #20 tabs 05/23/24 [Rx Confirmed 09/15/24] prednisone 20 mg tablet 20 mg PO QDAY #75 tabs 05/23/24 [Rx Confirmed 09/15/24] cholestyramine-aspartame 4 gram oral powder (Cholestyramine Light) 4 g PO QDAY itching #231 grams 06/14/24 [Rx Confirmed 09/15/24] furosemide 20 mg tablet 20 mg PO QDAY fluid retention #30 tabs 08/28/24 [Rx Confirmed 09/15/24] lactulose 20 gram/30 mL oral solution 20 g (30 mL) PO TID PRN To maintain bowel movement 2-3 times a day #1,500 mL 08/28/24 [Rx Confirmed 09/15/24] spironolactone 50 mg tablet 50 mg PO QDAY fluid retention 30 days #30 tabs 08/28/24 [Rx Confirmed 09/15/24] MA Intake Visit Data Collection New Patient or Established: Established Patient (seen at [facility] within 3 years) Seen by Clinical Staff ONLY (RN/MA): No Pain Present Currently: No Pain Scale Used: [facility] Pediatric Physician Required: No PCP or OBGYN visit in last 3 months: Yes Date of Last PCP or OBGYN visit: 06/23/24 Hx Now: No Do You Feel Safe at Home: Yes Smoking Status Smoking Status: Former smoker For Televisit only Telemed Video/Phone Visit: No Verbal consent obtained for Telemed visit?: No Immunization / Flu Flu Vaccine in the Last 12 Months: No Flu Vaccine Exclusion Criteria: No Exclusion Criteria Past Medical History Past Medical History NEUROLOGIC: Negative Neurological Disorders or Seizures CARDIAC: Negative Cardiac Disorders or Congestive Heart Failure RESPIRATORY: Negative Chronic Obstructive Pulmonary Disease (COPD) or Asthma GENITOURINARY: Negative Renal Disease ENDOCRINE: Negative Diabetes Mellitus Type 1 or Diabetes Mellitus Type 2 HEMATOLOGIC: Negative Sickle Cell Disease OTHER HISTORY: Positive Blood Transfusions; Negative Blood Transfusion Reaction, Anesthesia Reactions or Cancer Social History SMOKING STATUS: Smoking status: Former smoker ALCOHOL: Alcohol Intake: Former ALCOHOL FREQUENCY: Alcohol Intake Frequency: 3 or More Drinks per Day HOUSING: Housing: House LIVES WITH: Lives With: Family Patient Portal Questionaires PHQ-9 PHQ-2 Over the last 2 weeks, how often have you been bothered by any of the following problems? 1. Little interest or pleasure in doing things: not at all 2. Feeling down, depressed, or hopeless: not at all Total score: 0 PHQ-9 3. Trouble falling or staying asleep, or sleeping too much: Not at all 4. Feeling tired or having little energy: Not at all 5. Poor appetite or overeating: Not at all 6. Feeling bad about yourself - or that you are a failure or have let yourself or your family down: Not at all 7. Trouble concentrating on things, such as reading the newspaper or watching television: Not at all 8. Moving or speaking so slowly that other people could have noticed? - Or the opposite - being so fidgety or restless that you have been moving around a lot more than usual: not at all 9. Thoughts that you would be better off or of hurting yourself in some way: Not at all Total score: 0 Source: Developed by Drs. Renato Trinidad, Gracia Lopez, Fausto Bryson and colleagues, with an educational alyse from [employer]. Social History Living Situation History Housing: House Tobacco History Smoking Status: Former smoker Alcohol History Alcohol Intake: Former Alcohol Intake Frequency: 3 or More Drinks per Day Alcohol Intake Frequency Other:: 5- 24OZ DAILY Domestic Abuse History Do You Feel Safe at Home: Yes Review of Systems Report any current symptoms Only answer those that you have currently: Past Medical History Past Medical History Have you ever been diagnosed with any of the following: Neurological Problems Seizures: No Cardiology Problems Congestive Heart Failure: No Respiratory Problems Chronic Obstructive Pulmonary Disease (COPD): No Asthma: No Genital/Urinary Problems Renal Disease: No Endocrine Problems Diabetes Mellitus Type 1: No Diabetes Mellitus Type 2: No Blood Problems Sickle Cell Disease: No Other Problems Blood Transfusions: Yes Blood Transfusion Reaction: No Anesthesia Reactions: No Cancer: No History of Present Illness HPI Narrative A 28-year-old male with recent hospital admission for decompensated alcoholic cirrhosis and hepatorenal syndrome on 05/17/2024 and underwent 6.5 L paracentesis, treated for MSSA peritonitis presented to the clinic for regular follow-up visit. Patient is still complaining of bleeding spots while having bowel movement and also complaining of altered sleep cycle. Still reported that he is having abdominal distention but decreased from previous hospital admission. Stated that he is using lactulose and having 2-3 bowel movements per day and also stopped alcohol consumption since February. 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 Patient had prior history of significant ascites and possible SBP underwent paracentesis, currently denies any abdominal distention, no abdominal discomfort or fever. The patient is currently on a prednisone taper for alcoholic hepatitis, will continue with prednisone 20 mg for now, follow taper instructions as prescribed, continue spironolactone 50 mg/day, furosemide 20 mg/day, continue lactulose 20 g, titrate to 2-3 soft bowel movements a day. Waiting on gastroenterology referral insurance authorization. 09/15/2024: Patient came for regular follow-up visit on his alcoholic liver disease status post banding of hemorrhoids, hepatorenal syndrome. No hospital admission in the last 3 months. Patient reported that his abdominal swelling and pedal edema subsided. Reported that the only medication he is using is lactulose since last 2 months and denies use of any other medication. Also reported that he did not have any alcohol intake since he developed liver disease. Also following all the dietary recommendations. Review of Systems Review of Systems Systems Reviewed: All systems reviewed, normal except as documented Objective/Exam Narrative Physical exam: General: Awake. HEENT: Normocephalic, atraumatic, mucous membranes moist. Heart: Regular rate and rhythm, no murmurs. Lungs: Clear to auscultation with no wheezing or crackles. Abdomen: Soft, nondistended, nontender, positive bowel sounds. ?No guarding or rebound tenderness. Neurologic: Alert and oriented x3, no gross neurological deficit, and patient able to move all 4 extremities. Extremities: No edema. Skin: No rash or ecchymoses. Assessment & Plan Diagnosis / Problem List (1) Decompensated cirrhosis: Status: Acute Assessment & Plan: Patient had prior history of Decompensated cirrhosis with significant ascites and possible SBP underwent paracentesis, currently denies any abdominal distention, no abdominal discomfort or fever. The patient was treated with prednisone, spironolactone, furosemide, lactulose. MELD score calculated as 21, at some point for transplant. During this visit there is no more icterus, abdomonal distension and pedal edema noted Stopped taking all the medications except lactulose for the last 2 months and is doing well Plan: - Repeat LFT and CBC ordered, will follow up with the results - Patient can resume his routine work and letter for fitness to work is provided. Office Procedures [facility] Level of Care Nursing/Assessment Patient Status: Established Patient Nursing Assessment/Reassessment: Medication Reconciliation, Update PMH in EMR and Vital Signs Coordination of Care: Complex Care and Chronic Disease 1-5, Consent,records obtained, informed consent, Education Simp Pt/Fam and Staff clarify orders Established Patient Charge Established Patient Point Assignment: 85 Established Patient Point Charge: EP Level 3 (80-115) TB Screening LTBI Screening: Has patient traveled, was born, or resided for at least 1 month, or frequent border crossing into a country with an elevated TB rate: No Immunosuppression, current or planned (HIV, organ transplant, treated with biologic agents, steroids, or other immunosuppression medication): No Close contact to someone with infectious TB disease during lifetime: No Homelessness or incarceration, current or past: No TB testing indicated at this time (at least 1 yes above): No
== END 2024-09-15 14:42 | disposition home or self-care (01) ==
LOC: HODAHC 13:25
PROVIDERS: Supervising Provider Internal Medicine
DX: K70.30 Alcoholic cirrhosis of liver without ascites (principal); K76.7 Hepatorenal syndrome
CPT/HCPCS: 99213; G0463